=== PATIENT | female | born 1950 | race African-American/Black ===

== ENCOUNTER 2023-04-15 09:56 | Outpatient (REF) | payer MEDICARE, SELFPAY ==
--- NOTE | ~2023-04-15 | XR_ITS ---
EXAMINATION: XR HIP, RIGHT CLINICAL INFORMATION: Right hip pain. COMPARISON: None available. TECHNIQUE: AP view of the pelvis and a frog-leg lateral view of the right hip. FINDINGS: There is eomkglni-at-jvtudo osteoarthritis in the right hip with marked cephalad joint space narrowing, marginal osteophytes, articular sclerosis. Additional quzevmrd-ro-rgscul osteoarthritis is present in the pubic symphysis. There is more mild osteoarthritis noted in the left hip and SI joints. Degenerative spondylosis is noted in the lower lumbar spine. No fracture or malalignment. A 5 mm focus of calcific tendinitis is present at the greater trochanter. XR/XR hip RT min 2V IMPRESSION: 1. Vdkyudkb-mb-zrsobm osteoarthritis in the right hip and pubic symphysis. 2. Small focus of calcific tendinitis at the right greater trochanter.
== END 2023-04-15 09:57 | disposition home or self-care (01) ==
LOC: HO.HOSX 09:56
PROVIDERS: Visit Provider Orthopaedic Surgery
DX: M16.11 Unilateral primary osteoarthritis, right hip (principal); M25.551 Pain in right hip; M47.816 Spondylosis without myelopathy or radiculopathy, lumbar region
CPT/HCPCS: 73502; 99202

== ENCOUNTER 2023-04-15 12:46 | Outpatient (AMB) | payer MEDICARE, SELFPAY ==
--- NOTE | 2023-04-15 12:47 | MHC.OFFVIS ---
Intake Vital Signs 04/15/23 13:00 Height 5 ft 5.5 in Weight 175 lb BMI 28.7 Intake Visit Reasons: nnps- right hip pain/ Confirmed Intake Note: Zina is a 72 year old female who presents as a new patient with Right hip pain. Patient reports her pain has been going on for about 2 years and is a 10 on the 1-10 pain scale. She states that she has had cortisone injections that give a little bit of relief. She has also tried Tylenol, anti-inflammatory medicines and tramadol which gave her minimal relief. Most of the pain is located within her right groin. The patient has difficulty walking even short distances because of her pain. At this point her right hip pain is interfering with her activities of daily living and her ability to sleep well through the night. Allergies Sulfa (Sulfonamide Antibiotics) Allergy (Intermediate, Verified 04/15/23 13:03) Anaphylaxis Medication List - Last Reconciled 04/15/23 by Maco Ibrahim MD famotidine 20 mg PO BID hydrocodone-acetaminophen 5-325 mg 1 tab PO Q8H PRN losartan 50 mg PO DAILY tramadol 50 mg PO BID PRN Physical Exam Vital Signs: BMI result Body Mass Index 28.7 Const Other: Well-nourished well-developed very friendly female awake alert and oriented x3 in no acute distress Extrem Other: Bilateral lower extremity examination shows good capillary refill, no skin lesions noted, normal sensation light touch Right hip examination shows decreased range of motion when compared to her left hip, pain with range of motion, no tenderness over her bursa Results Reviewed Results Reviewed: X-rays of the patient's right hip show end-stage degenerative joint disease with grade 4 vcpa-rq-yfhv arthritis, subchondral sclerosis, osteophyte formation, no acute bony abnormalities Assessment & Plan Assessment & Plan (1) Arthritis of right hip: Code(s): M16.11 - Unilateral primary osteoarthritis, right hip Plan Ms. Napoles presents with progressively worsening right hip pain due to end-stage degenerative joint disease. I had a lengthy discussion with the patient regarding the treatment options. At this point she has failed continued non operative treatments. The risks and benefits of right total hip replacement surgery were discussed at length with the patient. The patient wishes to proceed with surgery. She will be scheduled for our next available date. I will see her back 1 week prior to her surgery to answer any final questions that she might have. I did give her a prescription for hydrocodone to help with her pain in the meantime. Feel free to call me at any time should questions regarding her orthopedic management arise. Thank you very much for asking me to see this very friendly patient. I spent 22 minutes in reviewing the patient's records and imaging studies, seeing the patient and documenting in the medical record. Orders: Orders XR hip RT min 2V Today M25.551 - Pain in right hip Medications: New hydrocodone-acetaminophen 5-325 mg Partial Fill upon patient request. 1 tab PO Q8H PRN 30 tabs 0RF pain Coding Level of Care Code New Pt Level 2 (01281) Diagnoses Arthritis of right hip M16.11
[2023-04-15 13:00] VITALS: BMI 28.7
== END 2023-04-15 13:14 | disposition home or self-care (01) ==
PROVIDERS: PCP Internal Medicine; Visit Provider Orthopaedic Surgery
DX: M16.11 Unilateral primary osteoarthritis, right hip (principal)
CPT/HCPCS: 99202

== ENCOUNTER 2023-05-06 11:10 | Outpatient (AMB) | payer MEDICARE, SELFPAY ==
--- NOTE | 2023-05-06 11:16 | MHC.OFFVIS ---
Intake Vital Signs 05/06/23 11:17 Height 5 ft 5 in Weight 175 lb BMI 29.1 Intake Visit Reasons: New Prob- B/L Knee pain Intake Note: Zina is a 72 year old female who presents with bilateral knee pain. Patient reports her pain had been going on for about 6 years and is a 10 on the 1-10 pain scale. She states her pain is worse on the Right and denies any injury and surgery. Her last injections in the knees was in November and gave little relief. The patient also has progressively worsening right hip pain. She is scheduled to undergo right total hip replacement surgery in July. She has tried Tylenol, anti-inflammatory medicines and hydrocodone which gave her only mild relief. Allergies Sulfa (Sulfonamide Antibiotics) Allergy (Intermediate, Verified 04/15/23 13:03) Anaphylaxis Medication List - Last Reconciled 05/06/23 by Mcao Ibrahim MD cholecalciferol (vitamin D3) 25 mcg PO DAILY famotidine 20 mg PO BID fluticasone propionate 50 mcg/actuation (Flonase Allergy Relief) 1 spray intranasal DAILY hydrocodone-acetaminophen 5-325 mg 1 tab PO Q8H PRN losartan 50 mg PO DAILY Physical Exam Vital Signs: BMI result Body Mass Index 29.1 Const Other: Well-nourished well-developed very friendly female awake alert and oriented x3 in no acute distress Extrem Other: Bilateral lower extremity examination shows good capillary refill, no skin lesions noted, normal sensation light touch Bilateral knee examination shows minimal effusions, palpable crepitus with range of motion, pain with range of motion, no instability Office Procedures Joint Injection/Drain Joint Injection/Drain Primary Site: left knee Prep: site was prepped using aseptic technique Injected: 40 mg of, DepoMedrol and 1% plain lidocaine Procedure: The patient tolerated the procedure well Coding 92699 - Large joint Procedure code (CPT) selection complete Joint Injection/Drain Joint Injection/Drain Primary Site: right knee Prep: site was prepped using aseptic technique Injected: 40 mg of, DepoMedrol and 1% plain lidocaine Procedure: The patient tolerated the procedure well Coding 98148 - Large joint Procedure code (CPT) selection complete Results Reviewed Results Reviewed: X-rays of the patient's left knee taken today show moderate joint space narrowing, subchondral sclerosis, no acute bony abnormalities X-rays of the patient's right knee taken today show moderate to severe joint space narrowing, subchondral sclerosis, no acute bony abnormalities Assessment & Plan Assessment & Plan (1) Arthritis of left knee: Code(s): M17.12 - Unilateral primary osteoarthritis, left knee (2) Arthritis of right knee: Code(s): M17.11 - Unilateral primary osteoarthritis, right knee Plan Ms. Napoles presents with bilateral knee pains due to degenerative joint disease. I had a lengthy discussion with the patient regarding the treatment options. The risks and benefits of bilateral knee cortisone injections were discussed at length with the patient. The patient wished to proceed with the injections. She tolerated the injections well. She will continue with her activity modifications. She will follow-up as scheduled for her right total hip replacement surgery preoperative appointment. Feel free to call me at any time should questions regarding her orthopedic management arise. I spent 22 minutes in reviewing the patient's records and imaging studies, seeing the patient and documenting in the medical record. Orders: Orders XR knee RT 3V Today M25.561 - Pain in right knee AMB Joint Injection/Aspiration Today M17.12 - Unilateral primary osteoarthritis, left knee AMB Joint Injection/Aspiration Today M17.11 - Unilateral primary osteoarthritis, right knee XR knee LT 3V Today M25.562 - Pain in left knee Coding Level of Care Code Est Pt Level 2 (73816) Diagnoses Arthritis of left knee M17.12 Arthritis of right knee M17.11 CPT Codes Coding - 58308 Large joint: 47553 - Large joint ([id number]) Coding - 82361 Large joint: 49483 - Large joint ([id number])
[2023-05-06 11:17] VITALS: BMI 29.1
== END 2023-05-06 12:17 | disposition home or self-care (01) ==
PROVIDERS: PCP Internal Medicine; Visit Provider Orthopaedic Surgery
DX: M17.0 Bilateral primary osteoarthritis of knee (principal)
CPT/HCPCS: 20610; 99213

== ENCOUNTER 2023-05-06 11:37 | Outpatient (REF) | payer MEDICARE, SELFPAY ==
--- NOTE | ~2023-05-06 | XR_ITS ---
EXAMINATION: X-RAY BILATERAL KNEES CLINICAL INDICATION: Pain. COMPARISON: Radiograph right knee 08/26/2014. TECHNIQUE: 3 views of each knee. FINDINGS: Right knee: No fracture or subluxation. Moderate to severe joint space narrowing with subcortical sclerosis in the lateral compartment. Mild joint space narrowing of the medial and patellofemoral compartments. Minimal marginal osteophytes in the medial and lateral compartments. Small upper patellar osteophytes. These findings are new compared to 2015. No joint effusion. No significant soft tissue abnormality. Left knee: No fracture or subluxation. Moderate to severe joint space narrowing with subcortical sclerosis in the lateral compartment. Mild joint space narrowing of the medial and patellofemoral compartments. Moderate spurring in the upper pole of the patella. No joint effusion. No significant soft tissue abnormality. XR/XR knee RT 3V IMPRESSION: 1. No acute fracture or subluxation. 2. Moderate to severe arthrosis of the lateral compartments in both knees, slightly more severe on the right knee. 3. Upper patellar spurring, more prominent in the left knee.
--- NOTE | ~2023-05-06 | XR_ITS ---
EXAMINATION: X-RAY BILATERAL KNEES CLINICAL INDICATION: Pain. COMPARISON: Radiograph right knee 08/26/2014. TECHNIQUE: 3 views of each knee. FINDINGS: Right knee: No fracture or subluxation. Moderate to severe joint space narrowing with subcortical sclerosis in the lateral compartment. Mild joint space narrowing of the medial and patellofemoral compartments. Minimal marginal osteophytes in the medial and lateral compartments. Small upper patellar osteophytes. These findings are new compared to 2015. No joint effusion. No significant soft tissue abnormality. Left knee: No fracture or subluxation. Moderate to severe joint space narrowing with subcortical sclerosis in the lateral compartment. Mild joint space narrowing of the medial and patellofemoral compartments. Moderate spurring in the upper pole of the patella. No joint effusion. No significant soft tissue abnormality. XR/XR knee LT 3V IMPRESSION: 1. No acute fracture or subluxation. 2. Moderate to severe arthrosis of the lateral compartments in both knees, slightly more severe on the right knee. 3. Upper patellar spurring, more prominent in the left knee.
== END 2023-05-06 11:38 | disposition home or self-care (01) ==
LOC: HO.HOSX 11:37
PROVIDERS: Visit Provider Orthopaedic Surgery
DX: M17.0 Bilateral primary osteoarthritis of knee (principal); M25.551 Pain in right hip; Z79.899 Other long term (current) drug therapy
CPT/HCPCS: 20610; 73562; 99212; J1020

== ENCOUNTER 2023-06-10 09:03 | Outpatient (REF) | payer MEDICARE, SELFPAY ==
--- NOTE | ~2023-06-10 | XR_ITS ---
EXAMINATION: XR SHOULDER, LEFT CLINICAL INFORMATION: Reason for Exam M25.512 - Pain in left shoulder COMPARISON: None TECHNIQUE: Two views of the shoulder. FINDINGS: No acute fracture or dislocation. Advanced degenerative changes of the shoulder with complete loss of glenohumeral joint space. Soft tissues are unremarkable. XR/XR shoulder LT min 2V IMPRESSION: Advanced degenerative changes of the shoulder with complete loss of glenohumeral joint space.
--- NOTE | ~2023-06-10 | XR_ITS ---
EXAMINATION: XR SHOULDER, RIGHT CLINICAL INFORMATION: Reason for Exam M25.511 - Pain in right shoulder COMPARISON: None TECHNIQUE: Two views of the shoulder. FINDINGS: No acute fracture or dislocation. Advanced degenerative changes of the shoulder with complete loss of glenohumeral joint space and bulky glenohumeral osteophytes. Soft tissues are unremarkable. XR/XR shoulder RT min 2V IMPRESSION: Advanced degenerative changes of the shoulder.
== END 2023-06-10 09:04 | disposition home or self-care (01) ==
LOC: HO.HOSX 09:03
PROVIDERS: Visit Provider Orthopaedic Surgery
DX: M25.50 Pain in unspecified joint (principal); M25.512 Pain in left shoulder; M25.511 Pain in right shoulder
CPT/HCPCS: 20610; 73030; 99212; J1010; J1020

== ENCOUNTER 2023-06-10 12:38 | Outpatient (AMB) | payer MEDICARE, SELFPAY ==
[2023-06-10 12:58] VITALS: BMI 29.1
--- NOTE | 2023-06-10 12:58 | A.OFFVIS_ITS ---
Intake Vital Signs 06/10/23 12:58 Height 5 ft 5 in Weight 175 lb BMI 29.1 Intake Visit Reasons: New Prob - B/L shoulder pain Intake Note: Zina is a 72 year old Right hand dominate female who presents with bilateral shoulder pain and limited ROM. Patient reports her pain has been going on for about 13 years and is a 10 on the 1-10 pain scale. She states her Left is worse and is using hydrocodone for the pain with no relief. She has had surgery in Right shoulder in April 2010. She has had injections in the shoulders they gave her good relief and would like to have bilateral shoulder injections today. Allergies Sulfa (Sulfonamide Antibiotics) Allergy (Intermediate, Verified 04/15/23 13:03) Anaphylaxis Medication List - Last Reconciled 06/10/23 by Maco Ibrahim MD cholecalciferol (vitamin D3) 25 mcg PO DAILY famotidine 20 mg PO BID fluticasone propionate 50 mcg/actuation (Flonase Allergy Relief) 1 spray intranasal DAILY hydrocodone-acetaminophen 5-325 mg 1 tab PO Q8H PRN losartan 50 mg PO DAILY Physical Exam Vital Signs: BMI result Body Mass Index 29.1 Const Other: Well-nourished well-developed very friendly female awake alert and oriented x3 in no acute distress Extrem Other: Bilateral upper extremity examination shows good capillary refill, no skin lesions noted, normal sensation light touch Bilateral shoulder examination shows limited range of motion both passively and actively, pain with range of motion, palpable crepitus with range of motion Office Procedures Joint Injection/Drain Joint Injection/Drain Primary Site: left shoulder Prep: site was prepped using aseptic technique Injected: 40 mg of, DepoMedrol and 1% plain lidocaine Procedure: The patient tolerated the procedure well Coding 27870 - Large joint Procedure code (CPT) selection complete Joint Injection/Drain Joint Injection/Drain Primary Site: right shoulder Prep: site was prepped using aseptic technique Injected: 40 mg of, DepoMedrol and 1% plain lidocaine Procedure: The patient tolerated the procedure well Coding 61384 - Large joint Procedure code (CPT) selection complete Results Reviewed Results Reviewed: X-rays of the patient's bilateral shoulder show severe glenohumeral joint space narrowing, subchondral sclerosis, osteophyte formation, no acute bony abnormalities Assessment & Plan Assessment & Plan (1) Joint pain: Code(s): M25.50 - Pain in unspecified joint (2) Left shoulder pain: Code(s): M25.512 - Pain in left shoulder (3) Right shoulder pain: Code(s): M25.511 - Pain in right shoulder Plan Ms. Napoles presents with bilateral shoulder pains due to severe glenohumeral joint degenerative joint disease as well as diffuse pains in other joints. The patient states that she has not been evaluated for possible rheumatoid arthritis or any other immune diseases. Thus, I will send her for blood work for further evaluation. She wishes to hold off on total shoulder replacement surgery for as long as possible. I agree with this plan. The risks and benefits of bilateral shoulder cortisone injections were discussed at length with the patient. The patient wished to proceed. She tolerated the injections well. The patient is also interested in having total hip replacement surgery in the near future. Thus, I will arrange for her to have an appointment with my partner, Dr. Mima gutierrez, who can further discuss this type of surgery with her. Feel free to call me at any time should questions regarding her orthopedic management arise. I spent 22 minutes in reviewing the patient's records and imaging studies, seeing the patient and documenting in the medical record. Orders: Orders XR shoulder RT min 2V Today M25.511 - Pain in right shoulder Erythrocyte Sedimentation Rate Today M25.50 - Pain in unspecified joint AMB Joint Injection/Aspiration Today M25.512 - Pain in left shoulder XR shoulder LT min 2V Today M25.512 - Pain in left shoulder Rheumatoid Factor Today M25.50 - Pain in unspecified joint AIMEE Reflex Titer and Pattern Today M25.50 - Pain in unspecified joint AMB Joint Injection/Aspiration Today M25.511 - Pain in right shoulder Coding Level of Care Code Est Pt Level 2 (00395) Diagnoses Joint pain M25.50 Left shoulder pain M25.512 Right shoulder pain M25.511 CPT Codes Coding - 45063 Large joint: 13587 - Large joint ([id number]) Coding - 64920 Large joint: 72997 - Large joint ([id number])
== END 2023-06-10 13:42 | disposition home or self-care (01) ==
PROVIDERS: PCP Internal Medicine; Visit Provider Orthopaedic Surgery
DX: M25.512 Pain in left shoulder (principal); M25.511 Pain in right shoulder
CPT/HCPCS: 20610; 99213

== ENCOUNTER 2023-06-29 12:25 | Outpatient (AMB) | payer MEDICARE, SELFPAY ==
[2023-06-29 12:28] VITALS: BMI 29.1
--- NOTE | 2023-06-29 12:28 | MHC.OFFVIS ---
Vital Signs 06/29/23 12:28 Height 5 ft 5 in Weight 175 lb BMI 29.1 Intake Visit Reasons: OV - RT CHAD 08/24/23 - Discuss Surgery Intake Note: Sully is a 63 year old female who presents today for a follow up of her right knee OA. At her last visit she was instructed to continue NSAIDs and continue activity as tolerated. Patient reports that she is having severe pain the is interfering with her daily activities. Allergies Sulfa (Sulfonamide Antibiotics) Allergy (Intermediate, Verified 04/15/23 13:03) Anaphylaxis HPI HPI OV - RT CHAD 08/24/23 - Discuss Surgery: Details: This is a 89 yo F who was scheduyled for right CHAD in late july with Patrice. She describes severe right hipo and knee pain that prevents her from walking, engaging in ADLs without pain and decreases the quality of her life. Patient reports her pain has been going on for about 2 years. She states that she has had cortisone injections that give a little bit of relief. She has also tried Tylenol, anti-inflammatory medicines and tramadol which gave her minimal relief. Most of the pain is located within her right groin. The patient has difficulty walking even short distances because of her pain. At this point her right hip pain is interfering with her activities of daily living and her ability to sleep well through the night. Physical Exam Vital Signs: BMI result Body Mass Index 29.1 Const General: cooperative, healthy appearing, no acute distress, well developed and alert HEENT Head: Yes normal to inspection, Yes normocephalic and Yes atraumatic Mouth: moist mucous membranes Eyes General: appearance normal, both eyes and all related structures EOM: EOMs intact bilaterally Resp Other: No audible wheezing Effort & Inspection: normal respiratory effort Cardio Other: Radial pulse palpable with no rythmic abnormalities Back/Spine/Pelvis Cervical Spine: normal cervical lordosis Skin General skin exam: no rashes or lesions noted Neuro General: no focal motor deficits Extrem Other: +gait antalgia + impingement + stinchfield Minimal IR Psych Appearance: grossly normal and well kempt Mental Status: mental status grossly normal Speech and movement: Normal speech and movement present Affect: normal affect Attitude: cooperative Results Reviewed Results Reviewed: I personally reviewed relevant radiographs. There is compete loss of joint space on the right c/w severe hip OA. Assessment & Plan Assessment & Plan (1) Arthritis of right hip: Code(s): M16.11 - Unilateral primary osteoarthritis, right hip Category: Medical Plan: This is a 72 yo with right hip OA that is sever and compromising the quality of her life. She has failed non operative management and I recommend right hip arthroplasty. I discussed this with her. I discussed the risks benefits and alternatives including but not limited to the risk of pain, infection, stiffness, fracture, dislocation, leg length discrepancy and the need for further surgery as well as potential medical complications such as blood clots, pulmonary embolism and cardiac complications. She expressed understanding and we will proceed forward accordingly. Coding Level of Care Code Est Pt Level 4 (50943) Diagnoses Arthritis of right hip M16.11
== END 2023-06-29 15:50 | disposition home or self-care (01) ==
PROVIDERS: PCP Internal Medicine; Visit Provider Orthopaedic Surgery
DX: M16.11 Unilateral primary osteoarthritis, right hip (principal)
CPT/HCPCS: 99214

== ENCOUNTER → 2023-06-29 12:25 | Outpatient (BNVA) | payer MEDICARE, SELFPAY | PROVIDERS: PCP Internal Medicine; Visit Provider Orthopaedic Surgery | DX: M16.11 Unilateral primary osteoarthritis, right hip (principal); M25.561 Pain in right knee | CPT/HCPCS: 99212 ==

== ENCOUNTER → 2023-07-02 12:51 | Outpatient (BNVA) | payer MEDICARE, SELFPAY | PROVIDERS: PCP Internal Medicine | DX: Z01.818 Encounter for other preprocedural examination (principal) ==

== ENCOUNTER 2023-07-30 13:35 | Outpatient (AMB) | payer MEDICARE, SELFPAY ==
--- NOTE | 2023-07-30 13:43 | A.OFFVIS_ITS ---
Intake Visit Reasons: R CHAD w/NE 08/05/23 Intake Note: Zina a 72 year old female who presents today for a preoperative of right CHAD on 08/05/23 NE. Pain management agreement reviewed and signed. Allergies Sulfa (Sulfonamide Antibiotics) Allergy (Severe, Verified 07/30/23 13:49) Anaphylaxis Medication List - Last Reconciled 07/30/23 by Ethel Laboy PA-C acetaminophen 1,000 mg PO Q6H PRN cholecalciferol (vitamin D3) 25 mcg PO DAILY famotidine 20 mg PO .[facility] [employer] [facility] fluticasone propionate 50 mcg/actuation (Flonase Allergy Relief) 1 spray intranasal DAILY hydrocodone-acetaminophen 5-325 mg 1 tab PO Q8H PRN losartan 50 mg PO DAILY montelukast 10 mg PO DAILY tramadol 50 mg PO QID PRN HPI Comments Details: Ms Napoles presents to the office today for preop visit. She is scheduled for right total hip arthroplasty with Dr. Del Rosario. She continues to have ongoing pain and difficulty with ambulation in the right hip, which is affecting her quality of life; therefore, she has elected to move forward with surgery. [facility] Medical History (Updated 07/28/23 @ 14:13 by Evelina Hernandez RN) Situational anxiety Seasonal allergies Osteoarthritis Osteoarthritis GERD (gastroesophageal reflux disease) HTN (hypertension) Surgical History Hx of colonoscopy Hx of section (1984) History of arthroscopy of right shoulder (~2010) Social History Household Members: Other Household Members Other:: [facility] Housing: Apartment Are you a primary healthcare interpreter to a significant other at home: Yes ([facility], family will help while patient hospitalized) Do you presently have visiting nurse or other home services: No (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 If so, by whom?: No Are you DNR?: No Advance Directives: No Advance Directives Information Provided: Yes Advance Directives on File: No Recently lost weight without trying: No Review of Systems Const All systems reviewed & are unremarkable except as noted in HPI and below Physical Exam Const General: cooperative and no acute distress Orientation/consciousness: patient oriented x3 HEENT Head: Yes normal to inspection, Yes normocephalic and Yes atraumatic Mouth: moist mucous membranes Eyes General: appearance normal, both eyes and all related structures EOM: EOMs intact bilaterally Neck Neck: Yes normal visual inspection and Yes no lymphadenopathy Resp Other: No audible wheezing Effort & Inspection: normal respiratory effort and able to speak in complete sentences Cardio Other: Radial pulse palpable with no rythmic abnormalities Rate: regular rate Peripheral pulses: Peripheral pulses 2+ throughout GI Inspection: Yes normal to inspection Palpation (GI): Soft to palpation Back/Spine/Pelvis Cervical Spine: normal cervical lordosis Skin General skin exam: no rashes or lesions noted Neuro General: patient oriented x3 Extrem Other: +gait antalgia + impingement + stinchfield Minimal IR Psych Appearance: grossly normal and well kempt Mental Status: mental status grossly normal Speech and movement: Normal speech and movement present Affect: normal affect Attitude: cooperative Assessment & Plan Assessment & Plan (1) Arthritis of right hip: Code(s): M16.11 - Unilateral primary osteoarthritis, right hip Category: Medical Plan I discussed in detail the procedure and what to expect pre and post operatively. We discussed the risks, benefits and alternatives to the surgery as well as the rehabilitation course. The risks; which include, but are not limited to infection, bleeding, nerve injury, ongoing pain, swelling, and stiffness, perioperative risk of injury to bones and soft tissues, and blood clots. I?ve answered all questions and with their understanding they have consented to move forward with Right total hip arthroplasty with Dr. Del Rosario sulfa allergy -avoid asa and celebrex anaphalyxis VTE Risk: Elevated Bleeding Risk: Elevated VTE Prophylaxis: 35 days chemical VTE prophylaxis plus IPC's while inpatient. Agent at surgeon's discretion Orders: Orders PT Evaluation and Treatment 07/30/23 Z96.641 - Presence of right artificial hip joint Medications: New [Raised toilet seat] As directed 1 ea 0RF duration 99 days M16.11 - Unilateral primary osteoarthritis, right hip walker Folding Front wheeled walker 1 ea 0RF duration 99 days M16.11 - Unilateral primary osteoarthritis, right hip [SHOWER CHAIR] As directed 1 ea 0RF M16.11 - Unilateral primary osteoarthritis, right hip Patient Instructions: Scribed for Ethel Laboy PA-C, by Paulo Somers medical care manager, on 07/30/2023 at 1:45 PM EST.? I, Ethel Laboy PA-C, have personally reviewed and agree with the information entered by the scribe. Coding Level of Care Code Est Pt Level 3 (41900) Diagnoses Arthritis of right hip M16.11
== END 2023-08-03 10:14 | disposition home or self-care (01) ==
PROVIDERS: PCP Internal Medicine; Visit Provider Physician Assistant
DX: M16.11 Unilateral primary osteoarthritis, right hip (principal)
CPT/HCPCS: 99213

== ENCOUNTER → 2023-07-30 13:35 | Outpatient (BNVA) | payer MEDICARE, SELFPAY | PROVIDERS: PCP Internal Medicine; Visit Provider Physician Assistant | DX: M16.11 Unilateral primary osteoarthritis, right hip (principal) | CPT/HCPCS: 99212 ==

== ENCOUNTER 2023-08-05 07:10 | Day surgery (SDC) | payer MEDICARE, SELFPAY ==
[2023-07-28 13:50] VITALS: BP 124/79; PULSE 84; RESP 16; O2SAT 99; BMI 29.6
[2023-07-28 16:23] LABS: MRSA Nasal PCR NEGATIVE (Negative); SA Nasal PCR NEGATIVE (Negative)
[2023-08-05] VITALS (19 sets, daily range): BP systolic 142–179; BP diastolic 67–89; PULSE 64–89; RESP 11–24; TEMP 36.3–37; O2SAT 96–100
--- NOTE | ~2023-08-05 | XR_ITS ---
EXAMINATION: XR PELVIS CLINICAL INFORMATION: Status post right total hip arthroplasty COMPARISON: X-ray the pelvis and right hip April 2023 TECHNIQUE: AP view of the pelvis. FINDINGS: There is a right total hip arthroplasty with components in usual position. No periprosthetic fracture or suspicious area of lucency. Trace gas within the soft tissues compatible with postoperative change. There are advanced degenerative changes of the symphysis pubis. Sacroiliac joints unremarkable. Surrounding bone and soft tissues unremarkable. XR/XR pelvis 1-2V IMPRESSION: Right total hip arthroplasty without complication by x-ray.
[2023-08-05] MEDS: oxyCODONE HCl ER 10 MG TAB.ER.12H PO ×2 (08:05→20:58)
[2023-08-05] MEDS: Lactated Ringers 1,000 ML 100 ML IVCONT ×2 (08:05→14:03)
--- NOTE | 2023-08-05 09:01 | PC.NURSE ---
iv inserted by anesthesia #24 left wrist
--- NOTE | 2023-08-05 09:05 | HO.ANESPROP2 ---
Documented by User: Tsering Sharif NP 08/04/23 09:18 HPI - Anesthesia Eval Consult details Narrative: 72yo F for Right Hip Total Replacement Medically optimized. PAT with Dr Germain 07/28/23 [facility] Active Problems Active Problems: All Active Problems Joint pain (Acute) Right shoulder pain (Acute) Left shoulder pain (Acute) Arthritis of right knee (Acute) Arthritis of left knee (Acute) Right knee pain (Acute) Left knee pain (Acute) PMR (polymyalgia rheumatica) (Acute) Osteoporosis (Acute) Osteoarthritis (Acute) Oral herpes (Acute) HTN (hypertension) (Acute) GERD (gastroesophageal reflux disease) (Acute) Environmental allergies (Acute) Edema (Acute) Chronic sinusitis (Acute) Arthritis of right hip (Acute) Right hip pain (Acute) Past Medical History Medical History (Updated 07/28/23 @ 14:13 by Evelina Hernandez RN) Situational anxiety Seasonal allergies Osteoarthritis Osteoarthritis GERD (gastroesophageal reflux disease) HTN (hypertension) Surgical History Surgical History Hx of colonoscopy Hx of section (1984) History of arthroscopy of right shoulder (~2010) Social History Social History Household Members: Other Household Members Other:: [facility] Housing: Apartment Are you a primary health care marketing specialist to a significant other at home: Yes ([facility], family will help while patient hospitalized) Do you presently have visiting nurse or other home services: No (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-op) Comment: aware of trip hazard Patient Tobacco Use Status: Never used Tobacco Meds Allergies Allergy/AdvReac Type Severity Reaction Status Date / Time Sulfa (Sulfonamide Allergy Severe Anaphylaxis Verified 07/30/23 13:49 Antibiotics) Home Medications ?Medication ?Instructions ?Recorded ?Confirmed ?Last Taken ?Type famotidine 20 mg tablet 20 mg PO .AFTERNOON AND MARY 04/15/23 07/30/23 08/04/23 History losartan 50 mg tablet 50 mg PO DAILY 04/15/23 07/30/23 08/04/23 History cholecalciferol (vitamin D3) 25 25 mcg PO DAILY 04/17/23 07/30/23 08/04/23 History mcg (1,000 unit) capsule fluticasone propionate 50 1 spray intranasal DAILY 04/17/23 07/30/23 08/04/23 History mcg/actuation nasal spray,suspension (Flonase Allergy Relief) tramadol 50 mg tablet 50 mg PO QID PRN Pain 07/02/23 07/30/23 08/04/23 History acetaminophen 500 mg tablet 1,000 mg PO Q6H PRN Pain 07/24/23 07/30/23 08/04/23 History montelukast 10 mg tablet 10 mg PO DAILY 07/24/23 07/30/23 08/05/23 History Exam Height,Weight and Vital Signs: Height 5 ft 5.5 in Weight 81.8 kg Last Vital Signs Pulse 84 07/28/23 13:50 Resp 16 07/28/23 13:50 BP 124/79 07/28/23 13:50 Pulse Ox 99 07/28/23 13:50 O2 Del Method Room Air 07/28/23 13:50 Pertinent Lab Results Pertinent Lab Results: Laboratory Tests 07/28/23 07/28/23 14:30 14:55 Nasal Screen MRSA (PCR) NEGATIVE Nasal S. aureus Screen NEGATIVE Nasal MRSA/S.aureus Interp SEE NOTE Blood Type A Positive Antibody Screen NEGATIVE CBC and BMP 07/2023 from outside facility WNL except low H&H Narrative Narrative: EKG 07/2023 NSR @ 75 Min volt criteria for LVH Assessment and Plan Assessment Anesthesia Assessment: Chart Reviewed Documented by User: Radha Levine DO 08/05/23 09:21 [facility] Past Medical History Medical History (Updated 07/28/23 @ 14:13 by Evelina Hernandez RN) Situational anxiety Seasonal allergies Osteoarthritis Osteoarthritis GERD (gastroesophageal reflux disease) HTN (hypertension) Family History Family history of problems with anesthesia: No Surgical History Surgical History Hx of colonoscopy Hx of section (1984) History of arthroscopy of right shoulder (~2010) History of Problems with Anesthesia: No Social History Social History Household Members: Other Household Members Other:: [facility] Housing: Apartment Are you a primary health care marketing specialist to a significant other at home: Yes ([facility], family will help while patient hospitalized) Do you presently have visiting nurse or other home services: No (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-op) Comment: aware of trip hazard Patient Tobacco Use Status: Never used Tobacco Meds Allergies Allergy/AdvReac Type Severity Reaction Status Date / Time Sulfa (Sulfonamide Allergy Severe Anaphylaxis Verified 07/30/23 13:49 Antibiotics) Home Medications ?Medication ?Instructions ?Recorded ?Confirmed ?Last Taken ?Type famotidine 20 mg tablet 20 mg PO .[facility]ON AND MARY 04/15/23 07/30/23 08/04/23 History losartan 50 mg tablet 50 mg PO DAILY 04/15/23 07/30/23 08/04/23 History cholecalciferol (vitamin D3) 25 25 mcg PO DAILY 04/17/23 07/30/23 08/04/23 History mcg (1,000 unit) capsule fluticasone propionate 50 1 spray intranasal DAILY 04/17/23 07/30/23 08/04/23 History mcg/actuation nasal spray,suspension (Flonase Allergy Relief) tramadol 50 mg tablet 50 mg PO QID PRN Pain 07/02/23 07/30/23 08/04/23 History acetaminophen 500 mg tablet 1,000 mg PO Q6H PRN Pain 07/24/23 07/30/23 08/04/23 History montelukast 10 mg tablet 10 mg PO DAILY 07/24/23 07/30/23 08/05/23 History Exam Exam Date and Time: August 05, 2023 0902 Height,Weight and Vital Signs: Height 5 ft 5.5 in Weight 81.8 kg Last Vital Signs Pulse 84 07/28/23 13:50 Resp 16 07/28/23 13:50 BP 124/79 07/28/23 13:50 Pulse Ox 99 07/28/23 13:50 O2 Del Method Room Air 07/28/23 13:50 Height 5 ft 5.5 in Weight 81.8 kg Vital Signs Pulse Rate 84 07/28/23 13:50 Respiratory Rate 16 07/28/23 13:50 Blood Pressure 124/79 07/28/23 13:50 Pulse Oximetry 99 07/28/23 13:50 Oxygen Delivery Method Room Air 07/28/23 13:50 Temperature 98.4 F 08/05/23 07:58 Pulse Rate 89 08/05/23 07:58 Respiratory Rate 20 08/05/23 07:58 Blood Pressure 146/87 H 08/05/23 07:58 Pulse Oximetry 98 08/05/23 07:58 Oxygen Delivery Method Room Air 08/05/23 07:58 Airway Mallampati Class: III TM Dist: >3cm Neck ROM: Full Loose/Missing/Broken Teeth: No (patient denies any loose or broken teeth) Heart: S1S2 Lungs: CTAB Assessment and Plan Assessment Anesthesia Assessment: Anesthesia Plan Discussed and Chart Reviewed Final Anesthetic Review Family History of Problems with Anesthesia: No History of Problems with Anesthesia: No NPO: Yes ASA Class: III Final Preanesthetic Review: No Changes in Pt Med Stat, Meds/Allgs Chart Reviewed, Consent Obtained/Reviewed and Anes Risks/Benef Reviewed Patient Risk: Intermediate Procedure Risk: Intermediate Anesthetic Plan Anesthetic Plan: GA and Agree w/ Assess. and Plan Disposition: Standard PACU
--- NOTE | 2023-08-05 10:00 | MHC.SHP ---
Pre-Procedural Eval Section A - 24 Hr Update-Section A only Date of Service: 08/05/23 The patient is an INPATIENT: No Changes since office visit: No Cold of Flu in the past 2 weeks, No New Medical Problems, No Changes in Medication and No Patient answered all questions The patient has been examined within 24 hours of the surgical procedure. The History & Physical has been completed within 30 days and I have reviewed it.: Yes Section B - Complete if H&P > 30 days Chief Complaint: RTHA Allergies: Allergies Allergy/AdvReac Type Severity Reaction Status Date / Time Sulfa (Sulfonamide Allergy Severe Anaphylaxis Verified 07/30/23 13:49 Antibiotics) Plan I have reviewed the history and physical and performed a pertinent physical examination on my patient. No changes have occurred unless specified. Time Spent With Patient Time: Total time managing care of this patient today ____ minutes.
[2023-08-05] MEDS: HYDROmorphone HCl 0.5 MG/0.5 ML SYRINGE IVPUSH ×5 (12:15→12:42)
--- NOTE | 2023-08-05 13:57 | HO.PM.IMCN ---
History of Present Illness Data of Consult Service Date: 08/05/23 Requesting physician: Ethel Laboy Primary Care Provider: Jarod Wu MD [facility] Reason for consult: medical management 72 year old female with history of gerd, htn, pmr, and oa admitted to orthopedic surgery with consult placed to hospitalist service for medical management. She reports chronic body wide pain particularly in the shoulders and hips. She is status post right CHAD and is reporting pain focally. Does appear she may carry the diagnosis of polymyalgia rheumatica which she was not aware of. She states she is never followed with a windshield repair technician but upon reading Orthopedic office notes it appears that there is also suspicion that this may be contributing to the patient's overall clinical picture. Labs were ordered but are unavailable for review including ESR, CRP, AIMEE, and rheumatoid factor. She is mildly hypertensive to 168/74 and remains on 2 L supplemental O2 postoperatively but denies any shortness breath, lightheadedness, palpitations, chest pain. Oximetry is currently 100% on 2 L. she denies alcohol use, cigarette smoking, or drug use. Review of Systems Review of Systems: Yes all other systems are reviewed and are negative [facility] Medical History (Updated 08/05/23 @ 17:44 by MALACHI Bedolla) Osteoporosis PMR (polymyalgia rheumatica) Situational anxiety Seasonal allergies Osteoarthritis Osteoarthritis GERD (gastroesophageal reflux disease) HTN (hypertension) Surgical History Hx of colonoscopy Hx of section (1984) History of arthroscopy of right shoulder (~2010) Social History Household Members: Family Household Members Other:: [facility] Housing: House Are you a primary behavioral health care coordinator to a significant other at home: Yes ([facility], family will help while patient hospitalized) Do you presently have visiting nurse or other home services: No Comment: right hip Patient Tobacco Use Status: Never used Tobacco Meds Allergies Allergy/AdvReac Type Severity Reaction Status Date / Time Sulfa (Sulfonamide Allergy Severe Anaphylaxis Verified 07/30/23 13:49 Antibiotics) Active Medications: Current Medications Acetaminophen (Acetaminophen 325 Mg Tablet) 650 mg PO Q6H PRN PRN Reason: Pain, Mild (Pain Scale 1-3) Aspirin (Aspirin 325 Mg Tablet) 325 mg PO BID MEGHANN Celecoxib (Celecoxib 200 Mg Capsule) 200 mg PO BID [facility] Docusate Sodium (Docusate Sodium 100 Mg Capsule) 100 mg PO BID [facility] Famotidine (Famotidine 20 Mg Tablet) 20 mg PO BID@1400,2100 [facility] Fluticasone Propionate (Fluticasone Propionate Nasal [address] [place]) 1 spray NOSTRIL-B DAILY [facility] Hydromorphone HCl (Hydromorphone Hcl 0.5 Mg/0.5 Ml Syringe) 0.5 mg IVPUSH Q5M PRN; Protocol PRN Reason: Pain, Severe (Pain Scale 7-10) Stop: 08/05/23 18:39 Last Admin: 08/05/23 12:42 Dose: 0.5 mg Hydromorphone HCl (Hydromorphone Hcl 0.5 Mg/0.5 Ml Syringe) 0.25 mg IVPUSH Q4H PRN; Protocol PRN Reason: Pain, Severe (Pain Scale 7-10) Lactated Ringer's (Lr) 1,000 mls @ 100 mls/hr IVCONT .Q10H [facility] Cefazolin Sodium/Dextrose (Ancef) 2 gm in 50 mls @ 100 mls/hr IV POSTOP ONE Stop: 08/05/23 14:18 Losartan Potassium (Losartan Potassium 50 Mg Tablet) 50 mg PO DAILY [facility]; Protocol Montelukast Sodium (Montelukast Sodium 10 Mg Tablet) 10 mg PO DAILY [facility] Ondansetron HCl (Ondansetron Hcl 4 Mg/2 Ml Vial) 4 mg IVPUSH Q8H PRN PRN Reason: Nausea and Vomiting Oxycodone HCl (Oxycodone Hcl Immed Release 5 Mg Tablet) 5 mg PO Q4H PRN PRN Reason: Pain, Moderate(Pain Scale 4-6) Oxycodone HCl (Oxycodone Hcl Er 10 Mg Tab.Er.12h) 10 mg PO BID [facility] Sodium Chloride (0.9 % Sodium Chloride Flush 3 Ml Syringe) 3 ml IVFLUSH QSHIFT [facility] Vitamin D (Cholecalciferol (Vitamin D3) 25 Mcg Tablet) 25 mcg PO DAILY [facility] Home Medications ?Medication ?Instructions ?Recorded ?Confirmed ?Last Taken ?Type famotidine 20 mg tablet 20 mg PO BID 04/15/23 08/05/23 08/04/23 History losartan 50 mg tablet 50 mg PO DAILY 04/15/23 07/30/23 08/04/23 History cholecalciferol (vitamin D3) 25 25 mcg PO DAILY 04/17/23 07/30/23 08/04/23 History mcg (1,000 unit) capsule fluticasone propionate 50 1 spray intranasal DAILY 04/17/23 07/30/23 08/04/23 History mcg/actuation nasal spray,suspension (Flonase Allergy Relief) tramadol 50 mg tablet 50 mg PO QID PRN Pain 07/02/23 07/30/23 08/04/23 History acetaminophen 500 mg tablet 1,000 mg PO Q6H PRN Pain 07/24/23 07/30/23 08/04/23 History montelukast 10 mg tablet 10 mg PO DAILY 07/24/23 07/30/23 08/05/23 History Physical Exam Vital Signs and Narrative: Vital Signs: Last Vital Signs Temp 97.6 F 08/05/23 13:20 Pulse 69 08/05/23 13:35 Resp 12 08/05/23 13:35 BP 153/67 H 08/05/23 13:35 Pulse Ox 99 08/05/23 13:35 O2 Del Method Nasal Cannula wit h Capnography 08/05/23 13:35 O2 Flow Rate 2 08/05/23 13:35 BMI result Body Mass Index 29.6 Constitutional - Awake and Alert, No apparent distress Eyes - PERRLA, EOMI Cardiovascular - S1S2, RRR, No edema Respiratory - Normal lung expansion, Normal respiratory effort, No respiratory distress, CTA bilaterally Extremities - no calf tenderness bilaterally, no swelling Skin - Warm/Dry Neurological - Alert & oriented x3 Psychological - Appropriate affect Assessment and Plan (1) Osteoarthritis of right hip: Status: Acute Plan 72 year old female with history of gerd, htn, pmr, and oa admitted to orthopedic surgery with consult placed to hospitalist service for medical management. #OA R Hip s/p CHAD POD0 -plan per Orthopedic surgery #? Polymyalgia rheumatica -hx reported in [facility] record but denies following with rheumatology. Labs orderd by Dr. Pinzon but results are unavailable -recommend outpt follow up with rheumatology for further evalaution and possible management # hypertension -currently hypertensive to 168/74 and has been hypertensive since arrival -would recommend restarting losartan 50 mg tomorrow a.m. -monitor blood pressures # GERD -continue famotidine Thank you for allowing me to participate in this consult. Signing off at this time. Please do not hesitate to call for further questions or for any acute medical issues that should arise.
[2023-08-05] MEDS: Famotidine 20 MG TABLET PO ×2 (15:12→20:58)
[2023-08-05] MEDS: 0.9 % Sodium Chloride Flush 3 ML SYRINGE IVFLUSH ×2 (15:14→21:56)
[2023-08-05] MEDS: Acetaminophen 325 MG TABLET 650 MG PO (15:31)
[2023-08-05] MEDS: oxyCODONE HCl Immed Release 5 MG TABLET PO (15:32)
[2023-08-05] MEDS: ceFAZolin Sodium/Dextrose,Iso 2 GM/50 ML PIGGYBACK IV (16:56)
--- NOTE | 2023-08-05 18:04 | PC.NURSE ---
Pt assisted OOB to commode to void
[2023-08-05] MEDS: HYDROmorphone HCl 0.5 MG/0.5 ML SYRINGE 0.25 MG IVPUSH ×2 (18:09→22:13)
--- NOTE | 2023-08-05 18:16 | PHA.MEDREC ---
Pharmacy Consult ? Medication Reconciliation Pharmacy has completed the medication reconciliation. Confirmed medications with Patient.
[2023-08-05] MEDS: Docusate Sodium 100 MG CAPSULE PO (20:58)
[2023-08-05] MEDS: Celecoxib 200 MG CAPSULE PO (20:59)
[2023-08-06] MEDS: Lactated Ringers 1,000 ML 100 ML IVCONT ×3 (00:23→19:11)
[2023-08-06] MEDS: HYDROmorphone HCl 0.5 MG/0.5 ML SYRINGE 0.25 MG IVPUSH ×3 (03:56→13:19)
[2023-08-06 03:58] VITALS: BP 143/65; PULSE 69; RESP 18; TEMP 36.3; O2SAT 97
[2023-08-06 07:51] VITALS: BP 147/65; PULSE 73; RESP 18; TEMP 36.2; O2SAT 97
[2023-08-06] MEDS: Montelukast Sodium 10 MG TABLET PO (07:55)
[2023-08-06] MEDS: Cholecalciferol (Vitamin D3) 25 MCG TABLET PO (07:55)
[2023-08-06] MEDS: Docusate Sodium 100 MG CAPSULE PO ×2 (07:55→21:11)
[2023-08-06] MEDS: Aspirin 325 MG TABLET PO ×2 (07:55→21:10)
[2023-08-06 07:57] VITALS: BP 147/65
[2023-08-06] MEDS: Losartan Potassium 50 MG TABLET PO (07:57)
[2023-08-06] MEDS: Celecoxib 200 MG CAPSULE PO ×2 (07:58→21:11)
[2023-08-06] MEDS: oxyCODONE HCl ER 10 MG TAB.ER.12H PO ×2 (07:58→21:10)
[2023-08-06] MEDS: Fluticasone Propionate Nasal 16 GM SPRAY 1 SPRAY NOSTRIL-B (08:49)
[2023-08-06 09:19] VITALS: BP 147/65
--- NOTE | 2023-08-06 09:23 | P.PNOP_ITS ---
Subjective Subjective Date of Service: 08/06/23 Interval history: POD 1 s/p RT CHAD no overnight events resting in bed , tolerating pain well denies cp, palpitations, sob Physical Exam Vital Signs: Vital Signs: Last Vital Signs Temp 97.2 F 08/06/23 07:51 Pulse 73 08/06/23 07:51 Resp 18 08/06/23 07:51 BP 147/65 H 08/06/23 07:57 Pulse Ox 97 08/06/23 07:51 O2 Del Method Room Air 08/06/23 07:51 O2 Flow Rate 2 08/05/23 14:16 BMI result Body Mass Index 29.6 Extrem: Other: incision clean dry and intact. Ganesh intact. No erythema or effusion. Calf supple nontender. Neurovascularly intact. Procedures Date of Service Date of Service: 08/06/23 Progress Note: A&P Assessment and plan (1) History of total right hip replacement: Status: Acute Assessment and Plan: * Continue pain mgmnt * Begin Aspirin for dvt ppx * begin PT for RT CHAD * Dispo planning-Pending PT eval, pain mgmnt Need for continued inpatient stay: Time Spent With Patient Time: Total time managing care of this patient today ____ minutes. Quality Stroke Does the patient have a stroke diagnosis?: No VTE Prior VTE?: No VTE Risk Level:: Surgical - very high VTE Device Contraindication: N/A - Device Ordered VTE Drug Contraindication: N/A - Med Ordered
--- NOTE | 2023-08-06 09:23 | HO.POSTANES ---
Post Anesthesia Evaluation Post Anesthesia Evaluation Date of Service: 08/06/23 Vital Signs: Vital Signs Temp Pulse Resp BP Pulse Ox O2 Del Method 08/06/23 07:57 147/65 H 08/06/23 07:51 97.2 F 73 18 147/65 H 97 Room Air 08/06/23 03:58 97.4 F 69 18 143/65 H 97 Room Air Anesthesia: General Endotracheal-GETA Mental Status: Awake Nausea/Vomiting: None Hydration: Adequate Anesthesia-Related Issues: No Anes. Related Issues Comments: Patient care team still working to achieve adequate pain control via scheduled Tylenol, PRN oxycodone, and PRN IV Dilaudid.
[2023-08-06] MEDS: oxyCODONE HCl Immed Release 5 MG TABLET PO ×2 (09:46→16:38)
--- NOTE | 2023-08-06 12:05 | MHC.CM.PN ---
Addendum entered by Clarissa Harkins 08/06/23 16:12: PT NOW REQUESTS STR AT A SNF IN [facility]. [facility] OFFERED A BED AND PT ACCEPTS. CENTER WILL START AUTH WITH [facility]. Original Note: [facility] DELIVERED PT DECLINED TO SIGN DUE TO PAIN LEVEL BUT VERBALIZES UNDERSTANDING, WHITE COPY LEFT AT BEDSIDE. PT LIVES WITH GRANDDAUGHTER AND IS INDEPENDENT AT BASELINE. + HCP PCP DR. HINES DP: PT IS OPEN TO STR, FIRST CHOICE [facility]. REFERRAL SENT. WILL REQUIRE BLS TRANSPORT. CM WILL CONTINUE TO FOLLOW FOR ANY CHANGE IN DC PLAN/NEEDS.
[2023-08-06] MEDS: Famotidine 20 MG TABLET PO ×2 (13:19→21:17)
[2023-08-06 15:19] VITALS: BP 136/60; PULSE 79; RESP 18; TEMP 36.6; O2SAT 97
--- NOTE | 2023-08-06 16:30 | PC.NURSE ---
Pt. been complaining about many things from 0705 this morning, stated nobody cared for her, stated she's been calling but nobody attending. Also complained that she's not ready to be up because of surgical pain and chronic pain. Pain medication administered, then she complained she's been sitting up too long in chair or complained about sequential either being on or off too long. Complained about nursing staff, dietitian, Pysical therapy etc . All care has been provided and staff have been supportive.wq
[2023-08-06 19:39] VITALS: BP 165/70; PULSE 81; RESP 18; TEMP 36.4; O2SAT 98
[2023-08-07] VITALS (7 sets, daily range): BP systolic 107–139; BP diastolic 57–68; PULSE 75–98; RESP 16–18; TEMP 36.1–37; O2SAT 95–100
[2023-08-07] MEDS: HYDROmorphone HCl 0.5 MG/0.5 ML SYRINGE 0.25 MG IVPUSH ×3 (03:05→13:35)
[2023-08-07] MEDS: Lactated Ringers 1,000 ML 100 ML IVCONT (05:42)
--- NOTE | 2023-08-07 07:30 | P.DS_ITS ---
DS: Providers Provider Date of Service: 08/07/23 Primary care physician: Jarod Wu MD Consults: 08/05/23 13:49 Consult to Hospitalist Routine Comment: Consulting Provider: Hospitalist Reason For Exam: routine medical management - HTN DS: Diagnosis Discharge Diagnosis (1) History of total right hip replacement: Status: Acute DS: Summary Hospital Course Hospital Course: The patient underwent a successful right total hip arthroplasty, they were transferred to PACU and then to the floor to recover. During their stay, their vitals were stable, afebrile at 97.9. Labs were unremarkable, H/H . POD 1 they were started on Aspirin 325mg po bid for DVT ppx, they also received Physical Therapy services twice a day. Prior to discharge, their dressing was clean dry and intact, and the plan was to be discharged to short term rehab. Time Attestation Discharge Coordination Time (in mins): 30 Quality: Safe Use of Opioids Does Pt have an Active Cancer Diagnosis on the Problem List?: No Quality: Stroke Does the patient have a stroke diagnosis?: No Physical Exam Vital Signs: Vital Signs: Last Vital Signs Temp 97.7 F 08/07/23 02:56 Pulse 86 08/07/23 02:56 Resp 18 08/07/23 02:56 BP 139/68 08/07/23 02:56 Pulse Ox 100 08/07/23 02:56 O2 Del Method Room Air 08/07/23 02:56 O2 Flow Rate 2 08/05/23 14:16 BMI result Body Mass Index 29.6 Extrem: Other: right hip incision clean dry and intact. Ganesh intact. No erythema or effusion. Calf supple nontender. Neurovascularly intact. DS: Data Data Completed and Pending Pending studies at discharge: Pending at discharge 08/05/23 11:28 Surgical [PTH] Routine Discharge Plan Discharge Referrals: Argenis Interiano PA-C [Physician Corporate Staff Accountant] - 2 Weeks (08/20/23 13:15 [facility] Argenis Interiano PA-C) Discharge Medications: New celecoxib 200 mg Capsule 200 mg PO BID 30 Days Qty: 60 0RF acetaminophen 325 mg Tablet 650 mg PO Q6H PRN (Reason: Pain, Mild (Pain Scale 1-3)) 30 Days Qty: 240 0RF aspirin 325 mg Tablet 325 mg PO BID 42 Days Qty: 84 0RF docusate sodium 100 mg Capsule 100 mg PO BID 14 Days Qty: 28 0RF oxycodone 5 mg tablet 5 mg PO Q4H PRN (Reason: pain (scale score 4-6)) 7 Days Qty: 42 0RF Rx Instructions: Partial Fill upon patient request. Continued montelukast 10 mg tablet 10 mg PO DAILY (DME) Raised toilet seat See Rx Instructions .ROUTE .MEDSUPPLY Qty: 1 0RF Rx Instructions: As directed (DME) walker Misc See Rx Instructions .MEDSUPPLY Qty: 1 0RF Rx Instructions: Folding Front wheeled walker (DME) SHOWER CHAIR See Rx Instructions .ROUTE .MEDSUPPLY Qty: 1 0RF Rx Instructions: As directed losartan 50 mg tablet 50 mg PO DAILY famotidine 20 mg tablet 20 mg PO DAILY fluticasone propionate [Flonase Allergy Relief] 50 mcg/actuation spray,suspension 1 spray intranasal DAILY Rx Instructions: administer into each nostril Discontinued hydrocodone-acetaminophen 5-325 mg tablet 1 tab PO Q8H PRN (Reason: pain) Qty: 30 0RF Rx Instructions: Partial Fill upon patient request. acetaminophen 500 mg Tablet 1,500 mg PO TID PRN (Reason: Pain) tramadol 50 mg tablet 50 mg PO QID PRN (Reason: Pain) Discharge Orders: Discharge Order (Routine); Ordered 08/07/23 Ordered By: Argenis Interiano Diet: Regular diet Activity on Discharge: Use cane or walker Activity Restrictions/Additional Instructions: * Physical Therapy for Total hip arthroplasty: wbat, posterior precautions, gait training, ROM, strength * Limit stair climbing * No showering, no tub bath-keep dressing clean, dry and intact * No driving x6 weeks * Continue Aspirin twice a day x 6 weeks * Follow up with [facility] in 2 weeks: Print Language: Barbadian
--- NOTE | 2023-08-07 08:42 | MHC.CM.PN ---
DP: PT HAS BEEN MEDICALLY CLEARED FOR DC TO STR AT [facility]. CENTER CONTINUES TO AWAIT INUSRANCE AUTH FROM [facility]. CM WILL CONTINUE TO FOLLOW.
[2023-08-07] MEDS: 0.9 % Sodium Chloride Flush 3 ML SYRINGE IVFLUSH ×3 (08:57→20:33)
[2023-08-07] MEDS: Cholecalciferol (Vitamin D3) 25 MCG TABLET PO (09:02)
[2023-08-07] MEDS: oxyCODONE HCl ER 10 MG TAB.ER.12H PO ×2 (09:02→20:32)
[2023-08-07] MEDS: Celecoxib 200 MG CAPSULE PO ×2 (09:03→20:32)
[2023-08-07] MEDS: Aspirin 325 MG TABLET PO ×2 (09:03→20:32)
[2023-08-07] MEDS: Losartan Potassium 50 MG TABLET PO (09:04)
[2023-08-07] MEDS: Docusate Sodium 100 MG CAPSULE PO ×2 (09:04→20:33)
[2023-08-07] MEDS: Montelukast Sodium 10 MG TABLET PO (09:04)
[2023-08-07] MEDS: oxyCODONE HCl Immed Release 5 MG TABLET PO ×2 (11:29→15:31)
[2023-08-07] MEDS: Acetaminophen 325 MG TABLET 650 MG PO (11:30)
--- NOTE | 2023-08-07 11:54 | PC.NURSE ---
Patient c/o inadequate pain control,Dr. Del Rosario notified while seeing patient this am,questioned posssibility of increasing pain med doses
--- NOTE | 2023-08-07 13:15 | MHC.CM.PN ---
DP: PT HAS BEEN MEDICALLY CLEARED FOR DC TO STR AT [facility]. [place] STARTED AUTH PROCESS ON 08/05 AND HAVE NOT YET OBTAINED [employer] AUTH. CM WILL CONTINUE TO AWAIT AUTH FROM [place]. PT/PA AWARE THAT AUTH HAS NOT YET BEEN OBTAINED.
[2023-08-07] MEDS: Famotidine 20 MG TABLET PO ×2 (13:17→20:33)
--- NOTE | 2023-08-07 13:39 | PC.NURSE ---
Unable to find lab results,called lab,found out patient refused labs .Spoke with patient,patient agreed for someone experienced to come up and draw the labs,phlebotomy notified
[2023-08-07 14:42] LABS: MANUAL DIFF FLAG NO
[2023-08-07 14:45] LABS: Basophils Percent Auto 0.4 % (0-2); Eosinophils Percent Auto 0.3 % (0-4); Hematocrit 24.3 % (37.0-47.0); Imm Gran Pct Auto 0.9 % (0.0-0.4); Lymphocytes Absolute Auto 2.8 X10*3/uL (1.2-4.9); Lymphocytes Percent Auto 26.4 % (20-40); Mean Corpuscular HGB Conc 32.9 g/dl (31.0-35.0); Mean Corpuscular Hemoglobin 28.9 pg (27.0-33.0); Mean Corpuscular Volume 87.7 fL (80.0-98.0); Mean Platelet Volume 9.1 fL (9.4-12.3); Monocytes Absolute Auto 1.1 X10*3/uL (0.1-1.2); Monocytes Percent Auto 10.6 % (2-11); Neutrophils Absolute Auto 6.6 x10*3/uL (2.0-8.3); Neutrophils Percent Auto 61.4 % (45-73); Platelet Count 269 X10*3/uL (160-400); Red Blood Count 2.77 X10*6/uL (4.20-5.50); Red Cell Distribution Width 15.8 % (11.0-16.0); White Blood Count 10.8 X10*3/uL (4.8-10.8)
[2023-08-07 15:02] LABS: Anion Gap 11 (12-20); Blood Urea Nitrogen 11 mg/dL (9-16); Carbon Dioxide 24 mmol/L (22-29); Chloride 110 mmol/L (96-108); Estimated Glomerular Filt Rate > 60; Glucose Fasting 108 mg/dL (60-99); Potassium 3.5 mmol/L (3.3-5.1); Sodium 141 mmol/L (135-145)
--- NOTE | 2023-08-07 15:50 | PC.NURSE ---
8.0 24.3,MALACHI Smith notified
[2023-08-08 03:41] VITALS: BP 111/53; PULSE 73; RESP 16; TEMP 36.6; O2SAT 95
[2023-08-08] MEDS: oxyCODONE HCl Immed Release 5 MG TABLET PO (04:00)
--- NOTE | 2023-08-08 07:35 | P.PNOP_ITS ---
Subjective Subjective Date of Service: 08/08/23 Interval history: POD 2 s/p RT CHAD no overnight events resting in bed , tolerating pain well denies cp, palpitations, sob Physical Exam Vital Signs: Vital Signs: Last Vital Signs Temp 97.9 F 08/08/23 03:41 Pulse 73 08/08/23 03:41 Resp 16 08/08/23 03:41 BP 111/53 L 08/08/23 03:41 Pulse Ox 95 08/08/23 03:41 O2 Del Method Room Air 08/08/23 03:41 O2 Flow Rate 2 08/05/23 14:16 BMI result Body Mass Index 29.6 Extrem: Other: right hip incision clean dry and intact. Ganesh intact. No erythema or effusion. Calf supple nontender. Neurovascularly intact. Procedures Date of Service Date of Service: 08/08/23 Progress Note: A&P Assessment and plan (1) History of total right hip replacement: Status: Acute Assessment and Plan: * Continue pain mgmnt * Continue Aspirin for dvt ppx * Continue PT/OT for RT CHAD * Dispo planning- PT/OT, pain mgmnt, pending auth for rehab Time Spent With Patient Time: Total time managing care of this patient today ____ minutes. Quality Stroke Does the patient have a stroke diagnosis?: No VTE Prior VTE?: No VTE Risk Level:: Surgical - very high VTE Device Contraindication: N/A - Device Ordered VTE Drug Contraindication: N/A - Med Ordered
[2023-08-08 07:44] LABS: Anion Gap 11 (12-20); Blood Urea Nitrogen 13 mg/dL (9-16); Calcium 8.8 mg/dL (8.4-10.2); Carbon Dioxide 23 mmol/L (22-29); Chloride 112 mmol/L (96-108); Creatinine Clr Calc Pharmacy 87.7; Estimated Glomerular Filt Rate > 60; Glucose Fasting 89 mg/dL (60-99); Potassium 3.6 mmol/L (3.3-5.1); Sodium 142 mmol/L (135-145)
[2023-08-08 08:00] VITALS: BP 121/58; PULSE 74; RESP 18; TEMP 36.3; O2SAT 97
[2023-08-08 09:21] VITALS: BP 121/58
[2023-08-08] MEDS: Celecoxib 200 MG CAPSULE PO (09:21)
[2023-08-08] MEDS: Losartan Potassium 50 MG TABLET PO (09:21)
[2023-08-08] MEDS: Docusate Sodium 100 MG CAPSULE PO (09:21)
[2023-08-08] MEDS: Montelukast Sodium 10 MG TABLET PO (09:21)
[2023-08-08] MEDS: Cholecalciferol (Vitamin D3) 25 MCG TABLET PO (09:21)
[2023-08-08] MEDS: oxyCODONE HCl ER 10 MG TAB.ER.12H PO (09:21)
[2023-08-08] MEDS: HYDROmorphone HCl 0.5 MG/0.5 ML SYRINGE 0.25 MG IVPUSH ×2 (09:22→14:42)
[2023-08-08] MEDS: Aspirin 325 MG TABLET PO (09:22)
[2023-08-08] MEDS: 0.9 % Sodium Chloride Flush 3 ML SYRINGE IVFLUSH (09:22)
[2023-08-08 15:06] VITALS: BP 108/59; PULSE 82; RESP 18; TEMP 36; O2SAT 96
--- NOTE | 2023-08-08 16:05 | PC.NURSE ---
Pt most likely discharging on Thursday. 08/10/23
--- NOTE | 2023-08-08 16:12 | MHC.CM.PN ---
Patient medically cleared for dc to [facility] has obtained insurance auth. [facility] transport scheduled for 630pm. Facility, ortho team, RN and patient aware.
--- NOTE | 2023-08-08 18:19 | PC.NURSE ---
Primary RN attempted to call SNF for report. No staff picked up phone.
--- NOTE | 2023-08-16 09:25 | W.PM.OPN ---
Operative Note Operative Note Date of Service: 08/16/23 Narrative: Date of Service: 08/05/23 Pre-op diagnosis: Right hip OA Post-op diagnosis: same Procedure: Right CHAD Implants: [place] Trident2 50 /10 deg lip [place] Accolade #4 132/ 32+0 ceramic Surgeon: Oswald Del Rosario MD Anesthesia: GETA and local Was an Hydraulic Repairer used for this Procedure?: Yes Hydraulic Repairer: Argenis Interiano Estimated blood loss (mL): 200 IV fluids (mL): 1,000 Pathology: other Condition: stable Disposition: PACU Procedure in detail: Patient was brought into the operating room and placed in the right lateral decubitus position. All bony prominences were well padded and the limb was prepped and draped in standard sterile fashion. A time-out was called to identify proper site procedure proper surgeon IV antibiotics and 1 g of transaxemic acid were administered. I began by making a curvilinear incision over the posterolateral aspect of the greater trochanter. Dissection was taken down to the tensor fascia which was incised in line with the incision and a Charnley retractor was placed. Cautery was used to maintain hemostasis. The hip was internally rotated and the external rotators were identified. The vessels were cauterized and a full-thickness capsular/external rotator layer was developed starting just proximal to the piriformis. This layer was tagged and a dull Hohmann retractor was placed underneath the neck in the hip was dislocated. A neck cut was made 1 cm proximal to the lesser trochanter and the head and neck were removed and measured 46 mm on the back table. I then removed the labrum and cauterized the fovea. I started with a 44 reamer and medialized to the inner table. I sequentially reamed up to a size 50 and impacted a 50mm cup at 45 degrees of inclination and 25 degrees of version. I then placed a 10 deg posterior lipped liner and turned my attention to the femur. I identified the piriformis insertion and used this as a starting point for my alexsandra cutter. The medius tendon was protected with a Hibs retractor. A Charnley awl was inserted in the canal and a curved curette used to remove the lateral bone. I irrigated copiously. I then sequentially broached in the patient's natural version to a size 4 and placed my trial implants. I used a #4/132/+0 based on my pre-operative template. Using a trail head I took the hip through range of motion. I was satisfied with the stability. I removed all instrumentation and copiously irrigated. I placed my final femoral implant and again took the hip through range of motion and was satisfied with the stability and length. The final +0 implant was impacted in place and the hip reduced. I then irrigated copiously and placed 1 g of local transaxemic acid. I performed a capsular closure with 2.0 fiberwire, Derek's fascia with 0 Vicryl, subcuticular with 2-0 Vicryl and the skin with karlos. Patient was placed into a sterile dressing. Patient was extubated brought to the recovery room in stable condition. There were no known complications.
--- NOTE | 2023-08-16 09:29 | PM.OP ---
Brief Operative Note Date of Service: 08/05/23 Pre-op diagnosis: Right hip OA Post-op diagnosis: same Procedure: Right CHAD Implants: [place] Trident2 32/10 deg lip [place] Accolade #4 132/ 32+0 ceramic Surgeon: Oswald Del Rosario MD Anesthesia: GETA and local Was an Supervisor Grinding used for this Procedure?: Yes Supervisor Grinding: Argenis Interiano Estimated blood loss (mL): 200 IV fluids (mL): 1,000 Pathology: other Condition: stable Disposition: PACU
== END 2023-08-08 19:11 | disposition skilled nursing facility (03) ==
LOC: HO.SSS 07:33 → HO.S3 14:09
PROVIDERS: Physician Assistant; PCP Internal Medicine; Visit Provider Orthopaedic Surgery
PROC: (CPT 27130; principal; 2023-08-05 10:10)
DX: M16.11 Unilateral primary osteoarthritis, right hip (principal); I10 Essential (primary) hypertension; M35.3 Polymyalgia rheumatica; K21.9 Gastro-esophageal reflux disease without esophagitis; Z79.899 Other long term (current) drug therapy; Z88.2 Allergy status to sulfonamides
CPT/HCPCS: 27130; 36415; 72170; 80048; 85025; 86850; 86900; 86901; 87640; 87641; 88304; 88311; 97110; 97116; 97162; 97166; 97530; 97535; C1713; C1776; J0131; J0690; J1100; J1170; J2371; J2405; J2704; J2795; J3010; J7120

== ENCOUNTER → 2023-08-05 07:10 | Outpatient (BNV) | payer MEDICARE, SELFPAY | PROVIDERS: PCP Internal Medicine; Visit Provider Physician Assistant | DX: M16.11 Unilateral primary osteoarthritis, right hip (principal); M35.3 Polymyalgia rheumatica | CPT/HCPCS: 99222 ==

== ENCOUNTER → 2023-08-05 07:10 | Outpatient (BNV) | payer MEDICARE, SELFPAY | PROVIDERS: PCP Internal Medicine; Visit Provider Physician Assistant | DX: Z47.1 Aftercare following joint replacement surgery (principal); Z96.641 Presence of right artificial hip joint | CPT/HCPCS: 27130; 99024; 99212 ==

== ENCOUNTER 2023-08-05 07:39 | Outpatient (RCR) | payer MEDICARE, SELFPAY | END 2023-12-02 14:56 | disposition home or self-care (01) | LOC: HO.PT 07:39 | PROVIDERS: PCP Internal Medicine; Visit Provider Physician Assistant | DX: Z96.641 Presence of right artificial hip joint (principal) | CPT/HCPCS: 97162 ==

== ENCOUNTER 2023-08-12 12:29 | Outpatient (AMB) | payer MEDICARE, SELFPAY ==
--- NOTE | 2023-08-12 12:30 | A.OFFVIS_ITS ---
Intake Visit Reasons: 2 WK PO: R CHAD 08/05/23 bandage change Intake Note: Zina is a 72 year old female who presnets today for a bandage change s/p Right CHAD 08/05/23 . Allergies Sulfa (Sulfonamide Antibiotics) Allergy (Severe, Verified 07/30/23 13:49) Anaphylaxis HPI HPI 2 WK PO: R CHAD 08/05/23 bandage change: Details: 72-year-old female who returns to the office today for post-op bandage change s/p right CHAD, 08/05/23. PFSH Medical History (Updated 08/11/23 @ 00:04 by Background Daemon) Osteoarthritis of right hip Osteoporosis PMR (polymyalgia rheumatica) Situational anxiety Seasonal allergies Osteoarthritis Osteoarthritis GERD (gastroesophageal reflux disease) HTN (hypertension) Surgical History (Updated 08/11/23 @ 00:04 by Background Daemon) Hx of colonoscopy Hx of section (1984) History of arthroscopy of right shoulder (~2010) Social History Household Members: Family Household Members Other:: [facility] Housing: House Are you a primary nurse healthcare manager to a significant other at home: Yes ([facility], family will help while patient hospitalized) Do you presently have visiting nurse or other home services: No Comment: right hip Patient Tobacco Use Status: Never used Tobacco service: No Review of Systems Const All systems reviewed & are unremarkable except as noted in HPI and below Physical Exam Extrem Other: Right hip: Incision clean, dry and intact. No redness or drainage. Assessment & Plan Assessment & Plan (1) History of total right hip replacement: Code(s): Z96.641 - Presence of right artificial hip joint Category: Surgical Plan New aquacel dressing was applied. This dressing will stay intact till her next routine postop appointment. Patient Instructions: Scribed for Ethel Laboy PA-C, by Paulo Somers medical delivery driver, on 08/12/2023 at 12:30 PM EST.? I, Ethel Laboy PA-C, have personally reviewed and agree with the information entered by the scribe. Coding Level of Care Code Global (27996) Diagnoses History of total right hip replacement Z96.641
== END 2023-08-12 12:47 | disposition home or self-care (01) ==
PROVIDERS: PCP Internal Medicine; Visit Provider Physician Assistant
DX: Z47.1 Aftercare following joint replacement surgery (principal); Z96.641 Presence of right artificial hip joint
CPT/HCPCS: 99024

== ENCOUNTER → 2023-08-12 12:29 | Outpatient (BNVA) | payer MEDICARE, SELFPAY | PROVIDERS: PCP Internal Medicine; Visit Provider Physician Assistant | DX: Z47.1 Aftercare following joint replacement surgery (principal); Z96.641 Presence of right artificial hip joint | CPT/HCPCS: 99212 ==

== ENCOUNTER 2023-08-20 11:58 | Outpatient (REF) | payer MEDICARE, SELFPAY | END 2023-08-20 11:59 | disposition home or self-care (01) | LOC: HO.HOSX 11:58 | PROVIDERS: Visit Provider Physician Assistant | DX: Z13.89 Encounter for screening for other disorder (principal) ==

== ENCOUNTER 2023-08-21 13:29 | Outpatient (AMB) | payer MEDICARE, SELFPAY ==
--- NOTE | 2023-08-21 13:47 | MHC.OFFVIS ---
Vital Signs 08/21/23 14:14 Height 5 ft 5 in Weight 170 lb BMI 28.3 Intake Visit Reasons: 2 WK PO: R CHAD 08/05/23 Intake Note: Zina is a 72 year old female who presents today for a post op appointment s/p R CHAD NE 08/05/23. Patient reports her pain is not as bad in her hip but in her right knee she is having a lot of pain. She Allergies Sulfa (Sulfonamide Antibiotics) Allergy (Severe, Verified 08/21/23 14:14) Anaphylaxis Medication List - Last Reconciled 08/29/23 by Ethel Laboy PA-C acetaminophen 650 mg (2 x 325 mg) PO Q6H PRN 30 days aspirin 325 mg PO BID 42 days celecoxib 200 mg PO BID 30 days docusate sodium 100 mg PO BID 14 days famotidine 20 mg PO DAILY fluticasone propionate 50 mcg/actuation (Flonase Allergy Relief) 1 spray intranasal DAILY losartan 50 mg PO DAILY montelukast 10 mg PO DAILY oxycodone 5 mg PO Q4H PRN 7 days [Raised toilet seat As directed] [SHOWER bench duration 99 days] walker Folding Front wheeled walker HPI HPI 2 WK PO: R CHAD 08/05/23: Details: 72 yo female returns to the office today s/p RT CHAD 08/05/[address] Rosario. She has DC home from [facility] and is awaiting VNA/PT. She is ambulating with a walker. No concerns today. [facility] Medical History (Updated 08/11/23 @ 00:04 by Danilo Whitehead) Osteoarthritis of right hip Osteoporosis PMR (polymyalgia rheumatica) Situational anxiety Seasonal allergies Osteoarthritis Osteoarthritis GERD (gastroesophageal reflux disease) HTN (hypertension) Surgical History (Updated 08/21/23 @ 13:48 by Brea Higuera) Hx of colonoscopy Hx of section (1984) History of arthroscopy of right shoulder (~2010) Social History Household Members: Family Household Members Other:: [facility] Housing: House Are you a primary care management specialist to a significant other at home: Yes (grandaughter, family will help while patient hospitalized) Do you presently have visiting nurse or other home services: No Comment: right hip Patient Tobacco Use Status: Never used Tobacco service: No Review of Systems Const All systems reviewed & are unremarkable except as noted in HPI and below Physical Exam Vital Signs: BMI result Body Mass Index 28.3 Extrem Other: Right hip incision clean dry and intact. No erythema, no drainage. No pain with ROM of the hip, calf supple non tender. NVI. Assessment & Plan Assessment & Plan (1) History of total right hip replacement: Onset Date: ~08/05/23 Comment: Dr. Del Rosario Code(s): Z96.641 - Presence of right artificial hip joint Category: Surgical Plan Right hip karlos removed Steri-Strips applied. They will transition to outpatient physical therapy to work on strength and gait training exercises. They will continue anticoagulant therapy for another 4 weeks. They will require antibiotic prophylaxis for any upcoming dental work. They do understand no dental cleanings for 3 months postop. They will see us back in 6 weeks for their routine postop appointment with Dr. Del Rosario, sooner if needed. Orders: Orders XR pelvis 1-2V 08/20/23 Argenis Interiano PA-C M25.559 - Pain in unspecified hip Medications: Changed From [SHOWER CHAIR] As directed 1 ea 0RF M16.11 - Unilateral primary osteoarthritis, right hip To [SHOWER bench] duration 99 days 1 ea 0RF M16.11 - Unilateral primary osteoarthritis, right hip Ta-Geri Laboy PA-C Patient Instructions: Scribed by Brea Higuera, medical coding instructor, for Argenis Interiano PA-C on 08/21/2023 at 1:47 pm, EST. Coding Level of Care Code Global (10554) Diagnoses History of total right hip replacement Z96.641
[2023-08-21 14:14] VITALS: BMI 28.3
== END 2023-08-21 15:40 | disposition home or self-care (01) ==
PROVIDERS: PCP Internal Medicine; Visit Provider Physician Assistant
DX: Z96.641 Presence of right artificial hip joint (principal)
CPT/HCPCS: 99024

== ENCOUNTER → 2023-08-21 13:29 | Outpatient (BNVA) | payer MEDICARE, SELFPAY | PROVIDERS: PCP Internal Medicine; Visit Provider Physician Assistant | DX: Z47.1 Aftercare following joint replacement surgery (principal); Z96.641 Presence of right artificial hip joint | CPT/HCPCS: 99212; J1010 ==

== ENCOUNTER 2023-09-01 15:55 | Outpatient (RCR) | payer MEDICARE, SELFPAY ==
--- NOTE | 2023-09-29 09:41 | MHC.PT.DC ---
[facility] [place] [facility] [place] [facility] [place] Office [address] Esme Kaba [address] [phone] F: [phone] F: [phone] F: [phone] F: [phone] Physical Therapy Discharge Report Diagnosis: Presence of artificial R hip joint; R CHAD w/NE 08/05/23 Date of Surgery: 08/05/23 Date of Evaluation: 09/01/23 Date of Discharge: 09/29/23 Treatments to Date: 1 Cancellations to Date: No Shows to Date: Discharge Status: Patient Elected to Stop Visit Non-compliance Discharge Summary: Pt expressed that she did not want to attend therapy for her CHAD and was encouraged to attend. She ultimately did not attend therapy. Electronically signed by: Theo Collins PT. Please sign and return to therapist. Thank you for your referral.
== END 2023-09-29 09:41 | disposition home or self-care (01) ==
LOC: HO.PT 15:55
PROVIDERS: PCP Internal Medicine; Visit Provider Physician Assistant
DX: Z47.1 Aftercare following joint replacement surgery (principal); Z96.641 Presence of right artificial hip joint
CPT/HCPCS: 97110; 97161

== ENCOUNTER 2023-09-21 11:02 | Outpatient (AMB) | payer MEDICARE, SELFPAY ==
--- NOTE | 2023-09-21 11:14 | MHC.OFFVIS ---
Vital Signs 09/21/23 11:15 Height 5 ft 5 in Weight 170 lb BMI 28.3 Intake Visit Reasons: 6 WK PO: R CHAD w/NE 08/05/23 Intake Note: Zina is a 72 year old female who presents today for a post operative follow up s/p Right CHAD 08/05/23. Patient states she si doing well with no conerns. Allergies Sulfa (Sulfonamide Antibiotics) Allergy (Severe, Verified 09/21/23 11:17) Anaphylaxis HPI HPI 6 WK PO: R CHAD w/NE 08/05/23: Details: Doing well s/p right CHAD. Complains of right knee pain ( and left knee pain. SHe has difficulty walking b/c of pain. She is scheduled for a right TKA in ~6 weeks. [facility] Medical History (Updated 08/11/23 @ 00:04 by Danilo Whitehead) Osteoarthritis of right hip Osteoporosis PMR (polymyalgia rheumatica) Situational anxiety Seasonal allergies Osteoarthritis Osteoarthritis GERD (gastroesophageal reflux disease) HTN (hypertension) Surgical History (Updated 08/21/23 @ 13:48 by Brea Higuera) Hx of colonoscopy Hx of section (1984) History of arthroscopy of right shoulder (~2010) Social History Household Members: Family Household Members Other:: [facility] Housing: House Are you a primary medication care manager to a significant other at home: Yes ([facility], family will help while patient hospitalized) Do you presently have visiting nurse or other home services: No Comment: right hip Patient Tobacco Use Status: Never used Tobacco service: No Physical Exam Vital Signs: BMI result Body Mass Index 28.3 Extrem Other: inc c/d/i No hip pain with gait or ROM Right knee with lateral TTP Assessment & Plan Assessment & Plan (1) History of total right hip replacement: Onset Date: ~08/05/23 Comment: Dr. Del Rosario Code(s): Z96.641 - Presence of right artificial hip joint Category: Surgical Plan: Doing well s/p right TA. Slow with PT and still requiring narcotics. PT for ROM and strengthening. f/u 6 weeks Coding Level of Care Code Global (91872) Diagnoses History of total right hip replacement Z96.641
[2023-09-21 11:15] VITALS: BMI 28.3
== END 2023-09-21 13:57 | disposition home or self-care (01) ==
PROVIDERS: PCP Internal Medicine; Visit Provider Orthopaedic Surgery
DX: Z96.641 Presence of right artificial hip joint (principal)
CPT/HCPCS: 99024

== ENCOUNTER → 2023-09-21 11:02 | Outpatient (BNVA) | payer MEDICARE, SELFPAY | PROVIDERS: PCP Internal Medicine; Visit Provider Orthopaedic Surgery | DX: M25.561 Pain in right knee (principal); M25.562 Pain in left knee; Z47.1 Aftercare following joint replacement surgery; Z96.641 Presence of right artificial hip joint | CPT/HCPCS: 99212 ==

== ENCOUNTER 2023-10-01 13:38 | Outpatient (AMB) | payer MEDICARE, SELFPAY ==
[2023-10-01 13:53] VITALS: BMI 28.3
--- NOTE | 2023-10-01 13:53 | MHC.OFFVIS ---
Vital Signs 10/01/23 13:53 Height 5 ft 5 in Weight 170 lb BMI 28.3 Intake Visit Reasons: R TKA discussion/planning Intake Note: Zina is a 72 year old female who presents today for discussion of Right Total Knee Arthroplasty booked on 11/10/23. Allergies Sulfa (Sulfonamide Antibiotics) Allergy (Severe, Verified 10/06/23 08:57) Anaphylaxis HPI HPI R TKA discussion/planning: Details: Zina is a 72 year old female who presents today for discussion of Right Total Knee Arthroplasty booked on 11/10/23. She states she has difficulty with daily activities. She can not walk more than 5 minutes without pain. He is doing well after her hip replacement surgery. She has bilateral shoulder pain. Her right knee is more painful but her left knee also bothers her. [facility] Medical History (Updated 10/08/23 @ 12:51 by Oswald Del Rosario MD) Osteoarthritis of right hip Osteoporosis PMR (polymyalgia rheumatica) Situational anxiety Seasonal allergies Osteoarthritis Osteoarthritis GERD (gastroesophageal reflux disease) HTN (hypertension) Surgical History (Updated 08/21/23 @ 13:48 by Brea Higuera) Hx of colonoscopy Hx of section (1984) History of arthroscopy of right shoulder (~2010) Social History Household Members: Family Household Members Other:: [facility] Housing: House Are you a primary intensive care medicine specialist to a significant other at home: Yes ([facility], family will help while patient hospitalized) Do you presently have visiting nurse or other home services: No Comment: right hip Patient Tobacco Use Status: Never used Tobacco Patient : No service: No Physical Exam Vital Signs: BMI result Body Mass Index 28.3 Extrem Other: Bilateral crepitus with range of motion bilateral shoulders. Her right shoulder positive Sandoval and Neer and good range of motion less limited than her left shoulder. Right knee with no effusion. Skin clean dry and intact. Tenderness to palpation medial compartment bilateral knees. Antalgic gait bilaterally. Office Procedures Joint Injection/Aspiration Joint Injection/Aspiration Details: Injected 1 mL of Decadron and 3 mL 1% lidocaine and 3 mL of 0.25% Marcaine. Site was prepped using aseptic technique. Patient tolerated the procedure well. Primary Site: right knee Secondary Site: left knee Approach Used: posterolateral Coding 76262 - Large joint 46911 - Glenohumeral/Tronchanteric Bursa/Intraarticular Procedure code (CPT) selection complete Assessment & Plan Assessment & Plan (1) Arthritis of right knee: Code(s): M17.11 - Unilateral primary osteoarthritis, right knee Category: Medical Plan: Zina has a right knee replacement scheduled for October. She has severe arthritis and is limited and has failed conservative treatment and I recommend arthroplasty. I discussed the risks, benefits and alternatives including but not limited to the risk of infection, stiffness, need for further surgery as well as postoperative pain and expectations for both pain medication and recovery time. She expressed understanding and all her questions were answered. (2) Arthritis of left knee: Code(s): M17.12 - Unilateral primary osteoarthritis, left knee Category: Medical Plan: She has not benefitted from steroid injections significantly and I recommend viscosupplementation for her left knee (3) Bilateral shoulder region arthritis: Code(s): M19.011 - Primary osteoarthritis, right shoulder; M19.012 - Primary osteoarthritis, left shoulder Category: Medical Plan: I injected both shoulders today. She has severe arthritis of both shoulders. Activity modification indicated. Coding Level of Care Code Est Pt Level 4 (65935) Diagnoses Arthritis of right knee M17.11 Arthritis of left knee M17.12 Bilateral shoulder region arthritis M19.011; M19.012 CPT Codes Coding - Large joint: 37503 - Large joint ([id number]) Coding - Joint 7: 96166 - Glenohumeral/Tronchanteric Bursa/Intraarticular ([id number])
== END 2023-10-01 14:28 | disposition home or self-care (01) ==
LOC: HO.HOS 13:39
PROVIDERS: PCP Internal Medicine; Visit Provider Orthopaedic Surgery
DX: M17.0 Bilateral primary osteoarthritis of knee (principal); M19.011 Primary osteoarthritis, right shoulder; M19.012 Primary osteoarthritis, left shoulder
CPT/HCPCS: 20610; 99214

== ENCOUNTER → 2023-10-01 13:38 | Outpatient (BNVA) | payer MEDICARE, SELFPAY | PROVIDERS: PCP Internal Medicine; Visit Provider Orthopaedic Surgery | DX: M17.0 Bilateral primary osteoarthritis of knee (principal); M19.011 Primary osteoarthritis, right shoulder; M19.012 Primary osteoarthritis, left shoulder | CPT/HCPCS: 20610; 99212; J0665; J1100 ==

== ENCOUNTER → 2023-10-06 09:36 | Outpatient (BNVA) | payer MEDICARE, SELFPAY | PROVIDERS: PCP Internal Medicine | DX: Z01.818 Encounter for other preprocedural examination (principal) ==

== ENCOUNTER 2023-11-05 12:11 | Outpatient (REF) | payer MEDICARE, SELFPAY ==
--- NOTE | ~2023-11-05 | XR_ITS ---
EXAMINATION: XR KNEE, RIGHT XR KNEE, LEFT CLINICAL INFORMATION: Pain. COMPARISON: 05/06/2023 TECHNIQUE: AP standing view of both knees and lateral view of the right knee. FINDINGS: RIGHT KNEE: Lxaiqfyt-py-pfouwk lateral compartment joint space narrowing with small marginal osteophytes. Valgus angulation at the knee. Mild patellofemoral compartment joint space narrowing with small marginal osteophytes. Small marginal osteophytes in the medial compartment. No effusion. Bones are osteopenic. Enthesopathic spur at the quadriceps tendon insertion on the patella. LEFT KNEE: Wxfatokr-eb-veobat lateral compartment joint space narrowing with marginal osteophytes and subcortical sclerosis. More mild osteoarthritis in the medial compartment. Valgus angulation at the knee. Bones are osteopenic. No fracture. XR/XR knee RT 2V IMPRESSION: 1. Loawwrsg-wk-slpabo lateral compartment osteoarthritis in both knees with associated valgus angulation. 2. More mild medial compartment osteoarthritis in both knees. Electronically signed by: Dayday Tyler MD 11/23/2023 11:10 PM EDT
--- NOTE | ~2023-11-05 | XR_ITS ---
EXAMINATION: XR KNEE, RIGHT XR KNEE, LEFT CLINICAL INFORMATION: Pain. COMPARISON: 05/06/2023 TECHNIQUE: AP standing view of both knees and lateral view of the right knee. FINDINGS: RIGHT KNEE: Vwvooaja-az-bhqewc lateral compartment joint space narrowing with small marginal osteophytes. Valgus angulation at the knee. Mild patellofemoral compartment joint space narrowing with small marginal osteophytes. Small marginal osteophytes in the medial compartment. No effusion. Bones are osteopenic. Enthesopathic spur at the quadriceps tendon insertion on the patella. LEFT KNEE: Aicdnbje-fv-leomeb lateral compartment joint space narrowing with marginal osteophytes and subcortical sclerosis. More mild osteoarthritis in the medial compartment. Valgus angulation at the knee. Bones are osteopenic. No fracture. XR/XR knee LT 1V IMPRESSION: 1. Dhvkabdg-qc-nmddqr lateral compartment osteoarthritis in both knees with associated valgus angulation. 2. More mild medial compartment osteoarthritis in both knees. Electronically signed by: Dayday Tyler MD 11/23/2023 11:10 PM EDT
== END 2023-11-05 12:12 | disposition home or self-care (01) ==
LOC: HO.XRAY 12:11
PROVIDERS: PCP Internal Medicine; Visit Provider Physician Assistant
DX: M25.562 Pain in left knee (principal); M17.11 Unilateral primary osteoarthritis, right knee
CPT/HCPCS: 73560; 99212

== ENCOUNTER 2023-11-05 12:57 | Outpatient (AMB) | payer MEDICARE, SELFPAY ==
--- NOTE | 2023-11-05 12:59 | A.OFFVIS_ITS ---
Vital Signs 11/05/23 13:00 Height 5 ft 5 in Weight 170 lb BMI 28.3 Intake Visit Reasons: R TKA w/NE 11/10/23 Intake Note: Zina a 72 year old female who presents today for a preoperative visit of right TKA on 11/10/23 NE. Pain management agreement reviewed and signed. Allergies Sulfa (Sulfonamide Antibiotics) Allergy (Severe, Verified 11/05/23 13:03) Anaphylaxis Medication List - Last Reconciled 11/06/23 by Ethel Laboy PA-C acetaminophen 650 mg (2 x 325 mg) PO Q6H PRN 30 days cholecalciferol (vitamin D3) (Vitamin D3) 25 mcg PO QAM famotidine (Heartburn Relief (famotidine)) 10 mg PO QAM fluticasone propionate 50 mcg/actuation (Flonase Allergy Relief) 1 spray intranasal QAM losartan 50 mg PO QAM montelukast 10 mg PO QAM [Raised toilet seat As directed] [SHOWER bench duration 99 days] walker Folding Front wheeled walker HPI Comments Details: Mr Napoles presents to the office today for preop visit. She is scheduled for right total knee arthroplasty with Dr. Del Rosario. She continues to have ongoing pain and difficulty with ambulation in the right knee, which is affecting her quality of life; therefore, she has elected to move forward with surgery. [facility] Medical History (Updated 10/30/23 @ 12:02 by Radha Webster RN) Situational anxiety Seasonal allergies Osteoarthritis GERD (gastroesophageal reflux disease) HTN (hypertension) PMR (polymyalgia rheumatica) Osteoporosis Surgical History History of total right hip arthroplasty Hx of colonoscopy Hx of section (1984) History of arthroscopy of right shoulder (~2010) Social History Household Members: Family Household Members Other:: [facility] Housing: House Are you a primary care associate to a significant other at home: No Do you presently have visiting nurse or other home services: No Comment: right hip Patient Tobacco Use Status: Never used Tobacco service: No Review of Systems Const All systems reviewed & are unremarkable except as noted in HPI and below Physical Exam Vital Signs: BMI result Body Mass Index 28.3 Const General: cooperative and no acute distress Orientation/consciousness: patient oriented x3 Neck Neck: Yes normal visual inspection and Yes no lymphadenopathy Resp Effort & Inspection: normal respiratory effort and able to speak in complete sentences Cardio Peripheral pulses: Peripheral pulses 2+ throughout GI Inspection: Yes normal to inspection Palpation (GI): Soft to palpation Skin General skin exam: no rashes or lesions noted Neuro General: patient oriented x3 Extrem Other: Right knee: Normal to inspection. Full ROM. Calf supple, nontender. NVI. Assessment & Plan Assessment & Plan (1) Arthritis of right knee: Code(s): M17.11 - Unilateral primary osteoarthritis, right knee Category: Medical Plan I discussed in detail the procedure and what to expect pre and post operatively. We discussed the risks, benefits and alternatives to the surgery as well as the rehabilitation course. The risks; which include, but are not limited to infection, bleeding, nerve injury, ongoing pain, swelling, and stiffness, perioperative risk of injury to bones and soft tissues, and blood clots. I?ve answered all questions and with their understanding they have consented to move forward with Right total knee arthroplasty with Dr. Del Rosario Patient would like STR and CARDIOPULMONARY SUPERVISOR at home Orders: Orders 2 XR knee RT 2V 11/05/23 M25.569 - Pain in unspecified knee Patient Instructions: Scribed for Ethel Laboy PA-C, by Paulo Somers medical social worker, on 11/05/2023 at 12:45 PM EST.? I, Ethel Laboy PA-C, have personally reviewed and agree with the information entered by the scribe. Coding Level of Care Code Est Pt Level 3 (71195) Complex EM visit Add On G2211 Diagnoses Arthritis of right knee M17.11
[2023-11-05 13:00] VITALS: BMI 28.3
== END 2023-11-05 13:48 | disposition home or self-care (01) ==
PROVIDERS: PCP Internal Medicine; Visit Provider Physician Assistant
DX: M17.11 Unilateral primary osteoarthritis, right knee (principal)
CPT/HCPCS: 99024

== ENCOUNTER → 2023-12-01 08:56 | Day surgery (SDC) | payer MEDICARE, SELFPAY ==
[2023-10-30 12:09] VITALS: BP 119/58; PULSE 83; RESP 20; O2SAT 98; BMI 27.9
--- NOTE | 2023-10-30 12:20 | HO.ANESPROP2 ---
Documented by User: Tsering Sharif NP 11/27/23 14:08 HPI - Anesthesia Eval Consult details Narrative: 72yo F for Right Knee Replacement Total, 12/01/23 Per [facility] Provider, no contraindiction pending nml CXR (nml 10/2023) s/p Total Hip 08/2023 with GA-ETT 7 Recent URI with abx tx. Cough. Clear CXR 08/2023 PMR: Recent diagnosis, no tx yet GERD: H2 angélica PMFSH Active Problems Active Problems: All Active Problems Bilateral shoulder region arthritis (Acute) History of total right hip replacement (Acute ~08/05/23) Joint pain (Acute) Right shoulder pain (Acute) Left shoulder pain (Acute) Arthritis of right knee (Acute) Arthritis of left knee (Acute) Right knee pain (Acute) Left knee pain (Acute) Osteoarthritis (Acute) Oral herpes (Acute) HTN (hypertension) (Acute) GERD (gastroesophageal reflux disease) (Acute) Environmental allergies (Acute) Edema (Acute) Chronic sinusitis (Acute) Arthritis of right hip (Acute) Right hip pain (Acute) PMR (polymyalgia rheumatica) (Acute) Osteoporosis (Acute) Past Medical History Medical History Situational anxiety Seasonal allergies Osteoarthritis GERD (gastroesophageal reflux disease) HTN (hypertension) PMR (polymyalgia rheumatica) Osteoporosis Family History Family history of problems with anesthesia: No Surgical History Surgical History History of total right hip arthroplasty Hx of colonoscopy Hx of section (1984) History of arthroscopy of right shoulder (~2010) History of Problems with Anesthesia: No Social History Social History Household Members: Family Household Members Other:: [facility] Housing: House Are you a primary career placement services counselor to a significant other at home: No Do you presently have visiting nurse or other home services: No Comment: right hip Patient Tobacco Use Status: Never used Tobacco Use of substances other than those prescribed or required for medical reasons: No Have you been hit, kicked, punched, or otherwise hurt by someone within the past year? If so, by whom?: No Are you DNR?: No Advance Directives Information Provided: Yes (as above noted) Advance Directives on File: No Recently lost weight without trying: No Eating poorly because of decreased appetite: No Nutrition Risks: No Nutritional Risk Poor oral hygiene: No (upper left partial-one tooth / dental caps) service: No Meds Allergies Allergy/AdvReac Type Severity Reaction Status Date / Time Sulfa (Sulfonamide Allergy Severe Anaphylaxis Verified 11/05/23 13:03 Antibiotics) Home Medications ?Medication ?Instructions ?Recorded ?Confirmed ?Last Taken ?Type losartan 50 mg tablet 50 mg PO QAM 04/15/23 11/06/23 11/30/23 History fluticasone propionate 50 1 spray intranasal QAM 04/17/23 12/01/23 08/04/23 History mcg/actuation nasal spray,suspension (Flonase Allergy Relief) montelukast 10 mg tablet 10 mg PO QAM seasonal allergies 08/05/23 12/01/23 08/04/23 History cholecalciferol (vitamin D3) 25 25 mcg PO QAM 10/30/23 12/01/23 Unknown History mcg (1,000 unit) capsule (Vitamin D3) famotidine 10 mg tablet (Heartburn 10 mg PO QAM 10/30/23 12/01/23 Unknown History Relief (famotidine)) Exam Height,Weight and Vital Signs: Height 5 ft 5.5 in Weight 77.111 kg Last Vital Signs Pulse 83 10/30/23 12:09 Resp 20 10/30/23 12:09 BP 119/58 L 10/30/23 12:09 Pulse Ox 98 10/30/23 12:09 O2 Del Method Room Air 10/30/23 12:09 Pertinent Lab Results Pertinent Lab Results: 10/2023 Labs from outside facility: BMP OK, CBC with H&H low at 10.3/34.2 (chronic anemia) Narrative Narrative: EKG 07/2023 NSR @ 75 Min volt criteria for LVH CXR 10/2023 Impression: There is no acute cardiopulmonary disease. Airway Mallampati Class: III TM Dist: >3cm Neck ROM: Full Loose/Missing/Broken Teeth: No (patient denies any loose or broken teeth) Heart: RRR Lungs: CTAB Assessment and Plan Assessment Anesthesia Assessment: Anesthesia Plan Discussed and PAT Visit Final Anesthetic Review Family History of Problems with Anesthesia: No History of Problems with Anesthesia: No Documented by User: Sandrita Espinoza MD 12/01/23 10:06 [facility] Past Medical History Medical History Situational anxiety Seasonal allergies Osteoarthritis GERD (gastroesophageal reflux disease) HTN (hypertension) PMR (polymyalgia rheumatica) Osteoporosis Surgical History Surgical History History of total right hip arthroplasty Hx of colonoscopy Hx of section (1984) History of arthroscopy of right shoulder (~2010) Social History Social History Household Members: Family Household Members Other:: [facility] Housing: House Are you a primary career placement services counselor to a significant other at home: No Do you presently have visiting nurse or other home services: No Comment: right hip Patient Tobacco Use Status: Never used Tobacco Use of substances other than those prescribed or required for medical reasons: No Have you been hit, kicked, punched, or otherwise hurt by someone within the past year? If so, by whom?: No Are you DNR?: No Advance Directives Information Provided: Yes (as above noted) Advance Directives on File: No Recently lost weight without trying: No Eating poorly because of decreased appetite: No Nutrition Risks: No Nutritional Risk Poor oral hygiene: No (upper left partial-one tooth / dental caps) service: No Meds Allergies Allergy/AdvReac Type Severity Reaction Status Date / Time Sulfa (Sulfonamide Allergy Severe Anaphylaxis Verified 11/05/23 13:03 Antibiotics) Home Medications ?Medication ?Instructions ?Recorded ?Confirmed ?Last Taken ?Type losartan 50 mg tablet 50 mg PO QAM 04/15/23 11/06/23 11/30/23 History fluticasone propionate 50 1 spray intranasal QA 02/12/01/23 08/04/23 History mcg/actuation nasal spray,suspension (Flonase Allergy Relief) montelukast 10 mg tablet 10 mg PO QAM seasonal allergies 08/05/23 12/01/23 08/04/23 History cholecalciferol (vitamin D3) 25 25 mcg PO QAM 10/30/23 12/01/23 Unknown History mcg (1,000 unit) capsule (Vitamin D3) famotidine 10 mg tablet (Heartburn 10 mg PO QAM 10/30/23 12/01/23 Unknown History Relief (famotidine)) Exam Airway Mallampati Class: II Neck ROM: Limited Assessment and Plan Final Anesthetic Review NPO: Yes ASA Class: III Final Preanesthetic Review: No Changes in Pt Med Stat, Meds/Allgs Chart Reviewed, Consent Obtained/Reviewed and Anes Risks/Benef Reviewed Patient Risk: Intermediate Procedure Risk: Intermediate Anesthetic Plan Anesthetic Plan: Spinal (pt states polymyalgia rheumatica diagnosed recently, total body pain, not on steroids, cannot walk or move much, will discuss with surgeon prior to proceeding if he decides to go ahead.), Regional Block and Agree w/ Assess. and Plan Disposition: Standard PACU
[2023-10-30 14:05] LABS: Immature Retic Fraction 15.5 % (3.0-15.9); Reticulocyte Percent 1.1 % (0.5-1.8); Reticulocytes Absolute 0.042 X10*6/uL (0.026-0.095)
[2023-10-30 14:24] LABS: MRSA Nasal PCR NEGATIVE (Negative); SA Nasal PCR NEGATIVE (Negative)
[2023-10-30 14:37] LABS: Bilirubin Total 0.3 mg/dL (0.0-1.0); Lactate Dehydrogenase 176 U/L (122-220)
[2023-10-30 14:47] LABS: Erythrocyte Sedimentation Rate 44 MM/HR (0-20)
[2023-10-30 14:56] LABS: Ferritin 120 ng/mL (10-250); Free T4 (Free Thyroxine) 0.76 ng/dL (0.71-1.85)
[2023-10-30 15:08] LABS: Folate 6.3 ng/mL (> or = 4.0); Vitamin B12 323 pg/mL (200-900)
[2023-10-30 15:57] LABS: Haptoglobin 191 mg/dL (63-273)
[2023-11-03 12:58] LABS: Transferrin 285 mg/dL (188-341)
[2023-11-05 09:03] LABS: Prot Elec - Albumin 4.2 g/dL (3.8-4.8); Prot Elec - Alpha1 0.4 g/dL (0.2-0.3); Prot Elec - Alpha2 0.9 g/dL (0.5-0.9); Prot Elec - Beta 1 0.5 g/dL (0.4-0.6); Prot Elec - Beta 2 0.3 g/dL (0.2-0.5); Prot Elec - Gamma 0.8 g/dL (0.8-1.7); Prot Elec - Total Protein 7.1 g/dL (6.1-8.1)
[2023-12-01 10:01] LABS: Hematocrit 34.8 % (37.0-47.0); Hemoglobin 10.8 g/dl (12.0-16.0)
--- NOTE | 2023-12-01 10:16 | PC.NURSE ---
MD COTTO BY BEDSIDE SPEAKING TO PATIENT REGARDING HER PLAN OF CARE. PATIENT IN 12/09 GENERALIZED BODY PAIN. ASSISTING TAKING HER JACKET OFF THE YELLING IN PAIN. STATES SHE HAS pmr . REDIRECTED
--- NOTE | 2023-12-01 10:34 | PC.NURSE ---
PATIENT AWARE OF PLAN OF CARE. SHE IS TO TAKE HER PREDNISONE 5MG DAILY PER MD COTTO. PATIENT CALLED SON TO PICKUP PATIENT. Hospital van doesnt go to [facility] and she doesnt have her house keys to go inside. awaiting for son to pickup patient.
--- NOTE | 2023-12-01 11:00 | P.DS_ITS ---
DS: Providers Provider Primary care physician: Jarod Wu MD DS: Summary Hospital Course Hospital Course: The patient underwent a successful right total knee arthroplasty, they were transferred to PACU and then to the floor to recover. During their stay, their vitals were stable, afebrile at ( ). Labs were unremarkable, H/H ( ). POD 1 they were started on Aspirin 325mg po bid for DVT ppx, they also received Physical Therapy services twice a day. Prior to discharge, their dressing was changed, incision clean dry and intact, new Aquacel dressing applied and the plan was to be discharged to [facility] for additional physical therapy prior to discharge home. Time Attestation Discharge Coordination Time (in mins): 30 Quality: Safe Use of Opioids Does Pt have an Active Cancer Diagnosis on the Problem List?: No Quality: Stroke Does the patient have a stroke diagnosis?: No Physical Exam Vital Signs: Vital Signs: Last Vital Signs Pulse 83 10/30/23 12:09 Resp 20 10/30/23 12:09 BP 119/58 L 10/30/23 12:09 Pulse Ox 98 10/30/23 12:09 O2 Del Method Room Air 10/30/23 12:09 BMI result Body Mass Index 27.9 Const: General: cooperative, healthy appearing and no acute distress Resp: Effort & Inspection: normal respiratory effort and able to speak in complete sentences Cardio: Rate: regular rate Peripheral pulses: Peripheral pulses 2+ throughout GI: Palpation (GI): Soft to palpation Skin: Lesions: no lesions Rashes: no rashes Extrem: Other: right knee dressing is c/d/i. Able to dorsi/plantar flex. Calf is supple and nontender. Sensation intact. Pedal pulse intact. DS: Data Data Completed and Pending Labs on day of discharge: Laboratory Results - last 24 hr 12/01/23 09:51 Hgb 10.8 L D Hct 34.8 L D Blood Type A Positive Antibody Screen NEGATIVE Discharge Plan Discharge Patient Disposition: Home, Self-Care Referrals: Ethel Laboy PA-C [Physician Mobility Developer] - 12/17/23 11:30 am Discharge Medications: No Action acetaminophen 325 mg tablet 650 mg PO Q6H PRN (Reason: Pain, Mild (Pain Scale 1-3)) 30 Days Qty: 240 0RF montelukast 10 mg tablet 10 mg PO QAM famotidine [Heartburn Relief (famotidine)] 10 mg Tablet 10 mg PO QAM cholecalciferol (vitamin D3) [Vitamin D3] 25 mcg (1,000 unit) Capsule 25 mcg PO QAM (DME) Raised toilet seat See Rx Instructions .ROUTE .MEDSUPPLY Qty: 1 0RF Rx Instructions: As directed (DME) walker Misc See Rx Instructions .MEDSUPPLY Qty: 1 0RF Rx Instructions: Folding Front wheeled walker losartan 50 mg tablet 50 mg PO QAM fluticasone propionate [Flonase Allergy Relief] 50 mcg/actuation spray,suspension 1 spray intranasal QAM Rx Instructions: administer into each nostril (DME) SHOWER bench See Rx Instructions .ROUTE .MEDSUPPLY Qty: 1 0RF Rx Instructions: duration 99 days Diet: Advance to usual diet Activity on Discharge: Use cane or walker Activity Restrictions/Additional Instructions: Physical Therapy for ROM 0-120, quad strength, gait training. Use walker for ambulation Limit stair climbing, No shower, No tub bath, No driving Continue anticoagulant x 6 weeks Keep Aquacel dressing clean, dry and intact. Follow up with orthopedics in 2 weeks Print Language: Portuguese
--- NOTE | 2023-12-01 11:23 | PC.NURSE ---
water and snack provided. son arriving shortly to pickup patient. AB brought patient down to front of hospital per patients request via wheelchair
== END | disposition home or self-care (01) ==
PROVIDERS: Nurse Practitioner; Physician Assistant; PCP Internal Medicine; Visit Provider Orthopaedic Surgery
DX: M17.11 Unilateral primary osteoarthritis, right knee (principal); Z53.29 Procedure and treatment not carried out because of patient's decision for other reasons; Z96.641 Presence of right artificial hip joint; M81.0 Age-related osteoporosis without current pathological fracture; M35.3 Polymyalgia rheumatica; J30.2 Other seasonal allergic rhinitis; I10 Essential (primary) hypertension; Z79.51 Long term (current) use of inhaled steroids; F43.0 Acute stress reaction; K21.9 Gastro-esophageal reflux disease without esophagitis; Z79.899 Other long term (current) drug therapy; Z88.2 Allergy status to sulfonamides; Z98.890 Other specified postprocedural states
CPT/HCPCS: 36415; 82247; 82607; 82728; 82746; 83010; 83615; 84165; 84439; 84443; 84466; 85014; 85018; 85045; 85652; 86850; 86900; 86901; 87640; 87641; J0131; J0690

== ENCOUNTER 2024-01-04 11:26 | Outpatient (AMB) | payer MEDICARE, SELFPAY ==
--- NOTE | 2024-01-04 11:27 | A.OFFVIS_ITS ---
Vital Signs 01/04/24 11:28 Height 5 ft 5 in Weight 170 lb BMI 28.3 Intake Visit Reasons: OV-R TKA discussion Intake Note: Zina is a 72 year old female who presents today for further discussion of a Right TKA. Patient was booked for Right TKA 12/01/23 but was canceled due to complaints of all over pain, MDs concern of pain in relation to rheum. Appointment with a [facility] booked for 02/02/24 Allergies Sulfa (Sulfonamide Antibiotics) Allergy (Severe, Verified 01/04/24 11:28) Anaphylaxis HPI HPI OV-R TKA discussion: Details: Zina comes in today with ongoing right knee pain. I had scheduled her for right knee replacement which was canceled because of a flare of her polymyalgia got rheumatica. She has since seen a district manager primary care sales and this is stable and would like to reschedule her knee surgery. [facility] Medical History Situational anxiety Seasonal allergies Osteoarthritis GERD (gastroesophageal reflux disease) HTN (hypertension) PMR (polymyalgia rheumatica) Osteoporosis Surgical History History of total right hip arthroplasty Hx of colonoscopy Hx of section (1984) History of arthroscopy of right shoulder (~2010) Social History Household Members: Family Household Members Other:: [facility] Housing: House Are you a primary cna caregiver to a significant other at home: No Do you presently have visiting nurse or other home services: No Comment: right hip Patient Tobacco Use Status: Never used Tobacco service: No Physical Exam Vital Signs: BMI result Body Mass Index 28.3 Extrem Other: Bilateral crepitus with range of motion bilateral shoulders. Her right shoulder positive Sandoval and Neer and good range of motion less limited than her left shoulder. Right knee with no effusion. Skin clean dry and intact. Tenderness to palpation medial compartment bilateral knees. Antalgic gait bilaterally. Assessment & Plan Assessment & Plan (1) Arthritis of right knee: Code(s): M17.11 - Unilateral primary osteoarthritis, right knee Category: Medical Plan: Zina hada right knee replacement scheduled for October that was postpone because of a flare of her PMR. She has severe arthritis and is limited and has failed conservative treatment and I recommend arthroplasty. I discussed the risks, benefits and alternatives including but not limited to the risk of infection, stiffness, need for further surgery as well as postoperative pain and expectations for both pain medication and recovery time. She expressed understanding and all her questions were answered. (2) Arthritis of left knee: Code(s): M17.12 - Unilateral primary osteoarthritis, left knee Category: Medical Plan: Left knee is not as painful as her right knee (3) Bilateral shoulder region arthritis: Code(s): M19.011 - Primary osteoarthritis, right shoulder; M19.012 - Primary osteoarthritis, left shoulder Category: Medical Plan: This has improved with her steroid regimen Coding Level of Care Code Est Pt Level 3 (62837) Diagnoses Arthritis of right knee M17.11 Arthritis of left knee M17.12 Bilateral shoulder region arthritis M19.011; M19.012
[2024-01-04 11:28] VITALS: BMI 28.3
== END 2024-01-04 14:27 | disposition home or self-care (01) ==
LOC: HO.HOS 11:27
PROVIDERS: PCP Internal Medicine; Visit Provider Orthopaedic Surgery
DX: M17.0 Bilateral primary osteoarthritis of knee (principal); M19.011 Primary osteoarthritis, right shoulder; M19.012 Primary osteoarthritis, left shoulder
CPT/HCPCS: 99213

== ENCOUNTER → 2024-01-04 11:26 | Outpatient (BNVA) | payer MEDICARE, SELFPAY | PROVIDERS: PCP Internal Medicine; Visit Provider Orthopaedic Surgery | DX: M17.0 Bilateral primary osteoarthritis of knee (principal); M19.011 Primary osteoarthritis, right shoulder; M19.012 Primary osteoarthritis, left shoulder | CPT/HCPCS: 99212 ==

== ENCOUNTER 2024-02-05 10:02 | Outpatient (REF) | payer MEDICARE, SELFPAY | END 2024-02-05 10:03 | disposition home or self-care (01) | LOC: HO.HOSX 10:02 | PROVIDERS: Visit Provider Physician Assistant | DX: M17.11 Unilateral primary osteoarthritis, right knee (principal); M25.562 Pain in left knee | CPT/HCPCS: 73560; 73562; 99212 ==

== ENCOUNTER 2024-02-05 13:02 | Outpatient (AMB) | payer MEDICARE, SELFPAY ==
--- NOTE | 2024-02-05 13:10 | MHC.OFFVIS ---
Vital Signs 02/05/24 13:20 Height 5 ft 5 in Weight 170 lb BMI 28.3 Intake Visit Reasons: Pre-Op: R TKA w/NE 02/09/24 Intake Note: Zina a 73 year old female who presents today for a preoperative right TKA on 02/09/24 NE. Pain management agreement reviewed and signed. Allergies Sulfa (Sulfonamide Antibiotics) Allergy (Severe, Verified 01/20/24 12:47) Anaphylaxis Medication List - Last Reconciled 02/05/24 by Ethel Laboy PA-C acetaminophen 1,000 mg PO QID PRN doxycycline hyclate 100 mg PO BID famotidine (Heartburn Relief (famotidine)) 10 mg PO QAM fluticasone propionate 50 mcg/actuation (Flonase Allergy Relief) 1 spray intranasal QAM losartan 50 mg PO QAM montelukast 10 mg PO QAM prednisone 10 mg PO DAILY [Raised toilet seat As directed] [SHOWER bench duration 99 days] tramadol 25 mg PO QD-QID PRN walker Folding Front wheeled walker HPI Comments Details: Ms Napoles presents to the office today for preop visit. She is scheduled for right total knee arthroplasty with Dr. Del Rosario. She continues to have ongoing pain and difficulty with ambulation in the right knee, which is affecting her quality of life; therefore, she has elected to move forward with surgery. [facility] Medical History (Updated 01/20/24 @ 12:47 by Evelina Hernandez RN) Weakness Chronic sinusitis Situational anxiety Seasonal allergies Osteoarthritis GERD (gastroesophageal reflux disease) HTN (hypertension) PMR (polymyalgia rheumatica) Osteoporosis Surgical History (Updated 01/20/24 @ 12:28 by Evelina Hernandez RN) History of total right hip arthroplasty (08/05/23) Hx of colonoscopy (~2008) Hx of section (1984) History of arthroscopy of right shoulder (~2010) Social History Household Members: Family Household Members Other:: grandaughter Housing: House Are you a primary neonatal critical care nurse to a significant other at home: Yes (grandaughter, family will help while patient hospitalized) Do you presently have visiting nurse or other home services: No Comment: right hip Patient Tobacco Use Status: Never used Tobacco service: No Review of Systems Const All systems reviewed & are unremarkable except as noted in HPI and below Physical Exam Vital Signs: BMI result Body Mass Index 28.3 Const General: cooperative and no acute distress Orientation/consciousness: patient oriented x3 HEENT Head: Yes normal to inspection, Yes normocephalic and Yes atraumatic Eyes General: appearance normal, both eyes and all related structures Neck Neck: Yes normal visual inspection and Yes no lymphadenopathy Resp Effort & Inspection: normal respiratory effort and able to speak in complete sentences Cardio Rate: regular rate Peripheral pulses: Peripheral pulses 2+ throughout GI Inspection: Yes normal to inspection Palpation (GI): Soft to palpation Skin General skin exam: no rashes or lesions noted Neuro General: patient oriented x3 Extrem Other: Right knee with no effusion. Skin clean dry and intact. Tenderness to palpation medial compartment bilateral knees. Antalgic gait bilaterally. Psych Appearance: grossly normal Mental Status: mental status grossly normal Results Reviewed Results Reviewed: Xrays were obtained in the office today and personally reviewed by me of the right knee for pre op planning Assessment & Plan Assessment & Plan (1) Arthritis of right knee: Code(s): M17.11 - Unilateral primary osteoarthritis, right knee Category: Medical Plan I discussed in detail the procedure and what to expect pre and post operatively. We discussed the risks, benefits and alternatives to the surgery as well as the rehabilitation course. The risks; which include, but are not limited to infection, bleeding, nerve injury, ongoing pain, swelling, and stiffness, perioperative risk of injury to bones and soft tissues, and blood clots. I?ve answered all questions and with their understanding they have consented to move forward with Right total knee arthroplasty with Dr. Del Rosario Daughter Sadia: [phone] Orders: Orders XR knee RT 3V Today M17.11 - Unilateral primary osteoarthritis, right knee XR knee LT 1V Today M25.562 - Pain in left knee Type and Screen 25 Days Z01.818 - Encounter for other preprocedural examination Patient Instructions: Scribed for Ethel Laboy PA-C, by Paulo Somers bilingual medical assistant, on 02/05/2024 at 1:15 PM EST.? I, Ethel Laboy PA-C, have personally reviewed and agree with the information entered by the scribe. Coding Level of Care Code Est Pt Level 3 (24546) Complex EM visit Add On G2211 Diagnoses Arthritis of right knee M17.11
[2024-02-05 13:20] VITALS: BMI 28.3
== END 2024-02-05 14:18 | disposition home or self-care (01) ==
PROVIDERS: PCP Internal Medicine; Visit Provider Physician Assistant
DX: M17.11 Unilateral primary osteoarthritis, right knee (principal)
CPT/HCPCS: 99213; G2211

== ENCOUNTER 2024-02-06 10:31 | Outpatient (REF) | payer MEDICARE, SELFPAY | END 2024-02-06 10:32 | disposition home or self-care (01) | LOC: HO.LAB 10:31 | PROVIDERS: PCP Internal Medicine; Visit Provider Physician Assistant | DX: Z01.818 Encounter for other preprocedural examination (principal) | CPT/HCPCS: 86850; 86900; 86901 ==

== ENCOUNTER 2024-02-09 08:36 | Day surgery (SDC) | payer MEDICARE, SELFPAY ==
[2024-01-20 12:31] VITALS: BP 164/82; PULSE 83; RESP 16; O2SAT 100
--- NOTE | 2024-01-20 12:59 | P.CONAN_ITS ---
Documented by User: Tsering Sharif NP 02/08/24 12:54 HPI - Anesthesia Eval Consult details Narrative: 73yo F for Right Knee Replacement Total, 02/09/24 Previously cx'd DOS d/t 12/09 generalized body pain from recently diagnosed PMR. Had not started tx. Now prednisone daily s/p Total Hip 08/2023 with GA-ETT 7 Current antibiotic for sinus infection- started 01/19/24 No CP/SOB with minimal activity PMR: Prednisone 10mg daily GERD: H2 angélica PMFSH Active Problems Active Problems: All Active Problems Bilateral shoulder region arthritis (Acute) History of total right hip replacement (Acute ~08/05/23) Joint pain (Acute) Right shoulder pain (Acute) Left shoulder pain (Acute) Arthritis of right knee (Acute) Arthritis of left knee (Acute) Right knee pain (Acute) Left knee pain (Acute) Osteoarthritis (Acute) Oral herpes (Acute) HTN (hypertension) (Acute) GERD (gastroesophageal reflux disease) (Acute) Environmental allergies (Acute) Edema (Acute) Chronic sinusitis (Acute) Arthritis of right hip (Acute) Right hip pain (Acute) PMR (polymyalgia rheumatica) (Acute) Osteoporosis (Acute) Past Medical History Medical History Weakness Chronic sinusitis Situational anxiety Seasonal allergies Osteoarthritis GERD (gastroesophageal reflux disease) HTN (hypertension) PMR (polymyalgia rheumatica) Osteoporosis Family History Family history of problems with anesthesia: No Surgical History Surgical History History of total right hip arthroplasty (08/05/23) Hx of colonoscopy (~2008) Hx of section (1984) History of arthroscopy of right shoulder (~2010) History of Problems with Anesthesia: No Social History Social History Household Members: Family [facility] Housing: House Are you a primary ocular care aide to a significant other at home: Yes [facility], family will help while patient hospitalized) Do you presently have visiting nurse or other home services: No Comment: right hip Patient Tobacco Use Status: Never used Tobacco Use of substances other than those prescribed or required for medical reasons: No Have you been hit, kicked, punched, or otherwise hurt by someone within the past year? If so, by whom?: No Are you DNR?: No Advance Directives: No Advance Directives Information Provided: Yes Advance Directives on File: No Poor oral hygiene: No service: No Meds Allergies Allergy/AdvReac Type Severity Reaction Status Date / Time Sulfa (Sulfonamide Allergy Severe Anaphylaxis Verified 02/09/24 08:49 Antibiotics) Home Medications ?Medication ?Instructions ?Recorded ?Confirmed ?Last Taken ?Type losartan 50 mg tablet 50 mg PO QAM 04/15/23 02/09/24 02/08/24 History fluticasone propionate 50 1 spray intranasal QAM 04/17/23 02/09/24 02/08/24 History mcg/actuation nasal spray,suspension (Flonase Allergy Relief) montelukast 10 mg tablet 10 mg PO QAM seasonal allergies 08/05/23 02/09/24 02/08/24 History famotidine 10 mg tablet (Heartburn 10 mg PO QAM 10/30/23 02/09/24 02/08/24 History Relief (famotidine)) acetaminophen 500 mg tablet 1,000 mg PO QID PRN Pain 01/20/24 02/09/24 Unknown History prednisone 10 mg tablet 10 mg PO DAILY 01/20/24 02/09/24 02/08/24 History tramadol 50 mg tablet 25 mg PO QD-QID PRN pain 01/20/24 02/09/24 02/08/24 History Exam Height,Weight and Vital Signs: Height 5 ft 5 in Weight 81.8 kg Last Vital Signs Pulse 83 01/20/24 12:31 Resp 16 01/20/24 12:31 BP 164/82 H 01/20/24 12:31 Pulse Ox 100 01/20/24 12:31 O2 Del Method Room Air 01/20/24 12:31 Pertinent Lab Results Pertinent Lab Results: Lab Results 01/20/24 Range/Units 13:07 Nasal Screen MRSA (PCR) NEGATIVE (Negative) Nasal S. aureus Screen NEGATIVE (Negative) Nasal MRSA/S.aureus Interp SEE NOTE CBC and BMP 01/2024 from [facility] except low H&H (10&34) Narrative Narrative: EKG 01/2024 NSR LVH CXR 10/2023 Impression: There is no acute cardiopulmonary disease. Airway Mallampati Class: II TM Dist: >3cm Neck ROM: Limited Loose/Missing/Broken Teeth: No (patient denies any loose or broken teeth) Heart: RRR Lungs: CTAB Assessment and Plan Assessment Anesthesia Assessment: Anesthesia Plan Discussed and PAT Visit Final Anesthetic Review Family History of Problems with Anesthesia: No History of Problems with Anesthesia: No Documented by User: Sandrita Espinoza MD 02/09/24 13:25 [facility] Past Medical History Medical History Weakness Chronic sinusitis Situational anxiety Seasonal allergies Osteoarthritis GERD (gastroesophageal reflux disease) HTN (hypertension) PMR (polymyalgia rheumatica) Osteoporosis Surgical History Surgical History History of total right hip arthroplasty (08/05/23) Hx of colonoscopy (~2008) Hx of section (1984) History of arthroscopy of right shoulder (~2010) Social History Social History Household Members: Family Household Members Other:: [facility] Housing: House Are you a primary ocular care aide to a significant other at home: Yes ([facility], family will help while patient hospitalized) Do you presently have visiting nurse or other home services: No Comment: right hip Patient Tobacco Use Status: Never used Tobacco Use of substances other than those prescribed or required for medical reasons: No Have you been hit, kicked, punched, or otherwise hurt by someone within the past year? If so, by whom?: No Are you DNR?: No Advance Directives: No Advance Directives Information Provided: Yes Advance Directives on File: No Poor oral hygiene: No service: No Meds Allergies Allergy/AdvReac Type Severity Reaction Status Date / Time Sulfa (Sulfonamide Allergy Severe Anaphylaxis Verified 02/09/24 08:49 Antibiotics) Home Medications ?Medication ?Instructions ?Recorded ?Confirmed ?Last Taken ?Type losartan 50 mg tablet 50 mg PO QAM 04/15/23 02/09/24 02/08/24 History fluticasone propionate 50 1 spray intranasal QAM 04/17/23 02/09/24 02/08/24 History mcg/actuation nasal spray,suspension (Flonase Allergy Relief) montelukast 10 mg tablet 10 mg PO QAM seasonal allergies 08/05/23 02/09/24 02/08/24 History famotidine 10 mg tablet (Heartburn 10 mg PO QAM 10/30/23 02/09/24 02/08/24 History Relief (famotidine)) acetaminophen 500 mg tablet 1,000 mg PO QID PRN Pain 01/20/24 02/09/24 Unknown History prednisone 10 mg tablet 10 mg PO DAILY 01/20/24 02/09/24 02/08/24 History tramadol 50 mg tablet 25 mg PO QD-QID PRN pain 01/20/24 02/09/24 02/08/24 History Assessment and Plan Final Anesthetic Review NPO: Yes ASA Class: III Final Preanesthetic Review: No Changes in Pt Med Stat, Meds/Allgs Chart Reviewed, Consent Obtained/Reviewed and Anes Risks/Benef Reviewed Patient Risk: Intermediate Procedure Risk: Intermediate Anesthetic Plan Anesthetic Plan: Spinal and Regional Block Disposition: Standard PACU
[2024-01-20 14:46] LABS: MRSA Nasal PCR NEGATIVE (Negative); SA Nasal PCR NEGATIVE (Negative)
[2024-02-09] VITALS (10 sets, daily range): BP systolic 90–183; BP diastolic 56–89; PULSE 46–78; RESP 12–20; TEMP 36.1–36.6; O2SAT 95–99; BMI 29.7
--- NOTE | ~2024-02-09 | XR_ITS ---
EXAMINATION: XR KNEE, RIGHT CLINICAL INFORMATION: Right total knee arthroplasty. COMPARISON: Post recent right knee radiograph dated 02/05/2024. TECHNIQUE: AP and lateral views of the right knee. FINDINGS: Prosthetic components of the total knee arthroplasty are appropriately aligned. No periprosthetic fracture. Gas from recent surgery is present in the joint and surrounding soft tissues. A joint effusion is present. XR/XR knee RT 2V IMPRESSION: Appropriate alignment of the right total knee arthroplasty. Electronically signed by: Edil Boudreaux MD 02/09/2024 11:01 PM ELVIS LYON
[2024-02-09 09:16] LABS: Hematocrit 35.6 % (37.0-47.0); Hemoglobin 11.1 g/dl (12.0-16.0)
[2024-02-09] MEDS: Lactated Ringers 1,000 ML 100 ML IVCONT ×2 (10:56→15:59)
--- NOTE | 2024-02-09 11:41 | MHC.SHP ---
Pre-Procedural Eval Section A - 24 Hr Update-Section A only Date of Service: 02/09/24 The patient is an INPATIENT: No Changes since office visit: No Cold of Flu in the past 2 weeks, No New Medical Problems, No Changes in Medication and No Patient answered all questions The patient has been examined within 24 hours of the surgical procedure. The History & Physical has been completed within 30 days and I have reviewed it.: Yes Section B - Complete if H&P > 30 days Chief Complaint: RT TKA Allergies: Allergies Allergy/AdvReac Type Severity Reaction Status Date / Time Sulfa (Sulfonamide Allergy Severe Anaphylaxis Verified 02/09/24 08:49 Antibiotics) Plan I have reviewed the history and physical and performed a pertinent physical examination on my patient. No changes have occurred unless specified. Time Spent With Patient Time: Total time managing care of this patient today ____ minutes.
--- NOTE | 2024-02-09 12:49 | PC.NURSE ---
Patient arrived to preop stating I should be on antibiotics I think, my sinus infection is coming back . Patient afebrile, lungs clear, Just feels stuffy . Dr. Del Rosario and Dr. Espinoza made aware. No new orders at this time. Okay to proceed per Dr. Del Rosario.
--- NOTE | 2024-02-09 13:46 | P.BOP_ITS ---
Brief Operative Note Date of Service: 02/09/24 Pre-op diagnosis: Right knee OA Post-op diagnosis: same Procedure: Right TKA Implants: Right TKA Triathlon cemented PS 3//12PS/32a Surgeon: Oswald Del Rosario MD Anesthesia: regional and spinal Was an Sales Representative Printing Supplies used for this Procedure?: Yes Sales Representative Printing Supplies: Ethel Laboy Estimated blood loss (mL): 50 Tourniquet time (min): 54 IV fluids (mL): 850 Pathology: other Condition: stable Disposition: PACU
[2024-02-09] MEDS: HYDROmorphone HCl 0.5 MG/0.5 ML SYRINGE IVPUSH (14:08)
--- NOTE | 2024-02-09 14:15 | P.DS_ITS ---
DS: Providers Provider Date of Service: 02/12/24 <MALACHI Jackson - Last Filed: 02/12/24 09:09> Primary care physician: Jarod Wu MD <Argenis Interiano PA-C - Last Filed: 02/12/24 08:03> DS: Summary Hospital Course Hospital Course: The patient underwent a successful right total knee arthroplasty, they were transferred to PACU and then to the floor to recover. During their stay, their vitals were stable, afebrile at 99.6. Labs were unremarkable, H/H 10.2/32.8. POD 1 they were started on Aspirin for DVT ppx, they also received Physical Therapy services twice a day. Prior to discharge, their dressing was clean dry and intact, and the plan was to be discharged to rehab for addiional therapy. <Argenis Interiano PA-C - Last Filed: 02/12/24 08:03> Status at Discharge Cognitive/behavioral status at discharge: Stable for discharge <MALACHI Jackson Last Filed: 02/12/24 09:09> Time Attestation Discharge Coordination Time (in mins): 30 <MALACHI Jackson Last Filed: 02/12/24 09:09> Quality: Safe Use of Opioids Does Pt have an Active Cancer Diagnosis on the Problem List?: No <MALACHI Jackson - Last Filed: 02/12/24 09:09> Quality: Stroke Does the patient have a stroke diagnosis?: No <MALACHI Jackson Last Filed: 02/12/24 09:09> Physical Exam Vital Signs: Vital Signs: Last Vital Signs Temp 98 F 02/09/24 14:05 Pulse 55 02/09/24 14:05 Resp 16 02/09/24 14:05 BP 90/56 L 02/09/24 14:05 Pulse Ox 99 02/09/24 14:05 O2 Del Method Room Air 02/09/24 14:05 BMI result Body Mass Index 29.7 <BENI Feliciano Last Filed: 02/12/24 08:03> Const: General: cooperative, healthy appearing and no acute distress <Argenis Interiano PA-C - Last Filed: 02/12/24 08:03> Resp: Effort & Inspection: normal respiratory effort and able to speak in complete sentences <Argenis Interiano PA-C - Last Filed: 02/12/24 08:03> Cardio: Rate: regular rate <Argenis Interiano PA-C - Last Filed: 02/12/24 08:03> Peripheral pulses: Peripheral pulses 2+ throughout <Argenis Interiano PA-C - Last Filed: 02/12/24 08:03> GI: Palpation (GI): Soft to palpation <Argenis Interiano PA-C - Last Filed: 02/12/24 08:03> Skin: Lesions: no lesions <Argenis Interiano PA-C - Last Filed: 02/12/24 08:03> Rashes: no rashes <Argenis Interiano PA-C - Last Filed: 02/12/24 08:03> Extrem: Other: right knee dressing is c/d/i. Able to dorsi/plantar flex. Calf is supple and nontender. Sensation intact. Pedal pulse intact. <Argenis Interiano PA-C - Last Filed: 02/12/24 08:03> DS: Data Data Completed and Pending Pending studies at discharge: Pending at discharge 02/09/24 12:58 Surgical [PTH] Routine <Argenis Interiano PA-C - Last Filed: 02/12/24 08:03> Labs on day of discharge: Laboratory Results - last 24 hr 02/09/24 09:08 Hgb 11.1 L Hct 35.6 L <Argenis Interiano PA-C - Last Filed: 02/12/24 08:03> Discharge Plan Discharge Patient Disposition: Xfer SNF <Argenis Interiano PA-C - Last Filed: 02/12/24 08:03> Referrals: Argenis Interiano PA-C [[facility]] - 2 Weeks (02/25/24 14:00 [facility] Argenis Interiano PA-C) <Argenis Interiano PA-C - Last Filed: 02/12/24 08:03> Discharge Medications: New acetaminophen 325 mg Tablet 650 mg PO Q6H PRN (Reason: Pain, Mild (Pain Scale 1-3), fever or headache) 30 Days Qty: 240 0RF aspirin 325 mg Tablet 325 mg PO BID 42 Days Qty: 84 0RF docusate sodium 100 mg Capsule 100 mg PO BID 30 Days Qty: 60 0RF oxycodone 5 mg Tablet 10 mg PO Q4H PRN (Reason: Pain, Moderate(Pain Scale 4-6)) 7 Days Qty: 42 0RF Rx Instructions: Partial Fill upon patient request. Continued montelukast 10 mg tablet 10 mg PO DAILY famotidine [Heartburn Relief (famotidine)] 10 mg Tablet 10 mg PO BID (DME) Raised toilet seat See Rx Instructions .ROUTE .MEDSUPPLY Qty: 1 0RF Rx Instructions: As directed (LATONIA) walker Misc See Rx Instructions .MEDSUPPLY Qty: 1 0RF Rx Instructions: Folding Front wheeled walker losartan 50 mg tablet 50 mg PO DAILY fluticasone propionate [Flonase Allergy Relief] 50 mcg/actuation spray,suspension 2 spray intranasal BID Rx Instructions: administer into each nostril (LATONIA) SHOWER bench See Rx Instructions .ROUTE .MEDSUPPLY Qty: 1 0RF Rx Instructions: duration 99 days Discontinued prednisone 10 mg Tablet 10 mg PO DAILY acetaminophen 500 mg Tablet 1,000 mg PO QID PRN (Reason: Pain) tramadol 50 mg tablet 25 mg PO QD-QID PRN (Reason: pain) No Action acetaminophen 500 mg Tablet 1,500 mg PO DAILY PRN (Reason: Pain) <Argenis Interiano PA-C - Last Filed: 02/12/24 08:03> Discharge Orders: Discharge Order (Routine); Ordered 02/12/24 Ordered By: Coy Ferguson <BENI Feliciano Last Filed: 02/12/24 08:03> Diet: Regular diet <Argenis Interiano PA-C - Last Filed: 02/12/24 08:03> Regular diet <MALACHI Jackson Last Filed: 02/12/24 09:09> Activity on Discharge: Use cane or walker <Argenis Interiano PA-C - Last Filed: 02/12/24 08:03> Use cane or walker <MALACHI Jackson - Last Filed: 02/12/24 09:09> Activity Restrictions/Additional Instructions: Physical Therapy for Total knee arthroplasty: WBAT, gait training, ROM 0- 12, quad strength * Limit stair climbing * No showering, no tub bath-keep dressing clean, dry and intact * No driving x6 weeks * Continue Aspirin twice a day x 6 weeks * Follow up with [facility] in 2 weeks: <Argenis Interiano PA-C - Last Filed: 02/12/24 08:03> Print Language: Peruvian <Argenis Interiano PA-C - Last Filed: 02/12/24 08:03>
--- NOTE | 2024-02-09 14:16 | P.F2F_ITS ---
Service Date Service Date: 02/09/24 Encounter Date of encounter: 02/10/24 Reasons for Services Signs and symptoms assessed: s/p RTKA Pt. is considered homebound due to recent surgery. Unable to drive, poor balance, poor gait mechanics. Reason for physical therapy: home safety and mobility, therapeutic exercises, restore joint function, gait/transfer training and ADL training Homebound: Leaving the home is medically contraindicated at this time without the asist of a device and/or another person due th the listed conditions above and below. Reason homebound: unsteady gait / fall risk, leg weakness, pain with ambulation, pain with transfers, poor balance / fall risk and unable to drive Certification: Based on the above findings, I certify that this patient is confined to the home and needs intermittent group home care, physical therapy and/or speech th erapy, or continues to need occupational therapy. The patient is under my care, and I have initiated the establishment of the plan of care. The patient will be followed by a physician who will periodically review the plan of care. Time Spent With Patient Time: Total time managing care of this patient today ____ minutes.
--- NOTE | 2024-02-09 15:40 | P.CONHOSP_ITS ---
History of Present Illness Data of Consult Service Date: 02/09/24 Primary Care Provider: Jarod Wu MD HPI 73-year-old woman with a history of hypertension admitted by Orthopedic surgery and is status post right total knee arthroplasty. Surgery was unremarkable. Patient is hemodynamically stable. She has been able to eat and drink without any nausea or vomiting. Review of Systems 2 Review of Systems: Denies any recent fever chills or decrease in appetite respiratory denies any shortness of breath or cough cardiovascular denied chest pain gastrointestinal denies any dysphagia abdominal pain nausea vomiting or diarrhea genitourinary denies any dysuria frequency or hematuria musculoskeletal status post knee surgery neuropsych denies any weakness or seizures all other systems reviewed are negative PMFSH Medical History Weakness Chronic sinusitis Situational anxiety Seasonal allergies Osteoarthritis GERD (gastroesophageal reflux disease) HTN (hypertension) PMR (polymyalgia rheumatica) Osteoporosis Surgical History (Updated 02/09/24 @ 15:40 by Giselle Em RN) History of hip replacement S/P hip replacement History of total right hip arthroplasty (08/05/23) Hx of colonoscopy (~2008) Hx of section (1984) History of arthroscopy of right shoulder (~2010) Social History Household Members: None Household Members Other:: [facility] Housing: House Are you a primary career consultant to a significant other at home: Yes ([facility], family will help while patient hospitalized) Do you presently have visiting nurse or other home services: No Comment: right hip Patient Tobacco Use Status: Never used Tobacco Use of substances other than those prescribed or required for medical reasons: No Have you been hit, kicked, punched, or otherwise hurt by someone within the past year? If so, by whom?: No Do you feel safe in your current relationship?: No Current Relationship Is there a partner from a previous relationship who is making you feel unsafe now?: No Are you made to feel afraid or neglected: No Gnosticist Healthcare Practices: Faith Zoroastrianism Are you DNR?: No Advance Directives: No Advance Directives Information Provided: Yes Advance Directives on File: No Do you have a plan to hurt others: No Plan Recently lost weight without trying: Yes How much weight loss: 14-23 pounds Eating poorly because of decreased appetite: Yes Nutrition screen score: 5 Nutrition Risks: No Nutritional Risk Patient : No Poor oral hygiene: No service: No Meds Allergies Allergy/AdvReac Type Severity Reaction Status Date / Time Sulfa (Sulfonamide Allergy Severe Anaphylaxis Verified 02/09/24 08:49 Antibiotics) Active Medications: Current Medications Acetaminophen (Acetaminophen 325 Mg Tablet) 650 mg PO Q6H PRN PRN Reason: Pain, Mild (Pain Scale 1-3), fever or headache Aspirin (Aspirin 325 Mg Tablet) 325 mg PO BID [facility] Docusate Sodium (Docusate Sodium 100 Mg Capsule) 100 mg PO BID [facility] Famotidine (Famotidine 20 Mg Tablet) 10 mg PO DAILY [facility] Fluticasone Propionate (Fluticasone Propionate Nasal 16 Gm Jenkins) 1 spray NOSTRIL-B DAILY [facility] Hydromorphone HCl (Hydromorphone Hcl 0.5 Mg/0.5 Ml Syringe) 0.25 mg IVPUSH Q4H PRN; Protocol PRN Reason: Pain, Severe (Pain Scale 7-10) Lactated Ringer's (Lr) 1,000 mls @ 100 mls/hr IVCONT .Q10H MEGHANN Stop: 02/10/24 13:58 Cefazolin Sodium/Dextrose (Ancef) 2 gm in 50 mls @ 100 mls/hr IV POSTOP@2000 ONE Stop: 02/09/24 20:29 Montelukast Sodium (Montelukast Sodium 10 Mg Tablet) 10 mg PO DAILY [facility] Ondansetron HCl (Ondansetron Hcl 4 Mg/2 Ml Vial) 4 mg IVPUSH Q8H PRN PRN Reason: Nausea and Vomiting Oxycodone HCl (Oxycodone Hcl Immed Release 5 Mg Tablet) 5 mg PO Q4H PRN PRN Reason: Pain, Moderate(Pain Scale 4-6) Oxycodone HCl (Oxycodone Hcl Er 10 Mg Tab.Er.12h) 10 mg PO BID [facility] Sodium Chloride (0.9 % Sodium Chloride Flush 3 Ml Syringe) 3 ml IVFLUSH QSHIFT [facility] Home Medications ?Medication ?Instructions ?Recorded ?Confirmed ?Last Taken ?Type losartan 50 mg tablet 50 mg PO QA 04/15/23 02/09/24 02/08/24 History fluticasone propionate 50 1 spray intranasal QAM 04/17/23 02/09/24 02/08/24 History mcg/actuation nasal spray,suspension (Flonase Allergy Relief) montelukast 10 mg tablet 10 mg PO QAM seasonal allergies 08/05/23 02/09/24 02/08/24 History famotidine 10 mg tablet (Heartburn 10 mg PO QAM 10/30/23 02/09/24 02/08/24 History Relief (famotidine)) Physical Exam 2 Vital Signs and Narrative: Vital Signs: Last Vital Signs Temp 96.9 F 02/09/24 15:16 Pulse 50 02/09/24 15:16 Resp 12 02/09/24 15:16 BP 168/74 H 02/09/24 15:16 Pulse Ox 99 02/09/24 15:16 O2 Del Method Room Air 02/09/24 15:16 BMI result Body Mass Index 29.7 Appearing in no acute distress head is normocephalic atraumatic eyes pupils are PERRLA sclera is anicteric mouth throat mucous membranes are intact and moist neck is supple no lymphadenopathy, no JVD noted lung sounds are clear to auscultation heart regular rate rhythm, clear S1, S2 positive bowel sounds, abdomen is soft, nontender neuro patient is alert x3, no focal deficits Right knee surgical dressing intact Results Labs 02/09/24 09:08 Assessment and Plan (1) HTN (hypertension): Status: Acute Plan 73-year-old woman admitted by Orthopedic surgery and status post right total knee arthroplasty Right total knee arthroplasty Admit as per surgical team Pain management Hypertension Elevated blood pressure Continue losartan GERD Continue Pepcid DVT prophylaxis with full-dose aspirin Full code Medical consultation complete. Will sign off
[2024-02-09] MEDS: 0.9 % Sodium Chloride Flush 3 ML SYRINGE IVFLUSH ×2 (16:00→19:44)
--- NOTE | 2024-02-09 16:20 | PHA.MEDREC ---
Addendum entered by Tanner Oneill RPh 02/09/24 17:00: MED REC CHECKED BY [facility] Original Note: Pharmacy Consult ? Medication Reconciliation Pharmacy reviewed med rec done by nursing. Spoke with patient and I confirmed the med rec and updated the Famotidine 10mg tab, the nurse confirmed once daily but the patient confirmed she is taking it BID. The patient also confirmed she is taking Fluticasone nasal spray, puffing 2 sprays in each nostril BID. She confirmed she takes an Acetaminophen 500mg tab and states she takes 3 tabs daily as needed for pain. She confirmed she took all her medications yesterday.
--- NOTE | 2024-02-09 18:51 | PC.NURSE ---
Patient still has numbness in her legs,unable to get out of bed yet ,trying to urinate on the bedpan at present
[2024-02-09] MEDS: HYDROmorphone HCl 0.5 MG/0.5 ML SYRINGE 0.25 MG IVPUSH (19:43)
[2024-02-09] MEDS: ceFAZolin Sodium/Dextrose,Iso 2 GM/50 ML PIGGYBACK IV (19:44)
[2024-02-09] MEDS: ondansetron HCL 4 MG/2 ML VIAL IVPUSH (19:59)
[2024-02-09] MEDS: oxyCODONE HCl ER 10 MG TAB.ER.12H PO (21:17)
[2024-02-09] MEDS: Docusate Sodium 100 MG CAPSULE PO (21:17)
[2024-02-09] MEDS: Acetaminophen 325 MG TABLET 650 MG PO (22:54)
[2024-02-09] MEDS: oxyCODONE HCl Immed Release 5 MG TABLET PO (23:58)
[2024-02-10] MEDS: HYDROmorphone HCl 0.5 MG/0.5 ML SYRINGE 0.25 MG IVPUSH ×4 (01:33→15:32)
[2024-02-10] MEDS: Lactated Ringers 1,000 ML 100 ML IVCONT ×2 (01:36→12:58)
[2024-02-10 03:56] VITALS: BP 150/82; PULSE 74; RESP 20; TEMP 36.6; O2SAT 99
[2024-02-10] MEDS: oxyCODONE HCl Immed Release 5 MG TABLET PO (07:05)
[2024-02-10] MEDS: Fluticasone Propionate Nasal 16 GM SPRAY 1 SPRAY NOSTRIL-B (07:06)
[2024-02-10] MEDS: oxyCODONE HCl ER 10 MG TAB.ER.12H PO ×2 (07:06→21:04)
[2024-02-10] MEDS: Famotidine 20 MG TABLET 10 MG PO (07:06)
[2024-02-10] MEDS: Acetaminophen 325 MG TABLET 650 MG PO (07:07)
[2024-02-10] MEDS: Montelukast Sodium 10 MG TABLET PO (07:07)
[2024-02-10] MEDS: Docusate Sodium 100 MG CAPSULE PO ×2 (07:07→21:04)
[2024-02-10 07:34] LABS: MANUAL DIFF FLAG NO
[2024-02-10 07:38] LABS: Basophils Percent Auto 0.1 % (0-2); Eosinophils Percent Auto 0.1 % (0-4); Hematocrit 34.6 % (37.0-47.0); Hemoglobin 10.9 g/dl (12.0-16.0); Imm Gran Pct Auto 0.7 % (0.0-0.4); Lymphocytes Absolute Auto 1.5 X10*3/uL (1.2-4.9); Lymphocytes Percent Auto 10.1 % (20-40); Mean Corpuscular HGB Conc 31.5 g/dl (31.0-35.0); Mean Corpuscular Hemoglobin 28.5 pg (27.0-33.0); Mean Corpuscular Volume 90.3 fL (80.0-98.0); Neutrophils Absolute Auto 11.8 x10*3/uL (2.0-8.3); Platelet Count 239 X10*3/uL (160-400); Red Blood Count 3.83 X10*6/uL (4.20-5.50); Red Cell Distribution Width 16.4 % (11.0-16.0); White Blood Count 14.4 X10*3/uL (4.8-10.8)
[2024-02-10 07:51] LABS: Anion Gap 14 (12-20); Blood Urea Nitrogen 14 mg/dL (9-16); Calcium 9.4 mg/dL (8.4-10.2); Carbon Dioxide 21 mmol/L (22-29); Chloride 103 mmol/L (96-108); Creatinine Clr Calc Pharmacy 60.9; Estimated Glomerular Filt Rate > 60; Glucose Fasting 110 mg/dL (60-99); Potassium 4.9 mmol/L (3.3-5.1); Sodium 133 mmol/L (135-145)
--- NOTE | 2024-02-10 07:54 | PM.PNORT ---
Subjective Subjective Date of Service: 02/10/24 Interval history: POD1 s/p RTKA Patient is at EOB with p.t. No overnight events Pain is reportedly not managed No additional complaints Physical Exam Vital Signs: Vital Signs: Last Vital Signs Temp 97.8 F 02/10/24 03:56 Pulse 74 02/10/24 03:56 Resp 20 02/10/24 03:56 BP 150/82 H 02/10/24 03:56 Pulse Ox 99 02/10/24 03:56 O2 Del Method Room Air 02/10/24 03:56 BMI result Body Mass Index 29.7 Const: General: cooperative, healthy appearing and no acute distress Resp: Effort & Inspection: normal respiratory effort and able to speak in complete sentences Cardio: Rate: regular rate Peripheral pulses: Peripheral pulses 2+ throughout GI: Palpation (GI): Soft to palpation Skin: Lesions: no lesions Rashes: no rashes Extrem: Other: left knee dressing is c/d/i. Able to dorsi/plantar flex. Calf is supple and nontender. Sensation intact. Pedal pulse intact. Procedures Date of Service Date of Service: 02/10/24 Progress Note: A&P Assessment and plan (1) Status post total knee replacement, right: Status: Acute Plan Continue pain mgmnt Begin ASA for dvt ppx begin PT for RTKA Med adjustment made: -Oxycodone 10mg q4hrs prn moderate pain -Dilaudid 0.25mg q3hrs prn severe pain Dispo planning-Pending PT eval, pain mgmnt Patient will need ongoing stay for pain managment and likely will require rehab placement Time Spent With Patient Time: Total time managing care of this patient today ____ minutes. Quality Stroke Does the patient have a stroke diagnosis?: No VTE Prior VTE?: No VTE Risk Level:: Medical - moderate - high VTE Device Contraindication: N/A - Device Ordered VTE Drug Contraindication: N/A - Med Ordered
[2024-02-10 08:00] VITALS: BP 136/88; PULSE 99; RESP 18; TEMP 36.6; O2SAT 100
--- NOTE | 2024-02-10 09:00 | HO.POSTANES ---
Post Anesthesia Evaluation Post Anesthesia Evaluation Date of Service: 02/10/24 Vital Signs: Vital Signs Temp Pulse Resp BP Pulse Ox O2 Del Method 02/10/24 08:00 97.8 F 99 18 136/88 100 Room Air 02/10/24 03:56 97.8 F 74 20 150/82 H 99 Room Air 02/09/24 23:46 158/72 H 02/09/24 22:56 98 F 72 20 99 Room Air Anesthesia: Regional and Spinal Mental Status: Awake Pain Control: Satisfactory (meds adjusted by surgery) Nausea/Vomiting: None Hydration: Adequate Anesthesia-Related Issues: No Anes. Related Issues
[2024-02-10] MEDS: Ketorolac Tromethamine 15 MG/ML VIAL IVPUSH (09:14)
--- NOTE | 2024-02-10 11:29 | MHC.CM.PN ---
IMM 02/10/24 Female lives alone. She uses cane and is independent with adls. PT eval rec STR. Preferences obtained referrals sent. Patient accepts a bed offer from [facility]. Patient will transport to rehab via private transport. Patients dtr will give her a ride.
[2024-02-10] MEDS: oxyCODONE HCl Immed Release 5 MG TABLET 10 MG PO ×2 (11:42→18:34)
[2024-02-10 12:00] VITALS: BP 170/78; PULSE 80; RESP 18; TEMP 36.2; O2SAT 95
--- NOTE | 2024-02-10 13:25 | MHC.CLN ---
NUTRITION CONSULT CONSULT FOR WEIGHT LOSS. REVIEW OF WEIGHT HX SHOWS NO SIGNIFICANT WEIGHT CHANGE X 10 MONTHS. DIET=REGULAR. NO ADDITIONAL NUTRITION INTERVENTIONS AT THIS TIME.
[2024-02-10] MEDS: Aspirin 325 MG TABLET PO ×2 (13:50→21:04)
[2024-02-10] MEDS: Acetaminophen 1,000 MG/100 ML PIGGYBACK 400 MG IV ×2 (13:55→18:20)
[2024-02-10 15:47] VITALS: BP 168/77; PULSE 84; RESP 18; TEMP 36.2; O2SAT 97
[2024-02-10] MEDS: 0.9 % Sodium Chloride Flush 3 ML SYRINGE IVFLUSH (18:27)
[2024-02-10 19:39] VITALS: BP 138/71; PULSE 88; RESP 18; TEMP 36.4; O2SAT 98
[2024-02-10 23:32] VITALS: BP 136/63; PULSE 79; RESP 18; TEMP 37.3; O2SAT 98
[2024-02-11] VITALS (7 sets, daily range): BP systolic 110–147; BP diastolic 63–72; PULSE 81–93; RESP 12–20; TEMP 36.2–37.6; O2SAT 95–99
[2024-02-11] MEDS: HYDROmorphone HCl 0.5 MG/0.5 ML SYRINGE 0.25 MG IVPUSH ×3 (02:55→19:34)
[2024-02-11 06:11] LABS: MANUAL DIFF FLAG NO
[2024-02-11 06:14] LABS: Basophils Absolute Auto 0.1 X10*3/uL (0.0-0.2); Basophils Percent Auto 0.5 % (0-2); Eosinophils Percent Auto 0.2 % (0-4); Hematocrit 32.8 % (37.0-47.0); Hemoglobin 10.2 g/dl (12.0-16.0); Imm Gran Abs Auto 0.09 X10*3/uL (0.00-0.03); Imm Gran Pct Auto 0.9 % (0.0-0.4); Lymphocytes Absolute Auto 2.1 X10*3/uL (1.2-4.9); Lymphocytes Percent Auto 20.4 % (20-40); Mean Corpuscular HGB Conc 31.1 g/dl (31.0-35.0); Mean Corpuscular Hemoglobin 28.1 pg (27.0-33.0); Mean Corpuscular Volume 90.4 fL (80.0-98.0); Mean Platelet Volume 9.1 fL (9.4-12.3); Monocytes Absolute Auto 1.1 X10*3/uL (0.1-1.2); Monocytes Percent Auto 10.1 % (2-11); Neutrophils Absolute Auto 7.1 x10*3/uL (2.0-8.3); Neutrophils Percent Auto 67.9 % (45-73); Platelet Count 307 X10*3/uL (160-400); Red Blood Count 3.63 X10*6/uL (4.20-5.50); Red Cell Distribution Width 16.5 % (11.0-16.0); White Blood Count 10.5 X10*3/uL (4.8-10.8)
[2024-02-11 06:30] LABS: Anion Gap 17 (12-20); Blood Urea Nitrogen 20 mg/dL (9-16); Carbon Dioxide 22 mmol/L (22-29); Chloride 105 mmol/L (96-108); Creatinine Clr Calc Pharmacy 55.3; Estimated Glomerular Filt Rate 56; Glucose Fasting 92 mg/dL (60-99); Potassium 4.5 mmol/L (3.3-5.1); Sodium 139 mmol/L (135-145)
[2024-02-11] MEDS: Acetaminophen 1,000 MG/100 ML PIGGYBACK 400 MG IV (08:32)
[2024-02-11] MEDS: 0.9 % Sodium Chloride Flush 3 ML SYRINGE IVFLUSH ×3 (08:37→19:35)
[2024-02-11] MEDS: Aspirin 325 MG TABLET PO ×2 (08:38→19:35)
[2024-02-11] MEDS: oxyCODONE HCl ER 10 MG TAB.ER.12H PO ×2 (08:38→19:36)
[2024-02-11] MEDS: Docusate Sodium 100 MG CAPSULE PO ×2 (08:38→19:35)
[2024-02-11] MEDS: Montelukast Sodium 10 MG TABLET PO (08:38)
[2024-02-11] MEDS: Famotidine 20 MG TABLET 10 MG PO (08:39)
[2024-02-11] MEDS: Fluticasone Propionate Nasal 16 GM SPRAY 1 SPRAY NOSTRIL-B (08:44)
--- NOTE | 2024-02-11 09:04 | PM.PNORT ---
Subjective Subjective Date of Service: 02/11/24 Interval history: POD1 s/p RTKA Patient is resting in bed comfortably No overnight events No additional complaints Physical Exam Vital Signs: Vital Signs: Last Vital Signs Temp 99.6 F 02/11/24 07:27 Pulse 89 02/11/24 07:27 Resp 16 02/11/24 07:27 BP 110/65 02/11/24 07:27 Pulse Ox 97 02/11/24 07:27 O2 Del Method Room Air 02/11/24 07:27 BMI result Body Mass Index 29.7 Const: General: cooperative, healthy appearing and no acute distress Resp: Effort & Inspection: normal respiratory effort and able to speak in complete sentences Cardio: Rate: regular rate Peripheral pulses: Peripheral pulses 2+ throughout GI: Palpation (GI): Soft to palpation Skin: Lesions: no lesions Rashes: no rashes Extrem: Other: left knee dressing is c/d/i. Able to dorsi/plantar flex. Calf is supple and nontender. Sensation intact. Pedal pulse intact. Procedures Date of Service Date of Service: 02/11/24 Progress Note: A&P Assessment and plan (1) Status post total knee replacement, right: Status: Acute Plan Continue pain mgmnt Begin ASA for dvt ppx begin PT for RTKA Dispo planning- PT - continue to work as patient is progressing slowly and recommending rehab, pain mgmnt, rehab placement Patient will need ongoing stay for pain managment and likely will require rehab placement Time Spent With Patient Time: Total time managing care of this patient today ____ minutes. Quality Stroke Does the patient have a stroke diagnosis?: No VTE Prior VTE?: No VTE Risk Level:: Medical - moderate - high VTE Device Contraindication: N/A - Device Ordered VTE Drug Contraindication: N/A - Med Ordered
[2024-02-11] MEDS: oxyCODONE HCl Immed Release 5 MG TABLET 10 MG PO (13:47)
[2024-02-12] MEDS: HYDROmorphone HCl 0.5 MG/0.5 ML SYRINGE 0.25 MG IVPUSH (03:29)
[2024-02-12 04:00] VITALS: BP 138/78; PULSE 99; RESP 18; TEMP 36.3; O2SAT 98
[2024-02-12 07:35] VITALS: BP 119/64; PULSE 96; RESP 16; TEMP 36.9; O2SAT 99
[2024-02-12] MEDS: Aspirin 325 MG TABLET PO (07:46)
[2024-02-12] MEDS: Famotidine 20 MG TABLET 10 MG PO (07:46)
[2024-02-12] MEDS: oxyCODONE HCl ER 10 MG TAB.ER.12H PO (07:46)
[2024-02-12] MEDS: oxyCODONE HCl Immed Release 5 MG TABLET 10 MG PO (07:46)
[2024-02-12] MEDS: Docusate Sodium 100 MG CAPSULE PO (07:47)
[2024-02-12] MEDS: Fluticasone Propionate Nasal 16 GM SPRAY 1 SPRAY NOSTRIL-B (07:47)
[2024-02-12] MEDS: Montelukast Sodium 10 MG TABLET PO (07:47)
[2024-02-12] MEDS: 0.9 % Sodium Chloride Flush 3 ML SYRINGE IVFLUSH (07:49)
[2024-02-12 07:52] VITALS: BMI 31.4
--- NOTE | 2024-02-12 09:13 | MHC.CM.PN ---
pt to be dcd to elnh today at 11 pt and dgter awarte
[2024-02-12 09:16] VITALS: BP 119/64; PULSE 96; O2SAT 99
--- NOTE | 2024-02-15 15:54 | W.PM.OPN ---
Operative Note Operative Note Date of Service: 02/09/24 Narrative: Date of Service: 02/09/24 Pre-op diagnosis: Right knee OA Post-op diagnosis: same Procedure: Right TKA Implants: Right TKA Triathlon cemented PS 3//12PS/32a Surgeon: Oswald Del Rosario MD Anesthesia: regional and spinal Was an 7Th Grade Teacher used for this Procedure?: Yes 7Th Grade Teacher: Ethel Laboy Estimated blood loss (mL): 50 Tourniquet time (min): 54 IV fluids (mL): 850 Pathology: other Condition: stable Disposition: PACU Procedure in detail: The patient was brought to the operating room and prepped and draped in standard sterile fashion. A time-out was called to identify proper site proper procedure proper surgeon and IV antibiotics were administered. 1 g of IV tranexamic acid was administered. I began by making a midline incision to the retinaculum and performed a medial parapatellar arthrotomy. The patella was translated laterally and the knee was flexed up. The lateral compartment was severely eburnated. I performed a small medial peel and resected the infrapatellar fat pad. [place]'s line was then used to drill my intramedullary femoral guide and my distal femur cut of 10 mm was made in 5 degrees of valgus while protecting the soft tissues. The bone quality was poor. I then measured a # 3 femur and placed my cutting guide and made my anterior posterior and chamfer cuts in 3 degrees of external rotation while protecting the soft tissues at all times. I then made my box but removing the PCL. Once I was satisfied with my cuts I turned my attention to the tibia. I removed the meniscus medially and laterally and , using an external cutting guide, in line with the tibial crest and the third ray, I made my distal tibial cut in 0 deg slope of while protecting the posterior soft tissues at all times. An extension block was used to confirm appropriate amount of bony resection. I then sized a #4 tibia and once I was satisfied that there was complete tibial coverage I placed my trial and with the trial femur in place took the knee through range of motion. I was satisfied with the extension and flexion as well as the balance at 0, 30 and 90 degrees. I then turned my attention to the patella where I removed 1 cm from the undersurface of the patella and then trialed a 32a patellar button. Again the knee was taken through range of motion I was satisfied with the tracking. I then prepared the tibia with a drill and punch. I selected a 50 mm stem given the extremely poor bone quality. A femoral bone plug was placed and the knee was irrigated copiously. I then cemented the patella, tibia and femur in standard fashion. Axial compression and a clamp were used while the cement dried. Once the cement was hard on the back table all excess cement was removed and I trialed different inserts until I selected a #12psinsert. The final insert was placed and local TXA was administered. The knee was then closed with a running Quill suture, a 3 0 Vicryl and karlos on the skin. Patient was then placed in sterile dressing and brought to recovery room in stable condition there were no known complications.
== END 2024-02-12 11:12 | disposition skilled nursing facility (03) ==
LOC: HO.SSS 14:00 → HO.S3 14:17
PROVIDERS: Nurse Practitioner; Physician Assistant; PCP Internal Medicine; Visit Provider Orthopaedic Surgery
PROC: (CPT 27447; principal; 2024-02-09 11:50)
DX: M17.11 Unilateral primary osteoarthritis, right knee (principal); G89.18 Other acute postprocedural pain; M25.561 Pain in right knee; I10 Essential (primary) hypertension; M81.0 Age-related osteoporosis without current pathological fracture; M35.3 Polymyalgia rheumatica; J32.9 Chronic sinusitis, unspecified; Z79.51 Long term (current) use of inhaled steroids; Z79.82 Long term (current) use of aspirin; Z79.899 Other long term (current) drug therapy; F41.1 Generalized anxiety disorder; Z96.641 Presence of right artificial hip joint; Z98.890 Other specified postprocedural states; Z88.2 Allergy status to sulfonamides
CPT/HCPCS: 27447; 36415; 73560; 80048; 85014; 85018; 85025; 87640; 87641; 88304; 88305; 88311; 97110; 97162; 97530; C1713; C1776; J0131; J0665; J0690; J1100; J1171; J1885; J2003; J2250; J2405; J2704; J7120

== ENCOUNTER → 2024-02-09 08:36 | Outpatient (BNV) | payer MEDICARE, SELFPAY | PROVIDERS: PCP Internal Medicine; Visit Provider Nurse Practitioner Acute Care | DX: I10 Essential (primary) hypertension (principal) | CPT/HCPCS: 99221 ==

== ENCOUNTER → 2024-02-09 08:36 | Outpatient (BNV) | payer MEDICARE, SELFPAY | PROVIDERS: PCP Internal Medicine; Visit Provider Orthopaedic Surgery | DX: Z96.651 Presence of right artificial knee joint (principal) | CPT/HCPCS: 27447; 99024 ==

== ENCOUNTER 2024-02-25 13:50 | Outpatient (AMB) | payer MEDICARE, SELFPAY ==
[2024-02-25 14:00] VITALS: BMI 31.3
--- NOTE | 2024-02-25 14:00 | MHC.OFFVIS ---
Vital Signs 02/25/24 14:00 Height 5 ft 5 in Weight 188 lb BMI 31.3 Intake Visit Reasons: TM MICHELLE: 2WK PO: R TKA w/NE 02/09/24 Intake Note: Zina is a 73 year old female who presents today for post op appointment s/p R TKA w/NE 02/09/24. States she has mild pain is doing well. States she is not pleased with the rehab facility she is currently in. Allergies Sulfa (Sulfonamide Antibiotics) Allergy (Severe, Verified 02/25/24 14:01) Anaphylaxis HPI HPI TM MICHELLE: 2WK PO: R TKA w/NE 02/09/24: Details: 73-year-old female who presents in the office today for a 16 days status post right total knee arthroplasty on 02/09/[address] Del Rosario. While in the office today, the patient reports experiencing mild pain in the right knee; however, she states she is doing well. She also mentions that she is not satisfied with her current rehab facility. [facility], [facility] Medical History (Updated 02/13/24 @ 00:03 by Danilo Whitehead) HTN (hypertension) Weakness Chronic sinusitis Situational anxiety Seasonal allergies Osteoarthritis GERD (gastroesophageal reflux disease) HTN (hypertension) PMR (polymyalgia rheumatica) Osteoporosis Surgical History History of hip replacement S/P hip replacement History of total right hip arthroplasty (08/05/23) Hx of colonoscopy (~2008) Hx of section (1984) History of arthroscopy of right shoulder (~2010) Social History Household Members: None Household Members Other:: [facility] Housing: House Are you a primary hospice home care coordinator to a significant other at home: Yes ([facility], family will help while patient hospitalized) Do you presently have visiting nurse or other home services: No Comment: right hip Patient Tobacco Use Status: Never used Tobacco service: No Review of Systems Const All systems reviewed & are unremarkable except as noted in HPI and below Physical Exam Vital Signs: BMI result Body Mass Index 31.3 Const General: cooperative, healthy appearing and no acute distress Resp Effort & Inspection: normal respiratory effort and able to speak in complete sentences Cardio Rate: regular rate Peripheral pulses: Peripheral pulses 2+ throughout GI Palpation (GI): Soft to palpation Skin Lesions: no lesions Rashes: no rashes Extrem Other: Right knee: Incision site is clean, dry and intact. Rock intact. No surrounding erythema or drainage. No signs of infection. Range of motion is 10 to 80 degrees. NVI. Assessment & Plan Assessment & Plan (1) Status post total knee replacement, right: Code(s): Z96.651 - Presence of right artificial knee joint Category: Surgical (2) Arthritis of right knee: Code(s): M17.11 - Unilateral primary osteoarthritis, right knee Category: Medical Plan Ms. Napoles is a 73-year-old female who presents in the office today for a 16 days status post right total knee arthroplasty on 02/09/[address] Del Rosario. While in the office today, the patient reports experiencing mild pain in the right knee; however, she states she is doing well. She also mentions that she is not satisfied with her current rehab facility. Ganesh were removed, and steri-strips were applied. She was encouraged to continue physical therapy to work on range of motion. Follow-up will be in [address] Del Rosario, or sooner if needed. Patient Instructions: Scribed by Leeann Wilkins medical review specialist, for Argenis Interiano PA-C on 02/25/24 at 2:21 pm EST. Coding Level of Care Code Global (71041) Diagnoses Status post total knee replacement, right Z96.651 Arthritis of right knee M17.11
== END 2024-02-25 14:20 | disposition home or self-care (01) ==
PROVIDERS: PCP Internal Medicine; Visit Provider Physician Assistant
DX: Z96.651 Presence of right artificial knee joint (principal); M17.11 Unilateral primary osteoarthritis, right knee
CPT/HCPCS: 99024

== ENCOUNTER → 2024-02-25 13:50 | Outpatient (BNVA) | payer MEDICARE, SELFPAY | PROVIDERS: PCP Internal Medicine; Visit Provider Physician Assistant | DX: M25.561 Pain in right knee (principal); Z47.1 Aftercare following joint replacement surgery; Z96.651 Presence of right artificial knee joint | CPT/HCPCS: 99212 ==

== ENCOUNTER 2024-03-17 13:43 | Outpatient (AMB) | payer MEDICARE, SELFPAY ==
--- NOTE | 2024-03-17 13:49 | MHC.OFFVIS ---
Intake Visit Reasons: PO - Right TKA 02/09/24 Intake Note: Zina is a 73 year old female who presents today for a 6 week post operative appointment s/p Right TKA 02/19/2024. Patient reports that she continues to have some swelling and mild pain on the medial aspect of the knee. She feels tightness of the knee. She continues to work with at home therapists. She expresses concern that her Prescriptions state Total Hip on the bottle even though she had a knee replacement. Allergies Sulfa (Sulfonamide Antibiotics) Allergy (Severe, Verified 02/25/24 14:01) Anaphylaxis HPI HPI PO - Right TKA 02/09/24: Details: Zina is a 73 year old female who presents today for a 6 week post operative appointment s/p Right TKA 02/19/2024. Patient reports that she continues to have some swelling and mild pain on the medial aspect of the knee. She feels tightness of the knee. She continues to work with at home therapists. She expresses concern that her Prescriptions state Total Hip on the bottle even though she had a knee replacement. [facility] Medical History (Updated 02/13/24 @ 00:03 by Danilo Whitehead) HTN (hypertension) Weakness Chronic sinusitis Situational anxiety Seasonal allergies Osteoarthritis GERD (gastroesophageal reflux disease) HTN (hypertension) PMR (polymyalgia rheumatica) Osteoporosis Surgical History History of hip replacement S/P hip replacement History of total right hip arthroplasty (08/05/23) Hx of colonoscopy (~2008) Hx of section (1984) History of arthroscopy of right shoulder (~2010) Social History Household Members: None Household Members Other:: [facility] Housing: House Are you a primary furnace caretaker to a significant other at home: Yes ([facility], family will help while patient hospitalized) Do you presently have visiting nurse or other home services: No Comment: right hip Patient Tobacco Use Status: Never used Tobacco service: No Physical Exam Extrem Other: inc c/d/i 0-90 no calf swelling Assessment & Plan Assessment & Plan (1) Status post total knee replacement, right: Code(s): Z96.651 - Presence of right artificial knee joint Category: Surgical Plan: Doing well Cont aggressve flexion with OUTPATIENT PT f/u 6-7 weeks Orders: Orders PT Evaluation and Treatment Today Z96.651 - Presence of right artificial knee joint Coding Level of Care Code Global (65457) Diagnoses Status post total knee replacement, right Z96.651
== END 2024-03-17 14:12 | disposition home or self-care (01) ==
PROVIDERS: PCP Internal Medicine; Visit Provider Orthopaedic Surgery
DX: Z96.651 Presence of right artificial knee joint (principal)
CPT/HCPCS: 99024

== ENCOUNTER → 2024-03-17 13:43 | Outpatient (BNVA) | payer MEDICARE, SELFPAY | PROVIDERS: PCP Internal Medicine; Visit Provider Orthopaedic Surgery | DX: M25.561 Pain in right knee (principal); Z47.1 Aftercare following joint replacement surgery; Z96.651 Presence of right artificial knee joint | CPT/HCPCS: 99212 ==

== ENCOUNTER 2024-04-28 11:45 | Outpatient (REF) | payer MEDICARE, SELFPAY ==
--- NOTE | ~2024-04-28 | XR_ITS ---
EXAMINATION: XR KNEE 3 VIEWS RIGHT HISTORY: M25.561 - Pain in right knee COMPARISON: Comparison is made with the prior examination dated 02/09/2024. FINDINGS: Standing AP views of the bilateral knees and two additional views of the right knee are submitted. The patient is again noted to be status post right total knee arthroplasty. Comments anatomic alignment. There is no radiographic evidence of loosening. There is no fracture or dislocation. There is narrowing of the medial compartment of the left knee. The soft tissues are unremarkable. There is no joint effusion. XR/XR knee RT 3V IMPRESSION: Status post right total knee arthroplasty. Electronically signed by: Tyree Shepherd MD 04/28/2024 02:01 PM [facility]
--- OUTSIDE RECORDS SUMMARY | 2024-04-28 14:17 | XMS_ITS | Encounter Summary ---
Author Organization [facility], Address [address] [place] [address] Phone Care Team Providers Care Drug Counselor Name Role Phone Ramon Grove MD Primary Care Provider [phone] Encounter Details Date Type Department Care Team (Late st Contact Info) Description 11/15/2021 Orders Only [facility], [address] [place] [address] Iam Taylor, [address] [place] [phone] Hypertension; Localized edema Social History Tobacco Use Types Packs/Day Years Used Date Smoking Tobacco: Never Alcohol Use Standard Drinks/Week Comments Not Currently 0 (1 standard drink = 0.6 oz pur e alcohol) Comments Unknown Sex and Gender Information Value Date Recorded Sex Assigned at Not on file Legal Sex Female 3:20 PM EST Gender Identity Not on file Sexual Orientation Not on file documented as of this encounter Plan of Treatment Not on file documented as of this encounter Visit Diagnoses Diagnosis Hypertension Localized edema documented in this encounter Care Teams Drug Counselor Relationship Specialty Start Date End Date Ramon Grove MD [address] [place] [address] PCP - General Internal Medicine 03/29/19 documented as of this encounter
--- OUTSIDE RECORDS SUMMARY | 2024-04-28 14:17 | XMS_ITS | Encounter Summary ---
Author Organization [facility], Address [address] [place] [address] Phone Care Team Providers Care Diversional Therapist Name Role Phone Ramon Grove MD Primary Care Provider [phone] Encounter Details Date Type Department Care Team (Late st Contact Info) Description 08/07/2022 Documentation Only [facility], [address] [place] [address] Iam Taylor, [address] [place] [phone] Social History Tobacco Use Types Packs/Day Years [...] documented as of this encounter Visit Diagnoses Not on filedocumented in this encounter Care Teams Diversional Therapist Relationship Specialty Start Date End Date Ramon Grove MD [address] [place] [address] PCP - General Internal Medicine 03/29/19 documented as of this encounter
--- OUTSIDE RECORDS SUMMARY | 2024-04-28 14:17 | XMS_ITS | Clinical Summary ---
Author Organization [facility] Address [address] [place] [address] Care Team Providers Care Force Variation Equipment Tender Name Role Phone Jarod Wu MD Primary Care Provider [phone] Allergies Active Allergy Reactions Criticality Noted Date Comments Ibuprofen Other (See Comments) 07/31/2021 Other reaction(s): edema Naproxen Other (See Comments) 07/31/2021 Other reaction(s): edema Omeprazole Other (See Comments) 07/31/2021 Other reaction(s): hair loss Seasonal 07/17/2021 Sulfa Antibiotics 05/22/2017 Medications Medication Sig Dispensed Refills Start Date End Date Status amLODIPine (NORVASC) tablet 10 mg TAKE ONE TABLET BY MOUTH EVERY DAY 5 04/01/2017 Active aspirin 81 MG chewable tablet CHEW AND SWALLOW ONE TABLET BY MOUTH EVERY DAY 3 04/29/2017 Active celecoxib (CELEBREX) 200 MG capsule Take 200 mg by mouth 2 (two) times a day. 0 05/06/2017 Active cetirizine (ZYRTEC) 10 MG tablet TAKE 1 TABLET BY MOUTH EVERY DAY. 3 05/07/2017 Active chlorthalidone (HYGROTON) 25 MG tablet TAKE ONE-HALF TABLET DAILY 0 05/14/2017 Active fluticasone (FLONASE) 50 MCG/ACT nasal spray INHALE 1 SPRAY INTO BOTH NOSTRILS DAILY 5 04/06/2017 Active ibuprofen (ADVIL,MOTRIN) 800 MG tablet TAKE 1 TABLET BY MOUTH 1 TO 2 TIMES A DAY WITH MEALS NEEDED 1 04/07/2017 Active metoprolol succinate (TOPROL-XL) 24 hr tablet 25 mg TAKE ONE TABLET BY MOUTH EVERY DAY 4 05/11/2017 Active omeprazole (PRILOSEC) 40 MG capsule TAKE ONE CAPSULE BY MOUTH EVERY DAY 2 05/06/2017 Active traMADol (ULTRAM) 50 MG tablet Take 50 mg by mouth daily as needed. 0 05/11/2017 Active valACYclovir (VALTREX) 1000 MG tablet TAKE TWO TABLETS BY MOUTH EVERY 12 HOURS 3 02/18/2017 Active cloNIDine (CATAPRES-TTS) 0.1 MG/24HR PTWK Place 1 patch onto the skin once a week. 0 Active famotidine (PEPCID) 20 MG tablet Take 20 mg by mouth 2 (two) times a day. 0 Active b leeukjf-V-npgns acid 1 MG capsule Take 1 capsule by mouth daily. 0 Active Iron-Vitamin C 65-125 MG TABS Take 1 tablet by mouth 3 (three) times a day after meals. 0 Active Active Problems Problem Noted Date Diagnosed Date Bilateral chronic knee pain 10/29/2021 Family History Medical History Relation Name Comments Cancer Father Hypertension Father Arthritis Mother Hypertension Mother Relation Name Status Comments Father Mother Social History Tobacco Use Types Packs/Day Years Used Date Smoking Tobacco: Never Smokeless Tobacco: Never Alcohol Use Standard Drinks/Week Comments Never 0 (1 standard drink = 0.6 oz pur e alcohol) Sex and Gender Information Value Date Recorded Sex Assigned at Not on file Gender Identity Not on file Sexual Orientation Not on file Job Start Date Occupation Industry Not on file Not on file Not on file Last Filed Vital Signs Vital Sign Reading Time Taken Comments Blood Pressure - - Pulse - - Temperature - - Respiratory Rate - - Oxygen Saturation - - Inhaled Oxygen Concentration - - Weight 83.9 kg (185 lb) 07/17/2021 8:42 AM EDT Height 166.4 cm (5' 5.5 ) 07/17/2021 8:42 AM EDT Body Mass Index 30.32 07/17/2021 8:42 AM EDT Plan of Treatment Health Maintenance Due Date Last Done Comments Hepatitis C Screening 1950 COVID-19 Vaccine (#1) 06/29/1951 Depression Screening 1964 BMI Counseling 1970 Preventative Health Evaluation 1970 Colon Cancer Screening (Colonoscopy) 1997 Breast Cancer Screening (Mammogram) 2002 Shingrix-Zoster Vaccine (2 of 2) 01/02/2016 11/07/2015 Fall Risk Assessment 2017 Osteoporosis Screening (DEXA Scan) 2017 Pneumococcal Vaccine (1 of 1 - PCV) 2017 Hepatitis B Vaccines (3 of 3 - 19+ 3-dose series) 05/04/2018 03/09/2018, 04/06/2017 Influenza Vaccine (#1) 2023 1, 10/26/2019, 10/26/2019, Additional history exists DTap / Tdap / Td (2 - Td or Tdap) 02/26/2025 02/26/2015, 04/19/2003 RSV Adult > 60+ Yrs or (1 - 1-dose 75+ series) 12/31/2027 RSV Ped < 20 months Aged Out No longe r eligible based on patient's age to complete this topic Care Teams Force Variation Equipment Tender Relationship Specialty Start Date End Date Jarod Wu MD [address] [place] [id number] PCP - General Internal Medicine 07/17/21
--- OUTSIDE RECORDS SUMMARY | 2024-04-28 14:17 | XMS_ITS | Encounter Summary ---
Author Organization [facility], Address [address] [place] [address] Phone Care Team Providers Care Wax Ball Knock Out Worker Name Role Phone Ramon Grove MD Primary Care Provider [phone] Encounter Details Date Type Department Care Team (Late st Contact Info) Description 01/10/2022 Orders Only [facility], [address] [place] [address] Iam Taylor, [address] [place] [phone] Hypertension; Localized edema Social History Tobacco Use [...] edema documented in this encounter Care Teams Wax Ball Knock Out Worker Relationship Specialty Start Date End Date Ramon Grove MD [address] [place] [address] PCP - General Internal Medicine 03/29/19 documented as of this encounter
--- OUTSIDE RECORDS SUMMARY | 2024-04-28 14:17 | XMS_ITS | Encounter Summary ---
Author Organization [facility], Address [address] [place] [address] Phone Care Team Providers Care School Bus Driver/Teacher Assistant Name Role Phone Ramon Grove MD Primary Care Provider [phone] Encounter Details Date Type Department Care Team (Late st Contact Info) Description 06/27/2022 Orders Only [facility], [address] [place] [address] Iam Taylor, [address] [place] [phone] Hypertension; Localized edema Social History Tobacco Use [...] edema documented in this encounter Care Teams School Bus Driver/Teacher Assistant Relationship Specialty Start Date End Date Ramon Grove MD [address] [place] [address] PCP - General Internal Medicine 03/29/19 documented as of this encounter
--- OUTSIDE RECORDS SUMMARY | 2024-04-28 14:17 | XMS_ITS | Encounter Summary ---
Author Organization [employer] Address [address] [place] [address] Care Team Providers Care Wood Processing Worker Name Role Phone Demond Nash MD Primary Care Provider Encounter Details Date Type Department Care Team (Late st Contact Info) Description 02/15/2024 Lab Requisition [facility] - Main Lab 299 Replaced By [facility] [place] [address] Rachel Art MD [address] [address] Primary osteoarthritis, right shoulder; Essential (primary) hypertension; Unilateral primary osteoarthritis, right knee Social History Tobacco Use Types Packs/Day Years Used Date Smoking Tobacco: Never Alcohol Use Standard Drinks/Week Comments Yes 0 (1 standard drink = 0.6 oz pur e alcohol) Comments Unknown Sex and Gender Information Value Date Recorded Sex Assigned at Not on file Legal Sex Female 12:30 PM EST Gender Identity Not on file Sexual Orientation Not on file documented as of this encounter Plan of Treatment Not on file documented as of this encounter Procedures Procedure Name Priority Date/Time Associated Diagnosis Comments VITAMIN D 25 HYDROXY Routine 02/15/2024 5:24 AM EST Primary osteoarthritis, right shoulder Essential (primary) hypertension Unilateral primary osteoarthritis, right knee COMPLETE BLOOD COUNT Routine 02/15/2024 5:24 AM EST Primary osteoarthritis, right shoulder Essential (primary) hypertension Unilateral primary osteoarthritis, right knee MAGNESIUM Routine 02/15/2024 5:24 AM EST Primary osteoarthritis, right shoulder Essential (primary) hypertension Unilateral primary osteoarthritis, right knee FOLATE Routine 02/15/2024 5:24 AM EST Primary osteoarthritis, right shoulder Essential (primary) hypertension Unilateral primary osteoarthritis, right knee VITAMIN B12 Routine 02/15/2024 5:24 AM EST Primary osteoarthritis, right shoulder Essential (primary) hypertension Unilateral primary osteoarthritis, right knee COMPREHENSIVE METABOLIC PANEL Routine 02/15/2024 5:24 AM EST Primary osteoarthritis, right shoulder Essential (primary) hypertension Unilateral primary osteoarthritis, right knee documented in this encounter Results * (ABNORMAL) Vitamin D 25 hydroxy (02/15/2024 5:24 AM EST) [facility] Vit D, 25-Hydroxy 29.2(L) 30.0 - 80.0 ng/mL LAB CHEMISTRY METHOD 02/15/2024 6:27 PM EST [facility] Blood Venous blood specimen / Unknown Venipuncture / Unknown 02/15/2024 5:24 AM EST 02/15/2024 12:33 PM EST Rachel Art MD LAB BLOOD ORDERABLES Fin al Result Performing Organization Address [facility] Co de Phone Number [facility] LAB [address] [place] [address], * Vitamin B12 (02/15/2024 5:24 AM EST) [facility] Vitamin B-12 358 250 - 900 pcg/mL LAB CHEMISTRY METHOD 02/15/2024 6:47 PM EST [facility] Blood Venous blood specimen / Unknown Venipuncture / Unknown 02/15/2024 5:24 AM EST 02/15/2024 12:33 PM EST Rachel Art MD LAB BLOOD ORDERABLES Fin al Result [facility] [address] [place] [address], [place] [phone] * Folate (02/15/2024 5:24 AM EST) [facility] Folate 5.2 2.8 - 17.0 ng/ml LAB CHEMISTRY METHOD 02/15/2024 6:47 PM EST [facility] Blood Venous blood specimen / Unknown Venipuncture / Unknown 02/15/2024 5:24 AM EST 02/15/2024 12:33 PM EST Rachel Art MD LAB BLOOD ORDERABLES Fin al Result Performing Organization Address City/[facility]/ZIP Co de Phone Number [facility] [address] [place] [address], [place] [phone] * Magnesium (02/15/2024 5:24 AM EST) [facility] Magnesium 2.3 1.9 - 2.6 mg/dL LAB CHEMISTRY METHOD 02/15/2024 6:20 PM EST [facility] Blood Venous blood specimen / Unknown Venipuncture / Unknown 02/15/2024 5:24 AM EST 02/15/2024 12:33 PM EST Rachel Art MD LAB BLOOD ORDERABLES Fin al Result [facility] [address] [place] [address], [place] [phone] * (ABNORMAL) Comprehensive metabolic panel (02/15/2024 5:24 AM EST) [facility] Sodium 139 133 - 145 mmol/L LAB CHEMISTRY METHOD 02/15/2024 6:47 PM [facility] Potassium 4.6 3.5 - 5.5 mmol/L LAB CHEMISTRY METHOD 02/15/2024 6:47 PM EST [facility] Chloride 104 96 - 110 mmol/L LAB CHEMISTRY METHOD 02/15/2024 6:47 PM [facility] CO2 23 21 - 32 mmol/L LAB CHEMISTRY METHOD 02/15/2024 6:47 PM [facility] Anion Gap 12(H) 3 - 11 LAB CHEMISTRY METHOD 02/15/2024 6:47 PM [facility] Glucose 76 70 - 100 mg/dL LAB CHEMISTRY METHOD 02/15/2024 6:47 PM [facility] BUN 26(H) 5 - 25 mg/dL LAB CHEMISTRY METHOD 02/15/2024 6:47 PM [facility] Creatinine 1.01 0.50 - 1.10 mg/dL LAB CHEMISTRY METHOD 02/15/2024 6:47 PM [facility] eGFR 60 >=60 mL/min/1. 73m2 LAB CHEMISTRY METHOD 02/15/2024 6:47 PM [facility] Comment:Calculation based on the??Chronic Kidney Disease Epidemiology Collaboration (CKD-EPI) equation refit??without adjustment for race. BUN/Creatinine Ratio 25.7 LAB CHEMISTRY METHOD 02/15/2024 6:47 PM [facility] Calcium 9.3 8.5 - 10.5 mg/dL LAB CHEMISTRY METHOD 02/15/2024 6:47 PM [facility] AST (SGOT) 16 10 - 42 unit/L LAB CHEMISTRY METHOD 02/15/2024 6:47 PM [facility] ALT (SGPT) 13 10 - 60 unit/L LAB CHEMISTRY METHOD 02/15/2024 6:47 PM [facility] Alkaline Phosphatase 86 42 - 121 unit/L LAB CHEMISTRY METHOD 02/15/2024 6:47 PM [facility] Total Protein 5.9(L) 6.0 - 8.0 g/dL LAB CHEMISTRY METHOD 02/15/2024 6:47 PM [facility] Albumin 2.7(L) 3.2 - 5.0 g/dL LAB CHEMISTRY METHOD 02/15/2024 6:47 PM EST [facility] Total Bilirubin 0.5 0.0 - 1.4 mg/dL LAB CHEMISTRY METHOD 02/15/2024 6:47 PM [facility] Blood Venous blood specimen / Unknown Venipuncture / Unknown 02/15/2024 5:24 AM EST 02/15/2024 12:33 PM EST us Rachel Art MD LAB BLOOD ORDERABLES Fin al Result [facility] [address] [place] [address], * (ABNORMAL) Complete blood count (02/15/2024 5:24 AM EST) WBC 7.6 4.8 - 10.8 K/mcL LAB HEMETOLOGY METHOD 02/15/2024 1:31 PM [facility] RBC 3.20(L) 3.80 - 4.80 M/mcL LAB HEMETOLOGY METHOD 02/15/2024 1:31 PM [facility] Hemoglobin 9.0(L) 11.5 - 16.0 g/dL LAB HEMETOLOGY METHOD 02/15/2024 1:31 PM [facility] Hematocrit 30.1(L) 35.0 - 47.0 % LAB HEMETOLOGY METHOD 02/15/2024 1:31 PM [facility] MCV 94.4 79.0 - 98.0 FL LAB HEMETOLOGY METHOD 02/15/2024 1:31 PM [facility] MCH 28.2 27.0 - 32.0 pcg LAB HEMETOLOGY METHOD 02/15/2024 1:31 PM [facility] MCHC 29.9(L) 32.0 - 37.0 g/dL LAB HEMETOLOGY METHOD 02/15/2024 1:31 PM EST [facility] RDW 16.0(H) 11.0 - 15.0 % LAB HEMETOLOGY METHOD 02/15/2024 1:31 PM EST [facility] Platelets 388 130 - 400 K/mcL LAB HEMETOLOGY METHOD 02/15/2024 1:31 PM [facility] MPV 9.4 7.0 - 11.0 FL LAB HEMETOLOGY METHOD 02/15/2024 1:31 PM EST [facility] NRBC 0.0 <1.0 % LAB HEMETOLOGY METHOD 02/15/2024 1:31 PM [facility] NRBC Absolute 0.00 <0.10 K/mcL LAB HEMETOLOGY METHOD 02/15/2024 1:31 PM [facility] Blood Venous blood specimen / Unknown Venipuncture / Unknown 02/15/2024 5:24 AM EST 02/15/2024 12:33 PM EST us Rachel Art MD LAB BLOOD ORDERABLES Fin al Result [facility] [address] [place] [address], documented in this encounter Visit Diagnoses Diagnosis Primary osteoarthritis, right shoulder Essential (primary) hypertension Unspecified essential hypertension Unilateral primary osteoarthritis, right knee documented in this encounter Care Teams Wood Processing Worker Relationship Specialty Start Date End Date Demond Nash MD [address] [place] [address] PCP - General 07/16/1998 documented as of this encounter
--- OUTSIDE RECORDS SUMMARY | 2024-04-28 14:17 | XMS_ITS | Encounter Summary ---
Author Organization [facility], Address [address] [place] [address] Phone Care Team Providers Care Merchandise Execution Leader Name Role Phone Ramon Grove MD Primary Care Provider [phone] Encounter Details Date Type Department Care Team (Late st Contact Info) Description 03/07/2022 Orders Only [facility], [address] [place] [address] Iam Taylor, [address] [place] [phone] Hypertension; Localized edema Social History Tobacco Use [...] edema documented in this encounter Care Teams Merchandise Execution Leader Relationship Specialty Start Date End Date Ramon Grove MD [address] [place] [address] PCP - General Internal Medicine 03/29/19 documented as of this encounter
--- OUTSIDE RECORDS SUMMARY | 2024-04-28 14:17 | XMS_ITS | Encounter Summary ---
Author Organization [employer] Address [address] [place] [address] Care Team Providers Care Uke Operator Name Role Phone Demond Nash MD Primary Care Provider [phone] Encounter Details Date Type Department Care Team (Late st Contact Info) Description 03/04/2024 Lab Requisition [facility] - Main Lab [address] [facility] [place] [address] Rachel Art MD [address] [place] [address] Primary osteoarthritis, right shoulder; Essential (primary) hypertension; [...] as of this encounter Visit Diagnoses Diagnosis Primary osteoarthritis, right shoulder Essential (primary) hypertension Unspecified essential hypertension Unilateral primary osteoarthritis, right knee documented in this encounter Care Teams Uke Operator Relationship Specialty Start Date End Date Demond Nash MD [facility] [place] [address] PCP - General 07/16/1998 documented as of this encounter
--- OUTSIDE RECORDS SUMMARY | 2024-04-28 14:17 | XMS_ITS | Encounter Summary ---
Author Organization [facility], Address [address] [place] [address] Phone Care Team Providers Care Executive Vice President Business Development Name Role Phone Ramon Grove MD Primary Care Provider [phone] Encounter Details Date Type Department Care Team (Late st Contact Info) Description 05/02/2022 Orders Only [facility], [address] [place] [address] Iam Taylor, [address] [place] [phone] Hypertension; Localized edema Social History Tobacco Use [...] edema documented in this encounter Care Teams Executive Vice President Business Development Relationship Specialty Start Date End Date Ramon Grove MD [address] [place] [address] PCP - General Internal Medicine 03/29/19 documented as of this encounter
--- OUTSIDE RECORDS SUMMARY | 2024-04-28 14:17 | XMS_ITS | Encounter Summary ---
Author Organization [facility], Address [address] [place] [address] Phone Care Team Providers Care Board Certified Arts Therapist Name Role Phone Ramon Grove MD Primary Care Provider Encounter Details Date Type Department Care Team (Late st Contact Info) Description 09/20/2021 Orders Only [facility], [address] [place] [address] Iam Taylor, [address] [place] [phone] Hypertension; Localized edema Social History Tobacco Use [...] edema documented in this encounter Care Teams Board Certified Arts Therapist Relationship Specialty Start Date End Date Ramon Grove MD [address] [place] [address] PCP - General Internal Medicine 03/29/19 documented as of this encounter
--- OUTSIDE RECORDS SUMMARY | 2024-04-28 14:17 | XMS_ITS | Encounter Summary ---
Author Organization [employer] Address [address] [place] [address] Care Team Providers Care Graphic Technician Name Role Phone Demond Nash MD Primary Care Provider [phone] Encounter Details Date Type Department Care Team (Late st Contact Info) Description 02/26/[address] [facility] - Main Lab [address] [place] [address] Rachel Art MD [address] [address] Primary osteoarthritis, right shoulder; Essential (primary) hypertension; [...] Procedure Name Priority Date/Time Associated Diagnosis Comments COMPLETE BLOOD COUNT Routine 02/29/2024 6:05 AM EST Primary osteoarthritis, right shoulder Essential (primary) hypertension Unilateral primary osteoarthritis, right knee COMPREHENSIVE METABOLIC PANEL Routine 02/29/2024 6:05 AM EST Primary osteoarthritis, right shoulder Essential (primary) hypertension Unilateral primary osteoarthritis, right knee documented in this encounter Results * (ABNORMAL) Comprehensive metabolic panel (02/29/2024 6:05 AM EST) [facility] Sodium 138 133 - 145 mmol/L LAB CHEMISTRY METHOD 02/29/2024 11:04 AM [facility] Potassium 4.3 3.5 - 5.5 mmol/L LAB CHEMISTRY METHOD 02/29/2024 11:04 AM [facility] Chloride 105 96 - 110 mmol/L LAB CHEMISTRY METHOD 02/29/2024 11:04 AM [facility] CO2 26 21 - 32 mmol/L LAB CHEMISTRY METHOD 02/29/2024 11:04 AM [facility] Anion Gap 7 3 - 11 LAB CHEMISTRY METHOD 02/29/2024 11:04 AM [facility] Glucose 66(L) 70 - 100 mg/dL LAB CHEMISTRY METHOD 02/29/2024 11:04 AM [facility] BUN 11 5 - 25 mg/dL LAB CHEMISTRY METHOD 02/29/2024 11:04 AM [facility] Creatinine 0.80 0.50 - 1.10 mg/dL LAB CHEMISTRY METHOD 02/29/2024 11:04 AM [facility] eGFR 79 >=60 mL/min/1. 73m2 LAB CHEMISTRY METHOD 02/29/2024 11:04 AM [facility] Comment:Calculation based on the??Chronic Kidney Disease Epidemiology Collaboration (CKD-EPI) equation refit??without adjustment for race. BUN/Creatinine Ratio 13.8 LAB CHEMISTRY METHOD 02/29/2024 11:04 AM [facility] Calcium 9.4 8.5 - 10.5 mg/dL LAB CHEMISTRY METHOD 02/29/2024 11:04 AM [facility] AST (SGOT) 14 10 - 42 unit/L LAB CHEMISTRY METHOD 02/29/2024 11:04 AM [facility] ALT (SGPT) 11 10 - 60 unit/L LAB CHEMISTRY METHOD 02/29/2024 11:04 AM [facility] Alkaline Phosphatase 80 42 - 121 unit/L LAB CHEMISTRY METHOD 02/29/2024 11:04 AM [facility] Total Protein 5.7(L) 6.0 - 8.0 g/dL LAB CHEMISTRY METHOD 02/29/2024 11:04 AM [facility] Albumin 2.5(L) 3.2 - 5.0 g/dL LAB CHEMISTRY METHOD 02/29/2024 11:04 AM [facility] Total Bilirubin 0.3 0.0 - 1.4 mg/dL LAB CHEMISTRY METHOD 02/29/2024 11:04 AM [facility] Blood Venous blood specimen / Unknown Venipuncture / Unknown 02/29/2024 6:05 AM EST 02/29/2024 10:09 AM EST us Rachel Art MD LAB BLOOD ORDERABLES Fin al Result [facility] [address] [place] [address], * (ABNORMAL) Complete blood count (02/29/2024 6:05 AM EST) WBC 5.5 4.8 - 10.8 K/mcL LAB HEMETOLOGY METHOD 02/29/2024 10:55 AM [facility] RBC 3.50(L) 3.80 - 4.80 M/mcL LAB HEMETOLOGY METHOD 02/29/2024 10:55 AM [facility] Hemoglobin 9.6(L) 11.5 - 16.0 g/dL LAB HEMETOLOGY METHOD 02/29/2024 10:55 AM [facility] Hematocrit 31.4(L) 35.0 - 47.0 % LAB HEMETOLOGY METHOD 02/29/2024 10:55 AM [facility] MCV 89.5 79.0 - 98.0 FL LAB HEMETOLOGY METHOD 02/29/2024 10:55 AM EST [facility] MCH 27.4 27.0 - 32.0 pcg LAB HEMETOLOGY METHOD 02/29/2024 10:55 AM [facility] MCHC 30.6(L) 32.0 - 37.0 g/dL LAB HEMETOLOGY METHOD 02/29/2024 10:55 AM [facility] RDW 15.9(H) 11.0 - 15.0 % LAB HEMETOLOGY METHOD 02/29/2024 10:55 AM [facility] Platelets 544(H) 130 - 400 K/mcL LAB HEMETOLOGY METHOD 02/29/2024 10:55 AM [facility] MPV 8.9 7.0 - 11.0 FL LAB HEMETOLOGY METHOD 02/29/2024 10:55 AM EST [facility] NRBC 0.0 <1.0 % LAB HEMETOLOGY METHOD 02/29/2024 10:55 AM [facility] NRBC Absolute 0.00 <0.10 K/mcL LAB HEMETOLOGY METHOD 02/29/2024 10:55 AM [facility] Blood Venous blood specimen / Unknown Venipuncture / Unknown 02/29/2024 6:05 AM EST 02/29/2024 10:09 AM EST us Rachel Art MD LAB BLOOD ORDERABLES Fin al Result [facility] [address] [place] [address], documented in this encounter Visit Diagnoses Diagnosis Primary osteoarthritis, right shoulder Essential (primary) hypertension Unspecified essential hypertension Unilateral primary osteoarthritis, right knee documented in this encounter Care Teams Graphic Technician Relationship Specialty Start Date End Date Demond Nash MD [address] [place] [address] PCP - General 07/16/1998 documented as of this encounter
--- OUTSIDE RECORDS SUMMARY | 2024-04-28 14:18 | XMS_ITS | Clinical Summary ---
Author Organization [facility] Address [address] [place] [address] Phone Care Team Providers Care Box Spring Frame Builder Name Role Phone Demond Nash MD Primary Care Provider [phone] Encounters Date Type Department Care Team Description 03/04/2024 Lab Requisition [facility] [address] [place] [phone] Rachel Art MD Primary osteoarthritis, right shoulder; Essential (primary) hypertension; Unilateral primary osteoarthritis, right knee 02/26/2024 Lab Requisition [facility] [address] [place] [phone] Rachel Art MD Primary osteoarthritis, right shoulder; Essential (primary) hypertension; Unilateral primary osteoarthritis, right knee 02/20/2024 Lab Requisition [facility] Lab [address] [place] [phone] Rachel Art MD Primary osteoarthritis, right shoulder; Essential (primary) hypertension; Unilateral primary osteoarthritis, right knee 02/15/2024 Lab Requisition [facility] [address] [place] [phone] Rachel Art MD Primary osteoarthritis, right shoulder; Essential (primary) hypertension; Unilateral primary osteoarthritis, right knee from Last 3 Months Surgical History Surgery Date Site/Laterality Comments OTHER SURGICAL HISTORY PROCEDURE: CLASS; COMMENT: Uterine suspension Medical History Medical History Date Comments Allergic rhinitis, cause unspecified 09/16/2005 DX:Allergic rhinitis, cause unspecified Pain in joint, shoulder region 09/16/2005 D X:Pain in joint, shoulder region GERD (gastroesophageal reflu x disease) 12/31/2011 DX:GERD (gastroesophageal re flux disease) Family History Medical History Relation Name Comments Other: DVT Father Prostate cancer Father Stroke Father Other: osteoarthritis Other 1 family Relation Name Status Comments Father Other 1 Other 2 Social History Tobacco Use Types Packs/Day Years Used Date Smoking Tobacco: Never Alcohol Use Standard Drinks/Week Comments Yes 0 (1 standard drink = 0.6 oz pur e alcohol) Comments Unknown Sex and Gender Information Value Date Recorded Sex Assigned at Not on file Legal Sex Female 12:30 PM EST Gender Identity Not on file Sexual Orientation Not on file Obstetrics History Last Filed Vital Signs Vital Sign Reading [...] Health Maintenance Due Date Last Done Comments Breast Cancer Screening 1950 Pneumococcal Vaccine: 50+ Years (1 of 1 - PCV) 2002 Zoster Vaccines (2 of 2) 01/02/2016 11/07/2015 Hepatitis B Vaccines (3 of 3 - 19+ 3-dose series) 05/04/2018 03/09/2018, 04/06/2017 Cholesterol Screening (Lipid Panel) 02/12/2022 Colorectal Cancer Screening: Colonoscopy 02/12/2022 Depression Screening 02/12/2022 Falls Risk Assessment 02/12/2022 Hepatitis C Screening 02/12/2022 Medicare Annual Wellness Visit 02/12/2022 Osteoporosis Screening (Bone Density Screening) 02/12/2022 Social Influencers of Health Screening 02/12/2022 COVID-19 Vaccine ( season) 2023 01/15/2021, 06/19/2020, 05/22/2020 Influenza Vaccine (#1) 2023 , 11/07/2021, 10/31/2020, Additional history exists DTaP,Tdap,and Td Vaccines (3 - Td or Tdap) 02/26/2025 02/26/2015, 04/19/2003 Hypertension/CHF/CAD Annual BMP Blood Test 02/28/2025 02/29/2024, 02/22/2024, 02/15/2024 RSV Immunization Patients 60+ Years Old (1 - 1-dose 75+ series) 12/31/2027 HIB Vaccines Aged Out No longer eligi ble based on patient's age to complete this topic HPV Vaccines Aged Out No longer eligi ble based on patient's age to complete this topic Hepatitis A Vaccines Aged Out No long er eligible based on patient's age to complete this topic IPV Vaccines Aged Out No longer eligi ble based on patient's age to complete this topic MMR Vaccines Aged Out No longer eligi ble based on patient's age to complete this topic Meningococcal ACWY Vaccine Aged Out N o longer eligible based on patient's age to complete this topic Meningococcal B Vacine Aged Out No lo nger eligible based on patient's age to complete this topic RSV Immunization Patients Under 20 months Aged Out No longer eligible based on patient's age to complete this topic Varicella Vaccines Aged Out No longer eligible based on patient's age to complete this topic Procedures Procedure Name Priority Date/Time Associated Diagnosis Comments COMPREHENSIVE METABOLIC PANEL Routine 02/29/2024 6:05 AM EST Primary osteoarthritis, right shoulder Essential (primary) hypertension Unilateral primary osteoarthritis, right knee COMPLETE BLOOD COUNT Routine 02/29/2024 6:05 AM EST Primary osteoarthritis, right shoulder Essential (primary) hypertension Unilateral primary osteoarthritis, right knee COMPREHENSIVE METABOLIC PANEL Routine 02/22/2024 5:28 AM EST Primary osteoarthritis, right shoulder Essential (primary) hypertension Unilateral primary osteoarthritis, right knee COMPLETE BLOOD COUNT Routine 02/22/2024 5:28 AM EST Primary osteoarthritis, right shoulder Essential (primary) hypertension Unilateral primary osteoarthritis, right knee VITAMIN D 25 HYDROXY Routine 02/15/2024 5:24 [...] (primary) hypertension Unilateral primary osteoarthritis, right knee from Last 3 Months Results * (ABNORMAL) Complete blood count (02/29/2024 6:05 AM EST) Only the most recent of3 resultswithin the time period is included. WBC 5.5 4.8 - 10.8 K/mcL LAB HEMETOLOGY METHOD 02/29/2024 10:55 AM [facility] RBC 3.50(L) 3.80 - 4.80 M/mcL LAB HEMETOLOGY METHOD 02/29/2024 10:55 AM [facility] Hemoglobin 9.6(L) 11.5 - 16.0 g/dL LAB HEMETOLOGY METHOD 02/29/2024 10:55 AM [facility] Hematocrit 31.4(L) 35.0 - 47.0 % LAB HEMETOLOGY METHOD 02/29/2024 10:55 AM [facility] MCV 89.5 79.0 - 98.0 FL LAB HEMETOLOGY METHOD 02/29/2024 10:55 AM [facility] MCH 27.4 27.0 - 32.0 pcg LAB HEMETOLOGY METHOD 02/29/2024 10:55 AM [facility] MCHC 30.6(L) 32.0 - 37.0 g/dL LAB HEMETOLOGY METHOD 02/29/2024 10:55 AM EST [facility] RDW 15.9(H) 11.0 - 15.0 % LAB HEMETOLOGY METHOD 02/29/2024 10:55 AM [facility] Platelets 544(H) 130 - 400 K/mcL LAB HEMETOLOGY METHOD 02/29/2024 10:55 AM EST [facility] MPV 8.9 7.0 - 11.0 FL LAB HEMETOLOGY METHOD 02/29/2024 10:55 AM EST [facility] NRBC 0.0 <1.0 % LAB HEMETOLOGY METHOD 02/29/2024 10:55 AM [facility] NRBC Absolute 0.00 <0.10 K/mcL LAB HEMETOLOGY METHOD 02/29/2024 10:55 AM [facility] Blood Venous blood specimen / Unknown Venipuncture / Unknown 02/29/2024 6:05 AM EST 02/29/2024 10:09 AM EST us Rachel Art MD LAB BLOOD ORDERABLES Fin al Result [facility] [address] [place] [address], * (ABNORMAL) Comprehensive metabolic panel (02/29/2024 6:05 AM EST) Only the most recent of3 resultswithin the time period is included. Sodium 138 133 - 145 mmol/L LAB CHEMISTRY METHOD 02/29/2024 11:04 AM [facility] Potassium 4.3 3.5 - 5.5 mmol/L LAB CHEMISTRY METHOD 02/29/2024 11:04 AM [facility] Chloride 105 96 - 110 mmol/L LAB CHEMISTRY METHOD 02/29/2024 11:04 AM [facility] CO2 26 21 - 32 mmol/L LAB CHEMISTRY METHOD 02/29/2024 11:04 AM [facility] Anion Gap 7 3 - 11 LAB CHEMISTRY METHOD 02/29/2024 11:04 AM [facility] Glucose 66(L) 70 - 100 mg/dL LAB CHEMISTRY METHOD 02/29/2024 11:04 AM [facility] BUN 11 5 - 25 mg/dL LAB CHEMISTRY METHOD 02/29/2024 11:04 AM [facility] Creatinine 0.80 0.50 - 1.10 mg/dL LAB CHEMISTRY METHOD 02/29/2024 11:04 AM [facility] eGFR 79 >=60 mL/min/1. 73m2 LAB CHEMISTRY METHOD 02/29/2024 11:04 AM [facility] Comment:Calculation based on the??Chronic Kidney Disease Epidemiology Collaboration (CKD-EPI) equation refit??without adjustment for race. BUN/Creatinine Ratio 13.8 LAB CHEMISTRY METHOD 02/29/2024 11:04 AM [facility] Calcium 9.4 8.5 - 10.5 mg/dL LAB CHEMISTRY METHOD 02/29/2024 11:04 AM [facility] AST (SGOT) 14 10 - 42 unit/L LAB CHEMISTRY METHOD 02/29/2024 11:04 AM [facility] ALT (SGPT) 11 10 - 60 unit/L LAB CHEMISTRY METHOD 02/29/2024 11:04 AM [facility] Alkaline Phosphatase 80 42 - 121 unit/L LAB CHEMISTRY METHOD 02/29/2024 11:04 AM [facility] Total Protein 5.7(L) 6.0 - 8.0 g/dL LAB CHEMISTRY METHOD 02/29/2024 11:04 AM [facility] Albumin 2.5(L) 3.2 - 5.0 g/dL LAB CHEMISTRY METHOD 02/29/2024 11:04 AM EST [facility] Total Bilirubin 0.3 0.0 - 1.4 mg/dL LAB CHEMISTRY METHOD 02/29/2024 11:04 AM EST [facility] Blood Venous blood specimen / Unknown Venipuncture / Unknown 02/29/2024 6:05 AM EST 02/29/2024 10:09 AM EST Racehl Art MD LAB BLOOD ORDERABLES Fin al Result Performing Organization Address City/[facility]/ZIP Co de Phone Number [facility] [address] [place] [address], [place] [phone] * (ABNORMAL) Vitamin D 25 hydroxy (02/15/2024 5:24 AM EST) Vit D, 25-Hydroxy 29.2(L) 30.0 - 80.0 ng/mL LAB CHEMISTRY METHOD 02/15/2024 6:27 PM EST [facility] Blood Venous blood specimen / Unknown Venipuncture / Unknown 02/15/2024 5:24 AM EST 02/15/2024 12:33 PM EST Rachel Art MD LAB BLOOD ORDERABLES Fin al Result Performing Organization Address [facility]/ZIP Co de Phone Number [facility] [address] [place] [address], [place] [phone] * Magnesium (02/15/2024 5:24 AM EST) Magnesium 2.3 1.9 - 2.6 mg/dL LAB CHEMISTRY METHOD 02/15/2024 6:20 PM EST [facility] Blood Venous blood specimen / Unknown Venipuncture / Unknown 02/15/2024 5:24 AM EST 02/15/2024 12:33 PM EST Rachel Art MD LAB BLOOD ORDERABLES Fin al Result Performing Organization Address [facility] de Phone Number [facility] [address] [place] [address], [place] [phone] * Folate (02/15/2024 5:24 AM EST) Folate 5.2 2.8 - 17.0 ng/ml LAB CHEMISTRY METHOD 02/15/2024 6:47 PM EST [facility] Blood Venous blood specimen / Unknown Venipuncture / Unknown 02/15/2024 5:24 AM EST 02/15/2024 12:33 PM EST Rachel Art MD LAB BLOOD ORDERABLES Fin al Result Performing Organization Address [facility] de Phone Number [facility] [address] [place] [address], [place] [phone] * Vitamin B12 (02/15/2024 5:24 AM EST) [facility] Vitamin B-12 358 250 - 900 pcg/mL LAB CHEMISTRY METHOD 02/15/2024 6:47 PM EST [facility] Blood Venous blood specimen / Unknown Venipuncture / Unknown 02/15/2024 5:24 AM EST 02/15/2024 12:33 PM EST Rachel Art MD LAB BLOOD ORDERABLES Fin al Result Performing Organization Address [facility] Co de Phone Number [facility] [address] [place] [address], [place] [phone] from Last 3 Months Insurance [employer] MEDICARE ADVANTAGE Care Teams Box Spring Frame Builder Relationship Specialty Start Date End Date Demond Nash MD [address] [place], [place] [address] [place] [address] PCP - General 07/16/1998
--- OUTSIDE RECORDS SUMMARY | 2024-04-28 14:18 | XMS_ITS | Encounter Summary ---
Author Organization [facility], Address [address] [place] [address] Phone Care Team Providers Care Rewinder Name Role Phone Ramon Grove MD Primary Care Provider [phone] Encounter Details Date Type Department Care Team (Late st Contact Info) Description 02/09/2023 Documentation Only [facility], [address] [place] [address] Iam Taylor, [address] [place] [phone] Social History Tobacco Use Types Packs/Day Years [...] on filedocumented in this encounter Care Teams Rewinder Relationship Specialty Start Date End Date Ramon Grove MD [address] [place] [address] PCP - General Internal Medicine 03/29/19 documented as of this encounter
--- OUTSIDE RECORDS SUMMARY | 2024-04-28 14:18 | XMS_ITS | Clinical Summary ---
Author Organization [facility], Address [address] [place] [address] [place] [address] Phone Care Team Providers Care Kitchen Supervisor Name Role Phone Ramon Grove MD Primary Care Provider [phone] Allergies Active Allergy Reactions Criticality Noted Date Comments Ibuprofen 07/31/2021 Other reaction(s): edema Naproxen 07/31/2021 Other reaction(s): edema Omeprazole 07/31/2021 Other reaction(s): hair loss Sulfa Antibiotics 05/22/2017 Medications famotidine (PEPCID) 20 MG tablet Take 20 mg by mouth 2 (two) times a day Active loratadine (CLARITIN) 10 MG tablet Take 10 mg by mouth 1 (one) time each day Active desonide (DESOWEN) 0.05 % cream APPLY EXTERNALLY TO THE AFFECTED AREA EVERY MORNING FOR 2-4 WEEKS THEN DISCONTINUE 3 Active famotidine (PEPCID) 40 MG tablet Take 40 mg by mouth in the morning and 40 mg in the evening. 3 Active montelukast (SINGULAIR) 10 MG tablet Take 10 mg by mouth 1 (one) time each day 3 Active predniSONE (DELTASONE) 2.5 MG tablet 3 Active tacrolimus (PROTOPIC) 0.1 % ointment 3 Active traMADol (ULTRAM) 50 MG tablet Take 50 mg by mouth 1 (one) time each day 3 Active tretinoin (RETIN-A) 0.025 % cream APPLY TOPICALLY TO DARK SPOTS ON FACE EVERY OTHER NIGHT AND GRADUALLY INCREASE TO EVERY NIGHT TOLERATED 3 Active minocycline (MINOCIN,DYNACI N) 100 MG capsule TAKE ONE CAPSULE BY MOUTH EVERY DAY DO NOT TAKE WITH MULTI-VITAMIN OR MILK) 3 Active Multiple Vitamin (multivitamin) capsule Take 1 capsule by mouth 1 (one) time each day Active cholecalciferol (VITAMIN D-3) 25 MCG (1000 UT) capsule Take 1,000 Units by mouth 1 (one) time each day Active furosemide (Lasix) 40 MG tabletIndicatio ns:Hypertension ,Localized edema Take 3 tablets (120 mg total) by mouth 1 (one) time each day 270 tablet 3 3 Active cloNIDine (CATAPRES) 0.1 MG tablet Take 1 tablet (0.1 mg total) by mouth in the morning and 1 tablet (0.1 mg total) in the evening. 180 tablet 3 3 Active losartan (COZAAR) 50 MG tablet Take 1 tablet (50 mg total) by mouth 1 (one) time each day 100 tablet 2 3 Active Active Problems Problem Noted Date Diagnosed Date Stage 3a chronic kidney disease 10/03/2022 Insomnia 09/19/2022 09/19/2022 Generalized osteoarthritis 09/19/202209/19 Carpal tunnel syndrome 09/19/2022 3 Pain of knee region 10/29/2021 09/19/2022 Gastroesophageal reflux disease 12/07/2019 Edema 12/07/2019 Osteoporosis 12/07/2019 Hypertension 04/04/2019 Immunizations Name Administration Dates Next Due Hep B, Unspecified 03/09/2018,04/06/2017 Influenza Split High Dose Preservative Free IM 10/26/2019,11/22/2018 Influenza Whole 10/31/2020,11/20/2017 Influenza, Unspecified 11/07/2021,2020,10/26/2019,2018,11/24/2016,02/26/2015 Moderna SARS-COV-2 01/15/2021,06/19/2020, 021 Shingrix 11/07/2015 Td, Unspecified 04/19/2003 Tdap 02/26/2015 Social History Tobacco Use Types Packs/Day Years Used Date Smoking Tobacco: Never Alcohol Use Standard Drinks/Week Comments Not Currently 0 (1 standard drink = 0.6 oz pur e alcohol) Comments Unknown Sex and Gender Information Value Date Recorded Sex Assigned at Not on file Legal Sex Female 3:20 PM EST Gender Identity Not on file Sexual Orientation Not on file Last Filed Vital Signs Vital Sign Reading Time Taken Comments Blood Pressure 124/80 02/13/2022 2:10 PM EST Pulse 75 02/13/2022 2:10 PM EST Temperature - - Respiratory Rate - - Oxygen Saturation - - Inhaled Oxygen Concentration - - Weight 85.6 kg (188 lb 12.8 oz) 11/21/2020 4:28 PM EDT Height - - Body Mass Index - - Plan of Treatment Health Maintenance Due Date Last Done Comments Breast Cancer Screening 1950 Pneumococcal Vaccine: 65+ Years (1 of 2 - PCV) 1958 Colorectal Cancer Screening: Annual FOBT 2001 Colorectal Cancer Screening: Colonoscopy 2001 Colorectal Cancer Screening: Sigmoidoscopy 2001 Influenza Vaccine (#1) 2023 2, 10/31/2020, 10/24/2020, Additional history exists Hepatitis B Vaccine Aged Out 03/09/2018, 8 No longer eligible based on patient's age to complete this topic Insurance [employer] MEDICARE Care Teams Kitchen Supervisor Relationship Specialty Start Date End Date Ramon Grove MD [address] [place] [phone] PCP - General Internal Medicine 03/29/19
--- OUTSIDE RECORDS SUMMARY | 2024-04-28 14:18 | XMS_ITS | Patient Health Record ---
Author Organization [facility] Address [address] [place] [address] Care Team Providers Care Case Sealer Name Role Phone Valerie Heart Unavailable [phone] Reason For Referral No Information Medications Medication SIG (Take, Route, Fr equency, Duration) Notes Start Date End Date Status Vagifem 10 MCG 1 VAGINAL twice weekly for -3 [facility] 08/27 Active Loratadine 10MG 1 ORAL daily for -3 [facility] 08/27/2012 Active Furosemide 20MG 1/2 ORAL daily for -3 [facility] 08/27/2012 Active Flonase 50MCG 2 Nasal daily for -3 [facility] 08/27/2012 Active Problems Problem Type SNOMED Code ICD Code Onset Dates Problem Status W/U Status Risk Notes Problem Obesity (970913966) Obesity, unspecified (278.00) Active confirmed Major Problem Carpal tunnel syndrome (12652330) Carpal tunnel syndrome (354.0) Active confirmed Major Problem Allergic rhinitis (51408883) Allergic rhinitis, cause unspecified (477.9) Active confirmed Major Problem Postmenopausal atrophic vaginitis (06473708) Postmenopausal atrophic vaginitis (627.3) Active confirmed Diag Problem Generalized osteoarthritis (disorder) (839896063) Generalized osteoarthrosis, unspecified site (715.00) Active confirmed Major Problem Insomnia (273431337) Insomnia, unspecified (780.52) Active confirmed Major Problem Allergy (717706482) Allergy, unspecified not elsewhere classified (995.3) Active confirmed Diag Problem Gynecological examination normal (912989494361145) Routine gynecological examination (V72.31) Active confirmed Major Problem Screening for malignant neoplasm of colon (237647708) Special screening for malignant neoplasms, colon (V76.51) Active confirmed Major Plan Of Treatment No Information Insurance Providers Payer Name Payer Address Payer Phone Subscriber Number Group Number Insured Name Patient Relationship to Insured Coverage Start Date Coverage End Date [facility] [address] [address] [place] [address] [id number] D[employer] GAGE Self - patient is the insured
--- OUTSIDE RECORDS SUMMARY | 2024-04-28 14:18 | XMS_ITS | Encounter Summary ---
Author Organization [email or web address] Address [address] [place] [address] Care Team Providers Care Bingo Manager Name Role Phone Demond Nash MD Primary Care Provider [phone] Encounter Details Date Type Department Care Team (Late st Contact Info) Description 02/20/2024 Lab Requisition [facility] [address] [place] [address] Rachel Art MD [address] [address] Primary osteoarthritis, right shoulder; Essential (primary) hypertension; [...] Associated Diagnosis Comments COMPLETE BLOOD COUNT Routine 02/22/2024 5:28 AM EST Primary osteoarthritis, right shoulder Essential (primary) hypertension Unilateral primary osteoarthritis, right knee COMPREHENSIVE METABOLIC PANEL Routine 02/22/2024 5:28 AM EST Primary osteoarthritis, right shoulder Essential (primary) hypertension Unilateral primary osteoarthritis, right knee documented in this encounter Results * (ABNORMAL) Comprehensive metabolic panel (02/22/2024 5:28 AM EST) Sodium 133 133 - 145 mmol/L LAB CHEMISTRY METHOD 02/22/2024 1:14 PM [facility] Potassium 5.0 3.5 - 5.5 mmol/L LAB CHEMISTRY METHOD 02/22/2024 1:14 PM [facility] Comment:Hemolysis present Chloride 106 96 - 110 mmol/L LAB CHEMISTRY METHOD 02/22/2024 1:14 PM [facility] CO2 23 21 - 32 mmol/L LAB CHEMISTRY METHOD 02/22/2024 1:14 PM [facility] Anion Gap 4 3 - 11 LAB CHEMISTRY METHOD 02/22/2024 1:14 PM [facility] Glucose 70 70 - 100 mg/dL LAB CHEMISTRY METHOD 02/22/2024 1:14 PM [facility] BUN 18 5 - 25 mg/dL LAB CHEMISTRY METHOD 02/22/2024 1:14 PM [facility] Creatinine 1.08 0.50 - 1.10 mg/dL LAB CHEMISTRY METHOD 02/22/2024 1:14 PM [facility] eGFR 55(L) >=60 mL/min/1. 73m2 LAB CHEMISTRY METHOD 02/22/2024 1:14 PM [facility] Comment:Calculation based on the??Chronic Kidney Disease Epidemiology Collaboration (CKD-EPI) equation refit??without adjustment for race. BUN/Creatinine Ratio 16.7 LAB CHEMISTRY METHOD 02/22/2024 1:14 PM [facility] Calcium 9.4 8.5 - 10.5 mg/dL LAB CHEMISTRY METHOD 02/22/2024 1:14 PM [facility] AST (SGOT) 26 10 - 42 unit/L LAB CHEMISTRY METHOD 02/22/2024 1:14 PM [facility] ALT (SGPT) 12 10 - 60 unit/L LAB CHEMISTRY METHOD 02/22/2024 1:14 PM [facility] Alkaline Phosphatase 88 42 - 121 unit/L LAB CHEMISTRY METHOD 02/22/2024 1:14 PM EST [facility] Total Protein 6.0 6.0 - 8.0 g/dL LAB CHEMISTRY METHOD 02/22/2024 1:14 PM [facility] Albumin 2.7(L) 3.2 - 5.0 g/dL LAB CHEMISTRY METHOD 02/22/2024 1:14 PM [facility] Total Bilirubin 0.5 0.0 - 1.4 mg/dL LAB CHEMISTRY METHOD 02/22/2024 1:14 PM [facility] Blood Venous blood specimen / Unknown Venipuncture / Unknown 02/22/2024 5:28 AM EST 02/22/2024 11:18 AM EST us Rachel Art MD LAB BLOOD ORDERABLES Fin al Result [facility] [address] [place] [address], * (ABNORMAL) Complete blood count (02/22/2024 5:28 AM EST) WBC 7.2 4.8 - 10.8 K/mcL LAB HEMETOLOGY METHOD 02/22/2024 12:40 PM [facility] RBC 3.20(L) 3.80 - 4.80 M/mcL LAB HEMETOLOGY METHOD 02/22/2024 12:40 PM [facility] Hemoglobin 8.8(L) 11.5 - 16.0 g/dL LAB HEMETOLOGY METHOD 02/22/2024 12:40 PM [facility] Hematocrit 28.7(L) 35.0 - 47.0 % LAB HEMETOLOGY METHOD 02/22/2024 12:40 PM [facility] MCV 90.3 79.0 - 98.0 FL LAB HEMETOLOGY METHOD 02/22/2024 12:40 PM EST [facility] MCH 27.7 27.0 - 32.0 pcg LAB HEMETOLOGY METHOD 02/22/2024 12:40 PM [facility] MCHC 30.7(L) 32.0 - 37.0 g/dL LAB HEMETOLOGY METHOD 02/22/2024 12:40 PM [facility] RDW 15.5(H) 11.0 - 15.0 % LAB HEMETOLOGY METHOD 02/22/2024 12:40 PM [facility] Platelets 568(H) 130 - 400 K/mcL LAB HEMETOLOGY METHOD 02/22/2024 12:40 PM [facility] MPV 9.3 7.0 - 11.0 FL LAB HEMETOLOGY METHOD 02/22/2024 12:40 PM EST [facility] NRBC 0.0 <1.0 % LAB HEMETOLOGY METHOD 02/22/2024 12:40 PM [facility] NRBC Absolute 0.00 <0.10 K/mcL LAB HEMETOLOGY METHOD 02/22/2024 12:40 PM [facility] Blood Venous blood specimen / Unknown Venipuncture / Unknown 02/22/2024 5:28 AM EST 02/22/2024 11:18 AM EST us Rachel Art MD LAB BLOOD ORDERABLES Fin al Result [facility] [address] [place] [address], documented in this encounter Visit Diagnoses Diagnosis Primary osteoarthritis, right shoulder Essential (primary) hypertension Unspecified essential hypertension Unilateral primary osteoarthritis, right knee documented in this encounter Care Teams Bingo Manager Relationship Specialty Start Date End Date Demond Nash MD [address] [place] [id number] PCP - General 07/16/1998 documented as of this encounter
--- OUTSIDE RECORDS SUMMARY | 2024-04-28 14:18 | XMS_ITS | Encounter Summary ---
Author Organization [facility], Address [address] [place] [address] Phone Care Team Providers Care Outside Barrel Lathe Operator Name Role Phone Ramon Grove MD Primary Care Provider [phone] Encounter Details Date Type Department Care Team (Late st Contact Info) Description 08/22/2022 Orders Only [facility], [address] [place] [address] Iam Taylor, [address] [facility] [place] [phone] Hypertension; Localized edema Social History Tobacco Use [...] Procedure Name Priority Date/Time Associated Diagnosis Comments RENAL FUNCTION PANEL Routine 09/19/2022 9:28 AM EDT Hypertension Localized edema documented in this encounter Results * (ABNORMAL) Renal Function Panel (09/19/2022 9:28 AM EDT) Glucose 84 (70-99) MG/DL [facility] BUN 32(H) (8-23) MG/DL [facility] Creatinine 1.2(H) (0.5-1.0) MG/DL [facility] Sodium 139 (133-145) MMOL/L [facility] Potassium 4.5 (3.6-5.2) MMOL/L [facility] Chloride 100 (98-107) MMOL/L [facility] Bicarbonate (CO2) 27 (22-29) MMOL/L [facility] Anion Gap 12 (4-17) [facility] Albumin 4.5 (3.4-4.8) GM/DL [facility] Calcium 10.2 (8.6-10.5) MG/DL [facility] Phosphorus, Serum 3.9 (2.5-4.5) MG/DL [facility] Est GFR Non 52 ML/MIN/1.7 3 M2 [facility] Comment: Creatinine based estimated glomerular filtration (eGFR) in adults is calculated using the National Kidney Foundation recommended 2020 CKD-EPI equation. Estimates GFR from serum creatinine, age and sex. Testing performed or reported by [facility], a Service of [facility], [address] [place] [address] Sabino Sheldon MD, Director Business IA# [id number] Blood (Blood, Venous) 09/19/2022 9:28 AM EDT 09/19/2022 9:32 AM EDT us Iam Taylor DO LAB BLOOD ORDERABLES Final Resu lt [facility] documented in this encounter Visit Diagnoses Diagnosis Hypertension Localized edema documented in this encounter Care Teams Outside Barrel Lathe Operator Relationship Specialty Start Date End Date Ramon Grove MD [address] [place] [phone] PCP - General Internal Medicine 03/29/19 documented as of this encounter
== END 2024-04-28 11:46 | disposition home or self-care (01) ==
LOC: HO.HOSX 11:45
PROVIDERS: Visit Provider Orthopaedic Surgery
DX: M25.561 Pain in right knee (principal); Z96.651 Presence of right artificial knee joint
CPT/HCPCS: 73562; 99212

== ENCOUNTER 2024-04-28 12:31 | Outpatient (AMB) | payer MEDICARE, SELFPAY ==
--- NOTE | 2024-04-28 12:52 | MHC.OFFVIS ---
Intake Visit Reasons: PO - Right TKA 02/09/24 Intake Note: Zina is a 73 year old female who presents today for a post operative appointment about 2 months s/p Right TKA 02/09/24. Patient reports that she is doing well, she has some continued stiffness. Allergies Sulfa (Sulfonamide Antibiotics) Allergy (Severe, Verified 02/25/24 14:01) Anaphylaxis HPI HPI PO - Right TKA 02/09/24: Details: Zina is a 73 year old female who presents today for a post operative appointment about 2 months s/p Right TKA 02/09/24. Patient reports that she is doing well, she has some continued stiffness. [facility] Medical History (Updated 02/13/24 @ 00:03 by Danilo Whitehead) HTN (hypertension) Weakness Chronic sinusitis Situational anxiety Seasonal allergies Osteoarthritis GERD (gastroesophageal reflux disease) HTN (hypertension) PMR (polymyalgia rheumatica) Osteoporosis Surgical History History of hip replacement S/P hip replacement History of total right hip arthroplasty (08/05/23) Hx of colonoscopy (~2008) Hx of section (1984) History of arthroscopy of right shoulder (~2010) Social History Household Members: None Household Members Other:: [facility] Housing: House Are you a primary home care consultant to a significant other at home: Yes ([facility], family will help while patient hospitalized) Do you presently have visiting nurse or other home services: No Comment: right hip Patient Tobacco Use Status: Never used Tobacco service: No Physical Exam Extrem Other: inc c/d/i 0-110 stable arc and pain free gait Assessment & Plan Assessment & Plan (1) Status post total knee replacement, right: Code(s): Z96.651 - Presence of right artificial knee joint Category: Surgical Plan: 73-year-old rheumatoid with bilateral knee arthritis status post right knee replacement doing well. Continue PT. she would like to get her left knee treated and I think this is reasonable. We will reach out and begin the. Orders: Orders XR knee LT 1V Today M25.569 - Pain in unspecified knee XR knee RT 3V Today M25.561 - Pain in right knee Coding Level of Care Code Global (25337) Diagnoses Status post total knee replacement, right Z96.651
--- OUTSIDE RECORDS SUMMARY | 2024-04-28 14:57 | XMS_ITS | Encounter Summary ---
Author Organization [facility] Address [address] [place] [address] Care Team Providers Care Energy Trading Analyst Name Role Phone Demond Nash MD Primary Care Provider [phone] Encounter Details Date Type Department Care Team (Late st Contact Info) Description 03/04/[address] [facility] - Main Lab [address] [facility] [place] [address] Rachel Art MD [address] [place] [address] Primary osteoarthritis, right shoulder; Essential (primary) hypertension; [...] knee documented in this encounter Care Teams Energy Trading Analyst Relationship Specialty Start Date End Date Demond Nash MD [facility] [place] [address] PCP - General 07/16/1998 documented as of this encounter
--- OUTSIDE RECORDS SUMMARY | 2024-04-28 14:57 | XMS_ITS | Encounter Summary ---
Author Organization [facility] [place], Address [address] [place] [address] Phone Care Team Providers Care Compressor Mechanic Bus Name Role Phone Ramon Grove MD Primary Care Provider [phone] Encounter Details Date Type Department Care Team (Late st Contact Info) Description 08/22/2022 Orders Only [facility], [address] [place] [address] Iam Taylor, [address] [facility] [place] [phone] Hypertension; Localized edema Social History Tobacco Use [...] (0.5-1.0) MG/DL [facility] Sodium 139 (133-145) MMOL/L [facility] Potassium 4.5 (3.6-5.2) MMOL/L [facility] Chloride 100 (98-107) MMOL/L [facility] Bicarbonate (CO2) 27 (22-29) MMOL/L [facility] Anion Gap 12 (4-17) [facility] Albumin 4.5 (3.4-4.8) GM/DL [facility] Calcium 10.2 (8.6-10.5) MG/DL [facility] Phosphorus, Serum 3.9 (2.5-4.5) MG/DL [facility] Est GFR Non 52 ML/MIN/1.7 3 M2 [facility] Comment: Creatinine based estimated glomerular filtration (eGFR) in adults is calculated using the National Kidney Foundation recommended 2020 CKD-EPI equation. Estimates GFR from serum creatinine, age and sex. Testing performed or reported by [facility], a Service of [facility], [address] [place] [address] Sabino Sheldon MD, Foundation Relations Director IA# [id number] Blood (Blood, Venous) 09/19/2022 9:28 AM EDT 09/19/2022 9:32 AM EDT us Iam Taylor DO LAB BLOOD ORDERABLES Final Resu lt [facility] documented in this encounter Visit Diagnoses Diagnosis Hypertension Localized edema documented in this encounter Care Teams Compressor Mechanic Bus Relationship Specialty Start Date End Date Ramon Grove MD [address] [place] [phone] PCP - General Internal Medicine 03/29/19 documented as of this encounter
--- OUTSIDE RECORDS SUMMARY | 2024-04-28 14:57 | XMS_ITS | Clinical Summary ---
Author Organization [facility] Address [address] [place] [address] Care Team Providers Care Canvas Cutter Hand Name Role Phone Jarod Wu MD Primary Care Provider [phone] Allergies Active Allergy Reactions Criticality Noted Date [...] (two) times a day. 0 Active b qidmcni-U-myvea acid 1 MG capsule Take 1 capsule [...] age to complete this topic Care Teams Canvas Cutter Hand Relationship Specialty Start Date End Date Jarod Wu MD [address] [place] [address] PCP - General Internal Medicine 07/17/21
--- OUTSIDE RECORDS SUMMARY | 2024-04-28 14:57 | XMS_ITS | Encounter Summary ---
Author Organization [facility], Address [address] [place] [address] Phone Care Team Providers Care Auxiliary Powerplant Operator Name Role Phone Ramon Grove MD Primary Care Provider [phone] Encounter Details Date Type Department Care Team (Late st Contact Info) Description 05/02/2022 Orders Only [facility], [address] [place] [address] Iam Taylor, [address] [place] [phone] Hypertension; Localized edema Social History Tobacco Use [...] edema documented in this encounter Care Teams Auxiliary Powerplant Operator Relationship Specialty Start Date End Date Ramon Grove MD [address] [place] [address] PCP - General Internal Medicine 03/29/19 documented as of this encounter
--- OUTSIDE RECORDS SUMMARY | 2024-04-28 14:57 | XMS_ITS | Clinical Summary ---
Author Organization [facility], Address [address] [place] [address] [place] [address] Phone Care Team Providers Care Acupressure Therapist Name Role Phone Ramon Grove MD Primary Care Provider [phone] Allergies Active Allergy Reactions Criticality Noted Date [...] this topic Insurance [employer] MEDICARE Care Teams Acupressure Therapist Relationship Specialty Start Date End Date Ramon Grove MD [address] [place] [phone] PCP - General Internal Medicine 03/29/19
--- OUTSIDE RECORDS SUMMARY | 2024-04-28 14:57 | XMS_ITS | Encounter Summary ---
Author Organization [employer] Address [address] [place] [address] Care Team Providers Care Data Input Clerk Name Role Phone Demond Nash MD Primary Care Provider [phone] Encounter Details Date Type Department Care Team (Late st Contact Info) Description 02/15/2024 Lab Requisition [facility] - Main Lab 299 [facility] [place] [address] Rachel Art MD [address] [address] Primary osteoarthritis, right shoulder; Essential (primary) hypertension; [...] D 25 hydroxy (02/15/2024 5:24 AM EST) [facility] Vit D, 25-Hydroxy 29.2(L) 30.0 - 80.0 ng/mL LAB CHEMISTRY METHOD 02/15/2024 6:27 PM EST [facility] Blood Venous blood specimen / Unknown Venipuncture / Unknown 02/15/2024 5:24 AM EST 02/15/2024 12:33 PM EST Rachel Art MD LAB BLOOD ORDERABLES Fin al Result Performing Organization Address [facility] Co de Phone Number [facility] [address] [place] [address], * Vitamin B12 (02/15/2024 5:24 AM EST) [facility] Vitamin B-12 358 250 - 900 pcg/mL LAB CHEMISTRY METHOD 02/15/2024 6:47 PM EST [facility] Blood Venous blood specimen / Unknown Venipuncture / Unknown 02/15/2024 5:24 AM EST 02/15/2024 12:33 PM EST Rachel Art MD LAB BLOOD ORDERABLES Fin al Result [facility] [address] [place] [address], [place] [phone] * Folate (02/15/2024 5:24 AM EST) [facility] Folate 5.2 2.8 - 17.0 ng/ml LAB CHEMISTRY METHOD 02/15/2024 6:47 PM EST [facility] Blood Venous blood specimen / Unknown Venipuncture / Unknown 02/15/2024 5:24 AM EST 02/15/2024 12:33 PM EST Rachel Art MD LAB BLOOD ORDERABLES Fin al Result Performing Organization Address City/[facility]/ZIP Co de Phone Number [facility] [address] [place] [address], [place] [phone] * Magnesium (02/15/2024 5:24 AM EST) [facility] Magnesium 2.3 1.9 - 2.6 mg/dL LAB CHEMISTRY METHOD 02/15/2024 6:20 PM EST [facility] Blood Venous blood specimen / Unknown Venipuncture / Unknown 02/15/2024 5:24 AM EST 02/15/2024 12:33 PM EST Rachel Art MD LAB BLOOD ORDERABLES Fin al Result [facility] [address] [place] [address], [place] [phone] * (ABNORMAL) Comprehensive metabolic panel (02/15/2024 5:24 AM EST) [facility] Sodium 139 133 - 145 mmol/L LAB CHEMISTRY METHOD 02/15/2024 6:47 PM [facility] Potassium 4.6 3.5 - 5.5 mmol/L LAB CHEMISTRY METHOD 02/15/2024 6:47 PM EST [facility] Chloride 104 96 - 110 mmol/L LAB CHEMISTRY METHOD 02/15/2024 6:47 PM [facility] CO2 23 21 - 32 mmol/L LAB CHEMISTRY METHOD 02/15/2024 6:47 PM [facility] Anion Gap 12(H) 3 - 11 LAB CHEMISTRY METHOD 02/15/2024 6:47 PM [facility] Glucose 76 70 - 100 mg/dL LAB CHEMISTRY METHOD 02/15/2024 6:47 PM [facility] BUN 26(H) 5 - 25 mg/dL LAB CHEMISTRY METHOD 02/15/2024 6:47 PM [facility] Creatinine 1.01 0.50 - 1.10 mg/dL LAB CHEMISTRY METHOD 02/15/2024 6:47 PM [facility] eGFR 60 >=60 mL/min/1. 73m2 LAB CHEMISTRY METHOD 02/15/2024 6:47 PM [facility] Comment:Calculation based on the??Chronic Kidney Disease Epidemiology Collaboration (CKD-EPI) equation refit??without adjustment for race. BUN/Creatinine Ratio 25.7 LAB CHEMISTRY METHOD 02/15/2024 6:47 PM [facility] Calcium 9.3 8.5 - 10.5 mg/dL LAB CHEMISTRY METHOD 02/15/2024 6:47 PM [facility] AST (SGOT) 16 10 - 42 unit/L LAB CHEMISTRY METHOD 02/15/2024 6:47 PM [facility] ALT (SGPT) 13 10 - 60 unit/L LAB CHEMISTRY METHOD 02/15/2024 6:47 PM [facility] Alkaline Phosphatase 86 42 - 121 unit/L LAB CHEMISTRY METHOD 02/15/2024 6:47 PM [facility] Total Protein 5.9(L) 6.0 - 8.0 g/dL LAB CHEMISTRY METHOD 02/15/2024 6:47 PM [facility] Albumin 2.7(L) 3.2 - 5.0 g/dL LAB CHEMISTRY METHOD 02/15/2024 6:47 PM EST [facility] Total Bilirubin 0.5 0.0 - 1.4 mg/dL LAB CHEMISTRY METHOD 02/15/2024 6:47 PM [facility] Blood Venous blood specimen / Unknown Venipuncture / Unknown 02/15/2024 5:24 AM EST 02/15/2024 12:33 PM EST us Rachel Art MD LAB BLOOD ORDERABLES Fin al Result [facility] [address] [place] [address], * (ABNORMAL) Complete blood count (02/15/2024 5:24 AM EST) WBC 7.6 4.8 - 10.8 K/mcL LAB HEMETOLOGY METHOD 02/15/2024 1:31 PM [facility] RBC 3.20(L) 3.80 - 4.80 M/mcL LAB HEMETOLOGY METHOD 02/15/2024 1:31 PM [facility] Hemoglobin 9.0(L) 11.5 - 16.0 g/dL LAB HEMETOLOGY METHOD 02/15/2024 1:31 PM [facility] Hematocrit 30.1(L) 35.0 - 47.0 % LAB HEMETOLOGY METHOD 02/15/2024 1:31 PM [facility] MCV 94.4 79.0 - 98.0 FL LAB HEMETOLOGY METHOD 02/15/2024 1:31 PM [facility] MCH 28.2 27.0 - 32.0 pcg LAB HEMETOLOGY METHOD 02/15/2024 1:31 PM [facility] MCHC 29.9(L) 32.0 - 37.0 g/dL LAB HEMETOLOGY METHOD 02/15/2024 1:31 PM EST [facility] RDW 16.0(H) 11.0 - 15.0 % LAB HEMETOLOGY METHOD 02/15/2024 1:31 PM EST [facility] Platelets 388 130 - 400 K/mcL LAB HEMETOLOGY METHOD 02/15/2024 1:31 PM [facility] MPV 9.4 7.0 - 11.0 FL LAB HEMETOLOGY METHOD 02/15/2024 1:31 PM EST [facility] NRBC 0.0 <1.0 % LAB HEMETOLOGY METHOD 02/15/2024 1:31 PM [facility] NRBC Absolute 0.00 <0.10 K/mcL LAB HEMETOLOGY METHOD 02/15/2024 1:31 PM [facility] Blood Venous blood specimen / Unknown Venipuncture / Unknown 02/15/2024 5:24 AM EST 02/15/2024 12:33 PM EST us Rachel Art MD LAB BLOOD ORDERABLES Fin al Result [facility] [address] [place] [address], documented in this encounter Visit Diagnoses Diagnosis Primary osteoarthritis, right shoulder Essential (primary) hypertension Unspecified essential hypertension Unilateral primary osteoarthritis, right knee documented in this encounter Care Teams Data Input Clerk Relationship Specialty Start Date End Date Demond Nash MD [address] [place] [address] PCP - General 07/16/1998 documented as of this encounter
--- OUTSIDE RECORDS SUMMARY | 2024-04-28 14:57 | XMS_ITS | Encounter Summary ---
Author Organization [facility], Address [address] [place] [address] Phone Care Team Providers Care Infection Prevention Coordinator Name Role Phone Ramon Grove MD Primary Care Provider [phone] Encounter Details Date Type Department Care Team (Late st Contact Info) Description 03/07/2022 Orders Only [facility], [address] [place] [address] Iam Taylor, [address] [place] [phone] Hypertension; Localized edema Social History Tobacco Use [...] edema documented in this encounter Care Teams Infection Prevention Coordinator Relationship Specialty Start Date End Date Ramon Grove MD [address] [place] [phone] PCP - General Internal Medicine 03/29/19 documented as of this encounter
--- OUTSIDE RECORDS SUMMARY | 2024-04-28 14:57 | XMS_ITS | Clinical Summary ---
Author Organization [address] [facility] Address [address] [place] [address] Phone Care Team Providers Care Real Estate Loan Officer Name Role Phone Demond Nash MD Primary Care Provider [phone] Encounters Date Type Department Care Team Description 03/04/2024 Lab Requisition [facility] [address] [place] [phone] Rachel Art MD Primary osteoarthritis, right shoulder; Essential (primary) hypertension; Unilateral primary osteoarthritis, right knee 02/26/2024 Lab Requisition [facility] [address] [place] [phone] Rachel Art MD Primary osteoarthritis, right shoulder; Essential (primary) hypertension; Unilateral primary osteoarthritis, right knee 02/20/2024 Lab Requisition [facility] Lab [address] [place] [phone] Rachel Art MD Primary osteoarthritis, right shoulder; Essential (primary) hypertension; Unilateral primary osteoarthritis, right knee 02/15/2024 Lab Requisition [facility] Lab [address] [place] [phone] Rachel Art MD Primary osteoarthritis, right shoulder; [...] K/mcL LAB HEMETOLOGY METHOD 02/29/2024 10:55 AM [facility] RBC 3.50(L) 3.80 - 4.80 M/mcL LAB HEMETOLOGY METHOD 02/29/2024 10:55 AM [facility] Hemoglobin 9.6(L) 11.5 - 16.0 g/dL LAB HEMETOLOGY METHOD 02/29/2024 10:55 AM [facility] Hematocrit 31.4(L) 35.0 - 47.0 % LAB HEMETOLOGY METHOD 02/29/2024 10:55 AM [facility] MCV 89.5 79.0 - 98.0 FL LAB HEMETOLOGY METHOD 02/29/2024 10:55 AM [facility] MCH 27.4 27.0 - 32.0 pcg LAB HEMETOLOGY METHOD 02/29/2024 10:55 AM [facility] MCHC 30.6(L) 32.0 - 37.0 g/dL LAB HEMETOLOGY METHOD 02/29/2024 10:55 AM EST [facility] RDW 15.9(H) 11.0 - 15.0 % LAB HEMETOLOGY METHOD 02/29/2024 10:55 AM [facility] Platelets 544(H) 130 - 400 K/mcL LAB HEMETOLOGY METHOD 02/29/2024 10:55 AM EST [facility] MPV 8.9 7.0 - 11.0 FL LAB HEMETOLOGY METHOD 02/29/2024 10:55 AM EST [facility] NRBC 0.0 <1.0 % LAB HEMETOLOGY METHOD 02/29/2024 10:55 AM [facility] NRBC Absolute 0.00 <0.10 K/mcL LAB HEMETOLOGY METHOD 02/29/2024 10:55 AM [facility] Blood Venous blood specimen / Unknown Venipuncture / Unknown 02/29/2024 6:05 AM EST 02/29/2024 10:09 AM EST us Rachel Art MD LAB BLOOD ORDERABLES Fin al Result [facility] [address] [place] [address], * (ABNORMAL) Comprehensive metabolic panel (02/29/2024 6:05 AM EST) Only the most recent of3 resultswithin the time period is included. Sodium 138 133 - 145 mmol/L LAB CHEMISTRY METHOD 02/29/2024 11:04 AM [facility] Potassium 4.3 3.5 - 5.5 mmol/L LAB CHEMISTRY METHOD 02/29/2024 11:04 AM [facility] Chloride 105 96 - 110 mmol/L LAB CHEMISTRY METHOD 02/29/2024 11:04 AM [facility] CO2 26 21 - 32 mmol/L LAB CHEMISTRY METHOD 02/29/2024 11:04 AM [facility] Anion Gap 7 3 - 11 LAB CHEMISTRY METHOD 02/29/2024 11:04 AM [facility] Glucose 66(L) 70 - 100 mg/dL LAB CHEMISTRY METHOD 02/29/2024 11:04 AM [facility] BUN 11 5 - 25 mg/dL LAB CHEMISTRY METHOD 02/29/2024 11:04 AM [facility] Creatinine 0.80 0.50 - 1.10 mg/dL LAB CHEMISTRY METHOD 02/29/2024 11:04 AM [facility] eGFR 79 >=60 mL/min/1. 73m2 LAB CHEMISTRY METHOD 02/29/2024 11:04 AM [facility] Comment:Calculation based on the??Chronic Kidney Disease Epidemiology Collaboration (CKD-EPI) equation refit??without adjustment for race. BUN/Creatinine Ratio 13.8 LAB CHEMISTRY METHOD 02/29/2024 11:04 AM [facility] Calcium 9.4 8.5 - 10.5 mg/dL LAB CHEMISTRY METHOD 02/29/2024 11:04 AM [facility] AST (SGOT) 14 10 - 42 unit/L LAB CHEMISTRY METHOD 02/29/2024 11:04 AM [facility] ALT (SGPT) 11 10 - 60 unit/L LAB CHEMISTRY METHOD 02/29/2024 11:04 AM [facility] Alkaline Phosphatase 80 42 - 121 unit/L LAB CHEMISTRY METHOD 02/29/2024 11:04 AM [facility] Total Protein 5.7(L) 6.0 - 8.0 g/dL LAB CHEMISTRY METHOD 02/29/2024 11:04 AM [facility] Albumin 2.5(L) 3.2 - 5.0 g/dL LAB CHEMISTRY METHOD 02/29/2024 11:04 AM EST [facility] Total Bilirubin 0.3 0.0 - 1.4 mg/dL LAB CHEMISTRY METHOD 02/29/2024 11:04 AM EST [facility] Blood Venous blood specimen / Unknown Venipuncture / Unknown 02/29/2024 6:05 AM EST 02/29/2024 10:09 AM EST Rachel Art MD LAB BLOOD ORDERABLES Fin al Result Performing Organization Address City/[facility]/ZIP Co de Phone Number [facility] [address] [place] [address], [place] [phone] * (ABNORMAL) Vitamin D 25 hydroxy (02/15/2024 5:24 AM EST) Vit D, 25-Hydroxy 29.2(L) 30.0 - 80.0 ng/mL LAB CHEMISTRY METHOD 02/15/2024 6:27 PM EST [facility] Blood Venous blood specimen / Unknown Venipuncture / Unknown 02/15/2024 5:24 AM EST 02/15/2024 12:33 PM EST Rachel Art MD LAB BLOOD ORDERABLES Fin al Result Performing Organization Address City/[facility]/ZIP Co de Phone Number [facility] [address] [place] [address], [place] [phone] * Magnesium (02/15/2024 5:24 AM EST) Magnesium 2.3 1.9 - 2.6 mg/dL LAB CHEMISTRY METHOD 02/15/2024 6:20 PM EST [facility] Blood Venous blood specimen / Unknown Venipuncture / Unknown 02/15/2024 5:24 AM EST 02/15/2024 12:33 PM EST Rachel Art MD LAB BLOOD ORDERABLES Fin al Result Performing Organization Address [facility] de Phone Number [facility] [address] [place] [address], [place] [phone] * Folate (02/15/2024 5:24 AM EST) Folate 5.2 2.8 - 17.0 ng/ml LAB CHEMISTRY METHOD 02/15/2024 6:47 PM EST [facility] Blood Venous blood specimen / Unknown Venipuncture / Unknown 02/15/2024 5:24 AM EST 02/15/2024 12:33 PM EST Rachel Art MD LAB BLOOD ORDERABLES Fin al Result Performing Organization Address [facility] de Phone Number [facility] [address] [place] [address], [place] [phone] * Vitamin B12 (02/15/2024 5:24 AM EST) [facility] Vitamin B-12 358 250 - 900 pcg/mL LAB CHEMISTRY METHOD 02/15/2024 6:47 PM EST [facility] Blood Venous blood specimen / Unknown Venipuncture / Unknown 02/15/2024 5:24 AM EST 02/15/2024 12:33 PM EST Rachel Art MD LAB BLOOD ORDERABLES Fin al Result Performing Organization Address City/[facility] Co de Phone Number [facility] [address] [place] [address], [place] [phone] from Last 3 Months Insurance [employer] MEDICARE ADVANTAGE Care Teams Real Estate Loan Officer Relationship Specialty Start Date End Date Demond Nash MD [address] [place], [place] [address] [address] PCP - General 07/16/1998
--- OUTSIDE RECORDS SUMMARY | 2024-04-28 14:57 | XMS_ITS | Encounter Summary ---
Author Organization [facility] [place], Address [address] [place] [address] Phone Care Team Providers Care Lawn Technician Name Role Phone Ramon Grove MD Primary Care Provider [phone] Encounter Details Date Type Department Care Team (Late st Contact Info) Description 09/20/2021 Orders Only [facility], [address] [place] [address] Iam Taylor, [address] [place] [phone] Hypertension; Localized edema Social History Tobacco Use [...] edema documented in this encounter Care Teams Lawn Technician Relationship Specialty Start Date End Date Ramon Grove MD [address] [place] [address] PCP - General Internal Medicine 03/29/19 documented as of this encounter
--- OUTSIDE RECORDS SUMMARY | 2024-04-28 14:57 | XMS_ITS | Encounter Summary ---
Author Organization [employer] Address [address] [place] [address] Care Team Providers Care Adjuster Name Role Phone Demond Nash MD Primary Care Provider [phone] Encounter Details Date Type Department Care Team (Late st Contact Info) Description 02/26/2024 Lab Requisition [facility] - Main Lab [address] [place] [address] Rachel Art MD [address] [address] Primary osteoarthritis, right shoulder; Essential (primary) hypertension; [...] Comprehensive metabolic panel (02/29/2024 6:05 AM EST) [facility] Sodium 138 133 - 145 mmol/L LAB CHEMISTRY METHOD 02/29/2024 11:04 AM [facility] Potassium 4.3 3.5 - 5.5 mmol/L LAB CHEMISTRY METHOD 02/29/2024 11:04 AM [facility] Chloride 105 96 - 110 mmol/L LAB CHEMISTRY METHOD 02/29/2024 11:04 AM [facility] CO2 26 21 - 32 mmol/L LAB CHEMISTRY METHOD 02/29/2024 11:04 AM [facility] Anion Gap 7 3 - 11 LAB CHEMISTRY METHOD 02/29/2024 11:04 AM [facility] Glucose 66(L) 70 - 100 mg/dL LAB CHEMISTRY METHOD 02/29/2024 11:04 AM [facility] BUN 11 5 - 25 mg/dL LAB CHEMISTRY METHOD 02/29/2024 11:04 AM [facility] Creatinine 0.80 0.50 - 1.10 mg/dL LAB CHEMISTRY METHOD 02/29/2024 11:04 AM [facility] eGFR 79 >=60 mL/min/1. 73m2 LAB CHEMISTRY METHOD 02/29/2024 11:04 AM [facility] Comment:Calculation based on the??Chronic Kidney Disease Epidemiology Collaboration (CKD-EPI) equation refit??without adjustment for race. BUN/Creatinine Ratio 13.8 LAB CHEMISTRY METHOD 02/29/2024 11:04 AM [facility] Calcium 9.4 8.5 - 10.5 mg/dL LAB CHEMISTRY METHOD 02/29/2024 11:04 AM [facility] AST (SGOT) 14 10 - 42 unit/L LAB CHEMISTRY METHOD 02/29/2024 11:04 AM [facility] ALT (SGPT) 11 10 - 60 unit/L LAB CHEMISTRY METHOD 02/29/2024 11:04 AM [facility] Alkaline Phosphatase 80 42 - 121 unit/L LAB CHEMISTRY METHOD 02/29/2024 11:04 AM [facility] Total Protein 5.7(L) 6.0 - 8.0 g/dL LAB CHEMISTRY METHOD 02/29/2024 11:04 AM [facility] Albumin 2.5(L) 3.2 - 5.0 g/dL LAB CHEMISTRY METHOD 02/29/2024 11:04 AM [facility] Total Bilirubin 0.3 0.0 - 1.4 mg/dL LAB CHEMISTRY METHOD 02/29/2024 11:04 AM [facility] Blood Venous blood specimen / Unknown Venipuncture / Unknown 02/29/2024 6:05 AM EST 02/29/2024 10:09 AM EST us Rachel Art MD LAB BLOOD ORDERABLES Fin al Result [facility] [address] [place] [address], * (ABNORMAL) Complete blood count (02/29/2024 6:05 AM EST) WBC 5.5 4.8 - 10.8 K/mcL LAB HEMETOLOGY METHOD 02/29/2024 10:55 AM [facility] RBC 3.50(L) 3.80 - 4.80 M/mcL LAB HEMETOLOGY METHOD 02/29/2024 10:55 AM [facility] Hemoglobin 9.6(L) 11.5 - 16.0 g/dL LAB HEMETOLOGY METHOD 02/29/2024 10:55 AM [facility] Hematocrit 31.4(L) 35.0 - 47.0 % LAB HEMETOLOGY METHOD 02/29/2024 10:55 AM [facility] MCV 89.5 79.0 - 98.0 FL LAB HEMETOLOGY METHOD 02/29/2024 10:55 AM EST [facility] MCH 27.4 27.0 - 32.0 pcg LAB HEMETOLOGY METHOD 02/29/2024 10:55 AM [facility] MCHC 30.6(L) 32.0 - 37.0 g/dL LAB HEMETOLOGY METHOD 02/29/2024 10:55 AM [facility] RDW 15.9(H) 11.0 - 15.0 % LAB HEMETOLOGY METHOD 02/29/2024 10:55 AM [facility] Platelets 544(H) 130 - 400 K/mcL LAB HEMETOLOGY METHOD 02/29/2024 10:55 AM [facility] MPV 8.9 7.0 - 11.0 FL LAB HEMETOLOGY METHOD 02/29/2024 10:55 AM EST [facility] NRBC 0.0 <1.0 % LAB HEMETOLOGY METHOD 02/29/2024 10:55 AM [facility] NRBC Absolute 0.00 <0.10 K/mcL LAB HEMETOLOGY METHOD 02/29/2024 10:55 AM [facility] Blood Venous blood specimen / Unknown Venipuncture / Unknown 02/29/2024 6:05 AM EST 02/29/2024 10:09 AM EST us Rachel Art MD LAB BLOOD ORDERABLES Fin al Result [facility] [address] [place] [address], documented in this encounter Visit Diagnoses Diagnosis Primary osteoarthritis, right shoulder Essential (primary) hypertension Unspecified essential hypertension Unilateral primary osteoarthritis, right knee documented in this encounter Care Teams Adjuster Relationship Specialty Start Date End Date Demond Nash MD [address] [place] [address] PCP - General 07/16/1998 documented as of this encounter
--- OUTSIDE RECORDS SUMMARY | 2024-04-28 14:57 | XMS_ITS | Encounter Summary ---
Author Organization [facility], Address [address] [place] [address] Phone Care Team Providers Care Wood Grinder Operator Name Role Phone Ramon Grove MD Primary Care Provider [phone] Encounter Details Date Type Department Care Team (Late st Contact Info) Description 11/15/2021 Orders Only [facility], [address] [place] [address] [facility] [place], [address] [place] [phone] Hypertension; Localized edema Social History Tobacco Use [...] edema documented in this encounter Care Teams Wood Grinder Operator Relationship Specialty Start Date End Date Ramon Grove MD [address] [place] [address] PCP - General Internal Medicine 03/29/19 documented as of this encounter
--- OUTSIDE RECORDS SUMMARY | 2024-04-28 14:57 | XMS_ITS | Encounter Summary ---
Author Organization [facility], Address [address] [place] [address] Phone Care Team Providers Care Molded Candles Wicker Name Role Phone Ramon Grove MD Primary Care Provider [phone] Encounter Details Date Type Department Care Team (Late st Contact Info) Description 06/27/2022 Orders Only [facility], [address] [place] [address] [facility] [place], [address] [place] [phone] Hypertension; Localized edema Social History Tobacco Use [...] edema documented in this encounter Care Teams Molded Candles Wicker Relationship Specialty Start Date End Date Ramon Grove MD [address] [place] [address] PCP - General Internal Medicine 03/29/19 documented as of this encounter
--- OUTSIDE RECORDS SUMMARY | 2024-04-28 14:57 | XMS_ITS | Encounter Summary ---
Author Organization [facility], Address [address] [place] [address] Phone Care Team Providers Care Scrap Worker Name Role Phone Ramon Grove MD Primary Care Provider [phone] Encounter Details Date Type Department Care Team (Late st Contact Info) Description 08/07/2022 Documentation Only [facility], [address] [place] [address] [facility] [place], [address] [place] [phone] Social History Tobacco Use Types Packs/Day Years [...] on filedocumented in this encounter Care Teams Scrap Worker Relationship Specialty Start Date End Date Ramon Grove MD [address] [place] [address] PCP - General Internal Medicine 03/29/19 documented as of this encounter
--- OUTSIDE RECORDS SUMMARY | 2024-04-28 14:57 | XMS_ITS | Encounter Summary ---
Author Organization [facility], Address [address] [place] [address] Phone Care Team Providers Care Residential Real Estate Assistant Name Role Phone Ramon Grove MD Primary Care Provider [phone] Encounter Details Date Type Department Care Team (Late st Contact Info) Description 02/09/2023 Documentation Only [facility], [address] [place] [address] Iam [place], [address] [place] [phone] Social History Tobacco Use Types Packs/Day Years [...] on filedocumented in this encounter Care Teams Residential Real Estate Assistant Relationship Specialty Start Date End Date Ramon Grove MD [address] [place] [address] PCP - General Internal Medicine 03/29/19 documented as of this encounter
--- OUTSIDE RECORDS SUMMARY | 2024-04-28 14:57 | XMS_ITS | Encounter Summary ---
Author Organization [employer] Address [address] [place] [address] Care Team Providers Care Ballroom Dance Instructor Name Role Phone Demond Nash MD Primary Care Provider [phone] Encounter Details Date Type Department Care Team (Late st Contact Info) Description 02/20/2024 Lab Requisition [facility] - Main Lab [address] [place] [address] Rachel Art MD [address] [address] Primary osteoarthritis, right shoulder; Essential (primary) hypertension; [...] mmol/L LAB CHEMISTRY METHOD 02/22/2024 1:14 PM [facility] Potassium 5.0 3.5 - 5.5 mmol/L LAB CHEMISTRY METHOD 02/22/2024 1:14 PM [facility] Comment:Hemolysis present Chloride 106 96 - 110 mmol/L LAB CHEMISTRY METHOD 02/22/2024 1:14 PM [facility] CO2 23 21 - 32 mmol/L LAB CHEMISTRY METHOD 02/22/2024 1:14 PM [facility] Anion Gap 4 3 - 11 LAB CHEMISTRY METHOD 02/22/2024 1:14 PM [facility] Glucose 70 70 - 100 mg/dL LAB CHEMISTRY METHOD 02/22/2024 1:14 PM [facility] BUN 18 5 - 25 mg/dL LAB CHEMISTRY METHOD 02/22/2024 1:14 PM [facility] Creatinine 1.08 0.50 - 1.10 mg/dL LAB CHEMISTRY METHOD 02/22/2024 1:14 PM [facility] eGFR 55(L) >=60 mL/min/1. 73m2 LAB CHEMISTRY METHOD 02/22/2024 1:14 PM [facility] Comment:Calculation based on the??Chronic Kidney Disease Epidemiology Collaboration (CKD-EPI) equation refit??without adjustment for race. BUN/Creatinine Ratio 16.7 LAB CHEMISTRY METHOD 02/22/2024 1:14 PM [facility] Calcium 9.4 8.5 - 10.5 mg/dL LAB CHEMISTRY METHOD 02/22/2024 1:14 PM [facility] AST (SGOT) 26 10 - 42 unit/L LAB CHEMISTRY METHOD 02/22/2024 1:14 PM [facility] ALT (SGPT) 12 10 - 60 unit/L LAB CHEMISTRY METHOD 02/22/2024 1:14 PM [facility] Alkaline Phosphatase 88 42 - 121 unit/L LAB CHEMISTRY METHOD 02/22/2024 1:14 PM EST [facility] Total Protein 6.0 6.0 - 8.0 g/dL LAB CHEMISTRY METHOD 02/22/2024 1:14 PM [facility] Albumin 2.7(L) 3.2 - 5.0 g/dL LAB CHEMISTRY METHOD 02/22/2024 1:14 PM [facility] Total Bilirubin 0.5 0.0 - 1.4 mg/dL LAB CHEMISTRY METHOD 02/22/2024 1:14 PM [facility] Blood Venous blood specimen / Unknown Venipuncture / Unknown 02/22/2024 5:28 AM EST 02/22/2024 11:18 AM EST us Rachel Art MD LAB BLOOD ORDERABLES Fin al Result [facility] [address] [place] [address], * (ABNORMAL) Complete blood count (02/22/2024 5:28 AM EST) WBC 7.2 4.8 - 10.8 K/mcL LAB HEMETOLOGY METHOD 02/22/2024 12:40 PM [facility] RBC 3.20(L) 3.80 - 4.80 M/mcL LAB HEMETOLOGY METHOD 02/22/2024 12:40 PM [facility] Hemoglobin 8.8(L) 11.5 - 16.0 g/dL LAB HEMETOLOGY METHOD 02/22/2024 12:40 PM [facility] Hematocrit 28.7(L) 35.0 - 47.0 % LAB HEMETOLOGY METHOD 02/22/2024 12:40 PM [facility] MCV 90.3 79.0 - 98.0 FL LAB HEMETOLOGY METHOD 02/22/2024 12:40 PM EST [facility] MCH 27.7 27.0 - 32.0 pcg LAB HEMETOLOGY METHOD 02/22/2024 12:40 PM [facility] MCHC 30.7(L) 32.0 - 37.0 g/dL LAB HEMETOLOGY METHOD 02/22/2024 12:40 PM [facility] RDW 15.5(H) 11.0 - 15.0 % LAB HEMETOLOGY METHOD 02/22/2024 12:40 PM [facility] Platelets 568(H) 130 - 400 K/mcL LAB HEMETOLOGY METHOD 02/22/2024 12:40 PM [facility] MPV 9.3 7.0 - 11.0 FL LAB HEMETOLOGY METHOD 02/22/2024 12:40 PM EST [facility] NRBC 0.0 <1.0 % LAB HEMETOLOGY METHOD 02/22/2024 12:40 PM [facility] NRBC Absolute 0.00 <0.10 K/mcL LAB HEMETOLOGY METHOD 02/22/2024 12:40 PM [facility] Blood Venous blood specimen / Unknown Venipuncture / Unknown 02/22/2024 5:28 AM EST 02/22/2024 11:18 AM EST us Rachel Art MD LAB BLOOD ORDERABLES Fin al Result [facility] [address] [place] [address], documented in this encounter Visit Diagnoses Diagnosis Primary osteoarthritis, right shoulder Essential (primary) hypertension Unspecified essential hypertension Unilateral primary osteoarthritis, right knee documented in this encounter Care Teams Ballroom Dance Instructor Relationship Specialty Start Date End Date Demond Nash MD [address] [place] [address] PCP - General 07/16/1998 documented as of this encounter
--- OUTSIDE RECORDS SUMMARY | 2024-04-28 14:57 | XMS_ITS | Encounter Summary ---
Author Organization [facility], Address [address] [place] [address] Phone Care Team Providers Care Asp Developer Name Role Phone Ramon Grove MD Primary Care Provider [phone] Encounter Details Date Type Department Care Team (Late st Contact Info) Description 01/10/2022 Orders Only [facility], [address] [place] [address] [facility] [place], [address] [place] [phone] Hypertension; Localized edema Social History Tobacco Use [...] edema documented in this encounter Care Teams Asp Developer Relationship Specialty Start Date End Date Ramon Grove MD [address] [place] [address] PCP - General Internal Medicine 03/29/19 documented as of this encounter
== END 2024-04-28 13:10 | disposition home or self-care (01) ==
PROVIDERS: PCP Internal Medicine; Visit Provider Orthopaedic Surgery
DX: Z96.651 Presence of right artificial knee joint (principal)
CPT/HCPCS: 99024

== ENCOUNTER → 2024-04-28 12:41 | Outpatient (BNV) | payer MEDICARE, SELFPAY | PROVIDERS: Visit Provider Radiology Diagnostic Radiology | DX: M25.561 Pain in right knee (principal); Z96.651 Presence of right artificial knee joint | CPT/HCPCS: 73562 ==

== ENCOUNTER 2024-05-12 10:49 | Outpatient (RCR) | payer MEDICARE, SELFPAY ==
[2024-03-24 15:10] VITALS: BP 137/65; PULSE 77
--- NOTE | 2024-03-24 16:02 | MHC.PT.EP ---
[facility] [place] Office [place] Office [place] Office [address] Esme Kaba [address] [phone] F: [phone] F: [phone] F: [phone] F: [phone] Physical Therapy Plan of Care Date of Evaluation: 03/24/24 Date of Surgery: 02/09/24 Diagnosis: Presence of R artificial knee joint Assessment: Zina is a 73 year old female who is referred to PT for s/p R TKA . She is 6.5 weeks post op. She was in rehab for 3 weeks after surgery and then had home PT for 3 weeks. On PT examination today she presents with 10/10 pain R Knee with bending, TTP over medial and lateral joint line, pes anserine area and around inferior border of patella, decreased R knee ROM< decreased R LE strength, altered posture, balance and gait. She lives alone and is independent with all ADLS but modifies them due to pain in R Knee. She would benefit from skilled PT to address the aforementioned impairments and improve tolerance to functional activities. Frequency and Duration: The patient will be seen 2/week for 6 weeks Short Term Goals: 1. Pt will have 50% decrease in pain with bending which will enable her to sit without pain in 2 weeks. 2. Pt will be able to move her knee through full plane of motion without any pain which will enable her to perform sit to stand and negotiate stairs without pain in 4 weeks Supervisor Whipped Topping Goals: 1. Pt will demonstrate an increase in muscle strength by 1 grade which will enable her to walk without AD in 6 weeks. 2. Pt will be independent with all HEP for symptom management and maintenance following d/c in 6 weeks. Treatment Plan: Modalities to reduce pain, spasms and effusion. Manual therapy to restore motion and function. Therapeutic exercise to improve strength and flexibility. Neuromuscular re-education for posture and balance. Therapeutic activities to return to functional activities of daily living. Electronically signed by: Katherine Bauer PT DPT Please sign and return to therapist. Thank you for your referral.
--- NOTE | 2024-05-23 11:20 | MHC.PT.DC ---
[facility] [place] Office [place] Office [address] Esme Kaba [address] [phone] F: [phone] F: [phone] F: [phone] F: [phone] Physical Therapy Discharge Report Diagnosis: Presence of R artificial knee joint Date of Surgery: 02/09/24 Date of Evaluation: 03/24/24 Date of Discharge: 05/23/24 Treatments to Date: 10 Cancellations to Date: 3 No Shows to Date: 0 Discharge Status: Achieved Goals Improved Function Independent with HEP Discharge Summary: Zina attended 10 PT visits and has made significant improvements with PT. She has achieved all goals set for her. She is independent with all HEP as well. She is therefore being d/c from PT. Electronically signed by: Katherine Buaer PT DPT Please sign and return to therapist. Thank you for your referral.
== END 2024-05-23 11:21 | disposition home or self-care (01) ==
LOC: HO.PT 10:49
PROVIDERS: PCP Internal Medicine; Visit Provider Orthopaedic Surgery
DX: Z47.1 Aftercare following joint replacement surgery (principal); Z96.651 Presence of right artificial knee joint
CPT/HCPCS: 97110; 97116; 97161; 97530

== ENCOUNTER 2024-06-09 11:01 | Outpatient (AMB) | payer MEDICARE, SELFPAY ==
[2024-06-09 11:06] VITALS: BMI 31.3
--- NOTE | 2024-06-09 11:06 | A.OFFVIS_ITS ---
Vital Signs 06/09/24 11:06 Height 5 ft 5 in Weight 188 lb BMI 31.3 Intake Visit Reasons: OV-Right TKA 02/09/24-6 week follow up Intake Note: Zina is a 73 year old female who presents today for a post operative appointment about 4 months s/p Right TKA 02/09/24. Allergies Sulfa (Sulfonamide Antibiotics) Allergy (Severe, Verified 06/09/24 11:07) Anaphylaxis HPI HPI OV-Right TKA 02/09/24-6 week follow up: Details: Zina is a 73-year-old woman who is 4 months status post right knee replacement. I have been talking to her about some stiffness in flexion and she comes in today continuing to describe some stiffness and flexion. She reports that with her physical therapist she was able to obtain 115 degrees of flexion but today she does not appear to be able to obtain that. She otherwise feels well. She has no complaints of fevers or chills and has mild pain. 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) Hx of colonoscopy (~2008) Hx of section (1984) History of arthroscopy of right shoulder (~2010) Social History Household Members: None Household Members Other:: [facility] Housing: House Are you a primary career information specialist to a significant other at home: Yes ([facility], family will help while patient hospitalized) Do you presently have visiting nurse or other home services: No Comment: right hip Patient Tobacco Use Status: Never used Tobacco service: No Physical Exam Vital Signs: BMI result Body Mass Index 31.3 Extrem Other: 5-95 degrees of motion with well-healed incision. No evidence of infection. Assessment & Plan Assessment & Plan (1) Postoperative stiffness of total knee replacement: Code(s): T84.89XA - Other specified complication of internal orthopedic prosthetic devices, implants and grafts, initial encounter; M25.669 - Stiffness of unspecified knee, not elsewhere classified; Z96.659 - Presence of unspecified artificial knee joint Category: Medical Plan: This is a 73-year-old woman status post right knee replacement doing well with the exception of [id number] stiffness. She can flex to about 95 degrees. I think she would benefit from a manipulation under anesthesia. It is slightly late this so I am not sure we will obtain significant increases in motion but I am hoping for 10-15 degrees improvement. I discussed this with her. I explained the risk of pain, swelling, fracture. She expressed understanding and we will proceed forward accordingly. Coding Level of Care Code Est Pt Level 4 (55878) Diagnoses Postoperative stiffness of total knee replacement T84.89XA; M25.669; Z96.659
--- OUTSIDE RECORDS SUMMARY | 2024-06-09 13:15 | XMS_ITS | Clinical Summary ---
Author Organization [facility], Address [address] [place] [address] [place] [address] Phone Care Team Providers Care Skin Therapist Name Role Phone Ramon Grove MD Primary Care Provider [phone] Allergies Active Allergy Reactions Criticality Noted Date [...] Edema 12/07/2019 Osteoporosis 12/07/2019 Hypertension 04/04/2019 Immunizations Immunization Administration Dates Next Due Hep B, Unspecified [...] 1952 Pneumococcal Vaccine: 50+ Years (1 of 2 - PCV) 1958 Colorectal Cancer Screening: Annual FOBT 2001 Colorectal Cancer Screening: Colonoscopy 2001 Colorectal Cancer Screening: Sigmoidoscopy 2001 Influenza Vaccine (Season Ended) 2024 11/07/2021, 10/31/2020, 10/24/2020, Additional history exists Hepatitis B Vaccine Aged Out 03/09/2018, 8 No longer eligible based on patient's age to complete this topic Insurance [employer] Medicare Care Teams Skin Therapist Relationship Specialty Start Date End Date Ramon Grove MD [address] [place] [phone] PCP - General Internal Medicine 03/29/19
--- OUTSIDE RECORDS SUMMARY | 2024-06-09 13:15 | XMS_ITS | Encounter Summary ---
Author Organization [facility], Address [address] [place] [address] Phone Care Team Providers Care Abrasive Band Winder Name Role Phone Ramon Grove MD Primary Care Provider [phone] Encounter Details Date Type Department Care Team (Late st Contact Info) Description 06/27/2022 Orders Only [facility], [address] [place] [address] [facility] [place], [address] [place] [phone] Hypertension; Localized edema Social History Tobacco Use [...] edema documented in this encounter Care Teams Abrasive Band Winder Relationship Specialty Start Date End Date Ramon Grove MD [address] [place] [address] PCP - General Internal Medicine 03/29/19 documented as of this encounter
--- OUTSIDE RECORDS SUMMARY | 2024-06-09 13:15 | XMS_ITS | Clinical Summary ---
Author Organization [address] Address [address] [place] [address] Phone Care Team Providers Care Hanging Flags Decorator Name Role Phone Demond Nash MD Primary Care Provider [phone] Surgical History Surgery Date Site/Laterality Comments OTHER [...] season) 2023 01/15/2021, 06/19/2020, 05/22/2020 Influenza Vaccine (Season Ended) 2024 11/02/2022, 11/07/2021, 10/31/2020, Additional history exists DTaP,Tdap,and Td Vaccines (3 - Td or Tdap) 02/26/2025 02/26/2015, 04/19/2003 Hypertension/CHF/CAD Annual BMP Blood Test 02/28/2025 02/29/2024, 02/22/2024, 02/15/2024 RSV Immunization Adult Patients (1 - 1-dose 75+ series) 12/31/2027 HIB [...] age to complete this topic Meningococcal B Vaccine Aged Out No l onger eligible based on patient's age to complete [...] osteoarthritis, right knee from Last 3 Months or Most Recently Relevant to Health Maintenance Results * (ABNORMAL) Comprehensive metabolic panel (02/29/2024 6:05 AM EST) Sodium 138 133 - 145 mmol/L LAB CHEMISTRY METHOD 02/29/2024 11:04 AM [facility] Potassium 4.3 3.5 - 5.5 mmol/L LAB CHEMISTRY METHOD 02/29/2024 11:04 AM [facility] Chloride 105 96 - 110 mmol/L LAB CHEMISTRY METHOD 02/29/2024 11:04 AM [facility] CO2 26 21 - 32 mmol/L LAB CHEMISTRY METHOD 02/29/2024 11:04 AM [facility] Anion Gap 7 3 - 11 LAB CHEMISTRY METHOD 02/29/2024 11:04 AM [facility] Glucose 66(L) 70 - 100 mg/dL LAB CHEMISTRY METHOD 02/29/2024 11:04 AM [facility] BUN 11 5 - 25 mg/dL LAB CHEMISTRY METHOD 02/29/2024 11:04 AM [facility] Creatinine 0.80 0.50 - 1.10 mg/dL LAB CHEMISTRY METHOD 02/29/2024 11:04 AM [facility] eGFR 79 >=60 mL/min/1. 73m2 LAB CHEMISTRY METHOD 02/29/2024 11:04 AM [facility] Comment:Calculation based on the??Chronic Kidney Disease Epidemiology Collaboration (CKD-EPI) equation refit??without adjustment for race. BUN/Creatinine Ratio 13.8 LAB CHEMISTRY METHOD 02/29/2024 11:04 AM [facility] Calcium 9.4 8.5 - 10.5 mg/dL LAB CHEMISTRY METHOD 02/29/2024 11:04 AM [facility] AST (SGOT) 14 10 - 42 unit/L LAB CHEMISTRY METHOD 02/29/2024 11:04 AM [facility] ALT (SGPT) 11 10 - 60 unit/L LAB CHEMISTRY METHOD 02/29/2024 11:04 AM [facility] Alkaline Phosphatase 80 42 - 121 unit/L LAB CHEMISTRY METHOD 02/29/2024 11:04 AM [facility] Total Protein 5.7(L) 6.0 - 8.0 g/dL LAB CHEMISTRY METHOD 02/29/2024 11:04 AM [facility] Albumin 2.5(L) 3.2 - 5.0 g/dL LAB CHEMISTRY METHOD 02/29/2024 11:04 AM [facility] Total Bilirubin 0.3 0.0 - 1.4 mg/dL LAB CHEMISTRY METHOD 02/29/2024 11:04 AM [facility] Blood Venous blood specimen / Unknown Venipuncture / Unknown 02/29/2024 6:05 AM EST 02/29/2024 10:09 AM EST Rachel Art MD LAB BLOOD ORDERABLES Fin al Result [facility] [address] [place] [address], from Last 3 Months or Most Recently Relevant to Health Maintenance Insurance [employer] MED[employer]ARE [employer]VANTAGE Care Teams Hanging Flags Decorator Relationship Specialty Start Date End Date Demond Nash MD [address] [place] [address] [place] [address] PCP - General 07/16/1998
--- OUTSIDE RECORDS SUMMARY | 2024-06-09 13:15 | XMS_ITS | Encounter Summary ---
Author Organization [employer] Address [address] [place] [address] Care Team Providers Care Applications Instructor Name Role Phone Demond Nash MD Primary Care Provider [phone] Encounter Details Date Type Department Care Team (Late st Contact Info) Description 02/20/2024 Lab Requisition [facility] - Main Lab [address] [place] [address] Rachel Art MD [address] [address] Primary osteoarthritis, right shoulder; Essential (primary) hypertension; [...] mmol/L LAB CHEMISTRY METHOD 02/22/2024 1:14 PM [facility] Potassium 5.0 3.5 - 5.5 mmol/L LAB CHEMISTRY METHOD 02/22/2024 1:14 PM [facility] Comment:Hemolysis present Chloride 106 96 - 110 mmol/L LAB CHEMISTRY METHOD 02/22/2024 1:14 PM [facility] CO2 23 21 - 32 mmol/L LAB CHEMISTRY METHOD 02/22/2024 1:14 PM [facility] Anion Gap 4 3 - 11 LAB CHEMISTRY METHOD 02/22/2024 1:14 PM [facility] Glucose 70 70 - 100 mg/dL LAB CHEMISTRY METHOD 02/22/2024 1:14 PM [facility] BUN 18 5 - 25 mg/dL LAB CHEMISTRY METHOD 02/22/2024 1:14 PM [facility] Creatinine 1.08 0.50 - 1.10 mg/dL LAB CHEMISTRY METHOD 02/22/2024 1:14 PM [facility] eGFR 55(L) >=60 mL/min/1. 73m2 LAB CHEMISTRY METHOD 02/22/2024 1:14 PM [facility] Comment:Calculation based on the??Chronic Kidney Disease Epidemiology Collaboration (CKD-EPI) equation refit??without adjustment for race. BUN/Creatinine Ratio 16.7 LAB CHEMISTRY METHOD 02/22/2024 1:14 PM [facility] Calcium 9.4 8.5 - 10.5 mg/dL LAB CHEMISTRY METHOD 02/22/2024 1:14 PM [facility] AST (SGOT) 26 10 - 42 unit/L LAB CHEMISTRY METHOD 02/22/2024 1:14 PM [facility] ALT (SGPT) 12 10 - 60 unit/L LAB CHEMISTRY METHOD 02/22/2024 1:14 PM [facility] Alkaline Phosphatase 88 42 - 121 unit/L LAB CHEMISTRY METHOD 02/22/2024 1:[address] [facility] Total Protein 6.0 6.0 - 8.0 g/dL LAB CHEMISTRY METHOD 02/22/2024 1:14 PM [facility] Albumin 2.7(L) 3.2 - 5.0 g/dL LAB CHEMISTRY METHOD 02/22/2024 1:14 PM [facility] Total Bilirubin 0.5 0.0 - 1.4 mg/dL LAB CHEMISTRY METHOD 02/22/2024 1:14 PM [facility] Blood Venous blood specimen / Unknown Venipuncture / Unknown 02/22/2024 5:28 AM EST 02/22/2024 11:18 AM EST us Rachel Art MD LAB BLOOD ORDERABLES Fin al Result [facility] [address] [place] [address], * (ABNORMAL) Complete blood count (02/22/2024 5:28 AM EST) WBC 7.2 4.8 - 10.8 K/mcL LAB HEMETOLOGY METHOD 02/22/2024 12:40 PM [facility] RBC 3.20(L) 3.80 - 4.80 M/mcL LAB HEMETOLOGY METHOD 02/22/2024 12:40 PM [facility] Hemoglobin 8.8(L) 11.5 - 16.0 g/dL LAB HEMETOLOGY METHOD 02/22/2024 12:40 PM [facility] Hematocrit 28.7(L) 35.0 - 47.0 % LAB HEMETOLOGY METHOD 02/22/2024 12:40 PM [facility] MCV 90.3 79.0 - 98.0 FL LAB HEMETOLOGY METHOD 02/22/2024 12:[address] [facility] MCH 27.7 27.0 - 32.0 pcg LAB HEMETOLOGY METHOD 02/22/2024 12:40 PM [facility] MCHC 30.7(L) 32.0 - 37.0 g/dL LAB HEMETOLOGY METHOD 02/22/2024 12:40 PM [facility] RDW 15.5(H) 11.0 - 15.0 % LAB HEMETOLOGY METHOD 02/22/2024 12:40 PM [facility] Platelets 568(H) 130 - 400 K/mcL LAB HEMETOLOGY METHOD 02/22/2024 12:40 PM [facility] MPV 9.3 7.0 - 11.0 FL LAB HEMETOLOGY METHOD 02/22/2024 12:[address] [facility] NRBC 0.0 <1.0 % LAB HEMETOLOGY METHOD 02/22/2024 12:40 PM [facility] NRBC Absolute 0.00 <0.10 K/mcL LAB HEMETOLOGY METHOD 02/22/2024 12:40 PM [facility] Blood Venous blood specimen / Unknown Venipuncture / Unknown 02/22/2024 5:28 AM EST 02/22/2024 11:18 AM EST us Rachel Art MD LAB BLOOD ORDERABLES Fin al Result [facility] [address] [place] [address], documented in this encounter Visit Diagnoses Diagnosis Primary osteoarthritis, right shoulder Essential (primary) hypertension Unspecified essential hypertension Unilateral primary osteoarthritis, right knee documented in this encounter Care Teams Applications Instructor Relationship Specialty Start Date End Date Demond Nash MD [address] [place] [address] PCP - General 07/16/1998 documented as of this encounter
--- OUTSIDE RECORDS SUMMARY | 2024-06-09 13:15 | XMS_ITS | Encounter Summary ---
Author Organization [facility], Address [address] [place] [address] Phone Care Team Providers Care Media Director Name Role Phone Ramon Grove MD Primary Care Provider [phone] Encounter Details Date Type Department Care Team (Late st Contact Info) Description 08/07/2022 Documentation Only [facility], [address] [place] [address] Iam Taylor, [address] [place] [phone] Social History Tobacco Use Types Packs/Day Years [...] on filedocumented in this encounter Care Teams Media Director Relationship Specialty Start Date End Date Ramon Grove MD [address] [place] [address] PCP - General Internal Medicine 03/29/19 documented as of this encounter
--- OUTSIDE RECORDS SUMMARY | 2024-06-09 13:15 | XMS_ITS | Encounter Summary ---
Author Organization [facility], Address [address] [place] [address] Phone Care Team Providers Care In Home Nanny Name Role Phone Ramon Grove MD Primary Care Provider [phone] Encounter Details Date Type Department Care Team (Late st Contact Info) Description 02/09/2023 Documentation Only [facility], [address] [place] [address] Iam Taylor, [address] [place] [phone] Social History Tobacco Use Types Packs/Day Years [...] on filedocumented in this encounter Care Teams In Home Nanny Relationship Specialty Start Date End Date Ramon Grove MD [address] [place] [address] PCP - General Internal Medicine 03/29/19 documented as of this encounter
--- OUTSIDE RECORDS SUMMARY | 2024-06-09 13:15 | XMS_ITS | Encounter Summary ---
Author Organization [employer] Address [address] [place] [address] Care Team Providers Care Air And Water Filler Name Role Phone Demond Nash MD Primary Care Provider [phone] Encounter Details Date Type Department Care Team (Late st Contact Info) Description 02/15/2024 Lab Requisition [facility] - Main Lab [address] [facility] [place] [address] Rachel Art MD [address] [address] Primary osteoarthritis, right shoulder; Essential (primary) hypertension; [...] D 25 hydroxy (02/15/2024 5:24 AM EST) [facility] Vit D, 25-Hydroxy 29.2(L) 30.0 - 80.0 ng/mL LAB CHEMISTRY METHOD 02/15/2024 6:27 PM EST [facility] Blood Venous blood specimen / Unknown Venipuncture / Unknown 02/15/2024 5:24 AM EST 02/15/2024 12:33 PM EST Rachel Art MD LAB BLOOD ORDERABLES Fin al Result Performing Organization Address [facility] Co de Phone Number [facility] [address] [place] [address], * Vitamin B12 (02/15/2024 5:24 AM EST) [facility] Vitamin B-12 358 250 - 900 pcg/mL LAB CHEMISTRY METHOD 02/15/2024 6:47 PM EST [facility] Blood Venous blood specimen / Unknown Venipuncture / Unknown 02/15/2024 5:24 AM EST 02/15/2024 12:33 PM EST Rachel Art MD LAB BLOOD ORDERABLES Fin al Result [facility] [address] [place] [address], [place] [phone] * Folate (02/15/2024 5:24 AM EST) [facility] Folate 5.2 2.8 - 17.0 ng/ml LAB CHEMISTRY METHOD 02/15/2024 6:47 PM EST [facility] Blood Venous blood specimen / Unknown Venipuncture / Unknown 02/15/2024 5:24 AM EST 02/15/2024 12:33 PM EST Rachel Art MD LAB BLOOD ORDERABLES Fin al Result Performing Organization Address City/[facility]/ZIP Co de Phone Number [facility] [address] [place] [address], [place] [phone] * Magnesium (02/15/2024 5:24 AM EST) [facility] Magnesium 2.3 1.9 - 2.6 mg/dL LAB CHEMISTRY METHOD 02/15/2024 6:20 PM EST [facility] Blood Venous blood specimen / Unknown Venipuncture / Unknown 02/15/2024 5:24 AM EST 02/15/2024 12:33 PM EST Rahcel Art MD LAB BLOOD ORDERABLES Fin al Result [facility] [address] [place] [address], [place] [phone] * (ABNORMAL) Comprehensive metabolic panel (02/15/2024 5:24 AM EST) [facility] Sodium 139 133 - 145 mmol/L LAB CHEMISTRY METHOD 02/15/2024 6:47 PM [facility] Potassium 4.6 3.5 - 5.5 mmol/L LAB CHEMISTRY METHOD 02/15/2024 6:47 PM EST [facility] Chloride 104 96 - 110 mmol/L LAB CHEMISTRY METHOD 02/15/2024 6:47 PM [facility] CO2 23 21 - 32 mmol/L LAB CHEMISTRY METHOD 02/15/2024 6:47 PM [facility] Anion Gap 12(H) 3 - 11 LAB CHEMISTRY METHOD 02/15/2024 6:47 PM [facility] Glucose 76 70 - 100 mg/dL LAB CHEMISTRY METHOD 02/15/2024 6:47 PM [facility] BUN 26(H) 5 - 25 mg/dL LAB CHEMISTRY METHOD 02/15/2024 6:47 PM [facility] Creatinine 1.01 0.50 - 1.10 mg/dL LAB CHEMISTRY METHOD 02/15/2024 6:47 PM [facility] eGFR 60 >=60 mL/min/1. 73m2 LAB CHEMISTRY METHOD 02/15/2024 6:47 PM [facility] Comment:Calculation based on the??Chronic Kidney Disease Epidemiology Collaboration (CKD-EPI) equation refit??without adjustment for race. BUN/Creatinine Ratio 25.7 LAB CHEMISTRY METHOD 02/15/2024 6:47 PM [facility] Calcium 9.3 8.5 - 10.5 mg/dL LAB CHEMISTRY METHOD 02/15/2024 6:47 PM [facility] AST (SGOT) 16 10 - 42 unit/L LAB CHEMISTRY METHOD 02/15/2024 6:47 PM [facility] ALT (SGPT) 13 10 - 60 unit/L LAB CHEMISTRY METHOD 02/15/2024 6:47 PM [facility] Alkaline Phosphatase 86 42 - 121 unit/L LAB CHEMISTRY METHOD 02/15/2024 6:47 PM [facility] Total Protein 5.9(L) 6.0 - 8.0 g/dL LAB CHEMISTRY METHOD 02/15/2024 6:47 PM [facility] Albumin 2.7(L) 3.2 - 5.0 g/dL LAB CHEMISTRY METHOD 02/15/2024 6:47 PM EST [facility] Total Bilirubin 0.5 0.0 - 1.4 mg/dL LAB CHEMISTRY METHOD 02/15/2024 6:47 PM [facility] Blood Venous blood specimen / Unknown Venipuncture / Unknown 02/15/2024 5:24 AM EST 02/15/2024 12:33 PM EST us Rachel Art MD LAB BLOOD ORDERABLES Fin al Result [facility] [address] [place] [address], * (ABNORMAL) Complete blood count (02/15/2024 5:24 AM EST) WBC 7.6 4.8 - 10.8 K/mcL LAB HEMETOLOGY METHOD 02/15/2024 1:31 PM [facility] RBC 3.20(L) 3.80 - 4.80 M/mcL LAB HEMETOLOGY METHOD 02/15/2024 1:31 PM [facility] Hemoglobin 9.0(L) 11.5 - 16.0 g/dL LAB HEMETOLOGY METHOD 02/15/2024 1:31 PM [facility] Hematocrit 30.1(L) 35.0 - 47.0 % LAB HEMETOLOGY METHOD 02/15/2024 1:31 PM [facility] MCV 94.4 79.0 - 98.0 FL LAB HEMETOLOGY METHOD 02/15/2024 1:31 PM [facility] MCH 28.2 27.0 - 32.0 pcg LAB HEMETOLOGY METHOD 02/15/2024 1:31 PM [facility] MCHC 29.9(L) 32.0 - 37.0 g/dL LAB HEMETOLOGY METHOD 02/15/2024 1:31 PM EST [facility] RDW 16.0(H) 11.0 - 15.0 % LAB HEMETOLOGY METHOD 02/15/2024 1:31 PM EST [facility] Platelets 388 130 - 400 K/mcL LAB HEMETOLOGY METHOD 02/15/2024 1:31 PM [facility] MPV 9.4 7.0 - 11.0 FL LAB HEMETOLOGY METHOD 02/15/2024 1:31 PM EST [facility] NRBC 0.0 <1.0 % LAB HEMETOLOGY METHOD 02/15/2024 1:31 PM [facility] NRBC Absolute 0.00 <0.10 K/mcL LAB HEMETOLOGY METHOD 02/15/2024 1:31 PM [facility] Blood Venous blood specimen / Unknown Venipuncture / Unknown 02/15/2024 5:24 AM EST 02/15/2024 12:33 PM EST us Rachel Art MD LAB BLOOD ORDERABLES Fin al Result [facility] [address] [place] [address], documented in this encounter Visit Diagnoses Diagnosis Primary osteoarthritis, right shoulder Essential (primary) hypertension Unspecified essential hypertension Unilateral primary osteoarthritis, right knee documented in this encounter Care Teams Air And Water Filler Relationship Specialty Start Date End Date Demond Nash MD [address] [place] [address] PCP - General 07/16/1998 documented as of this encounter
--- OUTSIDE RECORDS SUMMARY | 2024-06-09 13:15 | XMS_ITS | Encounter Summary ---
Author Organization [id number] Address [address] [place] [address] Care Team Providers Care Watch Case Polisher Name Role Phone Demond Nash MD Primary Care Provider [phone] Encounter Details Date Type Department Care Team (Late st Contact Info) Description 02/26/2024 Lab Requisition [facility] - Main Lab [address] [place] [address] Rachel Art MD [address] [address] Primary osteoarthritis, right shoulder; Essential (primary) hypertension; [...] Comprehensive metabolic panel (02/29/2024 6:05 AM EST) [facility] Sodium 138 133 - 145 mmol/L LAB [...] 02/29/2024 11:04 AM [facility] Total Bilirubin 0.3 0.0 - 1.4 mg/dL LAB CHEMISTRY METHOD 02/29/2024 11:04 AM [facility] Blood Venous blood specimen / Unknown Venipuncture / Unknown 02/29/2024 6:05 AM EST 02/29/2024 10:09 AM EST us Rachel Art MD LAB BLOOD ORDERABLES Fin al Result [facility] [address] [place] [address], * (ABNORMAL) Complete blood count (02/29/2024 6:05 [...] LAB HEMETOLOGY METHOD 02/29/2024 10:55 AM EST [facility] MCH 27.4 27.0 - 32.0 pcg LAB HEMETOLOGY METHOD 02/29/2024 10:55 AM [facility] MCHC 30.6(L) 32.0 - 37.0 g/dL LAB HEMETOLOGY METHOD 02/29/2024 10:55 AM [facility] RDW 15.9(H) 11.0 - 15.0 % LAB HEMETOLOGY METHOD 02/29/2024 10:55 AM [facility] Platelets 544(H) 130 - 400 K/mcL LAB HEMETOLOGY METHOD 02/29/2024 10:55 AM [facility] MPV 8.9 7.0 - 11.0 FL LAB HEMETOLOGY METHOD 02/29/2024 10:55 AM EST [facility] NRBC 0.0 [...] al Result [facility] [address] [place] [address], documented in this encounter Visit Diagnoses Diagnosis Primary osteoarthritis, right shoulder Essential (primary) hypertension Unspecified essential hypertension Unilateral primary osteoarthritis, right knee documented in this encounter Care Teams Watch Case Polisher Relationship Specialty Start Date End Date Demond Nash MD [address] [place] [address] PCP - General 07/16/1998 documented as of this encounter
--- OUTSIDE RECORDS SUMMARY | 2024-06-09 13:15 | XMS_ITS | Encounter Summary ---
Author Organization [facility], Address [address] [place] [address] Phone Care Team Providers Care Pattern Hanger Name Role Phone Ramon Grove MD Primary Care Provider [phone] Encounter Details Date Type Department Care Team (Late st Contact Info) Description 11/15/2021 Orders Only [facility], [address] [place] [address] Iam Taylor, [address] [place] [phone] Hypertension; Localized edema Social History Tobacco Use [...] edema documented in this encounter Care Teams Pattern Hanger Relationship Specialty Start Date End Date Ramon Grove MD [address] [place] [address] PCP - General Internal Medicine 03/29/19 documented as of this encounter
--- OUTSIDE RECORDS SUMMARY | 2024-06-09 13:15 | XMS_ITS | Encounter Summary ---
Author Organization [employer] Address [address] [place] [address] Care Team Providers Care Technical Instructor Name Role Phone Demond Nash MD Primary Care Provider [phone] Encounter Details Date Type Department Care Team (Late st Contact Info) Description 03/04/2024 Lab Requisition [facility] - Main Lab [address] [facility] [place] [address] Rachel Art MD [address] [place] [address] Primary osteoarthritis, right shoulder; Essential (primary) hypertension; [...] knee documented in this encounter Care Teams Technical Instructor Relationship Specialty Start Date End Date Demond Nash MD [facility] [place] [address] PCP - General 07/16/1998 documented as of this encounter
--- OUTSIDE RECORDS SUMMARY | 2024-06-09 13:15 | XMS_ITS | Encounter Summary ---
Author Organization [facility], Address [address] [place] [address] Phone Care Team Providers Care Booth Cashier Name Role Phone Ramon Grove MD Primary Care Provider [phone] Encounter Details Date Type Department Care Team (Late st Contact Info) Description 01/10/2022 Orders Only [facility], [address] [place] [address] Iam Taylor, [address] [place] [phone] Hypertension; Localized edema Social History Tobacco Use [...] edema documented in this encounter Care Teams Booth Cashier Relationship Specialty Start Date End Date Ramon Grove MD [address] [place] [address] PCP - General Internal Medicine 03/29/19 documented as of this encounter
--- OUTSIDE RECORDS SUMMARY | 2024-06-09 13:15 | XMS_ITS | Encounter Summary ---
Author Organization [facility], Address [address] [place] [address] Phone Care Team Providers Care Claim Service Representative Name Role Phone Ramon Grove MD Primary Care Provider Encounter Details Date Type Department Care Team (Late st Contact Info) Description 03/07/2022 Orders Only [facility], [address] [place] [address] Iam Taylor, [address] [place] [phone] Hypertension; Localized edema Social History Tobacco Use [...] edema documented in this encounter Care Teams Claim Service Representative Relationship Specialty Start Date End Date Ramon Grove MD [address] [place] [address] PCP - General Internal Medicine 03/29/19 documented as of this encounter
--- OUTSIDE RECORDS SUMMARY | 2024-06-09 13:15 | XMS_ITS | Clinical Summary ---
Author Organization [facility] Address [address] [place] [address] Care Team Providers Care Corporate Banking Officer Name Role Phone Jarod Wu MD Primary Care Provider [phone] Allergies Active Allergy Reactions Criticality Noted Date [...] (two) times a day. 0 Active b [id number]-[id number] acid 1 MG capsule Take 1 capsule [...] age to complete this topic Care Teams Corporate Banking Officer Relationship Specialty Start Date End Date Jarod Wu MD [address] [place] [address] PCP - General Internal Medicine 07/17/21
--- OUTSIDE RECORDS SUMMARY | 2024-06-09 13:15 | XMS_ITS | Encounter Summary ---
Author Organization [facility], Address [address] [place] [address] Phone Care Team Providers Care Metal Baler Name Role Phone Ramon Grove MD Primary Care Provider [phone] Encounter Details Date Type Department Care Team (Late st Contact Info) Description 08/22/2022 Orders Only [facility], [address] [place] [address] Iam Taylor, [address] [facility] [place] [phone] Hypertension; Localized edema Social History Tobacco Use [...] (0.5-1.0) MG/DL [facility] Sodium 139 (133-145) MMOL/L [facility] Potassium 4.5 (3.6-5.2) MMOL/L [facility] Chloride 100 (98-107) MMOL/L [facility] Bicarbonate (CO2) 27 (22-29) MMOL/L [facility] Anion Gap 12 (4-17) [facility] Albumin 4.5 (3.4-4.8) GM/DL [facility] Calcium 10.2 (8.6-10.5) MG/DL [facility] Phosphorus, Serum 3.9 (2.5-4.5) MG/DL [facility] Est GFR Non 52 ML/MIN/1.7 3 M2 [facility] Comment: Creatinine based estimated glomerular filtration (eGFR) in adults is calculated using the National Kidney Foundation recommended 2020 CKD-EPI equation. Estimates GFR from serum creatinine, age and sex. Testing performed or reported by [facility], a Service of [facility], [address] [place] [address] Sabino Sheldon MD, Banquet Houseperson [place]# [id number] Blood (Blood, Venous) 09/19/2022 9:28 AM EDT 09/19/2022 9:32 AM EDT us Iam Taylor DO LAB BLOOD ORDERABLES Final Resu lt [facility] documented in this encounter Visit Diagnoses Diagnosis Hypertension Localized edema documented in this encounter Care Teams Metal Baler Relationship Specialty Start Date End Date Ramon Grove MD [address] [place] [phone] PCP - General Internal Medicine 03/29/19 documented as of this encounter
--- OUTSIDE RECORDS SUMMARY | 2024-06-09 13:15 | XMS_ITS | Encounter Summary ---
Author Organization [facility], Address [address] [place] [address] Phone Care Team Providers Care Mortgage Loan Funder Name Role Phone Ramon Grove MD Primary Care Provider [phone] Encounter Details Date Type Department Care Team (Late st Contact Info) Description 05/02/2022 Orders Only [facility], [address] [place] [address] Iam Taylor, [address] [place] [phone] Hypertension; Localized edema Social History Tobacco Use [...] edema documented in this encounter Care Teams Mortgage Loan Funder Relationship Specialty Start Date End Date Ramon Grove MD [address] [place] [address] PCP - General Internal Medicine 03/29/19 documented as of this encounter
--- OUTSIDE RECORDS SUMMARY | 2024-06-09 13:15 | XMS_ITS | Encounter Summary ---
Author Organization [facility], Address [address] [place] [address] Phone Care Team Providers Care Scrap Crane Operator Name Role Phone Ramon Grove MD Primary Care Provider [phone] Encounter Details Date Type Department Care Team (Late st Contact Info) Description 09/20/2021 Orders Only [facility], [address] [place] [address] Iam Taylor, [address] [place] [phone] Hypertension; Localized edema Social History Tobacco Use [...] edema documented in this encounter Care Teams Scrap Crane Operator Relationship Specialty Start Date End Date Ramon Grove MD [address] [place] [address] PCP - General Internal Medicine 03/29/19 documented as of this encounter
--- OUTSIDE RECORDS SUMMARY | 2024-06-09 13:16 | XMS_ITS | Patient Health Record ---
Author Organization [facility] Address [address] [place] [address] Care Team Providers Care Dramatic Agent Name Role Phone Valerie Heart Unavailable [phone] Reason For Referral No Information Medications Medication SIG (Take, Route, Fr equency, Duration) Notes Start Date End Date Status Vagifem 10 MCG 1 VAGINAL twice weekly for -3 [facility] 08/27 Active Loratadine 10MG 1 ORAL daily for -3 [facility] 08/27/2012 Active Furosemide 20MG 1/2 ORAL daily for -3 [facility] 08/27/2012 Active Flonase 50MCG 2 Nasal daily for -3 [facility] 08/27/2012 Active Problems Problem Type SNOMED Code ICD Code Onset Dates Problem Status W/U Status Risk Notes Problem Obesity (744514702) Obesity, unspecified (278.00) Active confirmed Major Problem Carpal tunnel syndrome (39999497) Carpal tunnel syndrome (354.0) Active confirmed Major Problem Allergic rhinitis (04509573) Allergic rhinitis, cause unspecified (477.9) Active confirmed Major Problem Postmenopausal atrophic vaginitis (71564025) Postmenopausal atrophic vaginitis (627.3) Active confirmed Diag Problem Generalized osteoarthritis (disorder) (848698513) Generalized osteoarthrosis, unspecified site (715.00) Active confirmed Major Problem Insomnia (661103028) Insomnia, unspecified (780.52) Active confirmed Major Problem Allergy (801942995) Allergy, unspecified not elsewhere classified (995.3) Active confirmed Diag Problem Gynecological examination normal (655453308034529) Routine gynecological examination (V72.31) Active confirmed Major Problem Screening for malignant neoplasm of colon (877140402) Special screening for malignant neoplasms, colon (V76.51) Active confirmed Major Plan Of Treatment No Information Insurance Providers Payer Name Payer Address Payer Phone Subscriber Number Group Number Insured Name Patient Relationship to Insured Coverage Start Date Coverage End Date [facility] [address] [address] [place] [address] [id number] D[employer]LL GAGE Self - patient is the insured
== END 2024-06-09 11:39 | disposition home or self-care (01) ==
LOC: HO.HOS 11:01
PROVIDERS: PCP Internal Medicine; Visit Provider Orthopaedic Surgery
DX: T84.89XA Other specified complication of internal orthopedic prosthetic devices, implants and grafts, initial encounter (principal); M25.661 Stiffness of right knee, not elsewhere classified; Z96.651 Presence of right artificial knee joint
CPT/HCPCS: 99214

== ENCOUNTER → 2024-06-09 11:01 | Outpatient (BNVA) | payer MEDICARE, SELFPAY | PROVIDERS: PCP Internal Medicine; Visit Provider Orthopaedic Surgery | DX: T84.89XA Other specified complication of internal orthopedic prosthetic devices, implants and grafts, initial encounter (principal); M25.661 Stiffness of right knee, not elsewhere classified; X58.XXXA Exposure to other specified factors, initial encounter; Y93.9 Activity, unspecified; Y92.9 Unspecified place or not applicable; Y99.9 Unspecified external cause status; Z96.651 Presence of right artificial knee joint | CPT/HCPCS: 99212 ==

== ENCOUNTER 2024-06-15 11:49 | Day surgery (SDC) | payer MEDICARE, SELFPAY ==
--- OUTSIDE RECORDS SUMMARY | 2024-06-09 14:44 | XMS_ITS | Encounter Summary ---
Author Organization [facility], Address [address] [place] [address] Phone Care Team Providers Care Pantry Steward/Stewardess Name Role Phone Ramon Grove MD Primary Care Provider Encounter Details Date Type Department Care Team (Late st Contact Info) Description 03/07/2022 Orders Only [facility], [address] [place] [address] Iam Taylor, [address] [place] [phone] Hypertension; Localized edema Social History Tobacco Use [...] edema documented in this encounter Care Teams Pantry Steward/Stewardess Relationship Specialty Start Date End Date Ramon Grove MD [address] [place] [address] PCP - General Internal Medicine 03/29/19 documented as of this encounter
--- OUTSIDE RECORDS SUMMARY | 2024-06-09 14:44 | XMS_ITS | Encounter Summary ---
Author Organization [facility] Address [address] [place] [address] Care Team Providers Care Welder Metal Fab Name Role Phone Demond Nash MD Primary Care Provider [phone] Encounter Details Date Type Department Care Team (Late st Contact Info) Description 02/15/2024 Lab Requisition [facility] - Main Lab [address] On [address] [facility] [place] [address] Rachel Art MD [address] [address] Primary osteoarthritis, right shoulder; Essential (primary) hypertension; [...] D 25 hydroxy (02/15/2024 5:24 AM EST) [facility] Vit D, 25-Hydroxy 29.2(L) 30.0 - 80.0 ng/mL LAB CHEMISTRY METHOD 02/15/2024 6:27 PM EST [facility] Blood Venous blood specimen / Unknown Venipuncture / Unknown 02/15/2024 5:24 AM EST 02/15/2024 12:33 PM EST Rachel Art MD LAB BLOOD ORDERABLES Fin al Result Performing Organization Address [facility] [address] [facility] Co de Phone Number [facility] [address] [place] [address], * Vitamin B12 (02/15/2024 5:24 AM EST) [facility] Vitamin B-12 358 250 - 900 pcg/mL LAB CHEMISTRY METHOD 02/15/2024 6:47 PM EST [facility] Blood Venous blood specimen / Unknown Venipuncture / Unknown 02/15/2024 5:24 AM EST 02/15/2024 12:33 PM EST Rachel Art MD LAB BLOOD ORDERABLES Fin al Result [facility] [address] [place] [address], [place] [phone] * Folate (02/15/2024 5:24 AM EST) [facility] Folate 5.2 2.8 - 17.0 ng/ml LAB CHEMISTRY METHOD 02/15/2024 6:47 PM EST [facility] Blood Venous blood specimen / Unknown Venipuncture / Unknown 02/15/2024 5:24 AM EST 02/15/2024 12:33 PM EST Rachel Art MD LAB BLOOD ORDERABLES Fin al Result Performing Organization Address City/[facility] [address]/ZIP Co de Phone Number [facility] [address] [place] [address], [place] [phone] * Magnesium (02/15/2024 5:24 AM EST) [facility] Magnesium 2.3 1.9 - 2.6 mg/dL LAB CHEMISTRY METHOD 02/15/2024 6:20 PM EST [facility] Blood Venous blood specimen / Unknown Venipuncture / Unknown 02/15/2024 5:24 AM EST 02/15/2024 12:33 PM EST Rachel Art MD LAB BLOOD ORDERABLES Fin al Result [facility] [address] [place] [address], [place] [phone] * (ABNORMAL) Comprehensive metabolic panel (02/15/2024 5:24 AM EST) [facility] Sodium 139 133 - 145 mmol/L LAB CHEMISTRY METHOD 02/15/2024 6:47 PM [facility] Potassium 4.6 3.5 - 5.5 mmol/L LAB CHEMISTRY METHOD 02/15/2024 6:47 PM EST [facility] Chloride 104 96 - 110 mmol/L LAB CHEMISTRY METHOD 02/15/2024 6:47 PM [facility] CO2 23 21 - 32 mmol/L LAB CHEMISTRY METHOD 02/15/2024 6:47 PM [facility] Anion Gap 12(H) 3 - 11 LAB CHEMISTRY METHOD 02/15/2024 6:47 PM [facility] Glucose 76 70 - 100 mg/dL LAB CHEMISTRY METHOD 02/15/2024 6:47 PM [facility] BUN 26(H) 5 - 25 mg/dL LAB CHEMISTRY METHOD 02/15/2024 6:47 PM [facility] Creatinine 1.01 0.50 - 1.10 mg/dL LAB CHEMISTRY METHOD 02/15/2024 6:47 PM [facility] eGFR 60 >=60 mL/min/1. 73m2 LAB CHEMISTRY METHOD 02/15/2024 6:47 PM [facility] Comment:Calculation based on the??Chronic Kidney Disease Epidemiology Collaboration (CKD-EPI) equation refit??without adjustment for race. BUN/Creatinine Ratio 25.7 LAB CHEMISTRY METHOD 02/15/2024 6:47 PM [facility] Calcium 9.3 8.5 - 10.5 mg/dL LAB CHEMISTRY METHOD 02/15/2024 6:47 PM [facility] AST (SGOT) 16 10 - 42 unit/L LAB CHEMISTRY METHOD 02/15/2024 6:47 PM [facility] ALT (SGPT) 13 10 - 60 unit/L LAB CHEMISTRY METHOD 02/15/2024 6:47 PM [facility] Alkaline Phosphatase 86 42 - 121 unit/L LAB CHEMISTRY METHOD 02/15/2024 6:47 PM [facility] Total Protein 5.9(L) 6.0 - 8.0 g/dL LAB CHEMISTRY METHOD 02/15/2024 6:47 PM [facility] Albumin 2.7(L) 3.2 - 5.0 g/dL LAB CHEMISTRY METHOD 02/15/2024 6:47 PM EST [facility] Total Bilirubin 0.5 0.0 - 1.4 mg/dL LAB CHEMISTRY METHOD 02/15/2024 6:47 PM [facility] Blood Venous blood specimen / Unknown Venipuncture / Unknown 02/15/2024 5:24 AM EST 02/15/2024 12:33 PM EST us Rachel Art MD LAB BLOOD ORDERABLES Fin al Result [facility] [address] [place] [address], * (ABNORMAL) Complete blood count (02/15/2024 5:24 AM EST) WBC 7.6 4.8 - 10.8 K/mcL LAB HEMETOLOGY METHOD 02/15/2024 1:31 PM [facility] RBC 3.20(L) 3.80 - 4.80 M/mcL LAB HEMETOLOGY METHOD 02/15/2024 1:31 PM [facility] Hemoglobin 9.0(L) 11.5 - 16.0 g/dL LAB HEMETOLOGY METHOD 02/15/2024 1:31 PM [facility] Hematocrit 30.1(L) 35.0 - 47.0 % LAB HEMETOLOGY METHOD 02/15/2024 1:31 PM [facility] MCV 94.4 79.0 - 98.0 FL LAB HEMETOLOGY METHOD 02/15/2024 1:31 PM [facility] MCH 28.2 27.0 - 32.0 pcg LAB HEMETOLOGY METHOD 02/15/2024 1:31 PM [facility] MCHC 29.9(L) 32.0 - 37.0 g/dL LAB HEMETOLOGY METHOD 02/15/2024 1:31 PM EST [facility] RDW 16.0(H) 11.0 - 15.0 % LAB HEMETOLOGY METHOD 02/15/2024 1:31 PM EST [facility] Platelets 388 130 - 400 K/mcL LAB HEMETOLOGY METHOD 02/15/2024 1:31 PM [facility] MPV 9.4 7.0 - 11.0 FL LAB HEMETOLOGY METHOD 02/15/2024 1:31 PM EST [facility] NRBC 0.0 <1.0 % LAB HEMETOLOGY METHOD 02/15/2024 1:31 PM [facility] NRBC Absolute 0.00 <0.10 K/mcL LAB HEMETOLOGY METHOD 02/15/2024 1:31 PM [facility] Blood Venous blood specimen / Unknown Venipuncture / Unknown 02/15/2024 5:24 AM EST 02/15/2024 12:33 PM EST us Rachel Art MD LAB BLOOD ORDERABLES Fin al Result [facility] [address] [place] [address], documented in this encounter Visit Diagnoses Diagnosis Primary osteoarthritis, right shoulder Essential (primary) hypertension Unspecified essential hypertension Unilateral primary osteoarthritis, right knee documented in this encounter Care Teams Welder Metal Fab Relationship Specialty Start Date End Date Demond Nash MD [address] [place] [address] PCP - General 07/16/1998 documented as of this encounter
--- OUTSIDE RECORDS SUMMARY | 2024-06-09 14:44 | XMS_ITS | Encounter Summary ---
Author Organization [facility], Address [address] [place] [address] Phone Care Team Providers Care Community Health Planning Director Name Role Phone Ramon Grove MD Primary Care Provider [phone] Encounter Details Date Type Department Care Team (Late st Contact Info) Description 09/20/2021 Orders Only [facility], [address] [place] [address] Iam Taylor, [address] [place] [phone] Hypertension; Localized edema Social History Tobacco Use [...] edema documented in this encounter Care Teams Community Health Planning Director Relationship Specialty Start Date End Date Ramon Grove MD [address] [place] [address] PCP - General Internal Medicine 03/29/19 documented as of this encounter
--- OUTSIDE RECORDS SUMMARY | 2024-06-09 14:44 | XMS_ITS | Encounter Summary ---
Author Organization [facility], Address [address] [place] [address] Phone Care Team Providers Care Loom Setter Name Role Phone Ramon Grove MD Primary Care Provider [phone] Encounter Details Date Type Department Care Team (Late st Contact Info) Description 05/02/2022 Orders Only [facility], [address] [place] [address] Iam Taylor, [address] [place] [phone] Hypertension; Localized edema Social History Tobacco Use [...] edema documented in this encounter Care Teams Loom Setter Relationship Specialty Start Date End Date Ramon Grove MD [address] [place] [address] PCP - General Internal Medicine 03/29/19 documented as of this encounter
--- OUTSIDE RECORDS SUMMARY | 2024-06-09 14:44 | XMS_ITS | Encounter Summary ---
Author Organization [facility] Address [address] [place] [address] Care Team Providers Care Broom Builder Name Role Phone Demond Nash MD Primary Care Provider [phone] Encounter Details Date Type Department Care Team (Late st Contact Info) Description 02/26/2024 Lab Requisition [facility] - Main Lab [address] [place] [address] Rachel Art MD [address] [address] Primary osteoarthritis, right shoulder; Essential (primary) hypertension; [...] Comprehensive metabolic panel (02/29/2024 6:05 AM EST) [facility] Sodium 138 133 - 145 mmol/L LAB CHEMISTRY METHOD 02/29/2024 11:04 AM [facility] Potassium 4.3 3.5 - 5.5 mmol/L LAB CHEMISTRY METHOD 02/29/2024 11:04 AM [facility] Chloride 105 96 - 110 mmol/L LAB CHEMISTRY METHOD 02/29/2024 11:04 AM [facility] CO2 26 21 - 32 mmol/L LAB CHEMISTRY METHOD 02/29/2024 11:04 AM [facility] Anion Gap 7 3 - 11 LAB CHEMISTRY METHOD 02/29/2024 11:04 AM [facility] Glucose 66(L) 70 - 100 mg/dL LAB CHEMISTRY METHOD 02/29/2024 11:04 AM [facility] BUN 11 5 - 25 mg/dL LAB CHEMISTRY METHOD 02/29/2024 11:04 AM [facility] Creatinine 0.80 0.50 - 1.10 mg/dL LAB CHEMISTRY METHOD 02/29/2024 11:04 AM [facility] eGFR 79 >=60 mL/min/1. 73m2 LAB CHEMISTRY METHOD 02/29/2024 11:04 AM [facility] Comment:Calculation based on the??Chronic Kidney Disease Epidemiology Collaboration (CKD-EPI) equation refit??without adjustment for race. BUN/Creatinine Ratio 13.8 LAB CHEMISTRY METHOD 02/29/2024 11:04 AM [facility] Calcium 9.4 8.5 - 10.5 mg/dL LAB CHEMISTRY METHOD 02/29/2024 11:04 AM [facility] AST (SGOT) 14 10 - 42 unit/L LAB CHEMISTRY METHOD 02/29/2024 11:04 AM [facility] ALT (SGPT) 11 10 - 60 unit/L LAB CHEMISTRY METHOD 02/29/2024 11:04 AM [facility] Alkaline Phosphatase 80 42 - 121 unit/L LAB CHEMISTRY METHOD 02/29/2024 11:04 AM [facility] Total Protein 5.7(L) 6.0 - 8.0 g/dL LAB CHEMISTRY METHOD 02/29/2024 11:04 AM [facility] Albumin 2.5(L) 3.2 - 5.0 g/dL LAB CHEMISTRY METHOD 02/29/2024 11:04 AM [facility] Total Bilirubin 0.3 0.0 - 1.4 mg/dL LAB CHEMISTRY METHOD 02/29/2024 11:04 AM [facility] Blood Venous blood specimen / Unknown Venipuncture / Unknown 02/29/2024 6:05 AM EST 02/29/2024 10:09 AM EST us Rachel Art MD LAB BLOOD ORDERABLES Fin al Result [facility] [address] [place] [address], * (ABNORMAL) Complete blood count (02/29/2024 6:05 AM EST) WBC 5.5 4.8 - 10.8 K/mcL LAB HEMETOLOGY METHOD 02/29/2024 10:55 AM [facility] RBC 3.50(L) 3.80 - 4.80 M/mcL LAB HEMETOLOGY METHOD 02/29/2024 10:55 AM [facility] Hemoglobin 9.6(L) 11.5 - 16.0 g/dL LAB HEMETOLOGY METHOD 02/29/2024 10:55 AM [facility] Hematocrit 31.4(L) 35.0 - 47.0 % LAB HEMETOLOGY METHOD 02/29/2024 10:55 AM [facility] MCV 89.5 79.0 - 98.0 FL LAB HEMETOLOGY METHOD 02/29/2024 10:55 AM EST [facility] MCH 27.4 27.0 - 32.0 pcg LAB HEMETOLOGY METHOD 02/29/2024 10:55 AM [facility] MCHC 30.6(L) 32.0 - 37.0 g/dL LAB HEMETOLOGY METHOD 02/29/2024 10:55 AM [facility] RDW 15.9(H) 11.0 - 15.0 % LAB HEMETOLOGY METHOD 02/29/2024 10:55 AM [facility] Platelets 544(H) 130 - 400 K/mcL LAB HEMETOLOGY METHOD 02/29/2024 10:55 AM [facility] MPV 8.9 7.0 - 11.0 FL LAB HEMETOLOGY METHOD 02/29/2024 10:55 AM EST [facility] NRBC 0.0 <1.0 % LAB HEMETOLOGY METHOD 02/29/2024 10:55 AM [facility] NRBC Absolute 0.00 <0.10 K/mcL LAB HEMETOLOGY METHOD 02/29/2024 10:55 AM [facility] Blood Venous blood specimen / Unknown Venipuncture / Unknown 02/29/2024 6:05 AM EST 02/29/2024 10:09 AM EST us Rachel Art MD LAB BLOOD ORDERABLES Fin al Result [facility] [address] [place] [address], documented in this encounter Visit Diagnoses Diagnosis Primary osteoarthritis, right shoulder Essential (primary) hypertension Unspecified essential hypertension Unilateral primary osteoarthritis, right knee documented in this encounter Care Teams Broom Builder Relationship Specialty Start Date End Date Demond Nash MD [address] [place] [address] PCP - General 07/16/1998 documented as of this encounter
--- OUTSIDE RECORDS SUMMARY | 2024-06-09 14:44 | XMS_ITS | Encounter Summary ---
Author Organization [facility], Address [address] [place] [address] Phone Care Team Providers Care Supervisor Grounds Name Role Phone Ramon Grove MD Primary Care Provider Encounter Details Date Type Department Care Team (Late st Contact Info) Description 08/22/2022 Orders Only [facility], [address] [place] [address] Iam Taylor, [address] [place] [phone] Hypertension; Localized edema Social History Tobacco Use [...] (0.5-1.0) MG/DL [facility] Sodium 139 (133-145) MMOL/L [facility] Potassium 4.5 (3.6-5.2) MMOL/L [facility] Chloride 100 (98-107) MMOL/L [facility] Bicarbonate (CO2) 27 (22-29) MMOL/L [facility] Anion Gap 12 (4-17) [facility] Albumin 4.5 (3.4-4.8) GM/DL [facility] Calcium 10.2 (8.6-10.5) MG/DL [facility] Phosphorus, Serum 3.9 (2.5-4.5) MG/DL [facility] Est GFR Non 52 ML/MIN/1.7 3 M2 [facility] Comment: Creatinine based estimated glomerular filtration (eGFR) in adults is calculated using the National Kidney Foundation recommended 2020 CKD-EPI equation. Estimates GFR from serum creatinine, age and sex. Testing performed or reported by [facility], a Service of [facility], [address] [place] [address] Sabino Sheldon MD, Telecommunications Cable Jointer IA# [id number] Blood (Blood, Venous) 09/19/2022 9:28 AM EDT 09/19/2022 9:32 AM EDT us Iam Taylor DO LAB BLOOD ORDERABLES Final Resu lt [facility] documented in this encounter Visit Diagnoses Diagnosis Hypertension Localized edema documented in this encounter Care Teams Supervisor Grounds Relationship Specialty Start Date End Date Ramon Grove MD [address] [place] [phone] PCP - General Internal Medicine 03/29/19 documented as of this encounter
--- OUTSIDE RECORDS SUMMARY | 2024-06-09 14:44 | XMS_ITS | Clinical Summary ---
Author Organization [address] Address [address] [place] [address] Phone Care Team Providers Care Make Up Artist Name Role Phone Demond Nash MD Primary Care Provider [phone] Surgical History Surgery Date Site/Laterality Comments OTHER [...] mmol/L LAB CHEMISTRY METHOD 02/29/2024 11:04 AM [facility] Potassium 4.3 3.5 - 5.5 mmol/L LAB CHEMISTRY METHOD 02/29/2024 11:04 AM [facility] Chloride 105 96 - 110 mmol/L LAB CHEMISTRY METHOD 02/29/2024 11:04 AM [facility] CO2 26 21 - 32 mmol/L LAB CHEMISTRY METHOD 02/29/2024 11:04 AM [facility] Anion Gap 7 3 - 11 LAB CHEMISTRY METHOD 02/29/2024 11:04 AM [facility] Glucose 66(L) 70 - 100 mg/dL LAB CHEMISTRY METHOD 02/29/2024 11:04 AM [facility] BUN 11 5 - 25 mg/dL LAB CHEMISTRY METHOD 02/29/2024 11:04 AM [facility] Creatinine 0.80 0.50 - 1.10 mg/dL LAB CHEMISTRY METHOD 02/29/2024 11:04 AM [facility] eGFR 79 >=60 mL/min/1. 73m2 LAB CHEMISTRY METHOD 02/29/2024 11:04 AM [facility] Comment:Calculation based on the??Chronic Kidney Disease Epidemiology Collaboration (CKD-EPI) equation refit??without adjustment for race. BUN/Creatinine Ratio 13.8 LAB CHEMISTRY METHOD 02/29/2024 11:04 AM [facility] Calcium 9.4 8.5 - 10.5 mg/dL LAB CHEMISTRY METHOD 02/29/2024 11:04 AM [facility] AST (SGOT) 14 10 - 42 unit/L LAB CHEMISTRY METHOD 02/29/2024 11:04 AM [facility] ALT (SGPT) 11 10 - 60 unit/L LAB CHEMISTRY METHOD 02/29/2024 11:04 AM [facility] Alkaline Phosphatase 80 42 - 121 unit/L LAB CHEMISTRY METHOD 02/29/2024 11:04 AM [facility] Total Protein 5.7(L) 6.0 - 8.0 g/dL LAB CHEMISTRY METHOD 02/29/2024 11:04 AM [facility] Albumin 2.5(L) 3.2 - 5.0 g/dL LAB CHEMISTRY METHOD 02/29/2024 11:04 AM [facility] Total Bilirubin 0.3 0.0 - 1.4 mg/dL LAB CHEMISTRY METHOD 02/29/2024 11:04 AM [facility] Blood Venous blood specimen / Unknown Venipuncture / Unknown 02/29/2024 6:05 AM EST 02/29/2024 10:09 AM EST Rachel Art MD LAB BLOOD ORDERABLES Fin al Result [facility] [address] [place] [address], from Last 3 Months or Most Recently Relevant to Health Maintenance Insurance [employer] Care Teams Make Up Artist Relationship Specialty Start Date End Date Demond Nash MD [address] [place] [address] [place] [address] PCP - General 07/16/1998
--- OUTSIDE RECORDS SUMMARY | 2024-06-09 14:44 | XMS_ITS | Encounter Summary ---
Author Organization [facility], Address [address] [place] [address] Phone Care Team Providers Care Core Paster Name Role Phone Ramon Grove MD Primary Care Provider [phone] Encounter Details Date Type Department Care Team (Late st Contact Info) Description 08/07/2022 Documentation Only [facility], [address] [place] [address] Iam Taylor, [address] [place] [phone] Social History Tobacco Use Types Packs/Day Years [...] on filedocumented in this encounter Care Teams Core Paster Relationship Specialty Start Date End Date Ramon Grove MD [address] [place] [address] PCP - General Internal Medicine 03/29/19 documented as of this encounter
--- OUTSIDE RECORDS SUMMARY | 2024-06-09 14:44 | XMS_ITS | Clinical Summary ---
Author Organization [facility] Address [address] [place] [address] Care Team Providers Care Veneer Sorter Name Role Phone Jarod Wu MD Primary Care Provider [phone] Allergies Active Allergy Reactions Criticality Noted Date [...] (two) times a day. 0 Active b [id number]-[id number] acid 1 MG capsule Take 1 capsule [...] age to complete this topic Care Teams Veneer Sorter Relationship Specialty Start Date End Date Jarod Wu MD [address] [place] [id number] PCP - General Internal Medicine 07/17/21
--- OUTSIDE RECORDS SUMMARY | 2024-06-09 14:44 | XMS_ITS | Encounter Summary ---
Author Organization [facility], Address [address] [place] [address] Phone Care Team Providers Care Industrial Manufacturing Technician Name Role Phone Ramon Grove MD Primary Care Provider [phone] Encounter Details Date Type Department Care Team (Late st Contact Info) Description 02/09/2023 Documentation Only [facility], [address] [place] [address] Iam Taylor, [address] [place] [phone] Social History Tobacco Use Types Packs/Day Years [...] on filedocumented in this encounter Care Teams Industrial Manufacturing Technician Relationship Specialty Start Date End Date Ramon Grove MD [address] [place] [address] PCP - General Internal Medicine 03/29/19 documented as of this encounter
--- OUTSIDE RECORDS SUMMARY | 2024-06-09 14:44 | XMS_ITS | Clinical Summary ---
Author Organization [facility], Address [address] [place] [address] [place] [address] Phone Care Team Providers Care Stoker Erector And Servicer Name Role Phone Ramon Grove MD Primary Care Provider [phone] Allergies Active Allergy Reactions Criticality Noted Date [...] this topic Insurance [employer] Medicare Care Teams Stoker Erector And Servicer Relationship Specialty Start Date End Date Ramon Grove MD [address] [place] [phone] PCP - General Internal Medicine 03/29/19
--- OUTSIDE RECORDS SUMMARY | 2024-06-09 14:44 | XMS_ITS | Encounter Summary ---
Author Organization [employer] Address [address] [place] [address] Care Team Providers Care Associate Professor Of Physics Name Role Phone Demond Nash MD Primary Care Provider [phone] Encounter Details Date Type Department Care Team (Late st Contact Info) Description 02/20/2024 Lab Requisition [facility] - Main Lab [address] [place] [address] Rachel Art MD [address] [address] Primary osteoarthritis, right shoulder; Essential (primary) hypertension; [...] mmol/L LAB CHEMISTRY METHOD 02/22/2024 1:14 PM [facility] Potassium 5.0 3.5 - 5.5 mmol/L LAB CHEMISTRY METHOD 02/22/2024 1:14 PM [facility] Comment:Hemolysis present Chloride 106 96 - 110 mmol/L LAB CHEMISTRY METHOD 02/22/2024 1:14 PM [facility] CO2 23 21 - 32 mmol/L LAB CHEMISTRY METHOD 02/22/2024 1:14 PM [facility] Anion Gap 4 3 - 11 LAB CHEMISTRY METHOD 02/22/2024 1:14 PM [facility] Glucose 70 70 - 100 mg/dL LAB CHEMISTRY METHOD 02/22/2024 1:14 PM [facility] BUN 18 5 - 25 mg/dL LAB CHEMISTRY METHOD 02/22/2024 1:14 PM [facility] Creatinine 1.08 0.50 - 1.10 mg/dL LAB CHEMISTRY METHOD 02/22/2024 1:14 PM [facility] eGFR 55(L) >=60 mL/min/1. 73m2 LAB CHEMISTRY METHOD 02/22/2024 1:14 PM [facility] Comment:Calculation based on the??Chronic Kidney Disease Epidemiology Collaboration (CKD-EPI) equation refit??without adjustment for race. BUN/Creatinine Ratio 16.7 LAB CHEMISTRY METHOD 02/22/2024 1:14 PM [facility] Calcium 9.4 8.5 - 10.5 mg/dL LAB CHEMISTRY METHOD 02/22/2024 1:14 PM [facility] AST (SGOT) 26 10 - 42 unit/L LAB CHEMISTRY METHOD 02/22/2024 1:14 PM [facility] ALT (SGPT) 12 10 - 60 unit/L LAB CHEMISTRY METHOD 02/22/2024 1:14 PM [facility] Alkaline Phosphatase 88 42 - 121 unit/L LAB CHEMISTRY METHOD 02/22/2024 1:14 PM EST [facility] Total Protein 6.0 6.0 - 8.0 g/dL LAB CHEMISTRY METHOD 02/22/2024 1:14 PM [facility] Albumin 2.7(L) 3.2 - 5.0 g/dL LAB CHEMISTRY METHOD 02/22/2024 1:14 PM [facility] Total Bilirubin 0.5 0.0 - 1.4 mg/dL LAB CHEMISTRY METHOD 02/22/2024 1:14 PM [facility] Blood Venous blood specimen / Unknown Venipuncture / Unknown 02/22/2024 5:28 AM EST 02/22/2024 11:18 AM EST us Rachel Art MD LAB BLOOD ORDERABLES Fin al Result [facility] [address] [place] [address], * (ABNORMAL) Complete blood count (02/22/2024 5:28 AM EST) WBC 7.2 4.8 - 10.8 K/mcL LAB HEMETOLOGY METHOD 02/22/2024 12:40 PM [facility] RBC 3.20(L) 3.80 - 4.80 M/mcL LAB HEMETOLOGY METHOD 02/22/2024 12:40 PM [facility] Hemoglobin 8.8(L) 11.5 - 16.0 g/dL LAB HEMETOLOGY METHOD 02/22/2024 12:40 PM [facility] Hematocrit 28.7(L) 35.0 - 47.0 % LAB HEMETOLOGY METHOD 02/22/2024 12:40 PM [facility] MCV 90.3 79.0 - 98.0 FL LAB HEMETOLOGY METHOD 02/22/2024 12:40 PM EST [facility] MCH 27.7 27.0 - 32.0 pcg LAB HEMETOLOGY METHOD 02/22/2024 12:40 PM [facility] MCHC 30.7(L) 32.0 - 37.0 g/dL LAB HEMETOLOGY METHOD 02/22/2024 12:40 PM [facility] RDW 15.5(H) 11.0 - 15.0 % LAB HEMETOLOGY METHOD 02/22/2024 12:40 PM [facility] Platelets 568(H) 130 - 400 K/mcL LAB HEMETOLOGY METHOD 02/22/2024 12:40 PM [facility] MPV 9.3 7.0 - 11.0 FL LAB HEMETOLOGY METHOD 02/22/2024 12:40 PM EST [facility] NRBC 0.0 <1.0 % LAB HEMETOLOGY METHOD 02/22/2024 12:40 PM [facility] NRBC Absolute 0.00 <0.10 K/mcL LAB HEMETOLOGY METHOD 02/22/2024 12:40 PM [facility] Blood Venous blood specimen / Unknown Venipuncture / Unknown 02/22/2024 5:28 AM EST 02/22/2024 11:18 AM EST us Rachel Art MD LAB BLOOD ORDERABLES Fin al Result [facility] [address] [place] [address], documented in this encounter Visit Diagnoses Diagnosis Primary osteoarthritis, right shoulder Essential (primary) hypertension Unspecified essential hypertension Unilateral primary osteoarthritis, right knee documented in this encounter Care Teams Associate Professor Of Physics Relationship Specialty Start Date End Date Demond Nash MD [address] [place] [address] PCP - General 07/16/1998 documented as of this encounter
--- OUTSIDE RECORDS SUMMARY | 2024-06-09 14:44 | XMS_ITS | Encounter Summary ---
Author Organization [facility], Address [address] [place] [address] Phone Care Team Providers Care Pest Technician Name Role Phone Ramon Grove MD Primary Care Provider [phone] Encounter Details Date Type Department Care Team (Late st Contact Info) Description 01/10/2022 Orders Only [facility], [address] [place] [address] [facility], [address] [place] [phone] Hypertension; Localized edema Social History Tobacco Use [...] edema documented in this encounter Care Teams Pest Technician Relationship Specialty Start Date End Date Ramon Grove MD [address] [place] [address] PCP - General Internal Medicine 03/29/19 documented as of this encounter
--- OUTSIDE RECORDS SUMMARY | 2024-06-09 14:44 | XMS_ITS | Encounter Summary ---
Author Organization [employer] Address [address] [place] [address] Care Team Providers Care Test Architect Name Role Phone Demond Nash MD Primary Care Provider [phone] Encounter Details Date Type Department Care Team (Late st Contact Info) Description 03/04/2024 Lab Requisition [facility] - Main Lab [address] [facility] [place] [address] Rachel Art MD [address] [place] [id number] Primary osteoarthritis, right shoulder; Essential (primary) hypertension; [...] knee documented in this encounter Care Teams Test Architect Relationship Specialty Start Date End Date Demond Nash MD [facility] [place] [address] PCP - General 07/16/1998 documented as of this encounter
--- OUTSIDE RECORDS SUMMARY | 2024-06-09 14:44 | XMS_ITS | Encounter Summary ---
Author Organization [facility], Address [address] [place] [address] Phone Care Team Providers Care Ecd Name Role Phone Ramon Grove MD Primary Care Provider [phone] Encounter Details Date Type Department Care Team (Late st Contact Info) Description 06/27/2022 Orders Only [facility], [address] [place] [address] I[facility] [place], [address] [place] [phone] Hypertension; Localized edema Social History Tobacco Use [...] edema documented in this encounter Care Teams Ecd Relationship Specialty Start Date End Date Ramon Grove MD [address] [place] [address] PCP - General Internal Medicine 03/29/19 documented as of this encounter
--- OUTSIDE RECORDS SUMMARY | 2024-06-09 14:44 | XMS_ITS | Encounter Summary ---
Author Organization [facility], Address [address] [place] [address] Phone Care Team Providers Care Dinkey Engine Firer/Fireman Name Role Phone Ramon Grove MD Primary Care Provider [phone] Encounter Details Date Type Department Care Team (Late st Contact Info) Description 11/15/2021 Orders Only [facility], [address] [place] [address] Iam Taylor, [address] [place] [phone] Hypertension; Localized edema Social History Tobacco Use [...] edema documented in this encounter Care Teams Dinkey Engine Firer/Fireman Relationship Specialty Start Date End Date Ramon Grove MD [address] [place] [address] PCP - General Internal Medicine 03/29/19 documented as of this encounter
--- NOTE | 2024-06-15 12:31 | P.CONAN_ITS ---
HPI - Anesthesia Eval Consult details Narrative: knee manip PMFSH Active Problems Active Problems: All Active Problems Postoperative stiffness of total knee replacement (Acute) Status post total knee replacement, right (Acute) Bilateral shoulder region arthritis (Acute) History of total right hip replacement (Acute ~08/05/23) Joint pain (Acute) Right shoulder pain (Acute) Left shoulder pain (Acute) Arthritis of right knee (Acute) Arthritis of left knee (Acute) Right knee pain (Acute) Left knee pain (Acute) Osteoarthritis (Acute) Oral herpes (Acute) GERD (gastroesophageal reflux disease) (Acute) Environmental allergies (Acute) Edema (Acute) Chronic sinusitis (Acute) Arthritis of right hip (Acute) Right hip pain (Acute) PMR (polymyalgia rheumatica) (Acute) Osteoporosis (Acute) Past Medical History Medical History Weakness Chronic sinusitis Situational anxiety Seasonal allergies Osteoarthritis GERD (gastroesophageal reflux disease) HTN (hypertension) PMR (polymyalgia rheumatica) Osteoporosis HTN (hypertension) Family History Family history of problems with anesthesia: No Surgical History Surgical History History of knee replacement History of total right hip arthroplasty (08/05/23) Hx of colonoscopy (~2008) Hx of section (1984) History of arthroscopy of right shoulder (~2010) History of Problems with Anesthesia: No Social History Social History Household Members: None Household Members Other:: [facility] Housing: House Are you a primary animal care taker to a significant other at home: Yes ([facility], family will help while patient hospitalized) Do you presently have visiting nurse or other home services: No Comment: right hip Patient Tobacco Use Status: Never used Tobacco Advance Directives: No Advance Directives Information Provided: Yes service: No Meds Allergies Allergy/AdvReac Type Severity Reaction Status Date / Time Sulfa (Sulfonamide Allergy Severe Anaphylaxis Verified 06/15/24 12:29 Antibiotics) Active Medications: Current Medications Lactated Ringer's (Lr) 1,000 mls @ 50 mls/hr IVCONT .Q20H MEGHANN Home Medications ?Medication ?Instructions ?Recorded ?Confirmed ?Last Taken ?Type fluticasone propionate 50 2 spray intranasal BID 04/17/23 06/15/24 02/08/24 History mcg/actuation nasal spray,suspension (Flonase Allergy Relief) famotidine 10 mg tablet (Heartburn 10 mg PO BID 10/30/23 06/15/24 02/08/24 History Relief (famotidine)) acetaminophen 500 mg tablet 1,500 mg PO DAILY PRN Pain 02/09/24 06/15/24 Unknown History tramadol 50 mg tablet 50 mg PO BID PRN Sleep 06/15/24 06/15/24 Unknown History Exam Airway Mallampati Class: II TM Dist: >3cm Neck ROM: Full Heart: rrr Lungs: cta Assessment and Plan Assessment Anesthesia Assessment: Anesthesia Plan Discussed and Chart Reviewed Final Anesthetic Review Family History of Problems with Anesthesia: No History of Problems with Anesthesia: No NPO: Yes ASA Class: II Final Preanesthetic Review: No Changes in Pt Med Stat, Meds/Allgs Chart Revi ewed, Consent Obtained/Reviewed and Anes Risks/Benef Reviewed Patient Risk: Low Procedure Risk: Low Anesthetic Plan Anesthetic Plan: MAC: Disposition: Standard PACU
[2024-06-15 12:32] VITALS: BP 106/71; PULSE 68; RESP 16; TEMP 36.8; O2SAT 98; BMI 30.7
[2024-06-15] MEDS: Lactated Ringers 1,000 ML 50 ML IVCONT (13:18)
--- NOTE | 2024-06-15 13:34 | MHC.SHP ---
Pre-Procedural Eval Section A - 24 Hr Update-Section A only Date of Service: 06/15/24 The patient is an INPATIENT: No Changes since office visit: No Cold of Flu in the past 2 weeks, No New Medical Problems, No Changes in Medication and No Patient answered all questions The patient has been examined within 24 hours of the surgical procedure. The History & Physical has been completed within 30 days and I have reviewed it.: Yes Section B - Complete if H&P > 30 days Chief Complaint: Stiffness of unspecified knee, not elsewhere class Allergies: Allergies Allergy/AdvReac Type Severity Reaction Status Date / Time Sulfa (Sulfonamide Allergy Severe Anaphylaxis Verified 06/15/24 12:29 Antibiotics) Plan I have reviewed the history and physical and performed a pertinent physical examination on my patient. No changes have occurred unless specified. Time Spent With Patient Time: Total time managing care of this patient today ____ minutes.
--- NOTE | 2024-06-15 14:06 | PM.OP ---
Brief Operative Note Date of Service: 06/15/24 Pre-op diagnosis: Right knee stiffness s/p TKA Post-op diagnosis: same Procedure: LUIS ENRIQUE right knee Surgeon: Oswald Del Rosario MD Anesthesia: MAC Was an Timekeeper Supervisor used for this Procedure?: No Estimated blood loss (mL): 0 Pathology: none sent Condition: stable Disposition: PACU
[2024-06-15 14:11] VITALS: BP 136/76; PULSE 59; RESP 20; TEMP 36.8; O2SAT 100
[2024-06-15 14:23] VITALS: BP 159/81; PULSE 59; RESP 20; TEMP 36.8; O2SAT 100
--- NOTE | 2024-06-16 16:52 | W.PM.OPN ---
Operative Note Operative Note Date of Service: 06/15/24 Narrative: Date of Service: 06/15/24 Pre-op diagnosis: Right knee stiffness s/p TKA Post-op diagnosis: same Procedure: LUIS ENRIQUE right knee Surgeon: Oswald Del Rosario MD Anesthesia: MAC Was an Adolescent Counselor used for this Procedure?: No Estimated blood loss (mL): 0 Pathology: none sent Condition: stable Disposition: PACU Procedure in detail: Zina was brought to the operating room in hip supine on the hospital bed. Mac anesthesia was obtained with propofol and a time-out was called in for proper site and proper procedure and proper surgeon. I began by gently flexing the knee. She had 95 degrees of flexion while under anesthesia. She had a 3-5 degree loss of terminal extension. I gently applied a flexion pressure to her right knee and was able to obtain 120 degrees of flexion at rest without pressure. With flexion pressure applied I was able to obtain 125deg. I was satisfied with this given the duration since surgery and she was awakened from anesthesia about the recovery room in stable condition. There were no known complications.
== END 2024-06-15 14:50 | disposition home or self-care (01) ==
LOC: HO.SSS 11:50
PROVIDERS: PCP Internal Medicine; Visit Provider Orthopaedic Surgery
PROC: (CPT 27570; principal; 2024-06-15 13:10)
DX: T84.89XA Other specified complication of internal orthopedic prosthetic devices, implants and grafts, initial encounter (principal); M25.661 Stiffness of right knee, not elsewhere classified; Y79.2 Prosthetic and other implants, materials and accessory orthopedic devices associated with adverse incidents; Z96.651 Presence of right artificial knee joint; M15.9 Polyosteoarthritis, unspecified; M81.0 Age-related osteoporosis without current pathological fracture; M35.3 Polymyalgia rheumatica; Z96.641 Presence of right artificial hip joint; I10 Essential (primary) hypertension; J32.9 Chronic sinusitis, unspecified; K21.9 Gastro-esophageal reflux disease without esophagitis; J30.2 Other seasonal allergic rhinitis; F41.8 Other specified anxiety disorders; Z79.899 Other long term (current) drug therapy; Z88.2 Allergy status to sulfonamides; Z98.890 Other specified postprocedural states
CPT/HCPCS: 27570; J0131; J2003; J2704

== ENCOUNTER → 2024-06-15 11:49 | Outpatient (BNV) | payer MEDICARE, SELFPAY | PROVIDERS: PCP Internal Medicine; Visit Provider Orthopaedic Surgery | DX: M25.661 Stiffness of right knee, not elsewhere classified (principal) | CPT/HCPCS: 27570 ==

== ENCOUNTER 2024-06-23 13:43 | Outpatient (AMB) | payer MEDICARE, SELFPAY ==
--- NOTE | 2024-06-23 13:45 | A.OFFVIS_ITS ---
Intake Visit Reasons: PO RT knee LUIS ENRIQUE 06/15/24 NE Intake Note: Zina is a 73 year old female who presents today for a post operative appointment s/p LUIS ENRIQUE right knee 06/15/24 NE. Patient reports her right knee is worse after the manipulation. She is now having swelling everyday 2-3 times a day and the swelling does not go down. She says she was ambulating better before this. She is not able to flex or extend her knee without an exacerbation of pain. She says she is supposed to be treated for the left knee in ~July and is thinking of not going through with this due to her current experience. She gets up and remains active but says it is terrible. Any weight bearing radiates pain to the bottom of the right foot. OTC medication does not offer her any relief. She says she is constantly in pain now. 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 Range of motion 10-65 degrees. NVI. Assessment & Plan Assessment & Plan (1) Status post total knee replacement, right: Code(s): Z96.651 - Presence of right artificial knee joint Category: Surgical Plan Ms. Napoles is a 73-year-old female who presents to the office today status post right knee manipulation under anesthesia performed on 06/16/[address] Del Rosario. While under anesthesia the patient was measured at 95 degrees of flexion with a 3-5 degree loss of terminal extension. After gently applying flexion pressure to the right knee 120 degrees of flexion was obtained at rest without pressure. With flexion pressure patient was able to reach 125 degrees. Patient presents to the office today stating that she is having increased pain and swelling since the manipulation. I educated her that this is common after the procedure because when applying pressure to the knee to obtain more flexion we are breaking up scar tissue. I have placed an order for physical therapy for the patient to begin working on range of motion while the office today in additionally spoke with the physical therapy office here to get the patient in a soon as possible. An appointment was made with the patient and our physical therapy office over the phone. Unfortunately, the patient will be out of town from July 05 through the . I stressed the importance of continuing working on range of motion during this time. Ideally, I would have like to see the patient in 2 weeks for additional range of motion check. Patient will follow-up in 3 weeks, sooner if needed. Orders: Orders PT Evaluation and Treatment Today M25.669 - Stiffness of unspecified knee, not elsewhere classified, T84.89XA - Other specified complication of internal orthopedic prosthetic devices, implants and grafts, initial encounter, Z96.659 - Presence of unspecified artificial knee joint Coding Level of Care Code Global (24419) Diagnoses Status post total knee replacement, right Z96.651
--- OUTSIDE RECORDS SUMMARY | 2024-06-23 16:05 | XMS_ITS | Clinical Summary ---
Author Organization [facility] Address [address] [place] [address] Care Team Providers Care Poultry Debeaker Name Role Phone Jarod Wu MD Primary Care Provider [phone] Allergies Active Allergy Reactions Criticality Noted Date [...] (two) times a day. 0 Active b rteptpc-[id number] acid 1 MG capsule Take 1 capsule [...] age to complete this topic Care Teams Poultry Debeaker Relationship Specialty Start Date End Date Jarod Wu MD [address] [place] [address] PCP - General Internal Medicine 07/17/21
--- OUTSIDE RECORDS SUMMARY | 2024-06-23 16:05 | XMS_ITS | Encounter Summary ---
Author Organization [employer] Address [address] [place] [address] Care Team Providers Care Glass Etcher Helper Name Role Phone Demond Nash MD Primary Care Provider [phone] Encounter Details Date Type Department Care Team (Late st Contact Info) Description 02/15/2024 Lab Requisition [facility] - Main Lab [address] [facility] [place] [address] Rachel Art MD [address] [address] Primary osteoarthritis, right shoulder; Essential (primary) hypertension; [...] D 25 hydroxy (02/15/2024 5:24 AM EST) [facility] Vit D, 25-Hydroxy 29.2(L) 30.0 - 80.0 ng/mL LAB CHEMISTRY METHOD 02/15/2024 6:27 PM EST [facility] Blood Venous blood specimen / Unknown Venipuncture / Unknown 02/15/2024 5:24 AM EST 02/15/2024 12:33 PM EST Rachel Art MD LAB BLOOD ORDERABLES Fin al Result Performing Organization Address [facility] Co de Phone Number [facility] [address] [place] [address], * Vitamin B12 (02/15/2024 5:24 AM EST) [facility] Vitamin B-12 358 250 - 900 pcg/mL LAB CHEMISTRY METHOD 02/15/2024 6:47 PM EST [facility] Blood Venous blood specimen / Unknown Venipuncture / Unknown 02/15/2024 5:24 AM EST 02/15/2024 12:33 PM EST Rachel Art MD LAB BLOOD ORDERABLES Fin al Result [facility] [address] [place] [address], [place] [phone] * Folate (02/15/2024 5:24 AM EST) [facility] Folate 5.2 2.8 - 17.0 ng/ml LAB CHEMISTRY METHOD 02/15/2024 6:47 PM EST [facility] Blood Venous blood specimen / Unknown Venipuncture / Unknown 02/15/2024 5:24 AM EST 02/15/2024 12:33 PM EST Rachel Art MD LAB BLOOD ORDERABLES Fin al Result Performing Organization Address City/[facility]/ZIP Co de Phone Number [facility] [address] [place] [address], [place] [phone] * Magnesium (02/15/2024 5:24 AM EST) [facility] Magnesium 2.3 1.9 - 2.6 mg/dL LAB CHEMISTRY METHOD 02/15/2024 6:20 PM EST [facility] Blood Venous blood specimen / Unknown Venipuncture / Unknown 02/15/2024 5:24 AM EST 02/15/2024 12:33 PM EST Rachel Art MD LAB BLOOD ORDERABLES Fin al Result [facility] [address] [place] [address], [place] [phone] * (ABNORMAL) Comprehensive metabolic panel (02/15/2024 5:24 AM EST) [facility] Sodium 139 133 - 145 mmol/L LAB CHEMISTRY METHOD 02/15/2024 6:47 PM [facility] Potassium 4.6 3.5 - 5.5 mmol/L LAB CHEMISTRY METHOD 02/15/2024 6:47 PM EST [facility] Chloride 104 96 - 110 mmol/L LAB CHEMISTRY METHOD 02/15/2024 6:47 PM [facility] CO2 23 21 - 32 mmol/L LAB CHEMISTRY METHOD 02/15/2024 6:47 PM [facility] Anion Gap 12(H) 3 - 11 LAB CHEMISTRY METHOD 02/15/2024 6:47 PM [facility] Glucose 76 70 - 100 mg/dL LAB CHEMISTRY METHOD 02/15/2024 6:47 PM [facility] BUN 26(H) 5 - 25 mg/dL LAB CHEMISTRY METHOD 02/15/2024 6:47 PM [facility] Creatinine 1.01 0.50 - 1.10 mg/dL LAB CHEMISTRY METHOD 02/15/2024 6:47 PM [facility] eGFR 60 >=60 mL/min/1. 73m2 LAB CHEMISTRY METHOD 02/15/2024 6:47 PM [facility] Comment:Calculation based on the??Chronic Kidney Disease Epidemiology Collaboration (CKD-EPI) equation refit??without adjustment for race. BUN/Creatinine Ratio 25.7 LAB CHEMISTRY METHOD 02/15/2024 6:47 PM [facility] Calcium 9.3 8.5 - 10.5 mg/dL LAB CHEMISTRY METHOD 02/15/2024 6:47 PM [facility] AST (SGOT) 16 10 - 42 unit/L LAB CHEMISTRY METHOD 02/15/2024 6:47 PM [facility] ALT (SGPT) 13 10 - 60 unit/L LAB CHEMISTRY METHOD 02/15/2024 6:47 PM [facility] Alkaline Phosphatase 86 42 - 121 unit/L LAB CHEMISTRY METHOD 02/15/2024 6:47 PM [facility] Total Protein 5.9(L) 6.0 - 8.0 g/dL LAB CHEMISTRY METHOD 02/15/2024 6:47 PM [facility] Albumin 2.7(L) 3.2 - 5.0 g/dL LAB CHEMISTRY METHOD 02/15/2024 6:47 PM EST [facility] Total Bilirubin 0.5 0.0 - 1.4 mg/dL LAB CHEMISTRY METHOD 02/15/2024 6:47 PM [facility] Blood Venous blood specimen / Unknown Venipuncture / Unknown 02/15/2024 5:24 AM EST 02/15/2024 12:33 PM EST us Rachel Art MD LAB BLOOD ORDERABLES Fin al Result [facility] [address] [place] [address], * (ABNORMAL) Complete blood count (02/15/2024 5:24 AM EST) WBC 7.6 4.8 - 10.8 K/mcL LAB HEMETOLOGY METHOD 02/15/2024 1:31 PM [facility] RBC 3.20(L) 3.80 - 4.80 M/mcL LAB HEMETOLOGY METHOD 02/15/2024 1:31 PM [facility] Hemoglobin 9.0(L) 11.5 - 16.0 g/dL LAB HEMETOLOGY METHOD 02/15/2024 1:31 PM [facility] Hematocrit 30.1(L) 35.0 - 47.0 % LAB HEMETOLOGY METHOD 02/15/2024 1:31 PM [facility] MCV 94.4 79.0 - 98.0 FL LAB HEMETOLOGY METHOD 02/15/2024 1:31 PM [facility] MCH 28.2 27.0 - 32.0 pcg LAB HEMETOLOGY METHOD 02/15/2024 1:31 PM [facility] MCHC 29.9(L) 32.0 - 37.0 g/dL LAB HEMETOLOGY METHOD 02/15/2024 1:31 PM EST [facility] RDW 16.0(H) 11.0 - 15.0 % LAB HEMETOLOGY METHOD 02/15/2024 1:31 PM EST [facility] Platelets 388 130 - 400 K/mcL LAB HEMETOLOGY METHOD 02/15/2024 1:31 PM [facility] MPV 9.4 7.0 - 11.0 FL LAB HEMETOLOGY METHOD 02/15/2024 1:31 PM EST [facility] NRBC 0.0 <1.0 % LAB HEMETOLOGY METHOD 02/15/2024 1:31 PM [facility] NRBC Absolute 0.00 <0.10 K/mcL LAB HEMETOLOGY METHOD 02/15/2024 1:31 PM [facility] Blood Venous blood specimen / Unknown Venipuncture / Unknown 02/15/2024 5:24 AM EST 02/15/2024 12:33 PM EST us Rachel Art MD LAB BLOOD ORDERABLES Fin al Result [facility] [address] [place] [address], documented in this encounter Visit Diagnoses Diagnosis Primary osteoarthritis, right shoulder Essential (primary) hypertension Unspecified essential hypertension Unilateral primary osteoarthritis, right knee documented in this encounter Care Teams Glass Etcher Helper Relationship Specialty Start Date End Date Demond Nash MD [address] [place] [address] PCP - General 07/16/1998 documented as of this encounter
--- OUTSIDE RECORDS SUMMARY | 2024-06-23 16:05 | XMS_ITS | Encounter Summary ---
Author Organization [facility], Address [address] [place] [address] Phone Care Team Providers Care Telecommunications Administrator Name Role Phone Ramon Grove MD Primary Care Provider [phone] Encounter Details Date Type Department Care Team (Late st Contact Info) Description 01/10/2022 Orders Only [facility], [address] [place] [address] Iam Taylor, [address] [place] [phone] Hypertension; Localized edema Social History Tobacco Use [...] edema documented in this encounter Care Teams Telecommunications Administrator Relationship Specialty Start Date End Date Ramon Grove MD [address] [place] [address] PCP - General Internal Medicine 03/29/19 documented as of this encounter
--- OUTSIDE RECORDS SUMMARY | 2024-06-23 16:05 | XMS_ITS | Patient Health Record ---
Author Organization [facility] Address [address] [facility] [address] [place] [address] Care Team Providers Care Family Practice Medical Doctor Name Role Phone Valerie Heart Unavailable [phone] Reason For Referral No Information Medications Medication SIG (Take, Route, Fr equency, Duration) Notes Start Date End Date Status Vagifem 10 MCG 1 VAGINAL twice weekly for -3 [facility] 08/27 Active Loratadine 10MG 1 ORAL daily for -3 [facility] 08/27/2012 Active Furosemide 20MG 1/2 ORAL daily for -3 [facility] 08/27/2012 Active Flonase 50MCG 2 Nasal daily for -3 [facility] 08/27/2012 Active Problems Problem Type SNOMED Code ICD Code Onset Dates Problem Status W/U Status Risk Notes Problem Obesity (541154084) Obesity, unspecified (278.00) Active confirmed Major Problem Carpal tunnel syndrome (18620684) Carpal tunnel syndrome (354.0) Active confirmed Major Problem Allergic rhinitis (42104908) Allergic rhinitis, cause unspecified (477.9) Active confirmed Major Problem Postmenopausal atrophic vaginitis (96463137) Postmenopausal atrophic vaginitis (627.3) Active confirmed Diag Problem Generalized osteoarthritis (disorder) (619395851) Generalized osteoarthrosis, unspecified site (715.00) Active confirmed Major Problem Insomnia (237275567) Insomnia, unspecified (780.52) Active confirmed Major Problem Allergy (887209433) Allergy, unspecified not elsewhere classified (995.3) Active confirmed Diag Problem Gynecological examination normal (636623507557901) Routine gynecological examination (V72.31) Active confirmed Major Problem Screening for malignant neoplasm of colon (019606057) Special screening for malignant neoplasms, colon (V76.51) Active confirmed Major Plan Of Treatment No Information Insurance Providers Payer Name Payer Address Payer Phone Subscriber Number Group Number Insured Name Patient Relationship to Insured Coverage Start Date Coverage End Date [facility] [address] [address] [place] [address] [phone] [id number] [employer] GAGE Self - patient is the insured
--- OUTSIDE RECORDS SUMMARY | 2024-06-23 16:05 | XMS_ITS | Encounter Summary ---
Author Organization [facility], Address [address] [place] [address] Phone Care Team Providers Care Wet Process Operator Name Role Phone Ramon Grove MD Primary Care Provider [phone] Encounter Details Date Type Department Care Team (Late st Contact Info) Description 03/07/2022 Orders Only [facility], [address] [place] [address] Iam Taylor, [address] [place] [phone] Hypertension; Localized edema Social History Tobacco Use [...] edema documented in this encounter Care Teams Wet Process Operator Relationship Specialty Start Date End Date Ramon Grove MD [address] [place] [address] PCP - General Internal Medicine 03/29/19 documented as of this encounter
--- OUTSIDE RECORDS SUMMARY | 2024-06-23 16:05 | XMS_ITS | Clinical Summary ---
Author Organization [address] Address [address] [place] [address] Phone Care Team Providers Care Automobile Body Repair Chief Name Role Phone Demond Nash MD Primary Care Provider [phone] Surgical History Surgery Date Site/Laterality Comments OTHER [...] 02/29/2024 11:04 AM [facility] Total Bilirubin 0.3 0.0 - 1.4 mg/dL LAB CHEMISTRY METHOD 02/29/2024 11:04 AM [facility] Blood Venous blood specimen / Unknown Venipuncture / Unknown 02/29/2024 6:05 AM EST 02/29/2024 10:09 AM EST Rachel Art MD LAB BLOOD ORDERABLES Fin al Result [facility] [address] [place] [address], from Last 3 Months or Most Recently Relevant to Health Maintenance Insurance [employer] MED[employer]ARE [employer]VANTAGE Care Teams Automobile Body Repair Chief Relationship Specialty Start Date End Date Demond Nash MD [address] [place] [address] [place] [address] PCP - General 07/16/1998
--- OUTSIDE RECORDS SUMMARY | 2024-06-23 16:05 | XMS_ITS | Encounter Summary ---
Author Organization [facility], Address [address] [place] [address] Phone Care Team Providers Care Vending Technician Name Role Phone Ramon Grove MD Primary Care Provider [phone] Encounter Details Date Type Department Care Team (Late st Contact Info) Description 09/20/2021 Orders Only [facility], [address] [place] [address] Iam Taylor, [address] [place] [phone] Hypertension; Localized edema Social History Tobacco Use [...] edema documented in this encounter Care Teams Vending Technician Relationship Specialty Start Date End Date Ramon Grove MD [address] [place] [address] PCP - General Internal Medicine 03/29/19 documented as of this encounter
--- OUTSIDE RECORDS SUMMARY | 2024-06-23 16:05 | XMS_ITS | Encounter Summary ---
Author Organization [facility], Address [address] [place] [address] Phone Care Team Providers Care Balance Wheel Facer Name Role Phone Ramon Grove MD Primary Care Provider [phone] Encounter Details Date Type Department Care Team (Late st Contact Info) Description 06/27/2022 Orders Only [facility], [address] [place] [address] Iam Taylor, [address] [place] [phone] Hypertension; Localized edema Social History Tobacco Use [...] edema documented in this encounter Care Teams Balance Wheel Facer Relationship Specialty Start Date End Date Ramon Grove MD [address] [place] [address] PCP - General Internal Medicine 03/29/19 documented as of this encounter
--- OUTSIDE RECORDS SUMMARY | 2024-06-23 16:05 | XMS_ITS | Encounter Summary ---
Author Organization [facility], Address [address] [place] [address] Phone Care Team Providers Care Shop Laborer Name Role Phone Ramon Grove MD Primary Care Provider [phone] Encounter Details Date Type Department Care Team (Late st Contact Info) Description 05/02/2022 Orders Only [facility], [address] [place] [address] Iam Taylor, [address] [place] [phone] Hypertension; Localized edema Social History Tobacco Use [...] edema documented in this encounter Care Teams Shop Laborer Relationship Specialty Start Date End Date Ramon Grove MD [address] [place] [address] PCP - General Internal Medicine 03/29/19 documented as of this encounter
--- OUTSIDE RECORDS SUMMARY | 2024-06-23 16:05 | XMS_ITS | Encounter Summary ---
Author Organization [employer] Address [address] [place] [address] Care Team Providers Care Field Foreman Name Role Phone Demond Nash MD Primary Care Provider [phone] Encounter Details Date Type Department Care Team (Late st Contact Info) Description 02/20/2024 Lab Requisition [facility] - Main Lab [address] [place] [address] Rachel Art MD [address] [address] Primary osteoarthritis, right shoulder; Essential (primary) hypertension; [...] mmol/L LAB CHEMISTRY METHOD 02/22/2024 1:14 PM [facility] Potassium 5.0 3.5 - 5.5 mmol/L LAB CHEMISTRY METHOD 02/22/2024 1:14 PM [facility] Comment:Hemolysis present Chloride 106 96 - 110 mmol/L LAB CHEMISTRY METHOD 02/22/2024 1:14 PM [facility] CO2 23 21 - 32 mmol/L LAB CHEMISTRY METHOD 02/22/2024 1:14 PM [facility] Anion Gap 4 3 - 11 LAB CHEMISTRY METHOD 02/22/2024 1:14 PM [facility] Glucose 70 70 - 100 mg/dL LAB CHEMISTRY METHOD 02/22/2024 1:14 PM [facility] BUN 18 5 - 25 mg/dL LAB CHEMISTRY METHOD 02/22/2024 1:14 PM [facility] Creatinine 1.08 0.50 - 1.10 mg/dL LAB CHEMISTRY METHOD 02/22/2024 1:14 PM [facility] eGFR 55(L) >=60 mL/min/1. 73m2 LAB CHEMISTRY METHOD 02/22/2024 1:14 PM [facility] Comment:Calculation based on the??Chronic Kidney Disease Epidemiology Collaboration (CKD-EPI) equation refit??without adjustment for race. BUN/Creatinine Ratio 16.7 LAB CHEMISTRY METHOD 02/22/2024 1:14 PM [facility] Calcium 9.4 8.5 - 10.5 mg/dL LAB CHEMISTRY METHOD 02/22/2024 1:14 PM [facility] AST (SGOT) 26 10 - 42 unit/L LAB CHEMISTRY METHOD 02/22/2024 1:14 PM [facility] ALT (SGPT) 12 10 - 60 unit/L LAB CHEMISTRY METHOD 02/22/2024 1:14 PM [facility] Alkaline Phosphatase 88 42 - 121 unit/L LAB CHEMISTRY METHOD 02/22/2024 1:14 PM EST [facility] Total Protein 6.0 6.0 - 8.0 g/dL LAB CHEMISTRY METHOD 02/22/2024 1:14 PM [facility] Albumin 2.7(L) 3.2 - 5.0 g/dL LAB CHEMISTRY METHOD 02/22/2024 1:14 PM [facility] Total Bilirubin 0.5 0.0 - 1.4 mg/dL LAB CHEMISTRY METHOD 02/22/2024 1:14 PM [facility] Blood Venous blood specimen / Unknown Venipuncture / Unknown 02/22/2024 5:28 AM EST 02/22/2024 11:18 AM EST us Rachel Art MD LAB BLOOD ORDERABLES Fin al Result [facility] [address] [place] [address], * (ABNORMAL) Complete blood count (02/22/2024 5:28 AM EST) WBC 7.2 4.8 - 10.8 K/mcL LAB HEMETOLOGY METHOD 02/22/2024 12:40 PM [facility] RBC 3.20(L) 3.80 - 4.80 M/mcL LAB HEMETOLOGY METHOD 02/22/2024 12:40 PM [facility] Hemoglobin 8.8(L) 11.5 - 16.0 g/dL LAB HEMETOLOGY METHOD 02/22/2024 12:40 PM [facility] Hematocrit 28.7(L) 35.0 - 47.0 % LAB HEMETOLOGY METHOD 02/22/2024 12:40 PM [facility] MCV 90.3 79.0 - 98.0 FL LAB HEMETOLOGY METHOD 02/22/2024 12:40 PM EST [facility] MCH 27.7 27.0 - 32.0 pcg LAB HEMETOLOGY METHOD 02/22/2024 12:40 PM [facility] MCHC 30.7(L) 32.0 - 37.0 g/dL LAB HEMETOLOGY METHOD 02/22/2024 12:40 PM [facility] RDW 15.5(H) 11.0 - 15.0 % LAB HEMETOLOGY METHOD 02/22/2024 12:40 PM [facility] Platelets 568(H) 130 - 400 K/mcL LAB HEMETOLOGY METHOD 02/22/2024 12:40 PM [facility] MPV 9.3 7.0 - 11.0 FL LAB HEMETOLOGY METHOD 02/22/2024 12:40 PM EST [facility] NRBC 0.0 <1.0 % LAB HEMETOLOGY METHOD 02/22/2024 12:40 PM [facility] NRBC Absolute 0.00 <0.10 K/mcL LAB HEMETOLOGY METHOD 02/22/2024 12:40 PM [facility] Blood Venous blood specimen / Unknown Venipuncture / Unknown 02/22/2024 5:28 AM EST 02/22/2024 11:18 AM EST us Rachel Art MD LAB BLOOD ORDERABLES Fin al Result [facility] [address] [place] [address], documented in this encounter Visit Diagnoses Diagnosis Primary osteoarthritis, right shoulder Essential (primary) hypertension Unspecified essential hypertension Unilateral primary osteoarthritis, right knee documented in this encounter Care Teams Field Foreman Relationship Specialty Start Date End Date Demond Nash MD [address] [place] [address] PCP - General 07/16/1998 documented as of this encounter
--- OUTSIDE RECORDS SUMMARY | 2024-06-23 16:05 | XMS_ITS | Clinical Summary ---
Author Organization [facility], Address [address] [place] [address] [place] [address] Phone Care Team Providers Care Back Feeder Plywood Layup Line Name Role Phone Ramon Grove MD Primary Care Provider [phone] Allergies Active Allergy Reactions Criticality Noted Date [...] 50+ Years (1 of 2 - PCV) 12/31/1971 Colorectal Cancer Screening: Annual FOBT 2001 Colorectal Cancer Screening: Colonoscopy 2001 Colorectal Cancer Screening: Sigmoidoscopy 2001 Influenza Vaccine (Season Ended) 2024 11/07/2021, 10/31/2020, 10/24/2020, Additional history exists Hepatitis B Vaccine Aged Out 03/09/2018, 8 No longer eligible based on patient's age to complete this topic Insurance [employer] Medicare Care Teams Back Feeder Plywood Layup Line Relationship Specialty Start Date End Date Ramon Grove MD [address] [place] [phone] PCP - General Internal Medicine 03/29/19
--- OUTSIDE RECORDS SUMMARY | 2024-06-23 16:05 | XMS_ITS | Encounter Summary ---
Author Organization [employer] Address [address] [place] [address] Care Team Providers Care Bleacher Lard Name Role Phone Demond Nash MD Primary Care Provider [phone] Encounter Details Date Type Department Care Team (Late st Contact Info) Description 03/04/2024 Lab Requisition [facility] - Main Lab [address] [facility] [place] [address] Rachel Art MD [address] [place] [address] Primary osteoarthritis, right shoulder; Essential (primary) hypertension; [...] knee documented in this encounter Care Teams Bleacher Lard Relationship Specialty Start Date End Date Demond Nash MD [facility] [place] [address] PCP - General 07/16/1998 documented as of this encounter
--- OUTSIDE RECORDS SUMMARY | 2024-06-23 16:05 | XMS_ITS | Encounter Summary ---
Author Organization [facility], Address [address] [place] [address] Phone Care Team Providers Care Church Supervisor Name Role Phone Ramon Grove MD Primary Care Provider [phone] Encounter Details Date Type Department Care Team (Late st Contact Info) Description 08/07/2022 Documentation Only [facility], [address] [place] [address] Iam Taylor, [address] [place] [phone] Social History Tobacco Use Types Packs/Day Years [...] on filedocumented in this encounter Care Teams Church Supervisor Relationship Specialty Start Date End Date Ramon Grove MD [address] [place] [address] PCP - General Internal Medicine 03/29/19 documented as of this encounter
--- OUTSIDE RECORDS SUMMARY | 2024-06-23 16:05 | XMS_ITS | Encounter Summary ---
Author Organization [facility], Address [address] [place] [address] Phone Care Team Providers Care Photo Lab Specialist Name Role Phone Ramon Grove MD Primary Care Provider [phone] Encounter Details Date Type Department Care Team (Late st Contact Info) Description 02/09/2023 Documentation Only [facility], [address] [place] [address] Iam Taylor, [address] [place] [phone] Social History Tobacco Use Types Packs/Day Years [...] on filedocumented in this encounter Care Teams Photo Lab Specialist Relationship Specialty Start Date End Date Ramon Grove MD [address] [place] [address] PCP - General Internal Medicine 03/29/19 documented as of this encounter
--- OUTSIDE RECORDS SUMMARY | 2024-06-23 16:05 | XMS_ITS | Encounter Summary ---
Author Organization [facility], Address [address] [place] [address] Phone Care Team Providers Care Grain Ii Farmworker Name Role Phone Ramon Grove MD Primary Care Provider [phone] Encounter Details Date Type Department Care Team (Late st Contact Info) Description 11/15/2021 Orders Only [facility], [address] [place] [address] Iam Taylor, [address] [place] [phone] Hypertension; Localized edema Social History Tobacco Use [...] edema documented in this encounter Care Teams Grain Ii Farmworker Relationship Specialty Start Date End Date Ramon Grove MD [address] [place] [address] PCP - General Internal Medicine 03/29/19 documented as of this encounter
--- OUTSIDE RECORDS SUMMARY | 2024-06-23 16:05 | XMS_ITS | Encounter Summary ---
Author Organization [employer] Address [address] [place] [address] Care Team Providers Care Doughnut Glazier Name Role Phone Demond Nash MD Primary Care Provider [phone] Encounter Details Date Type Department Care Team (Late st Contact Info) Description 02/26/2024 Lab Requisition [facility] - Main Lab [address] [place] [address] Rachel Art MD [address] [address] Primary osteoarthritis, right shoulder; Essential (primary) hypertension; [...] Comprehensive metabolic panel (02/29/2024 6:05 AM EST) [facility] Sodium 138 133 - 145 mmol/L LAB CHEMISTRY METHOD 02/29/2024 11:04 AM [facility] Potassium 4.3 3.5 - 5.5 mmol/L LAB CHEMISTRY METHOD 02/29/2024 11:04 AM [facility] Chloride 105 96 - 110 mmol/L LAB CHEMISTRY METHOD 02/29/2024 11:04 AM [facility] CO2 26 21 - 32 mmol/L LAB CHEMISTRY METHOD 02/29/2024 11:04 AM [facility] Anion Gap 7 3 - 11 LAB CHEMISTRY METHOD 02/29/2024 11:04 AM [facility] Glucose 66(L) 70 - 100 mg/dL LAB CHEMISTRY METHOD 02/29/2024 11:04 AM [facility] BUN 11 5 - 25 mg/dL LAB CHEMISTRY METHOD 02/29/2024 11:04 AM [facility] Creatinine 0.80 0.50 - 1.10 mg/dL LAB CHEMISTRY METHOD 02/29/2024 11:04 AM [facility] eGFR 79 >=60 mL/min/1. 73m2 LAB CHEMISTRY METHOD 02/29/2024 11:04 AM [facility] Comment:Calculation based on the??Chronic Kidney Disease Epidemiology Collaboration (CKD-EPI) equation refit??without adjustment for race. BUN/Creatinine Ratio 13.8 LAB CHEMISTRY METHOD 02/29/2024 11:04 AM [facility] Calcium 9.4 8.5 - 10.5 mg/dL LAB CHEMISTRY METHOD 02/29/2024 11:04 AM [facility] AST (SGOT) 14 10 - 42 unit/L LAB CHEMISTRY METHOD 02/29/2024 11:04 AM [facility] ALT (SGPT) 11 10 - 60 unit/L LAB CHEMISTRY METHOD 02/29/2024 11:04 AM [facility] Alkaline Phosphatase 80 42 - 121 unit/L LAB CHEMISTRY METHOD 02/29/2024 11:04 AM [facility] Total Protein 5.7(L) 6.0 - 8.0 g/dL LAB CHEMISTRY METHOD 02/29/2024 11:04 AM [facility] Albumin 2.5(L) 3.2 - 5.0 g/dL LAB CHEMISTRY METHOD 02/29/2024 11:04 AM [facility] Total Bilirubin 0.3 0.0 - 1.4 mg/dL LAB CHEMISTRY METHOD 02/29/2024 11:04 AM [facility] Blood Venous blood specimen / Unknown Venipuncture / Unknown 02/29/2024 6:05 AM EST 02/29/2024 10:09 AM EST us Rachel Art MD LAB BLOOD ORDERABLES Fin al Result [facility] [address] [place] [address], * (ABNORMAL) Complete blood count (02/29/2024 6:05 AM EST) WBC 5.5 4.8 - 10.8 K/mcL LAB HEMETOLOGY METHOD 02/29/2024 10:55 AM [facility] RBC 3.50(L) 3.80 - 4.80 M/mcL LAB HEMETOLOGY METHOD 02/29/2024 10:55 AM [facility] Hemoglobin 9.6(L) 11.5 - 16.0 g/dL LAB HEMETOLOGY METHOD 02/29/2024 10:55 AM [facility] Hematocrit 31.4(L) 35.0 - 47.0 % LAB HEMETOLOGY METHOD 02/29/2024 10:55 AM [facility] MCV 89.5 79.0 - 98.0 FL LAB HEMETOLOGY METHOD 02/29/2024 10:55 AM EST [facility] MCH 27.4 27.0 - 32.0 pcg LAB HEMETOLOGY METHOD 02/29/2024 10:55 AM [facility] MCHC 30.6(L) 32.0 - 37.0 g/dL LAB HEMETOLOGY METHOD 02/29/2024 10:55 AM [facility] RDW 15.9(H) 11.0 - 15.0 % LAB HEMETOLOGY METHOD 02/29/2024 10:55 AM [facility] Platelets 544(H) 130 - 400 K/mcL LAB HEMETOLOGY METHOD 02/29/2024 10:55 AM [facility] MPV 8.9 7.0 - 11.0 FL LAB HEMETOLOGY METHOD 02/29/2024 10:55 AM EST [facility] NRBC 0.0 <1.0 % LAB HEMETOLOGY METHOD 02/29/2024 10:55 AM [facility] NRBC Absolute 0.00 <0.10 K/mcL LAB HEMETOLOGY METHOD 02/29/2024 10:55 AM [facility] Blood Venous blood specimen / Unknown Venipuncture / Unknown 02/29/2024 6:05 AM EST 02/29/2024 10:09 AM EST us Rachel Art MD LAB BLOOD ORDERABLES Fin al Result [facility] [address] [place] [address], documented in this encounter Visit Diagnoses Diagnosis Primary osteoarthritis, right shoulder Essential (primary) hypertension Unspecified essential hypertension Unilateral primary osteoarthritis, right knee documented in this encounter Care Teams Doughnut Glazier Relationship Specialty Start Date End Date Demond Nash MD [address] [place] [address] PCP - General 07/16/1998 documented as of this encounter
--- OUTSIDE RECORDS SUMMARY | 2024-06-23 16:05 | XMS_ITS | Encounter Summary ---
Author Organization [facility], Address [address] [place] [address] Phone Care Team Providers Care Water Meter Installer Name Role Phone Ramon Grove MD Primary Care Provider [phone] Encounter Details Date Type Department Care Team (Late st Contact Info) Description 08/22/2022 Orders Only [facility], [address] [place] [address] Iam Taylor, [address] [facility] [place] [phone] Hypertension; Localized edema Social History Tobacco Use [...] (0.5-1.0) MG/DL [facility] Sodium 139 (133-145) MMOL/L [facility] Potassium 4.5 (3.6-5.2) MMOL/L [facility] Chloride 100 (98-107) MMOL/L [facility] Bicarbonate (CO2) 27 (22-29) MMOL/L [facility] Anion Gap 12 (4-17) [facility] Albumin 4.5 (3.4-4.8) GM/DL [facility] Calcium 10.2 (8.6-10.5) MG/DL [facility] Phosphorus, Serum 3.9 (2.5-4.5) MG/DL [facility] Est GFR Non 52 ML/MIN/1.7 3 M2 [facility] Comment: Creatinine based estimated glomerular filtration (eGFR) in adults is calculated using the National Kidney Foundation recommended 2020 CKD-EPI equation. Estimates GFR from serum creatinine, age and sex. Testing performed or reported by [facility], a Service of [facility], [address] [place] [address] Sabino Sheldon MD, Automotive Welder [place]# [id number] Blood (Blood, Venous) 09/19/2022 9:28 AM EDT 09/19/2022 9:32 AM EDT us Iam Taylor DO LAB BLOOD ORDERABLES Final Resu lt [facility] documented in this encounter Visit Diagnoses Diagnosis Hypertension Localized edema documented in this encounter Care Teams Water Meter Installer Relationship Specialty Start Date End Date Ramon Grove MD [address] [place] [phone] PCP - General Internal Medicine 03/29/19 documented as of this encounter
== END 2024-06-23 14:13 | disposition home or self-care (01) ==
LOC: HO.HOS 13:44
PROVIDERS: PCP Internal Medicine; Visit Provider Physician Assistant
DX: Z96.651 Presence of right artificial knee joint (principal)
CPT/HCPCS: 99024

== ENCOUNTER → 2024-06-23 13:43 | Outpatient (BNVA) | payer MEDICARE, SELFPAY | PROVIDERS: PCP Internal Medicine; Visit Provider Physician Assistant | DX: M25.561 Pain in right knee (principal); M25.661 Stiffness of right knee, not elsewhere classified; T84.89XD Other specified complication of internal orthopedic prosthetic devices, implants and grafts, subsequent encounter; X58.XXXD Exposure to other specified factors, subsequent encounter; Z47.1 Aftercare following joint replacement surgery; Z96.651 Presence of right artificial knee joint | CPT/HCPCS: 99212 ==

== ENCOUNTER 2024-07-14 12:18 | Outpatient (AMB) | payer MEDICARE, SELFPAY ==
--- NOTE | 2024-07-14 12:23 | MHC.OFFVIS ---
Intake Visit Reasons: PO RT knee LUIS ENRIQUE 06/15/24 NE Intake Note: Zina is a 73 year old female who presents today for a post operative appointment about one month s/p Right Knee LUIS ENRIQUE 06/15/24. We were contact about patient giving push back for scheduling physical therapy. She reports that she has continued pain and stiffness of the right knee. Allergies Sulfa (Sulfonamide Antibiotics) Allergy (Severe, Verified 07/14/24 12:25) Anaphylaxis HPI HPI PO RT knee LUIS ENRIQUE 06/15/24 NE: Details: Zina is a 73 year old female who presents today for a post operative appointment about one month s/p Right Knee LUIS ENRIQUE 06/15/24. We were contact about patient giving push back for scheduling physical therapy. She reports that she has continued pain and stiffness of the right knee. After her manipulation under anesthesia she did not have a lot of pain. Her motion is essentially what it was before the manipulation. She is able to walk fairly comfortably but has difficulty with stairs and it takes her a few moments to get going. 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 incision is clean dry and intact Assessment & Plan Assessment & Plan (1) Postoperative stiffness of total knee replacement: Code(s): T84.89XA - Other specified complication of internal orthopedic prosthetic devices, implants and grafts, initial encounter; M25.669 - Stiffness of unspecified knee, not elsewhere classified; Z96.659 - Presence of unspecified artificial knee joint Category: Medical Plan: Postoperative stiffness after right TKA. Manipulation was attempted but later than ideal and she had minimal benefit. I recommend she continue aggressive range of motion and strengthening and activity as tolerated. Follow up in 3 months. She understands that her knee is stiff. She understands that she was not able to engage in motion early in his had a negative impact on or alternate motion. I discussed this with her. She expressed understanding. Coding Level of Care Code Global (30920) Diagnoses Postoperative stiffness of total knee replacement T84.89XA; M25.669; Z96.659
--- OUTSIDE RECORDS SUMMARY | 2024-07-14 13:08 | XMS_ITS | Encounter Summary ---
Author Organization [facility], Address [address] [place] [address] Phone Care Team Providers Care Supervisor Abattoir Name Role Phone Ramon Grove MD Primary Care Provider [phone] Encounter Details Date Type Department Care Team (Late st Contact Info) Description 03/07/2022 Orders Only [facility], [address] [place] [address] Iam Taylor, [address] [place] [phone] Hypertension; Localized edema Social History Tobacco Use [...] documented in this encounter Care Teams Supervisor Abattoir Relationship Specialty Start Date End Date Ramon Grove MD [address] [place] [address] PCP - General Internal Medicine 03/29/19 documented as of this encounter
--- OUTSIDE RECORDS SUMMARY | 2024-07-14 13:08 | XMS_ITS | Encounter Summary ---
Author Organization [employer] Address [address] [place] [address] Care Team Providers Care Cad Technician Name Role Phone Demond Nash MD Primary Care Provider [phone] Encounter Details Date Type Department Care Team (Late st Contact Info) Description 03/04/2024 Lab Requisition [facility] - Main Lab [address] [facility] [place] [address] Rachel Art MD [address] [place] [address] Primary osteoarthritis, right shoulder; Essential (primary) hypertension; [...] knee documented in this encounter Care Teams Cad Technician Relationship Specialty Start Date End Date Demond Nash MD [facility] [place] [address] PCP - General 07/16/1998 documented as of this encounter
--- OUTSIDE RECORDS SUMMARY | 2024-07-14 13:08 | XMS_ITS | Encounter Summary ---
Author Organization [facility], Address [address] [place] [address] Phone Care Team Providers Care Skin Fitter Name Role Phone Ramon Grove MD Primary Care Provider [phone] Encounter Details Date Type Department Care Team (Late st Contact Info) Description 05/02/2022 Orders Only [facility], [address] [place] [address] Iam Taylor, [address] [place] [phone] Hypertension; Localized edema Social History Tobacco Use [...] edema documented in this encounter Care Teams Skin Fitter Relationship Specialty Start Date End Date Ramon Grove MD [address] [place] [phone] PCP - General Internal Medicine 03/29/19 documented as of this encounter
--- OUTSIDE RECORDS SUMMARY | 2024-07-14 13:08 | XMS_ITS | Encounter Summary ---
Author Organization [facility], Address [address] [place] [address] Phone Care Team Providers Care Certified Hearing Instrument Dispenser Name Role Phone Ramon Grove MD Primary Care Provider [phone] Encounter Details Date Type Department Care Team (Late st Contact Info) Description 06/27/2022 Orders Only [facility], [address] [place] [address] Iam Taylor, [address] [place] [phone] Hypertension; Localized edema Social History Tobacco Use [...] edema documented in this encounter Care Teams Certified Hearing Instrument Dispenser Relationship Specialty Start Date End Date Ramon Grove MD [address] [place] [address] PCP - General Internal Medicine 03/29/19 documented as of this encounter
--- OUTSIDE RECORDS SUMMARY | 2024-07-14 13:08 | XMS_ITS | Clinical Summary ---
Author Organization [facility] Address [address] [place] [address] Care Team Providers Care Shampoo Person Name Role Phone Jarod Wu MD Primary Care Provider [phone] Allergies Active Allergy Reactions Criticality Noted Date [...] (two) times a day. 0 Active b [id number] acid 1 MG capsule Take 1 capsule [...] age to complete this topic Care Teams Shampoo Person Relationship Specialty Start Date End Date Jarod Wu MD [address] [place] [address] PCP - General Internal Medicine 07/17/21
--- OUTSIDE RECORDS SUMMARY | 2024-07-14 13:08 | XMS_ITS | Encounter Summary ---
Author Organization [facility], Address [address] [place] [address] Phone Care Team Providers Care Agency Director Name Role Phone Ramon Grove MD Primary Care Provider [phone] Encounter Details Date Type Department Care Team (Late st Contact Info) Description 01/10/2022 Orders Only [facility], [address] [place] [address] Iam Taylor, [address] [place] [place] [phone] Hypertension; Localized edema Social History Tobacco Use [...] edema documented in this encounter Care Teams Agency Director Relationship Specialty Start Date End Date Ramon Grove MD [address] [place] [address] PCP - General Internal Medicine 03/29/19 documented as of this encounter
--- OUTSIDE RECORDS SUMMARY | 2024-07-14 13:08 | XMS_ITS | Encounter Summary ---
Author Organization [facility], Address [address] [place] [address] Phone Care Team Providers Care Certified Medication Aide Name Role Phone Ramon Grove MD Primary Care Provider [phone] Encounter Details Date Type Department Care Team (Late st Contact Info) Description 11/15/2021 Orders Only [facility], [address] [place] [address] Iam Taylor, [address] [place] [phone] Hypertension; Localized edema Social History Tobacco Use [...] documented in this encounter Care Teams Certified Medication Aide Relationship Specialty Start Date End Date Ramon Grove MD [address] [place] [address] PCP - General Internal Medicine 03/29/19 documented as of this encounter
--- OUTSIDE RECORDS SUMMARY | 2024-07-14 13:08 | XMS_ITS | Encounter Summary ---
Author Organization [facility], Address [address] [place] [address] Phone Care Team Providers Care Commercial Loan Collection Officer Name Role Phone Ramon Grove MD Primary Care Provider [phone] Encounter Details Date Type Department Care Team (Late st Contact Info) Description 08/07/2022 Documentation Only [facility], [address] [place] [address] Iam Taylor, [address] [place] [phone] Social History Tobacco Use Types Packs/Day Years [...] on filedocumented in this encounter Care Teams Commercial Loan Collection Officer Relationship Specialty Start Date End Date Ramon Grove MD [address] [place] [phone] PCP - General Internal Medicine 03/29/19 documented as of this encounter
--- OUTSIDE RECORDS SUMMARY | 2024-07-14 13:08 | XMS_ITS | Encounter Summary ---
Author Organization [employer] Address [address] [place] [address] Care Team Providers Care Automotive Center Manager Name Role Phone Demond Nash MD Primary Care Provider [phone] Encounter Details Date Type Department Care Team (Late st Contact Info) Description 02/15/2024 Lab Requisition [facility] - Main Lab [address] [place] [address] Rachel Art MD [address] [address] Primary osteoarthritis, right shoulder; Essential (primary) hypertension; [...] D 25 hydroxy (02/15/2024 5:24 AM EST) [facility] Vit D, 25-Hydroxy 29.2(L) 30.0 - 80.0 ng/mL LAB CHEMISTRY METHOD 02/15/2024 6:27 PM EST [facility] Blood Venous blood specimen / Unknown Venipuncture / Unknown 02/15/2024 5:24 AM EST 02/15/2024 12:33 PM EST Rachel Art MD LAB BLOOD ORDERABLES Fin al Result Performing Organization Address [facility] Co de Phone Number [facility] [address] [place] [address], * Vitamin B12 (02/15/2024 5:24 AM EST) [facility] Vitamin B-12 358 250 - 900 pcg/mL LAB CHEMISTRY METHOD 02/15/2024 6:47 PM EST [facility] Blood Venous blood specimen / Unknown Venipuncture / Unknown 02/15/2024 5:24 AM EST 02/15/2024 12:33 PM EST Rachel Art MD LAB BLOOD ORDERABLES Fin al Result [facility] [address] [place] [address], [place] [phone] * Folate (02/15/2024 5:24 AM EST) [facility] Folate 5.2 2.8 - 17.0 ng/ml LAB CHEMISTRY METHOD 02/15/2024 6:47 PM EST [facility] Blood Venous blood specimen / Unknown Venipuncture / Unknown 02/15/2024 5:24 AM EST 02/15/2024 12:33 PM EST Rachel Art MD LAB BLOOD ORDERABLES Fin al Result Performing Organization Address City/[facility]/ZIP Co de Phone Number [facility] [address] [place] [address], [place] [phone] * Magnesium (02/15/2024 5:24 AM EST) [facility] Magnesium 2.3 1.9 - 2.6 mg/dL LAB CHEMISTRY METHOD 02/15/2024 6:20 PM EST [facility] Blood Venous blood specimen / Unknown Venipuncture / Unknown 02/15/2024 5:24 AM EST 02/15/2024 12:33 PM EST Rachel Art MD LAB BLOOD ORDERABLES Fin al Result [facility] [address] [place] [address], [place] [phone] * (ABNORMAL) Comprehensive metabolic panel (02/15/2024 5:24 AM EST) [facility] Sodium 139 133 - 145 mmol/L LAB CHEMISTRY METHOD 02/15/2024 6:47 PM [facility] Potassium 4.6 3.5 - 5.5 mmol/L LAB CHEMISTRY METHOD 02/15/2024 6:47 PM EST [facility] Chloride 104 96 - 110 mmol/L LAB CHEMISTRY METHOD 02/15/2024 6:47 PM [facility] CO2 23 21 - 32 mmol/L LAB CHEMISTRY METHOD 02/15/2024 6:47 PM [facility] Anion Gap 12(H) 3 - 11 LAB CHEMISTRY METHOD 02/15/2024 6:47 PM [facility] Glucose 76 70 - 100 mg/dL LAB CHEMISTRY METHOD 02/15/2024 6:47 PM [facility] BUN 26(H) 5 - 25 mg/dL LAB CHEMISTRY METHOD 02/15/2024 6:47 PM [facility] Creatinine 1.01 0.50 - 1.10 mg/dL LAB CHEMISTRY METHOD 02/15/2024 6:47 PM [facility] eGFR 60 >=60 mL/min/1. 73m2 LAB CHEMISTRY METHOD 02/15/2024 6:47 PM [facility] Comment:Calculation based on the??Chronic Kidney Disease Epidemiology Collaboration (CKD-EPI) equation refit??without adjustment for race. BUN/Creatinine Ratio 25.7 LAB CHEMISTRY METHOD 02/15/2024 6:47 PM [facility] Calcium 9.3 8.5 - 10.5 mg/dL LAB CHEMISTRY METHOD 02/15/2024 6:47 PM [facility] AST (SGOT) 16 10 - 42 unit/L LAB CHEMISTRY METHOD 02/15/2024 6:47 PM [facility] ALT (SGPT) 13 10 - 60 unit/L LAB CHEMISTRY METHOD 02/15/2024 6:47 PM [facility] Alkaline Phosphatase 86 42 - 121 unit/L LAB CHEMISTRY METHOD 02/15/2024 6:47 PM [facility] Total Protein 5.9(L) 6.0 - 8.0 g/dL LAB CHEMISTRY METHOD 02/15/2024 6:47 PM [facility] Albumin 2.7(L) 3.2 - 5.0 g/dL LAB CHEMISTRY METHOD 02/15/2024 6:47 PM EST [facility] Total Bilirubin 0.5 0.0 - 1.4 mg/dL LAB CHEMISTRY METHOD 02/15/2024 6:47 PM [facility] Blood Venous blood specimen / Unknown Venipuncture / Unknown 02/15/2024 5:24 AM EST 02/15/2024 12:33 PM EST us Rachel Art MD LAB BLOOD ORDERABLES Fin al Result [facility] [address] [place] [address], * (ABNORMAL) Complete blood count (02/15/2024 5:24 AM EST) WBC 7.6 4.8 - 10.8 K/mcL LAB HEMETOLOGY METHOD 02/15/2024 1:31 PM [facility] RBC 3.20(L) 3.80 - 4.80 M/mcL LAB HEMETOLOGY METHOD 02/15/2024 1:31 PM [facility] Hemoglobin 9.0(L) 11.5 - 16.0 g/dL LAB HEMETOLOGY METHOD 02/15/2024 1:31 PM [facility] Hematocrit 30.1(L) 35.0 - 47.0 % LAB HEMETOLOGY METHOD 02/15/2024 1:31 PM [facility] MCV 94.4 79.0 - 98.0 FL LAB HEMETOLOGY METHOD 02/15/2024 1:31 PM [facility] MCH 28.2 27.0 - 32.0 pcg LAB HEMETOLOGY METHOD 02/15/2024 1:31 PM [facility] MCHC 29.9(L) 32.0 - 37.0 g/dL LAB HEMETOLOGY METHOD 02/15/2024 1:31 PM EST [facility] RDW 16.0(H) 11.0 - 15.0 % LAB HEMETOLOGY METHOD 02/15/2024 1:31 PM EST [facility] Platelets 388 130 - 400 K/mcL LAB HEMETOLOGY METHOD 02/15/2024 1:31 PM [facility] MPV 9.4 7.0 - 11.0 FL LAB HEMETOLOGY METHOD 02/15/2024 1:31 PM EST [facility] NRBC 0.0 <1.0 % LAB HEMETOLOGY METHOD 02/15/2024 1:31 PM [facility] NRBC Absolute 0.00 <0.10 K/mcL LAB HEMETOLOGY METHOD 02/15/2024 1:31 PM [facility] Blood Venous blood specimen / Unknown Venipuncture / Unknown 02/15/2024 5:24 AM EST 02/15/2024 12:33 PM EST us Rachel Art MD LAB BLOOD ORDERABLES Fin al Result [facility] [address] [place] [address], documented in this encounter Visit Diagnoses Diagnosis Primary osteoarthritis, right shoulder Essential (primary) hypertension Unspecified essential hypertension Unilateral primary osteoarthritis, right knee documented in this encounter Care Teams Automotive Center Manager Relationship Specialty Start Date End Date Demond Nash MD [address] [place] [address] PCP - General 07/16/1998 documented as of this encounter
--- OUTSIDE RECORDS SUMMARY | 2024-07-14 13:08 | XMS_ITS | Encounter Summary ---
Author Organization [facility], Address [address] [place] [address] Phone Care Team Providers Care Unishear Operator Name Role Phone Ramon Grove MD Primary Care Provider [phone] Encounter Details Date Type Department Care Team (Late st Contact Info) Description 09/20/2021 Orders Only [facility], [address] [place] [address] Iam Taylor, [address] [place] [phone] Hypertension; Localized edema Social History Tobacco Use [...] edema documented in this encounter Care Teams Unishear Operator Relationship Specialty Start Date End Date Ramon Grove MD [address] [place] [address] PCP - General Internal Medicine 03/29/19 documented as of this encounter
--- OUTSIDE RECORDS SUMMARY | 2024-07-14 13:08 | XMS_ITS | Encounter Summary ---
Author Organization [facility] Address [address] [place] [address] Care Team Providers Care Equipment Operator Wage Hand Name Role Phone Demond Nash MD Primary Care Provider [phone] Encounter Details Date Type Department Care Team (Late st Contact Info) Description 02/26/2024 Lab Requisition [facility] - Main Lab [address] [place] [address] Rachel Art MD [address] [address] Primary osteoarthritis, right shoulder; Essential (primary) hypertension; [...] Comprehensive metabolic panel (02/29/2024 6:05 AM EST) [facility] Sodium 138 133 - 145 mmol/L LAB CHEMISTRY METHOD 02/29/2024 11:04 AM [facility] Potassium 4.3 3.5 - 5.5 mmol/L LAB CHEMISTRY METHOD 02/29/2024 11:04 AM [facility] Chloride 105 96 - 110 mmol/L LAB CHEMISTRY METHOD 02/29/2024 11:04 AM [facility] CO2 26 21 - 32 mmol/L LAB CHEMISTRY METHOD 02/29/2024 11:04 AM [facility] Anion Gap 7 3 - 11 LAB CHEMISTRY METHOD 02/29/2024 11:04 AM [facility] Glucose 66(L) 70 - 100 mg/dL LAB CHEMISTRY METHOD 02/29/2024 11:04 AM [facility] BUN 11 5 - 25 mg/dL LAB CHEMISTRY METHOD 02/29/2024 11:04 AM [facility] Creatinine 0.80 0.50 - 1.10 mg/dL LAB CHEMISTRY METHOD 02/29/2024 11:04 AM [facility] eGFR 79 >=60 mL/min/1. 73m2 LAB CHEMISTRY METHOD 02/29/2024 11:04 AM [facility] Comment:Calculation based on the??Chronic Kidney Disease Epidemiology Collaboration (CKD-EPI) equation refit??without adjustment for race. BUN/Creatinine Ratio 13.8 LAB CHEMISTRY METHOD 02/29/2024 11:04 AM [facility] Calcium 9.4 8.5 - 10.5 mg/dL LAB CHEMISTRY METHOD 02/29/2024 11:04 AM [facility] AST (SGOT) 14 10 - 42 unit/L LAB CHEMISTRY METHOD 02/29/2024 11:04 AM [facility] ALT (SGPT) 11 10 - 60 unit/L LAB CHEMISTRY METHOD 02/29/2024 11:04 AM [facility] Alkaline Phosphatase 80 42 - 121 unit/L LAB CHEMISTRY METHOD 02/29/2024 11:04 AM [facility] Total Protein 5.7(L) 6.0 - 8.0 g/dL LAB CHEMISTRY METHOD 02/29/2024 11:04 AM [facility] Albumin 2.5(L) 3.2 - 5.0 g/dL LAB CHEMISTRY METHOD 02/29/2024 11:04 AM [facility] Total Bilirubin 0.3 0.0 - 1.4 mg/dL LAB CHEMISTRY METHOD 02/29/2024 11:04 AM [facility] Blood Venous blood specimen / Unknown Venipuncture / Unknown 02/29/2024 6:05 AM EST 02/29/2024 10:09 AM EST us Rachel Art MD LAB BLOOD ORDERABLES Fin al Result [facility] [address] [place] [address], * (ABNORMAL) Complete blood count (02/29/2024 6:05 AM EST) WBC 5.5 4.8 - 10.8 K/mcL LAB HEMETOLOGY METHOD 02/29/2024 10:55 AM [facility] RBC 3.50(L) 3.80 - 4.80 M/mcL LAB HEMETOLOGY METHOD 02/29/2024 10:55 AM [facility] Hemoglobin 9.6(L) 11.5 - 16.0 g/dL LAB HEMETOLOGY METHOD 02/29/2024 10:55 AM [facility] Hematocrit 31.4(L) 35.0 - 47.0 % LAB HEMETOLOGY METHOD 02/29/2024 10:55 AM [facility] MCV 89.5 79.0 - 98.0 FL LAB HEMETOLOGY METHOD 02/29/2024 10:55 AM EST [facility] MCH 27.4 27.0 - 32.0 pcg LAB HEMETOLOGY METHOD 02/29/2024 10:55 AM [facility] MCHC 30.6(L) 32.0 - 37.0 g/dL LAB HEMETOLOGY METHOD 02/29/2024 10:55 AM [facility] RDW 15.9(H) 11.0 - 15.0 % LAB HEMETOLOGY METHOD 02/29/2024 10:55 AM [facility] Platelets 544(H) 130 - 400 K/mcL LAB HEMETOLOGY METHOD 02/29/2024 10:55 AM [facility] MPV 8.9 7.0 - 11.0 FL LAB HEMETOLOGY METHOD 02/29/2024 10:55 AM EST [facility] NRBC 0.0 <1.0 % LAB HEMETOLOGY METHOD 02/29/2024 10:55 AM [facility] NRBC Absolute 0.00 <0.10 K/mcL LAB HEMETOLOGY METHOD 02/29/2024 10:55 AM [facility] Blood Venous blood specimen / Unknown Venipuncture / Unknown 02/29/2024 6:05 AM EST 02/29/2024 10:09 AM EST us Rachel Art MD LAB BLOOD ORDERABLES Fin al Result [facility] [address] [place] [address], documented in this encounter Visit Diagnoses Diagnosis Primary osteoarthritis, right shoulder Essential (primary) hypertension Unspecified essential hypertension Unilateral primary osteoarthritis, right knee documented in this encounter Care Teams Equipment Operator Wage Hand Relationship Specialty Start Date End Date Demond Nash MD [address] [place] [address] PCP - General 07/16/1998 documented as of this encounter
--- OUTSIDE RECORDS SUMMARY | 2024-07-14 13:09 | XMS_ITS | Patient Health Record ---
Author Organization [facility] Address [address] [place] [address] Care Team Providers Care Hide Dyer Name Role Phone Valerie Heart Unavailable [phone] Reason For Referral No Information Medications Medication SIG (Take, Route, Fr equency, Duration) Notes Start Date End Date Status Vagifem 10 MCG 1 VAGINAL twice weekly for -3 [facility] 08/27 Active Loratadine 10MG 1 ORAL daily for -3 [facility] 08/27/2012 Active Furosemide 20MG 1/2 ORAL daily for -3 [facility] 08/27/2012 Active Flonase 50MCG 2 Nasal daily for -3 [facility] 08/27/2012 Active Problems Problem Type SNOMED Code ICD Code Onset Dates Problem Status W/U Status Risk Notes Problem Obesity (308809442) Obesity, unspecified (278.00) Active confirmed Major Problem Carpal tunnel syndrome (96119117) Carpal tunnel syndrome (354.0) Active confirmed Major Problem Allergic rhinitis (95723028) Allergic rhinitis, cause unspecified (477.9) Active confirmed Major Problem Postmenopausal atrophic vaginitis (68995782) Postmenopausal atrophic vaginitis (627.3) Active confirmed Diag Problem Generalized osteoarthritis (disorder) (522114574) Generalized osteoarthrosis, unspecified site (715.00) Active confirmed Major Problem Insomnia (681840987) Insomnia, unspecified (780.52) Active confirmed Major Problem Allergy (277863052) Allergy, unspecified not elsewhere classified (995.3) Active confirmed Diag Problem Gynecological examination normal (574483818068638) Routine gynecological examination (V72.31) Active confirmed Major Problem Screening for malignant neoplasm of colon (992715111) Special screening for malignant neoplasms, colon (V76.51) Active confirmed Major Plan Of Treatment No Information Insurance Providers Payer Name Payer Address Payer Phone Subscriber Number Group Number Insured Name Patient Relationship to Insured Coverage Start Date Coverage End Date [facility] [address] [address] [place] [address] [id number] [employer] GAGE Self - patient is the insured
--- OUTSIDE RECORDS SUMMARY | 2024-07-14 13:09 | XMS_ITS | Clinical Summary ---
Author Organization [address] Address [address] [place] [address] Phone Care Team Providers Care Microfilm Clerk Name Role Phone Demond Nsah MD Primary Care Provider [phone] Surgical History Surgery Date Site/Laterality Comments OTHER [...] mmol/L LAB CHEMISTRY METHOD 02/29/2024 11:04 AM [facility] Potassium 4.3 3.5 - 5.5 mmol/L LAB CHEMISTRY METHOD 02/29/2024 11:04 AM [facility] Chloride 105 96 - 110 mmol/L LAB CHEMISTRY METHOD 02/29/2024 11:04 AM [facility] CO2 26 21 - 32 mmol/L LAB CHEMISTRY METHOD 02/29/2024 11:04 AM [facility] Anion Gap 7 3 - 11 LAB CHEMISTRY METHOD 02/29/2024 11:04 AM [facility] Glucose 66(L) 70 - 100 mg/dL LAB CHEMISTRY METHOD 02/29/2024 11:04 AM [facility] BUN 11 5 - 25 mg/dL LAB CHEMISTRY METHOD 02/29/2024 11:04 AM [facility] Creatinine 0.80 0.50 - 1.10 mg/dL LAB CHEMISTRY METHOD 02/29/2024 11:04 AM [facility] eGFR 79 >=60 mL/min/1. 73m2 LAB CHEMISTRY METHOD 02/29/2024 11:04 AM [facility] Comment:Calculation based on the??Chronic Kidney Disease Epidemiology Collaboration (CKD-EPI) equation refit??without adjustment for race. BUN/Creatinine Ratio 13.8 LAB CHEMISTRY METHOD 02/29/2024 11:04 AM [facility] Calcium 9.4 8.5 - 10.5 mg/dL LAB CHEMISTRY METHOD 02/29/2024 11:04 AM [facility] AST (SGOT) 14 10 - 42 unit/L LAB CHEMISTRY METHOD 02/29/2024 11:04 AM [facility] ALT (SGPT) 11 10 - 60 unit/L LAB CHEMISTRY METHOD 02/29/2024 11:04 AM [facility] Alkaline Phosphatase 80 42 - 121 unit/L LAB CHEMISTRY METHOD 02/29/2024 11:04 AM [facility] Total Protein 5.7(L) 6.0 - 8.0 g/dL LAB CHEMISTRY METHOD 02/29/2024 11:04 AM [facility] Albumin 2.5(L) 3.2 - 5.0 g/dL LAB CHEMISTRY METHOD 02/29/2024 11:04 AM [facility] Total Bilirubin 0.3 0.0 - 1.4 mg/dL LAB CHEMISTRY METHOD 02/29/2024 11:04 AM [facility] Blood Venous blood specimen / Unknown Venipuncture / Unknown 02/29/2024 6:05 AM EST 02/29/2024 10:09 AM EST Rachel Art MD LAB BLOOD ORDERABLES Fin al Result [facility] [address] [place] [address], from Last 3 Months or Most Recently Relevant to Health Maintenance Insurance [employer] Care Teams Microfilm Clerk Relationship Specialty Start Date End Date Demond Nash MD [address] [place] [address] [place] [address] PCP - General 07/16/1998
--- OUTSIDE RECORDS SUMMARY | 2024-07-14 13:09 | XMS_ITS | Encounter Summary ---
Author Organization [facility] Address [address] [place] [address] Care Team Providers Care People Manager Name Role Phone Demond Nash MD Primary Care Provider [phone] Encounter Details Date Type Department Care Team (Late st Contact Info) Description 02/20/2024 Lab Requisition [facility] - Main Lab [address] [place] [address] Rachel Art MD [address] [address] Primary osteoarthritis, right shoulder; Essential (primary) hypertension; [...] mmol/L LAB CHEMISTRY METHOD 02/22/2024 1:14 PM [facility] Potassium 5.0 3.5 - 5.5 mmol/L LAB CHEMISTRY METHOD 02/22/2024 1:14 PM [facility] Comment:Hemolysis present Chloride 106 96 - 110 mmol/L LAB CHEMISTRY METHOD 02/22/2024 1:14 PM [facility] CO2 23 21 - 32 mmol/L LAB CHEMISTRY METHOD 02/22/2024 1:14 PM [facility] Anion Gap 4 3 - 11 LAB CHEMISTRY METHOD 02/22/2024 1:14 PM [facility] Glucose 70 70 - 100 mg/dL LAB CHEMISTRY METHOD 02/22/2024 1:14 PM [facility] BUN 18 5 - 25 mg/dL LAB CHEMISTRY METHOD 02/22/2024 1:14 PM [facility] Creatinine 1.08 0.50 - 1.10 mg/dL LAB CHEMISTRY METHOD 02/22/2024 1:14 PM [facility] eGFR 55(L) >=60 mL/min/1. 73m2 LAB CHEMISTRY METHOD 02/22/2024 1:14 PM [facility] Comment:Calculation based on the??Chronic Kidney Disease Epidemiology Collaboration (CKD-EPI) equation refit??without adjustment for race. BUN/Creatinine Ratio 16.7 LAB CHEMISTRY METHOD 02/22/2024 1:14 PM [facility] Calcium 9.4 8.5 - 10.5 mg/dL LAB CHEMISTRY METHOD 02/22/2024 1:14 PM [facility] AST (SGOT) 26 10 - 42 unit/L LAB CHEMISTRY METHOD 02/22/2024 1:14 PM [facility] ALT (SGPT) 12 10 - 60 unit/L LAB CHEMISTRY METHOD 02/22/2024 1:14 PM [facility] Alkaline Phosphatase 88 42 - 121 unit/L LAB CHEMISTRY METHOD 02/22/2024 1:14 PM EST [facility] Total Protein 6.0 6.0 - 8.0 g/dL LAB CHEMISTRY METHOD 02/22/2024 1:14 PM [facility] Albumin 2.7(L) 3.2 - 5.0 g/dL LAB CHEMISTRY METHOD 02/22/2024 1:14 PM [facility] Total Bilirubin 0.5 0.0 - 1.4 mg/dL LAB CHEMISTRY METHOD 02/22/2024 1:14 PM [facility] Blood Venous blood specimen / Unknown Venipuncture / Unknown 02/22/2024 5:28 AM EST 02/22/2024 11:18 AM EST us Rachel Art MD LAB BLOOD ORDERABLES Fin al Result [facility] [address] [place] [address], * (ABNORMAL) Complete blood count (02/22/2024 5:28 AM EST) WBC 7.2 4.8 - 10.8 K/mcL LAB HEMETOLOGY METHOD 02/22/2024 12:40 PM [facility] RBC 3.20(L) 3.80 - 4.80 M/mcL LAB HEMETOLOGY METHOD 02/22/2024 12:40 PM [facility] Hemoglobin 8.8(L) 11.5 - 16.0 g/dL LAB HEMETOLOGY METHOD 02/22/2024 12:40 PM [facility] Hematocrit 28.7(L) 35.0 - 47.0 % LAB HEMETOLOGY METHOD 02/22/2024 12:40 PM [facility] MCV 90.3 79.0 - 98.0 FL LAB HEMETOLOGY METHOD 02/22/2024 12:40 PM EST [facility] MCH 27.7 27.0 - 32.0 pcg LAB HEMETOLOGY METHOD 02/22/2024 12:40 PM [facility] MCHC 30.7(L) 32.0 - 37.0 g/dL LAB HEMETOLOGY METHOD 02/22/2024 12:40 PM [facility] RDW 15.5(H) 11.0 - 15.0 % LAB HEMETOLOGY METHOD 02/22/2024 12:40 PM [facility] Platelets 568(H) 130 - 400 K/mcL LAB HEMETOLOGY METHOD 02/22/2024 12:40 PM [facility] MPV 9.3 7.0 - 11.0 FL LAB HEMETOLOGY METHOD 02/22/2024 12:40 PM EST [facility] NRBC 0.0 <1.0 % LAB HEMETOLOGY METHOD 02/22/2024 12:40 PM [facility] NRBC Absolute 0.00 <0.10 K/mcL LAB HEMETOLOGY METHOD 02/22/2024 12:40 PM [facility] Blood Venous blood specimen / Unknown Venipuncture / Unknown 02/22/2024 5:28 AM EST 02/22/2024 11:18 AM EST us Rachel Art MD LAB BLOOD ORDERABLES Fin al Result [facility] [address] [place] [address], documented in this encounter Visit Diagnoses Diagnosis Primary osteoarthritis, right shoulder Essential (primary) hypertension Unspecified essential hypertension Unilateral primary osteoarthritis, right knee documented in this encounter Care Teams People Manager Relationship Specialty Start Date End Date Demond Nash MD [address] [place] [address] PCP - General 07/16/1998 documented as of this encounter
--- OUTSIDE RECORDS SUMMARY | 2024-07-14 13:09 | XMS_ITS | Clinical Summary ---
Author Organization [facility], Address [address] [place] [address] [place] [address] Phone Care Team Providers Care Steam Box Hand Name Role Phone Ramon Grove MD Primary Care Provider [phone] Allergies Active Allergy Reactions Criticality Noted Date [...] this topic Insurance [employer] Medicare Care Teams Steam Box Hand Relationship Specialty Start Date End Date Ramon Grove MD [address] [place] [phone] PCP - General Internal Medicine 03/29/19
--- OUTSIDE RECORDS SUMMARY | 2024-07-14 13:09 | XMS_ITS | Encounter Summary ---
Author Organization [facility], Address [address] [place] [address] Phone Care Team Providers Care Manufacturing Engineering Professor Name Role Phone Ramon Grove MD Primary Care Provider Encounter Details Date Type Department Care Team (Late st Contact Info) Description 08/22/2022 Orders Only [facility], [address] [place] [address] Iam Taylor, [address] [place] [phone] Hypertension; Localized edema Social History Tobacco Use [...] (0.5-1.0) MG/DL [facility] Sodium 139 (133-145) MMOL/L [facility] Potassium 4.5 (3.6-5.2) MMOL/L [facility] Chloride 100 (98-107) MMOL/L [facility] Bicarbonate (CO2) 27 (22-29) MMOL/L [facility] Anion Gap 12 (4-17) [facility] Albumin 4.5 (3.4-4.8) GM/DL [facility] Calcium 10.2 (8.6-10.5) MG/DL [facility] Phosphorus, Serum 3.9 (2.5-4.5) MG/DL [facility] Est GFR Non 52 ML/MIN/1.7 3 M2 [facility] Comment: Creatinine based estimated glomerular filtration (eGFR) in adults is calculated using the National Kidney Foundation recommended 2020 CKD-EPI equation. Estimates GFR from serum creatinine, age and sex. Testing performed or reported by [facility], a Service of [facility], [address] [place] [address] Sabino Sheldon MD, [place] Machinist [place]# [id number] Blood (Blood, Venous) 09/19/2022 9:28 AM EDT 09/19/2022 9:32 AM EDT us Iam Taylor DO LAB BLOOD ORDERABLES Final Resu lt [facility] documented in this encounter Visit Diagnoses Diagnosis Hypertension Localized edema documented in this encounter Care Teams Manufacturing Engineering Professor Relationship Specialty Start Date End Date Ramon Grove MD [address] [place] [phone] PCP - General Internal Medicine 03/29/19 documented as of this encounter
--- OUTSIDE RECORDS SUMMARY | 2024-07-14 13:09 | XMS_ITS | Encounter Summary ---
Author Organization [facility], Address [address] [place] [address] Phone Care Team Providers Care Sales Support Administrator Name Role Phone Ramon Grove MD Primary Care Provider [phone] Encounter Details Date Type Department Care Team (Late st Contact Info) Description 02/09/2023 Documentation Only [facility], [address] [place] [address] Iam Taylor, [address] [place] [phone] Social History Tobacco Use Types Packs/Day Years [...] on filedocumented in this encounter Care Teams Sales Support Administrator Relationship Specialty Start Date End Date Ramon Grove MD [address] [place] [phone] PCP - General Internal Medicine 03/29/19 documented as of this encounter
== END 2024-07-14 12:56 | disposition home or self-care (01) ==
LOC: HO.HOS 12:18
PROVIDERS: PCP Internal Medicine; Visit Provider Orthopaedic Surgery
DX: T84.89XA Other specified complication of internal orthopedic prosthetic devices, implants and grafts, initial encounter (principal); M25.669 Stiffness of unspecified knee, not elsewhere classified; Z96.659 Presence of unspecified artificial knee joint
CPT/HCPCS: 99024

== ENCOUNTER → 2024-07-14 12:18 | Outpatient (BNVA) | payer MEDICARE, SELFPAY | PROVIDERS: PCP Internal Medicine; Visit Provider Orthopaedic Surgery | DX: Z47.1 Aftercare following joint replacement surgery (principal); T84.89XA Other specified complication of internal orthopedic prosthetic devices, implants and grafts, initial encounter; M25.661 Stiffness of right knee, not elsewhere classified; Z96.651 Presence of right artificial knee joint | CPT/HCPCS: 99212 ==

== ENCOUNTER 2024-08-22 08:00 | Outpatient (RCR) | payer MEDICARE, OTHER, SELFPAY ==
--- NOTE | 2024-07-15 15:40 | MHC.PT.EP ---
[facility] [place] Office [place] Office [place] Office [address] Esme Kaba [address] [phone] F: [phone] F: [phone] F: [phone] F: [phone] Physical Therapy Plan of Care Date of Evaluation: 07/15/24 Date of Surgery: Diagnosis: PT eval: T84. 89XA Other specified complication of internal orthopedic prosethetic devices, implants and grafts, initial encounter, M25. 669 stiffness of unspecified knee, not elsewhere classified, Z96.659 Presence of unspecified artificial knee joint Post operative stiffness of total knee replacement, status of total knee replacement, status post LUIS ENRIQUE 06/15/24 with NE date of script 06/24/24 Assessment: Pt is a 73 y/o female, referred to PT PT eval: T84. 89XA Other specified complication of internal orthopedic prosthetic devices, implants and grafts, initial encounter, M25. 669 stiffness of unspecified knee, not elsewhere classified, Z96.659 Presence of unspecified artificial knee joint Post operative stiffness of total knee replacement, status of total knee replacement, status post LUIS ENRIQUE 06/15/24 with NE date of script 06/24/24 Pt s/p history of R TKA 02/09/24> went to rehab DC home 03/01/24>home health PT> outpatient PT at [facility] 03/24/23-05/23/24 x 10 sessions, 3 cancellations) LUIS ENRIQUE 06/15/24. Pt was offered appts for PT post LUIS ENRIQUE but had history of cancelling appts (pt notes going out of state for daughter graduation out of state 07/05/24-07/12/24 and delayed getting PT due to that. Pt was noted to RS her initial consult PT appt for 07/13/24 at [facility] showed up at wrong office and was RS for 07/15/24. Pt was seen for initial eval on 07/15/24, AROM -18 ext to 83 degrees. Pt was noted to exhibit guarded knee flexion during functional transfers, reporting anterior ankle pain pain and back pain. Pt rates pain as 10/10, reports use of tramadol and oxycodone prn. Pt states she has resumed driving and presents to PT without AD. Pt admits she has not been performing any form of exercise program. We discussed benefit in joining a gym for AAROM with the bike (had good tolerance in the office). She was advised re: use of AAROM rocking> prior to full revolution on the bike to aide in ROM and the benefit of consistent bending of the bike to aide in ROM. We discussed the plan for PT and plan for therapist inquiry to Dr. Del Rosario about his thoughts potentials of a iza-splint for aide in knee flexion. Pt will attend PT twice weekly with focus on aggressive ROM/strength goals. Pt was educated re: goals of PT, findings of evaluation. Pt verbalized understanding post completion of education completed during PT session. PMH significant for: Postoperative stiffness of total knee replacement (Acute) Status post total knee replacement, right 02/09/24 Bilateral shoulder region arthritis History of total right hip replacement (Acute ~08/05/23) Weakness Chronic sinusitis Situational anxiety Seasonal allergies Osteoarthritis GERD (gastroesophageal reflux disease) HTN (hypertension) PMR (polymyalgia rheumatica) Osteoporosis HTN (hypertension) Joint pain Right shoulder pain Left shoulder pain Arthritis of right knee Arthritis of left knee Right knee pain Left knee pain Osteoarthritis Oral herpes GERD (gastroesophageal reflux disease) Environmental allergies Edema Chronic sinusitis Arthritis of right hip Right hip pain PMR (polymyalgia rheumatica) Osteoporosis Frequency and Duration: The patient will be seen 2x/week x 3-4 weeks Short Term Goals: 1. AAROM R knee ext to -10. (IR: -18 degrees). 2. AAROM R knee flexion to 90. (IR: 83 in supine). 3. Demonstrate symmetrical weight-bearing during ambulation. (IR: weight shifted to the left, c/o R ankle pain anteriorly). 4. Educate patient in compliance with HEP program to make strides. (IR: pt acknowledges poor compliance with HEP in history). 5. Assist pt in Obtaining a dynasplint for aide in AAROM knee flexion if Dr. Del Rosario is in favor. (IR: not splinting). 6. EDUCATE PATIENT IN NEED FOR COMPLIANCE TO MAKE STRIDES IN PROGRESS. (IR; ADMITS HAS NOT BEEN DOING ACTIVE HEP). Halfway Goals: 1. AAROM>AROM R knee flexion to 95 (pt states Dr. Del Rosario told her this was a LTG). 2. AAROM>AROM 0 degrees knee ext. (IR: AROM -18 on R). 3. Community ambulation MOD I with reduction in knee pain by 25%. (NO AD, 10/10 pain noted in R knee). 4. Ascend/descend stairs reciprocally with good dynamic balance. (IR: step to, heavy reliance on cane). 5. Join gym for stationary bike (IR; no gym membership/HEP being performed, post eval in therapy was able to get to 90 flexion R knee with AAROM of seat reclined) Treatment Plan: Modalities to reduce pain, spasms and effusion. Manual therapy to restore motion and function. Therapeutic exercise to improve strength and flexibility. Neuromuscular re-education for posture and balance. Therapeutic activities to return to functional activities of daily living. Electronically signed by: Yolanda Chris, PT, DPT Please sign and return to therapist. Thank you for your referral.
== END 2024-09-30 15:07 | disposition home or self-care (01) ==
LOC: HO.PTS 08:00
PROVIDERS: Visit Provider Physician Assistant
DX: T84.89XD Other specified complication of internal orthopedic prosthetic devices, implants and grafts, subsequent encounter (principal); M25.669 Stiffness of unspecified knee, not elsewhere classified; Z96.659 Presence of unspecified artificial knee joint
CPT/HCPCS: 97110; 97140; 97162; 97535

== ENCOUNTER 2024-10-17 10:16 | Outpatient (AMB) | payer MEDICARE, SELFPAY ==
--- NOTE | 2024-10-17 10:20 | MHC.OFFVIS ---
Intake Visit Reasons: OV - Right knee LUIS ENRIQUE 06/15/24 Intake Note: Zina is a 73 year old female who presents today for a post operative appointment about 4 months s/p Right Knee LUIS ENRIQUE 06/15/24. Right TKA 02/09/24. We attempted to order a Dynasplint, but patient refused to utilize the device. Currently she complaints of continued stiffness. Allergies Sulfa (Sulfonamide Antibiotics) Allergy (Severe, Verified 07/14/24 12:25) Anaphylaxis HPI HPI OV - Right knee LUIS ENRIQUE 06/15/24: Details: Zina is a 73 year old female who presents today for a post operative appointment about 4 months s/p Right Knee LUIS ENRIQUE 06/15/24. Right TKA 02/09/24. We attempted to order a Dynasplint, but patient refused to utilize the device. Currently she complaints of continued stiffness. She notes however that she has returned to work and she feels better. She can walk up and downstairs. She has minimal pain in her right knee. Her primary pain complaint today is her left knee. She has known left knee osteoarthritis. [facility] Medical History Weakness Chronic sinusitis Situational anxiety Seasonal allergies Osteoarthritis GERD (gastroesophageal reflux disease) HTN (hypertension) PMR (polymyalgia rheumatica) Osteoporosis HTN (hypertension) Surgical History History of knee replacement History of total right hip arthroplasty (08/05/23) Hx of colonoscopy (~2008) Hx of section (1984) History of arthroscopy of right shoulder (~2010) Social History Household Members: None Household Members Other:: [facility] Housing: House Are you a primary managed care specialist to a significant other at home: No Do you presently have visiting nurse or other home services: No Comment: right hip Patient Tobacco Use Status: Never used Tobacco service: No Physical Exam Extrem Other: Right knee arthroplasty incision clean dry and intact. 0-90 degrees of motion right knee Stable arc of motion right knee Left knee with tenderness to palpation of the lateral compartment and zmdc-ns-geikbcqu effusion. Office Procedures Joint Inj/Aspir; Non-Pain Clin Joint Injection/Drain Details: Injected 1 mL of Decadron and 3 mL 1% lidocaine and 3 mL of 0.25% Marcaine. Site was prepped using aseptic technique. Patient tolerated the procedure well. Shoulders, Hips, Knees, Knee Large Joint Injection : Left Knee Coding Procedure code (CPT) selection complete Assessment & Plan Assessment & Plan (1) Status post total knee replacement, right: Code(s): Z96.651 - Presence of right artificial knee joint Category: Surgical Plan: Zina as stiffness status post right knee replacement with flexion to 90 degrees. She is doing remarkably well considering and I do not believe that continued activity we will change her motion. Theoretically she could go undergo a Soria revision surgery but I do not recommend that. She does not want that either. She will continue to engage in daily activities. (2) Arthritis of left knee: Code(s): M17.12 - Unilateral primary osteoarthritis, left knee Category: Medical Plan: Left knee osteoarthritis. Injected left knee. May follow up as needed. Coding Level of Care Code Est Pt Level 3 (08037) Complex EM visit Add On G2211 Diagnoses Status post total knee replacement, right Z96.651 Arthritis of left knee M17.12 CPT Codes Shoulders, Hips, Knees, - Knee Large Joint Injection : Left Knee ([id number])
--- OUTSIDE RECORDS SUMMARY | 2024-10-17 11:17 | XMS_ITS | Clinical Summary ---
Author Organization [facility] Address [address] [place] [address] Care Team Providers Care Uniformer Name Role Phone Jarod Wu MD Primary Care Provider [phone] Allergies Active Allergy Reactions Criticality Noted Date [...] (two) times a day. 0 Active b lrajeyr-P-yyjbc acid 1 MG capsule Take 1 capsule [...] series) 05/04/2018 03/09/2018, 04/06/2017 Influenza Vaccine (#1) 2024 1, 10/26/2019, 10/26/2019, Additional history exists DTap / Tdap / Td (2 - Td or Tdap) 02/26/2025 02/26/2015, 04/19/2003 RSV Adult > 60+ Yrs or (1 - 1-dose 75+ series) 12/31/2027 RSV Ped < 20 months Aged Out No longe r eligible based on patient's age to complete this topic Care Teams Uniformer Relationship Specialty Start Date End Date Jarod Wu MD [address] [place] [id number] PCP - General Internal Medicine 07/17/21
--- OUTSIDE RECORDS SUMMARY | 2024-10-17 11:17 | XMS_ITS | Patient Health Record ---
Author Organization [facility] Address [address] [place] [address] Care Team Providers Care Adhesive Primer Name Role Phone Valerie Heart Unavailable [phone] Reason For Referral No Information Medications Medication SIG (Take, Route, Fr equency, Duration) Notes Start Date End Date Status Vagifem 10 MCG 1 VAGINAL twice week ly; Duration: -3 [facility] 08/27/2012 Active Loratadine 10MG 1 ORAL daily; Duration: -3 [facility] 013 Active Furosemide 20MG 1/2 ORAL daily; Duration: -3 [facility] 08/27 Active Flonase 50MCG 2 Nasal daily; Duration: -3 [facility] 08/28/19 13 Active Problems Problem Type SNOMED Code ICD Code Onset Dates Problem Status W/U Status Risk Notes Problem Obesity (761491725) Obesity, unspecified (278.00) Active confirmed Major Problem Carpal tunnel syndrome (13156554) Carpal tunnel syndrome (354.0) Active confirmed Major Problem Allergic rhinitis (89704495) Allergic rhinitis, cause unspecified (477.9) Active confirmed Major Problem Postmenopausal atrophic vaginitis (43777335) Postmenopausal atrophic vaginitis (627.3) Active confirmed Diag Problem Generalized osteoarthritis (disorder) (241192704) Generalized osteoarthrosis, unspecified site (715.00) Active confirmed Major Problem Insomnia (028704575) Insomnia, unspecified (780.52) Active confirmed Major Problem Allergy (148682155) Allergy, unspecified not elsewhere classified (995.3) Active confirmed Diag Problem Gynecological examination normal (066895944604188) Routine gynecological examination (V72.31) Active confirmed Major Problem Screening for malignant neoplasm of colon (448192783) Special screening for malignant neoplasms, colon (V76.51) Active confirmed Major Plan Of Treatment No Information Insurance Providers Payer Name Payer Address Payer Phone Subscriber Number Group Number Insured Name Patient Relationship to Insured Coverage Start Date Coverage End Date [facility] [address] [address] [place] [address] [id number] DONE[employer] GAGE Self - patient is the insured
--- OUTSIDE RECORDS SUMMARY | 2024-10-17 11:17 | XMS_ITS | Encounter Summary ---
Author Organization [employer] Address [address] [place] [address] Care Team Providers Care Tractor Drill Operator Name Role Phone Demond Nash MD Primary Care Provider [phone] Encounter Details Date Type Department Care Team (Late st Contact Info) Description 02/26/2024 Lab Requisition [facility] - Main Lab [address] [place] [address] Rachel Art MD [address] [address] Primary osteoarthritis, right shoulder; Essential (primary) hypertension; [...] Comprehensive metabolic panel (02/29/2024 6:05 AM EST) [facility] Signature Sodium 138 133 - 145 mmol/L LAB CHEMISTRY METHOD 02/29/2024 11:04 AM [facility] Potassium 4.3 3.5 - 5.5 mmol/L LAB CHEMISTRY METHOD 02/29/2024 11:04 AM [facility] Chloride 105 96 - 110 mmol/L LAB CHEMISTRY METHOD 02/29/2024 11:04 AM [facility] CO2 26 21 - 32 mmol/L LAB CHEMISTRY METHOD 02/29/2024 11:04 AM [facility] Anion Gap 7 3 - 11 LAB CHEMISTRY METHOD 02/29/2024 11:04 AM [facility] Glucose 66(L) 70 - 100 mg/dL LAB CHEMISTRY METHOD 02/29/2024 11:04 AM [facility] BUN 11 5 - 25 mg/dL LAB CHEMISTRY METHOD 02/29/2024 11:04 AM [facility] Creatinine 0.80 0.50 - 1.10 mg/dL LAB CHEMISTRY METHOD 02/29/2024 11:04 AM [facility] eGFR 79 >=60 mL/min/1. 73m2 LAB CHEMISTRY METHOD 02/29/2024 11:04 AM [facility] Comment:Calculation based on the Chronic Kidney Disease Epidemiology Collaboration (CKD-EPI) equation refit without adjustment for race. BUN/Creatinine Ratio 13.8 LAB CHEMISTRY METHOD 02/29/2024 11:04 AM [facility] Calcium 9.4 8.5 - 10.5 mg/dL LAB CHEMISTRY METHOD 02/29/2024 11:04 AM [facility] AST (SGOT) 14 10 - 42 unit/L LAB CHEMISTRY METHOD 02/29/2024 11:04 AM [facility] ALT (SGPT) 11 10 - 60 unit/L LAB CHEMISTRY METHOD 02/29/2024 11:04 AM [facility] Alkaline Phosphatase 80 42 - 121 unit/L LAB CHEMISTRY METHOD 02/29/2024 11:04 AM [facility] Total Protein 5.7(L) 6.0 - 8.0 g/dL LAB CHEMISTRY METHOD 02/29/2024 11:04 AM [facility] Albumin 2.5(L) 3.2 - 5.0 g/dL LAB CHEMISTRY METHOD 02/29/2024 11:04 AM [facility] Total Bilirubin 0.3 0.0 - 1.4 mg/dL LAB CHEMISTRY METHOD 02/29/2024 11:04 AM [facility] Blood Venous blood specimen / Unknown Venipuncture / Unknown 02/29/2024 6:05 AM EST 02/29/2024 10:09 AM EST us Rachel Art MD LAB BLOOD ORDERABLES Fin al Result [facility] [address] [place] [address], * (ABNORMAL) Complete blood count (02/29/2024 6:05 AM EST) WBC 5.5 4.8 - 10.8 K/mcL LAB HEMETOLOGY METHOD 02/29/2024 10:55 AM [facility] RBC 3.50(L) 3.80 - 4.80 M/mcL LAB HEMETOLOGY METHOD 02/29/2024 10:55 AM [facility] Hemoglobin 9.6(L) 11.5 - 16.0 g/dL LAB HEMETOLOGY METHOD 02/29/2024 10:55 AM [facility] Hematocrit 31.4(L) 35.0 - 47.0 % LAB HEMETOLOGY METHOD 02/29/2024 10:55 AM [facility] MCV 89.5 79.0 - 98.0 FL LAB HEMETOLOGY METHOD 02/29/2024 10:55 AM EST [facility] MCH 27.4 27.0 - 32.0 pcg LAB HEMETOLOGY METHOD 02/29/2024 10:55 AM [facility] MCHC 30.6(L) 32.0 - 37.0 g/dL LAB HEMETOLOGY METHOD 02/29/2024 10:55 AM [facility] RDW 15.9(H) 11.0 - 15.0 % LAB HEMETOLOGY METHOD 02/29/2024 10:55 AM [facility] Platelets 544(H) 130 - 400 K/mcL LAB HEMETOLOGY METHOD 02/29/2024 10:55 AM [facility] MPV 8.9 7.0 - 11.0 FL LAB HEMETOLOGY METHOD 02/29/2024 10:55 AM EST [facility] NRBC 0.0 <1.0 % LAB HEMETOLOGY METHOD 02/29/2024 10:55 AM [facility] NRBC Absolute 0.00 <0.10 K/mcL LAB HEMETOLOGY METHOD 02/29/2024 10:55 AM [facility] Blood Venous blood specimen / Unknown Venipuncture / Unknown 02/29/2024 6:05 AM EST 02/29/2024 10:09 AM EST us Rachel Art MD LAB BLOOD ORDERABLES Fin al Result [facility] [address] [place] [address], documented in this encounter Visit Diagnoses Diagnosis Primary osteoarthritis, right shoulder Essential (primary) hypertension Unspecified essential hypertension Unilateral primary osteoarthritis, right knee documented in this encounter Care Teams Tractor Drill Operator Relationship Specialty Start Date End Date Demond Nash MD [address] [place] [id number] PCP - General 07/16/1998 documented as of this encounter
--- OUTSIDE RECORDS SUMMARY | 2024-10-17 11:17 | XMS_ITS | Encounter Summary ---
Author Organization [facility], Address [address] [place] [address] Phone Care Team Providers Care Design Architect Name Role Phone Ramon Grove MD Primary Care Provider [phone] Encounter Details Date Type Department Care Team (Late st Contact Info) Description 08/07/2022 Documentation Only [facility], [address] [place] [address] I[facility], [address] [place] [id number] Social History Tobacco Use Types Packs/Day Years [...] on filedocumented in this encounter Care Teams Design Architect Relationship Specialty Start Date End Date Ramon Grove MD [address] [place] [phone] PCP - General Internal Medicine 03/29/19 documented as of this encounter
== END 2024-10-17 10:51 | disposition home or self-care (01) ==
LOC: HO.HOS 10:17
PROVIDERS: PCP Internal Medicine; Visit Provider Orthopaedic Surgery
DX: M25.661 Stiffness of right knee, not elsewhere classified (principal); Z96.651 Presence of right artificial knee joint; M17.12 Unilateral primary osteoarthritis, left knee
CPT/HCPCS: 20610; 99213

== ENCOUNTER → 2024-10-17 10:16 | Outpatient (BNVA) | payer MEDICARE, SELFPAY | PROVIDERS: PCP Internal Medicine; Visit Provider Orthopaedic Surgery | DX: M17.12 Unilateral primary osteoarthritis, left knee (principal); Z96.651 Presence of right artificial knee joint | CPT/HCPCS: 20610; 99212; J0665; J1100; J2003 ==